=== PATIENT | male | born 1960 | race Two or more races ===

== ENCOUNTER 2022-10-08 20:33 | Inpatient (IN) | payer MEDICAID, OTHER ==
[~2022-10-08] VITALS: Ht 167.6 cm; Wt 52.6 kg
--- NOTE | 2022-10-08 20:53 | NUR ---
INFLUENZA SWAB AND COVID 19 SWAB COLLECTED AND SENT TO LAB.
[2022-10-08] MEDS ORDERED: ACETAMINOPHEN 650 MG/SUPP.RECT RC ONE ×3 (20:56→21:00)
[2022-10-08] MEDS ORDERED: KETOROLAC TROMETHAMINE INJ 30 MG/ML VIAL ONE ×2 (20:56→21:00)
[2022-10-08] MEDS ORDERED: KETOROLAC TROMETHAMINE INJ 30 MG/ML VIAL IV ONE (21:00)
--- NOTE | 2022-10-08 21:01 | NUR ---
ER SALESPERSON MEN'S FURNISHINGS AT BEDSIDE FOR BLOOD DRAW
--- NOTE | 2022-10-08 21:26 | NUR ---
BLOOD AND CULTURES COLLECTED
[2022-10-08 21:34] LABS: BASOPHILS % (AUTO) 0.3 % (0.0-2.0); EOSINOPHILS % (AUTO) 17.1 % (0.0-6.0); HEMATOCRIT 37 % (39-51); HEMOGLOBIN 11.8 g/dL (13.5-17.5); LYMPHOCYTES # (AUTO) 0.6 K/uL (0.8-4.8); LYMPHOCYTES % (AUTO) 5.5 % (20.0-44.0); MEAN CORPUSCULAR HGB CONC 32 g/dl (31.0-36.0); MEAN CORPUSCULAR VOLUME 88 fL (80-96); MONOCYTES # (AUTO) 1.3 K/uL (0.1-1.30); MONOCYTES % (AUTO) 11.6 % (2.0-12.0); NEUTROPHILS # (AUTO) 7.1 K/uL (1.8-8.9); NEUTROPHILS % (AUTO) 65.5 % (43.0-81.0); PLATELET COUNT (AUTO) 337 K/uL (150-450); RED BLOOD CELL COUNT(AUTO) 4.21 MIL/uL (4.5-6.0); WHITE BLOOD COUNT (AUTO) 10.8 K/uL (4.3-11.0)
[2022-10-08 22:08] LABS: ALANINE AMINOTRANSFERASE 27 U/L (12-78); ALBUMIN 2.6 g/dL (3.4-5.0); ALKALINE PHOSPHATASE 129 U/L (46-116); ASPARTATE AMINOTRANSFERASE 24 U/L (15-37); BILIRUBIN,TOTAL 0.4 mg/dL (0.2-1.0); CALCIUM, SERUM 8.7 mg/dL (8.5-10.1); CARBON DIOXIDE 31 mmol/L (21-32); CHLORIDE 104 mmol/L (98-107); GLUCOSE 112 mg/dL (74-106); POTASSIUM 4.6 mmol/L (3.5-5.1); SODIUM SERUM 141 mmol/L (136-145); TOTAL PROTEIN, SERUM 8.4 g/dL (6.4-8.2); UREA NITROGEN, BLOOD 27 mg/dL (7-18)
[2022-10-08] MEDS ORDERED: PIPERACILLIN /TAZOBACTAM 3.375 G in IV D5W 50 ML IV ONE (22:30)
[2022-10-08] MEDS ORDERED: IV NS 0.9% 1,000 ML BAG IV ONE ×2 (22:30→23:00)
[2022-10-08] MEDS ORDERED: PIPERACILLIN /TAZOBACTAM 3.375 G VIAL IV ONE (22:41)
--- NOTE | 2022-10-08 23:41 | NUR ---
REPORT GIVEN TO JEAN SORIANO
[2022-10-09] MEDS ORDERED: ONDANSETRON HCL/PF 4 MG/2 ML VIAL IVP PRN
[2022-10-09] MEDS ORDERED: HYDROCODONE/APAP 5/325MG TABLET GT PRN
[2022-10-09] MEDS ORDERED: MAGNESIUM HYDROXIDE 30 ML UDC PO PRN
[2022-10-09] MEDS ORDERED: ACETAMINOPHEN 650 MG/SUPP.RECT RC PRN
[2022-10-09] MEDS ORDERED: Z GUARD REMEDY 4 OZ OINT TP PRN
[2022-10-09] MEDS ORDERED: MORPHINE SULFATE INJ 4 MG/ML DISP.SYRIN IV PRN (00:30)
[2022-10-09] MEDS: IV NS 0.9% 1,000 ML IV PRN ×2 (00:39→13:40)
--- NOTE | 2022-10-09 00:40 | NUR ---
RN NOTE RECEIVED CRITICAL LAB FOR LACTIC ACID 2.3 MD MADE AWARE.
--- NOTE | 2022-10-09 00:40 | NUR ---
RN NOTE RECEIVED PT IN [facility] FROM ER VIA ACLS PROTOCOLS. PT WAS AWAKE, BUT NON VERBAL. PT BEING ADMITTED IN TELEMETRY WITH THE DX OF COVID-19 AND SECONDARY DX SEPSIS. PT IN TPC, TOLERATING WELL. NO S/SX OF ACUTE RESPI DISTRESS NOTED AT THIS TIME. TELE MONITOR READ ST WITH HR IN THE 100S. O2 SAT @ >95%. IV ACCESS IN RAC #18G NOTED. PT WITH GT, CLAMPED. SKIN IS INTACT. ALL SAFETY MEASURES IN PLACE: BED LOCKED IN LOW POSITION. BED ALARM ON. SR UP X 3. CALL LIGHT WITHIN REACH. WILL CONTINUE TPO MONITOR PT.
[2022-10-09] MEDS: ENOXAPARIN SODIUM 40 MG/0.4 ML DISP.SYRIN SQ SCH ×2 (00:55→21:21)
[2022-10-09] MEDS ORDERED: CEFEPIME 1 GM VIAL ONE (01:07)
[2022-10-09] MEDS: CEFEPIME 1 GM in IV D5W 50 ML IV SCH ×2 (01:14→04:25)
[2022-10-09 04:00] VITALS: BP 100/64
--- NOTE | 2022-10-09 05:21 | NUR ---
RN NOTE PT REMAINED STABLE T/O THE NIGHT. ST ON TELE MONITOR. ON BILATERAL SOFT WRIST RESTRAINTS DUE TO PULLING OF TPC AND IV LINE. DUE MEDS GIVEN. NEEDS ATTENDED TO. TURNED AND REPOSITIONED. WILL ENDORSE TO AM SHIFT NURSE FOR THOR.
[2022-10-09 06:59] LABS: BASOPHILS % (AUTO) 0.5 % (0.0-2.0); EOSINOPHILS % (AUTO) 11.7 % (0.0-6.0); HEMATOCRIT 35 % (39-51); LYMPHOCYTES # (AUTO) 0.6 K/uL (0.8-4.8); LYMPHOCYTES % (AUTO) 8.5 % (20.0-44.0); MEAN CORPUSCULAR HGB CONC 32 g/dl (31.0-36.0); MEAN CORPUSCULAR VOLUME 87 fL (80-96); NEUTROPHILS # (AUTO) 4.8 K/uL (1.8-8.9); NEUTROPHILS % (AUTO) 65.3 % (43.0-81.0); PLATELET COUNT (AUTO) 322 K/uL (150-450); RED BLOOD CELL COUNT(AUTO) 3.99 MIL/uL (4.5-6.0); WHITE BLOOD COUNT (AUTO) 7.4 K/uL (4.3-11.0)
[2022-10-09 07:08] LABS: CALCIUM, SERUM 8.2 mg/dL (8.5-10.1); CREATININE 0.8 mg/dL (0.6-1.3); PHOSPHORUS 4.2 mg/dL (2.5-4.9); POTASSIUM 4.1 mmol/L (3.5-5.1)
--- NOTE | 2022-10-09 07:30 | NUR ---
RN Receiving Report. Patient not able to express his concerns, not able to assess pts mental status. All safety precaution taken, call light and table within reach, bed at lowest position. Patient with no signs of distress or discomfort, discussed plan on care, pt not able to signal a yes or no answer. RT made aware of patients need and they will continue to provide Respiratory care. Will continue to provide care as needed and administered medications as prescribed.
[2022-10-09 08:00] VITALS: BP 113/90
[2022-10-09] MEDS ORDERED: METO25TA20 GT (08:05)
[2022-10-09] MEDS ORDERED: LACT-96 GT (08:05)
[2022-10-09] MEDS ORDERED: QUET25TA GT (08:05)
[2022-10-09] MEDS ORDERED: LOSA100T31 GT (08:05)
[2022-10-09] MEDS ORDERED: NUTR1PAC14 GT (08:05)
[2022-10-09] MEDS ORDERED: ACET-2605 GT (08:05)
[2022-10-09] MEDS ORDERED: MAGN400O6 GT (08:05)
[2022-10-09] MEDS ORDERED: OMEP20CA15 GT (08:05)
[2022-10-09] MEDS ORDERED: BISA10SU11 RC (08:05)
[2022-10-09] MEDS ORDERED: ACET-868 GT (08:05)
[2022-10-09] MEDS ORDERED: NA P133E RC (08:05)
[2022-10-09] MEDS ORDERED: DOCU-141 GT (08:05)
[2022-10-09] MEDS ORDERED: CHLO473M5 MM (08:05)
[2022-10-09] MEDS ORDERED: HYDR-4075 GT (08:05)
[2022-10-09] MEDS ORDERED: VALP250S4 GT (08:05)
[2022-10-09] MEDS ORDERED: IPRA4AER IH ×2 (08:05)
[2022-10-09] MEDS ORDERED: PANTOPRAZOLE 40 MG VIAL IV SCH (09:00)
[2022-10-09] MEDS: DEXAMETHASONE SOD PHOSPHATE 10 MG/ML VIAL IV SCH (11:31)
[2022-10-09 12:00] VITALS: BP 129/73
[2022-10-09] MEDS: CEFEPIME 2 GM in IV D5W 100 ML IV SCH ×2 (13:40→21:21)
[2022-10-09] MEDS ORDERED: hydrALAZINE HCL 10 MG TABLET GT PRN (15:30)
[2022-10-09] MEDS ORDERED: ACETAMINOPHEN 325 MG TABLET MC PRN ×2 (15:30)
[2022-10-09 16:00] VITALS: BP 120/86
[2022-10-09] MEDS: METOPROLOL TARTRATE 25 MG TABLET GT SCH (16:18)
[2022-10-09] MEDS: QUETIAPINE FUMARATE 25 MG TABLET GT SCH (16:18)
--- NOTE | 2022-10-09 18:38 | NUR ---
RN Closing Note Not able to assess pts mental status. Patient not able to express his concern, rounded every hour as needed.Patient not able to nod responses, turns to touch. No signs of IV infiltration, no respiratory distress, RT monitored and provided care as needed. Patient remained stable thorough shift. All medications administered as ordered. Care provided as needed and requested.
[2022-10-09 20:00] VITALS: BP 97/53
--- NOTE | 2022-10-09 20:00 | NUR ---
RN NOTE RECEIVED PT IN BED, OPEN EYES TO STIMULI, NONVERBAL. ON ON O2 TPC AT 4L. NO SIGNS OF DISTRESS OR DISCOMFORT NOTED. SR ON TELE MONITOR. GT INTACT AND PATENT. WILL CONTINUE TO MONITOR.
[2022-10-09] MEDS: VALPROIC ACID 250 MG/5 ML UDC GT SCH (21:22)
[2022-10-10] VITALS: BP 89/63
[2022-10-10 04:00] VITALS: BP 105/80
[2022-10-10] MEDS: CEFEPIME 2 GM in IV D5W 100 ML IV SCH ×3 (04:35→20:41)
[2022-10-10] MEDS: IV NS 0.9% 1,000 ML IV PRN ×2 (04:41→19:24)
--- NOTE | 2022-10-10 07:30 | NUR ---
RN OPENING NOTES RECEIVED REPORT FROM NIGHTSHIFT RN. PATIENT IN ON 4 LITERS VIA T-PIECE. NONVERBAL PATIENT. OPERATIONS DEVELOPER READING NORMAL SINUS RHYTHM. BILATERAL WRIST RESTRAINTS NOTED, DISTAL CIRCULATION IS WITHIN NORMAL LIMITS. GASTRIC TUBE CLAMPED, AWAITING ORDER FROM PHYSICIAN TO BEGIN TUBE FEEDING. IV ACCESS' ON RIGHT ANTECUBITAL AND RIGHT HAND, BOTH 20 GAUGE, AND BOTH FLUSHING EASILY WITHOUT RESISTANCE. SAFETY MEASURES IMPLEMENTED, WILL CONTINUE PLAN OF CARE AND ANTICIPATE NEEDS.
--- NOTE | 2022-10-10 07:41 | NUR ---
RN NOTE PT TOLERATES O2 AT 4L VIA TPIECE. NO SIGNS OF DISTRESS O2 SAT AT 98%. SR ON TELE MONITOR. REMAIN AFEBRILE. ENDORSED TO [facility] NURSE FOR THOR.
[2022-10-10 08:00] VITALS: BP 118/70
[2022-10-10 08:09] LABS: BASOPHILS % (AUTO) 0.2 % (0.0-2.0); HEMATOCRIT 37 % (39-51); HEMOGLOBIN 11.7 g/dL (13.5-17.5); LYMPHOCYTES # (AUTO) 1.3 K/uL (0.8-4.8); LYMPHOCYTES % (AUTO) 11.4 % (20.0-44.0); MEAN CORPUSCULAR HGB CONC 31 g/dl (31.0-36.0); MEAN CORPUSCULAR VOLUME 88 fL (80-96); MONOCYTES # (AUTO) 1.4 K/uL (0.1-1.30); NEUTROPHILS # (AUTO) 8.9 K/uL (1.8-8.9); NEUTROPHILS % (AUTO) 76.4 % (43.0-81.0); PLATELET COUNT (AUTO) 329 K/uL (150-450); RED BLOOD CELL COUNT(AUTO) 4.27 MIL/uL (4.5-6.0); WHITE BLOOD COUNT (AUTO) 11.6 K/uL (4.3-11.0)
[2022-10-10 08:16] LABS: CALCIUM, SERUM 8.4 mg/dL (8.5-10.1); CREATININE 0.8 mg/dL (0.6-1.3); MAGNESIUM 2.2 mg/dL (1.8-2.4); PHOSPHORUS 3.1 mg/dL (2.5-4.9); POTASSIUM 4.2 mmol/L (3.5-5.1)
[2022-10-10] MEDS ORDERED: OMEPRAZOLE 20 MG CAPSULE.DR GT SCH (09:00)
[2022-10-10] MEDS: VALPROIC ACID 250 MG/5 ML UDC GT SCH ×2 (09:24→20:41)
[2022-10-10] MEDS: METOPROLOL TARTRATE 25 MG TABLET GT SCH ×2 (09:27→16:35)
[2022-10-10] MEDS: LOSARTAN POTASSIUM 50 MG TABLET GT SCH (09:27)
[2022-10-10] MEDS: QUETIAPINE FUMARATE 25 MG TABLET GT SCH ×2 (09:27→16:34)
[2022-10-10] MEDS: DOCUSATE SODIUM 100 MG CAPSULE PO SCH (09:27)
[2022-10-10] MEDS: DEXAMETHASONE SOD PHOSPHATE 10 MG/ML VIAL IV SCH (09:27)
[2022-10-10] MEDS: PANTOPRAZOLE 40 MG/PACK PACK GT SCH (09:27)
[2022-10-10 12:00] VITALS: BP 94/73
[2022-10-10 16:00] VITALS: BP 97/74
--- NOTE | 2022-10-10 18:41 | NUR ---
RN CLOSING NOTES PATIENT ON 4 LITERS VIA T-PIECE. NONVERBAL PATIENT. SPINNING FRAME TENDER READING NORMAL SINUS RHYTHM. BILATERAL WRIST RESTRAINTS NOTED, DISTAL CIRCULATION IS WITHIN NORMAL LIMITS. GASTRIC TUBE CLAMPED, AWAITING ORDER FROM PHYSICIAN TO BEGIN TUBE FEEDING. IV ACCESS' ON RIGHT ANTECUBITAL AND RIGHT HAND, BOTH 20 GAUGE, AND BOTH FLUSHING EASILY WITHOUT RESISTANCE. SAFETY MEASURES IMPLEMENTED, WILL ENDORSE TO NIGHTSHIFT RN FOR CONTINUATION OF CARE.
--- NOTE | 2022-10-10 19:48 | NUR ---
FRONT DESK OPENING NOTES RECEIVED PATIENT AWAKE ON BED, ON 4 LITERS VIA T-PIECE. NONVERBAL PATIENT. NEEDLE PUNCH OPERATOR READING NORMAL SINUS RHYTHM. BILATERAL WRIST RESTRAINTS NOTED, DISTAL CIRCULATION IS WITHIN NORMAL LIMITS. NOTED WITH GASTRIC TUBE CLAMPED, WILL FOLLOW UP MD TO BEGIN FEEDING. IV ACCESS' ON RIGHT ANTECUBITAL AND RIGHT HAND, BOTH 20 GAUGE, AND BOTH FLUSHING EASILY WITHOUT RESISTANCE. SAFETY MEASURES IMPLEMENTED, BED ALARM ON, WILL CONTINUE TO MONITOR THROUGHOUT THE SHIFT.
[2022-10-10 20:00] VITALS: BP 118/75
[2022-10-10] MEDS: ENOXAPARIN SODIUM 40 MG/0.4 ML DISP.SYRIN SQ SCH (21:03)
--- NOTE | 2022-10-10 21:51 | NUR ---
RN NOTE LEATHER LEVELER MD MADE AWARE PT HAS A STANDING ORDER TO START GT FEEDING OF JEVITY 1.2 AT 25 ML/HR TO REACH GOAL OF 55 ML/HR X24 HRS. RESPONDED OKAY TO ORDER AT THIS TIME. AWAITING FEEDING TO BE VERIFIED BY PHARMACY.
[2022-10-10] MEDS ORDERED: JEVITY 1.2 CAL 1,000 ML BOTTLE GT PRN (22:00)
[2022-10-11] VITALS: BP 98/59
[2022-10-11 04:00] VITALS: BP 104/69
[2022-10-11] MEDS: CEFEPIME 2 GM in IV D5W 100 ML IV SCH ×3 (04:34→20:51)
--- NOTE | 2022-10-11 06:46 | NUR ---
HEAD OF GEOGRAPHY CLOSING NOTES PATIENT AWAKE ON BED, ON 4 LITERS VIA T-PIECE. NONVERBAL. ON LUMBER GRADER READING NORMAL SINUS RHYTHM W/ PVC'S AT 85 BPM. WITH BILATERAL WRIST RESTRAINTS, DISTAL CIRCULATION IS WITHIN NORMAL LIMITS. WITH GASTRIC TUBE IN PLACE RUNNING JEVITY 1.2 AT 55 ML/HR, IV ACCESS ON RIGHT ANTECUBITAL AND RIGHT HAND #20G RUNNING NS AT 75 ML/HR, ALL DUE MEDS GIVEN, KEPT DRY AND CLEAN AT ALL TIMES, SAFETY MEASURES IMPLEMENTED, BED ALARM ON, WILL ENDORSE TO AM SHIFT NURSE FOR CONTINUITY OF CARE.
[2022-10-11] MEDS ORDERED: JEVITY 1.2 CAL 1,000 ML BOTTLE GT PRN (07:04)
[2022-10-11 07:38] LABS: CALCIUM, SERUM 8.5 mg/dL (8.5-10.1); CREATININE 0.8 mg/dL (0.6-1.3); MAGNESIUM 2.3 mg/dL (1.8-2.4); POTASSIUM 4.3 mmol/L (3.5-5.1)
[2022-10-11 07:39] LABS: BASOPHILS % (AUTO) 0.1 % (0.0-2.0); HEMATOCRIT 42 % (39-51); HEMOGLOBIN 12.6 g/dL (13.5-17.5); LYMPHOCYTES # (AUTO) 1.7 K/uL (0.8-4.8); LYMPHOCYTES % (AUTO) 12.1 % (20.0-44.0); MEAN CORPUSCULAR HGB CONC 30 g/dl (31.0-36.0); MEAN CORPUSCULAR VOLUME 90 fL (80-96); MONOCYTES # (AUTO) 1.3 K/uL (0.1-1.30); MONOCYTES % (AUTO) 9.6 % (2.0-12.0); NEUTROPHILS # (AUTO) 10.7 K/uL (1.8-8.9); NEUTROPHILS % (AUTO) 78.2 % (43.0-81.0); PLATELET COUNT (AUTO) 342 K/uL (150-450); RED BLOOD CELL COUNT(AUTO) 4.62 MIL/uL (4.5-6.0); WHITE BLOOD COUNT (AUTO) 13.7 K/uL (4.3-11.0)
[2022-10-11 08:00] VITALS: BP 100/70
--- NOTE | 2022-10-11 08:00 | NUR ---
JUMP IRON MACHINE PRESSER OPENING NOTES RECEIVED PATIENT AWAKE ON BED, ON 4 LITERS VIA T-PIECE. NONVERBAL PATIENT. HOUSE MOVER READING NORMAL SINUS RHYTHM. BILATERAL WRIST RESTRAINTS NOTED, DISTAL CIRCULATION IS WITHIN NORMAL LIMITS. ON GT FEEDING, WITH JEVITY 1.2 @55ML/HR, TOLERATING WELL, NO RESIDUAL NOTED. IV ACCESS' ON RIGHT ANTECUBITAL AND RIGHT HAND, BOTH 20 GAUGE, AND BOTH FLUSHING EASILY WITHOUT RESISTANCE WITH NS RUNNING @75ML/HR. SAFETY MEASURES IMPLEMENTED, BED ALARM ON, CALL LIGHT WITHIN REACH. PLAN OF CARE CONTINUED.
[2022-10-11] MEDS: DOCUSATE SODIUM 100 MG CAPSULE PO SCH (09:06)
[2022-10-11] MEDS: METOPROLOL TARTRATE 25 MG TABLET GT SCH ×2 (09:06→16:59)
[2022-10-11] MEDS: DEXAMETHASONE SOD PHOSPHATE 10 MG/ML VIAL IV SCH (09:06)
[2022-10-11] MEDS: VALPROIC ACID 250 MG/5 ML UDC GT SCH ×2 (09:06→20:51)
[2022-10-11] MEDS: PANTOPRAZOLE 40 MG/PACK PACK GT SCH (09:06)
[2022-10-11] MEDS: QUETIAPINE FUMARATE 25 MG TABLET GT SCH ×2 (09:06→16:58)
[2022-10-11] MEDS: LOSARTAN POTASSIUM 50 MG TABLET GT SCH (09:06)
--- NOTE | 2022-10-11 10:49 | NUR ---
MORNING SHOW PRODUCER NOTES RECEIVED CALL FROM [facility] PHARMACIST, PATIENT POSITIVE OF MRSA OF THE NARES, NEW ORDER BACTROBAN OINTMENT BID X 7 DAYS.
[2022-10-11 12:00] VITALS: BP 113/81
[2022-10-11] MEDS: IV NS 0.9% 1,000 ML IV PRN (13:03)
[2022-10-11 16:00] VITALS: BP 108/84
[2022-10-11] MEDS: MUPIROCIN OINT 2% 22 GM TUBE NS SCH (16:59)
--- NOTE | 2022-10-11 18:10 | NUR ---
HOBBIES AND CRAFTS SALES REPRESENTATIVE CLOSING NOTES RECEIVED PATIENT AWAKE ON BED, ON 4 LITERS VIA T-PIECE. NONVERBAL PATIENT. FIRST SAMPLER READING NORMAL SINUS RHYTHM, BILATERAL WRIST RESTRAINTS NOTED, DISTAL CIRCULATION IS WITHIN NORMAL LIMITS. ON GT FEEDING, WITH JEVITY 1.2 @55ML/HR, TOLERATING WELL, NO RESIDUAL NOTED. IV ACCESS' ON RIGHT ANTECUBITAL AND RIGHT HAND, BOTH 20 GAUGE, AND BOTH FLUSHING EASILY WITHOUT RESISTANCE WITH NS RUNNING @75ML/HR. SAFETY MEASURES IMPLEMENTED, BED ALARM ON, CALL LIGHT WITHIN REACH. WILL ENDORSE TO SPA DIRECTOR/FINANCE NURSE FOR THOR.
--- NOTE | 2022-10-11 19:00 | NUR ---
RN NOTE PATIENT IN BED, AWAKE/ORIENTED TO NAME, FOLLOWS SIMPLE COMMANDS, IN NO ACUTE DISTRESS, SATURATION AT 100% ON 4L VIA TRACH TO TPIECE, SR ON THE MONITOR, HR IS 61. IV LINE AT RAC20G AND R HAND 20G PATENT AND FLUSHING WELL, NS INFUSING AT 75 ML/HR. GTUBE IN PLACE, POSITIVE PLACEMENT NOTED, NO RESIDUAL, RESUMED TUBE FEEDING OF JEVITY AT 55 ML/HR. B SOFT WRIST RESTRAINTS IN PLACE. SAFETY MEASURES IMPLEMENTED, HOB ELEVATED, BED IS LOCKED AND AT LOWEST POSITION, CALL LIGHT WITHIN REACH OF PATIENT. WILL CONT TO MONITOR AND REASSESS.
[2022-10-11 20:00] VITALS: BP 110/79
[2022-10-11] MEDS: ENOXAPARIN SODIUM 40 MG/0.4 ML DISP.SYRIN SQ SCH (20:52)
--- NOTE | 2022-10-11 21:10 | NUR ---
RN NOTE REPORT GIVEN TO JESSIE PENA FOR CONTINUATION OF CARE
--- NOTE | 2022-10-11 21:15 | NUR ---
DIAPER MACHINE TENDER NOTE RECEIVED TRANSFER OF CARE REPORT FROM JEAN MCGEE. PATIENT AWAKE IN BED, NON-VERBAL BUT ABLE TO FOLLOW SIMPLE COMMANDS. PATIENT ON 4 LPM OF O2 VIA T-PIECE. PATIENT ON EXTERNAL FLIGHT ATTENDANT/INFLIGHT SUPERVISOR READING SINUS RHYTHM, HR: 60. PATIENT ON GTF JEVITY 1.2 @ 55 ML/HR. IV ACCESS ON RIGHT HAND #20G INTACT AND INFUSING NS @ 75 ML/HR, IV ACCESS ON RAC #20G INTACT AND SALINE LOCKED. BILATERAL SOFT WRIST RESTRAINTS IN PLACE. SAFETY MEASURES IN PLACE: CALL LIGHT WITHIN REACH, SIDE RAILS UP X 3, HOB ELEVATED, BED LOCKED IN LOWEST POSITION, BED ALARM ON. WILL CONTINUE TO MONITOR PATIENT
[2022-10-12] VITALS: BP 108/73
[2022-10-12 04:00] VITALS: BP 107/79
[2022-10-12] MEDS: IV NS 0.9% 1,000 ML IV PRN (04:59)
[2022-10-12] MEDS: CEFEPIME 2 GM in IV D5W 100 ML IV SCH ×2 (04:59→12:22)
--- NOTE | 2022-10-12 06:23 | NUR ---
EMBEDDED FIRMWARE ENGINEER CLOSING NOTE PATIENT SLEEPING IN BED, NON-VERBAL BUT ABLE TO FOLLOW SIMPLE COMMANDS. PATIENT TITRATED DOWN BY RT TO 2 LPM OF O2 VIA T-PIECE, NO S/S OF DISTRESS OR SOB NOTED, BREATHING EVEN AND UNLABORED, SPO2: 98%. PATIENT ON EXTERNAL COAT JOINER READING SINUS LORNA, HR: 59; LOWEST HEART RATE ON MONITOR THIS SHIFT WAS 40 BPM. PATIENT ON GTF JEVITY 1.2 @ 55 ML/HR X 24 HOURS, TOLERATED WELL. IV ACCESS ON RIGHT HAND #20G INTACT AND INFUSING NS @ 75 ML/HR, IV ACCESS ON RAC #20G INTACT AND SALINE LOCKED. BILATERAL SOFT WRIST RESTRAINTS IN PLACE. NO SIGNIFICANT CHANGES THIS SHIFT, MEDICATIONS GIVEN ORDERED, PT NEEDS MET THROUGHOUT SHIFT, PATIENT TURNED Q2H. SAFETY MEASURES IN PLACE: CALL LIGHT WITHIN REACH, SIDE RAILS UP X 3, HOB ELEVATED, BED LOCKED IN LOWEST POSITION, BED ALARM ON. WILL ENDORSE TO DAYSHIFT RN FOR CONTINUITY OF CARE
[2022-10-12 07:02] LABS: BASOPHILS % (AUTO) 0.2 % (0.0-2.0); EOSINOPHILS % (AUTO) 0.1 % (0.0-6.0); HEMATOCRIT 38 % (39-51); HEMOGLOBIN 11.5 g/dL (13.5-17.5); MEAN CORPUSCULAR HGB CONC 31 g/dl (31.0-36.0); MEAN CORPUSCULAR VOLUME 90 fL (80-96); MONOCYTES # (AUTO) 0.9 K/uL (0.1-1.30); MONOCYTES % (AUTO) 9.6 % (2.0-12.0); NEUTROPHILS # (AUTO) 7.1 K/uL (1.8-8.9); NEUTROPHILS % (AUTO) 79.1 % (43.0-81.0); PLATELET COUNT (AUTO) 200 K/uL (150-450); RED BLOOD CELL COUNT(AUTO) 4.19 MIL/uL (4.5-6.0); WHITE BLOOD COUNT (AUTO) 8.9 K/uL (4.3-11.0)
[2022-10-12 07:29] LABS: CALCIUM, SERUM 8.5 mg/dL (8.5-10.1); CREATININE 0.7 mg/dL (0.6-1.3); MAGNESIUM 2.3 mg/dL (1.8-2.4); PHOSPHORUS 2.5 mg/dL (2.5-4.9); POTASSIUM 4.1 mmol/L (3.5-5.1)
[2022-10-12 08:00] VITALS: BP 110/83
[2022-10-12] MEDS: MUPIROCIN OINT 2% 22 GM TUBE NS SCH (10:52)
[2022-10-12] MEDS: LOSARTAN POTASSIUM 50 MG TABLET GT SCH (10:53)
[2022-10-12] MEDS: VALPROIC ACID 250 MG/5 ML UDC GT SCH (10:53)
[2022-10-12] MEDS: DEXAMETHASONE SOD PHOSPHATE 10 MG/ML VIAL IV SCH (10:54)
[2022-10-12] MEDS: PANTOPRAZOLE 40 MG/PACK PACK GT SCH (10:54)
[2022-10-12] MEDS: QUETIAPINE FUMARATE 25 MG TABLET GT SCH (10:54)
[2022-10-12] MEDS: METOPROLOL TARTRATE 25 MG TABLET GT SCH (10:54)
[2022-10-12] MEDS ORDERED: DOCUSATE SODIUM LIQ 100 MG/10 ML UDC PO SCH (11:00)
[2022-10-12 12:00] VITALS: BP 119/89
[2022-10-12] MEDS ORDERED: CEFE2FRO IV (14:36)
--- NOTE | 2022-10-12 15:30 | NUR ---
RN NOTE CALLED AND GAVE REPORT TO JEAN CASTRO AT [facility], ESTIMATED TIME OF SPECIMEN PROCESSOR VIA AMBULANCE IS 0.
--- NOTE | 2022-10-12 16:33 | NUR ---
RN NOTE PATIENT DISCHARGED VIA GURNEY WITH [facility] CREW. ALL VS TAKEN WNL. ID BAND AND TELE MONITOR REMOVED. CHARGE NURSE AWARE.
== END 2022-10-12 16:27 | DRG 137 ==
LOC: ER 20:35 → TELE1 23:23
PROVIDERS: ADMIT Nurse Practitioner Acute Care; ATTEND Nurse Practitioner Acute Care
DX: U07.1 COVID-19 (principal); J12.82 Pneumonia due to coronavirus disease 2019; G93.41 Metabolic encephalopathy; E44.0 Moderate protein-calorie malnutrition; E87.20 Acidosis, unspecified; R53.2 Functional quadriplegia; J96.10 Chronic respiratory failure, unspecified whether with hypoxia or hypercapnia; I69.398 Other sequelae of cerebral infarction; Z93.0 Tracheostomy status; K21.9 Gastro-esophageal reflux disease without esophagitis; Z93.1 Gastrostomy status; G40.909 Epilepsy, unspecified, not intractable, without status epilepticus; I10 Essential (primary) hypertension
CPT/HCPCS: 31720; 36415; 71045-TC; 80048-TC; 80053-TC; 82248-TC; 83605-TC; 83735-TC; 84100-TC; 85025-TC; 85378-TC; 85652-TC; 86140-TC; 87040-TC; 87081-TC; 94640-TC; 94762-TC; 94799-TC; A4349; A7526; C9113; C9803; G0378; J0692; J1100; J1650; J1885; J2543; J7030; J7060

== ENCOUNTER 2022-10-16 11:00 | Inpatient (IN) | payer MEDICAID ==
[~2022-10-16] VITALS: Ht 165.1 cm; Wt 42.6 kg
[~2022-10-16 11:00] MED LIST: ACET-2605 GT; ACET-868 GT; BISA10SU11 RC; CEFE2FRO IV; CHLO473M5 MM; DOCU-141 GT; HYDR-4075 GT; IPRA4AER IH; LACT-96 GT; LOSA100T31 GT; MAGN400O6 GT; METO25TA20 GT; NA P133E RC; NUTR1PAC14 GT; OMEP20CA15 GT; QUET25TA GT; VALP250S4 GT
--- NOTE | 2022-10-16 11:10 | NUR ---
[facility], PER REPORT ADMITTED W [facility] LAST 10/12, NOTED LOW O2 SAT THIS MORNING". PLACED IN BED, AWAKE- NOT RESPONDING TO VERBAL STIMULI BUT TO PAINFUL, UNLABORED BREATHING SATURATING AT 97% WITH 5LIT O2 VIA TRACH. TUBE, G-TUBE INSITU.
--- NOTE | 2022-10-16 11:30 | NUR ---
BLOOD DRAWN, SWAB FOR COVID19 AND RAPID INFLUENZA SENT TO LAB.
--- NOTE | 2022-10-16 11:41 | NUR ---
MOVE SHEET SUBMITTED.
[2022-10-16 11:42] LABS: BASOPHILS % (AUTO) 0.1 % (0.0-2.0); EOSINOPHILS % (AUTO) 7.4 % (0.0-6.0); HEMATOCRIT 37 % (39-51); HEMOGLOBIN 11.6 g/dL (13.5-17.5); LYMPHOCYTES # (AUTO) 0.7 K/uL (0.8-4.8); LYMPHOCYTES % (AUTO) 3.7 % (20.0-44.0); MEAN CORPUSCULAR HGB CONC 31 g/dl (31.0-36.0); MEAN CORPUSCULAR VOLUME 87 fL (80-96); MONOCYTES # (AUTO) 0.9 K/uL (0.1-1.30); MONOCYTES % (AUTO) 4.8 % (2.0-12.0); NEUTROPHILS # (AUTO) 16.1 K/uL (1.8-8.9); PLATELET COUNT (AUTO) 414 K/uL (150-450); RED BLOOD CELL COUNT(AUTO) 4.26 MIL/uL (4.5-6.0); WHITE BLOOD COUNT (AUTO) 19.2 K/uL (4.3-11.0)
[2022-10-16 11:51] LABS: CALCIUM, SERUM 8.2 mg/dL (8.5-10.1); CARBON DIOXIDE 31 mmol/L (21-32); CHLORIDE 107 mmol/L (98-107); CREATININE 0.8 mg/dL (0.6-1.3); GLUCOSE 193 mg/dL (74-106); SODIUM SERUM 144 mmol/L (136-145); UREA NITROGEN, BLOOD 23 mg/dL (7-18)
[2022-10-16] MEDS ORDERED: CEFTRIAXONE 1GM BAG (ER ONLY) 50 ML IV ONE (12:00)
[2022-10-16] MEDS ORDERED: AZITHROMYCIN 500 MG in IV D5W 250 ML IV ONE (12:00)
[2022-10-16] MEDS ORDERED: IV NS 0.9% 1,000 ML BAG IV ONE (12:00)
[2022-10-16 12:06] LABS: ALANINE AMINOTRANSFERASE 45 U/L (12-78); ALBUMIN 2.1 g/dL (3.4-5.0); ALKALINE PHOSPHATASE 94 U/L (46-116); ASPARTATE AMINOTRANSFERASE 21 U/L (15-37); BILIRUBIN,DIRECT 0.1 mg/dL (0.0-0.2); BILIRUBIN,TOTAL 0.3 mg/dL (0.2-1.0); TOTAL PROTEIN, SERUM 7.1 g/dL (6.4-8.2)
[2022-10-16] MEDS ORDERED: hydrALAZINE HCL 10 MG TABLET GT PRN (12:30)
[2022-10-16] MEDS ORDERED: MAGNESIUM HYDROXIDE 30 ML UDC GT PRN (12:30)
[2022-10-16] MEDS ORDERED: ALBUTEROL FS 2.5 MG/3 ML VIAL.NEB NEB PRN (12:30)
[2022-10-16] MEDS ORDERED: NA PHOS,M-B/NA PHOS,DI-BA 1 EA ENEMA RC PRN (12:30)
[2022-10-16] MEDS ORDERED: ACETAMINOPHEN ES 500 MG TABLET GT PRN (12:30)
[2022-10-16] MEDS ORDERED: ACETAMINOPHEN 325 MG TABLET PO PRN (12:30)
[2022-10-16] MEDS ORDERED: BISACODYL SUPP (10 MG) 10 MG/SUPP.RECT SUPP.RECT RC PRN (12:30)
[2022-10-16] MEDS ORDERED: IPRATROPIUM NEB FS 0.5 MG/2.5 ML AMPUL.NEB NEB PRN (12:30)
[2022-10-16] MEDS ORDERED: CEFEPIME 1 GM in IV D5W 50 ML IV SCH (13:00)
[2022-10-16] MEDS ORDERED: ENOXAPARIN SODIUM 40 MG/0.4 ML DISP.SYRIN SQ SCH (13:00)
[2022-10-16] MEDS ORDERED: CEFEPIME 2 GM in IV D5W 50 ML IV SCH (13:00)
[2022-10-16 13:17] LABS: ABG BASE EXCESS 0.8 mmol/L; ABG PCO2 49.1 mmHg (35.0-45.0); ABG PH 7.355 (7.350-7.450); ABG PO2 369.2 mmHg (75.0-100.0); COHb 0.2 % (0.5-1.5); MetHb 0.3 % (0.0-1.5); O2Hb 98.7 % (94.0-97.0); SITE, ABG Right Radial; VENT MODE, BG TBAR 5L 02 BLEED IN
--- NOTE | 2022-10-16 13:26 | NUR ---
REPORT GIVEN TO CRISTINO DUFF RN ROOM 119 FOR THOR
[2022-10-16] MEDS ORDERED: JEVITY 1.2 CAL 1,000 ML BOTTLE GT PRN (13:30)
[2022-10-16] MEDS ORDERED: VANCOMYCIN 1.25 GM in IV D5W 250 ML IV SCH (14:00)
--- NOTE | 2022-10-16 14:25 | NUR ---
TELE ADMISSION RN NOTES RECEIVED PATIENT FROM ED [facility], RECEIVED REPORT FROM BONITA RN, PATIENT ALERT BUT NON VERBAL, ON T PIECE NOTED INTACT, ON 4LPM 02 SATING AT 97%, NO SOB NOTED, AUDIBLE CRACKLES NOTED AND PINKISH SPUTUM. RIGHT AC PIV NOTED PATENT AND INTACT, FLUSHES WELL. NOTED RIGHT FEMORAL PICC LINE WITH 3 LUMEN NOTED INTACT. F/C NOTED PATENT AND INTACT, WITH CLEAR SELAM COLORED URINE. NOTED GT PATENT AND INTACT, FLUSHES WELL, ON JEVITY 1.2, NO RESIDUAL NOTED. ON TELE MONITORING WITH SR HR 75. VS T 98.1 RR 20 BP 98/70 01 Ar 97%. SAFETY MEASURES IN PLACED. CALL LIGHT WITHIN REACH. PLAN OF CARE CONTINUED.
[2022-10-16] MEDS: CEFEPIME 2 GM in IV D5W 100 ML IV SCH ×2 (15:28→20:46)
[2022-10-16] MEDS: IV NS 0.9% 1,000 ML IV PRN (15:29)
[2022-10-16] MEDS: ENOXAPARIN SODIUM 40 MG/0.4 ML DISP.SYRIN SQ SCH (15:54)
[2022-10-16 16:00] VITALS: BP 98/70
[2022-10-16] MEDS: METOPROLOL TARTRATE 25 MG TABLET GT SCH (16:53)
[2022-10-16] MEDS: QUETIAPINE FUMARATE 25 MG TABLET GT SCH (16:53)
[2022-10-16] MEDS: CHLORHEXIDINE GLUCONATE 15 ML UDC MM SCH (16:53)
[2022-10-16] MEDS: JEVITY 1.2 CAL 1,000 ML BOTTLE GT SCH (17:35)
--- NOTE | 2022-10-16 17:45 | NUR ---
CASE SEALER NOTES URINE COLLECTED, CALLED LABS TO PICK IT UP, PLAN OF CARE CONTINUE.
--- NOTE | 2022-10-16 19:30 | NUR ---
silvino rn opening received patient in bed, with eyes closed, easy to arouse. no s/s of apparent distress on4lpm of o2 via T-piece. not exhibiting pain via flacc. reading sr with 81 bpm on the tele monitor. G-tube running Jevity @70mls/hr. rt. ac #18g running ns @100mls/hr. Gregg cath draining yellow urine with sediments. Isolation for Covid in place. safety in place. will cont. with patient's plan of care. Addendum: 10/17/22 at 0140 by CRISTAL TERAN RN note entered by Cristal Teran RN.
[2022-10-16 19:53] LABS: BILIRUBIN,URINE NEGATIVE (NEGATIVE); COLOR,URINE YELLOW (YELLOW); LEUKOCYTE ESTERASE ,URINE NEGATIVE (NEGATIVE); NITRITE, URINE NEGATIVE (NEGATIVE); PROTEIN,URINE 2+ mg/dl (NEGATIVE); UGLUCOSE NEGATIVE (NEGATIVE); UROBILINOGEN,URINE 0.2 EU/dL (0.2)
[2022-10-16 20:00] VITALS: BP 87/57
[2022-10-16 20:08] LABS: BACTERIA,URINE Moderate /HPF (None Seen)
[2022-10-16 20:09] LABS: HYALINE CASTS, URINE Few /LPF (None Seen); SQUAMOUS EPITHELIAL CELL,UR Few /HPF (None Seen)
[2022-10-16 20:10] LABS: FINE GRANULAR CASTS,URINE Few /LPF (None Seen)
[2022-10-16] MEDS: VALPROIC ACID 250 MG/5 ML UDC GT SCH (20:46)
[2022-10-16] MEDS: Z GUARD REMEDY 4 OZ OINT TP SCH (20:47)
[2022-10-16 21:00] VITALS: BP 103/75
--- NOTE | 2022-10-16 21:01 | NUR ---
silvino merritt note- bp re-check 103/75 hr 93. will monitor. Addendum: 10/17/22 at 0140 by CRISTAL TERAN RN note entered by Cristal Teran RN.
[2022-10-17] VITALS: BP 110/72
--- NOTE | 2022-10-17 01:29 | NUR ---
noc rn note- probable omnicell discrepancy was logged into am shifts account the whole time JEAN Lucero. hence had to undo all medication administration on his account and had to schedule admin medication on my account. Made Charge Nurse, Varinder aware of the situation.
[2022-10-17] MEDS ORDERED: VANCOMYCIN 0.75 GM in IV D5W 250 ML IV SCH (02:00)
[2022-10-17 04:00] VITALS: BP 101/77
[2022-10-17] MEDS: CEFEPIME 2 GM in IV D5W 100 ML IV SCH ×3 (04:59→20:04)
[2022-10-17] MEDS: IV NS 0.9% 1,000 ML IV PRN (06:01)
[2022-10-17 06:35] LABS: BASOPHILS % (AUTO) 0.1 % (0.0-2.0); HEMATOCRIT 32 % (39-51); LYMPHOCYTES # (AUTO) 1.3 K/uL (0.8-4.8); LYMPHOCYTES % (AUTO) 9.2 % (20.0-44.0); MEAN CORPUSCULAR HGB CONC 31 g/dl (31.0-36.0); MEAN CORPUSCULAR VOLUME 87 fL (80-96); MONOCYTES # (AUTO) 0.9 K/uL (0.1-1.30); MONOCYTES % (AUTO) 6.7 % (2.0-12.0); NEUTROPHILS # (AUTO) 9.1 K/uL (1.8-8.9); PLATELET COUNT (AUTO) 391 K/uL (150-450); RED BLOOD CELL COUNT(AUTO) 3.69 MIL/uL (4.5-6.0)
[2022-10-17 07:08] LABS: CREATININE 0.5 mg/dL (0.6-1.3); PHOSPHORUS 1.9 mg/dL (2.5-4.9); POTASSIUM 3.6 mmol/L (3.5-5.1)
--- NOTE | 2022-10-17 07:09 | NUR ---
noc rn closing patient in bed with eyes closed, easy to arouse. no s/s of apparent distress on 4lpm of o2 via T-piece. Gregg draining well with output of 300. reading sr this am in the 80's. GT feeding resumed this am. all needs attended. all scheduled meds administered. endorsed to Grand and Mary Maribel RN for the continuity of patient care.
--- NOTE | 2022-10-17 07:19 | NUR ---
PATIENT IS RESTING COMFORTABLY, NO SIGNS OF IN DISTRESS.
[2022-10-17 08:00] VITALS: BP 111/61
[2022-10-17] MEDS: Z GUARD REMEDY 4 OZ OINT TP SCH ×2 (08:44→20:05)
[2022-10-17] MEDS: LOSARTAN POTASSIUM 50 MG TABLET GT SCH (09:00)
[2022-10-17] MEDS: METOPROLOL TARTRATE 25 MG TABLET GT SCH ×2 (09:00→16:42)
[2022-10-17] MEDS: VALPROIC ACID 250 MG/5 ML UDC GT SCH ×2 (09:05→20:04)
[2022-10-17] MEDS: QUETIAPINE FUMARATE 25 MG TABLET GT SCH ×2 (09:06→16:43)
[2022-10-17] MEDS: DOCUSATE SODIUM 100 MG CAPSULE PO SCH (09:06)
[2022-10-17] MEDS: PANTOPRAZOLE 40 MG/PACK PACK GT SCH (09:06)
[2022-10-17] MEDS: CHLORHEXIDINE GLUCONATE 15 ML UDC MM SCH ×2 (09:07→16:41)
[2022-10-17] MEDS ORDERED: NEUTRA PHOS 1 POWD.PACKET GT ONE (11:00)
[2022-10-17 12:00] VITALS: BP 109/83
[2022-10-17] MEDS: IPRATROPIUM NEB FS 0.5 MG/2.5 ML AMPUL.NEB NEB SCH ×4 (12:00→23:30)
[2022-10-17] MEDS: ACETYLCYSTEINE 10% SOLN 400 MG/4 ML VIAL NEB SCH ×3 (12:00→23:30)
--- NOTE | 2022-10-17 12:22 | NUR ---
AUTOMOTIVE SPECIALTY TECHNICIAN NOTES INFORMED DR. GUILLEN OF THE RIGHT FEMORAL CENTRAL LINE BLEEDING, WITH NEW ORDER TO D/C PICC LINE. NOTED AND CARRIED OUT.
[2022-10-17] MEDS: DEXAMETHASONE SOD PHOSPHATE 10 MG/ML VIAL IV SCH (12:46)
[2022-10-17] MEDS ORDERED: IV NS 0.9% 1,000 ML IV PRN (13:00)
[2022-10-17] MEDS: ALBUTEROL HALF STRENGTH 1.25 MG/3 ML VIAL.NEB NEB SCH ×4 (13:00→23:30)
--- NOTE | 2022-10-17 13:00 | NUR ---
SEAMER ELASTIC BAND NOTES NEW ORDER FROM DR. GUILLEN, CHANGED IV NS RATE TO 100ML/HR TO 50ML/HR, NOTED AND CARRIED OUT, PLAN OF CARE CONTINUE.
[2022-10-17] MEDS: VANCOMYCIN 0.75 GM in IV D5W 250 ML IV SCH (14:32)
[2022-10-17] MEDS: ENOXAPARIN SODIUM 40 MG/0.4 ML DISP.SYRIN SQ SCH (14:51)
[2022-10-17 16:00] VITALS: BP 158/73
--- NOTE | 2022-10-17 18:20 | NUR ---
I/O 1 BM, UO-850ML
--- NOTE | 2022-10-17 18:48 | NUR ---
PATIENT IS AWAKE AND VERY RESTLESS, VITAL SIGNS ARE STABLE, GT FEEDING IS TOLERATING WELL WITH NO RESIDUAL. RIGHT FEMORAL PICC LINE IS DISCONTIINUE. NS @50ML/HR RUNNING ON RIGHT AC PERIPHERAL. SOFT RESTRAINT IS IN PLACED.
--- NOTE | 2022-10-17 19:48 | NUR ---
TELE OPENING RN NOTES PATIENT IN BED AWAKE, PATIENT ALERT BUT NON VERBAL, ON T PIECE NOTED INTACT, ON 4LPM 02, TOLERATING WELL, NO SOB NOTED. RIGHT AC PIV NOTED INTACT, WITH NS RUNNING @50ML/HR. F/C NOTED PATENT AND INTACT, WITH CLEAR SELAM COLORED URINE. NOTED GT PATENT AND INTACT, FLUSHES WELL, ON JEVITY 1.2, NO RESIDUAL NOTED. ON TELE MONITORING WITH SR HR 69. BILATERAL WRIST RESTRAINT NOTED INTACT, SKIN CHECK. SAFETY MEASURES IN PLACED. CALL LIGHT WITHIN REACH. PLAN OF CARE CONTINUE.
[2022-10-17 20:00] VITALS: BP 110/69
--- NOTE | 2022-10-17 20:31 | NUR ---
RT NOTE TX NOT GIVEN DUE TO POSITIVE PCR RESULTS. NO SOB NOTED AT THIS TIME. RN AWARE.
--- NOTE | 2022-10-17 23:21 | NUR ---
TELE CLOSING RN NOTES PATIENT IN BED SLEEPING, RESPONSIVE WHEN AWAKEN. PATIENT ALERT BUT NON VERBAL, ON T PIECE NOTED INTACT, ON 4LPM 02, TOLERATING WELL, NO SOB NOTED. RIGHT AC PIV NOTED PATENT AND INTACT, FLUSHES WELL, WITH NS RUNNING @50ML/HR. F/C NOTED PATENT AND INTACT DRAINING WITH CLEAR SELAM COLORED URINE. NOTED GT PATENT AND INTACT, FLUSHES WELL, ON JEVITY 1.2 RUNNING AT 70ML/HR, NO RESIDUAL NOTED. ON TELE MONITORING WITH SR HR 68. BILATERAL WRIST RESTRAINT NOTED INTACT, SKIN CHECK. SAFETY MEASURES IN PLACED. CALL LIGHT WITHIN REACH. WILL ENDORSE TO NIGHT NURSE FOR THOR.
[2022-10-18] VITALS: BP 113/84
--- NOTE | 2022-10-18 00:10 | NUR ---
RN THOR NOTE PATIENT RECEIVED FROM CRISTINO DUFF RN, PATIENT OPENS EYES BUT NON VERBAL. HE HAS A TRACH CONNECTED TO A T PIECE ON 3 LPM, TOLERATING WELL, NO SOB NOTED. PATIENT'S TELE MONITOR READS SR 69 BPM AT THIS TIME. PATIENT NOTED TO HAVE BILATERAL SOFT WRIST RESTRAINTS, NO REDNESS, CIRCULATION PRESENT ON BOTH EXTREMITIES. RAC 18 G PATENT AND INTACT INFUSING NS AT 50 ML/HR. SAFETY MEASURES IN PLACE: BED LOCKED AND IN LOWEST POSITION, CALL LIGHT WITHIN REACH, SIDE RAILS UP. WILL MONITOR PATIENT CLOSELY.
[2022-10-18] MEDS: VANCOMYCIN 0.75 GM in IV D5W 250 ML IV SCH (02:03)
[2022-10-18] MEDS: ALBUTEROL HALF STRENGTH 1.25 MG/3 ML VIAL.NEB NEB SCH ×6 (03:30→22:42)
[2022-10-18] MEDS: IPRATROPIUM NEB FS 0.5 MG/2.5 ML AMPUL.NEB NEB SCH ×6 (03:30→22:42)
[2022-10-18 04:00] VITALS: BP 135/87
[2022-10-18] MEDS: CEFEPIME 2 GM in IV D5W 100 ML IV SCH ×3 (04:45→20:29)
[2022-10-18] MEDS: JEVITY 1.2 CAL 1,000 ML BOTTLE GT SCH (04:46)
--- NOTE | 2022-10-18 06:57 | NUR ---
RN CLOSING NOTE PATIENT OPENS EYES BUT NON VERBAL. HE HAS A TRACH CONNECTED TO A T PIECE ON 3 LPM, TOLERATING WELL, NO SOB NOTED. PATIENT'S TELE MONITOR READS SR 70 BPM AT THIS TIME. PATIENT NOTED TO HAVE BILATERAL SOFT WRIST RESTRAINTS, NO REDNESS, CIRCULATION PRESENT ON BOTH EXTREMITIES. RAC 18 G PATENT AND INTACT INFUSING NS AT 50 ML/HR. SAFETY MEASURES IN PLACE: BED LOCKED AND IN LOWEST POSITION, CALL LIGHT WITHIN REACH, SIDE RAILS UP. ALL NEEDS MET AND ATTENDED. ALL ORDERS CARRIED OUT. WILL ENDORSE TO DAY SHIFT NURSE FOR THOR.
[2022-10-18 06:59] LABS: BASOPHILS % (AUTO) 0.1 % (0.0-2.0); EOSINOPHILS % (AUTO) 3.2 % (0.0-6.0); HEMATOCRIT 31 % (39-51); LYMPHOCYTES # (AUTO) 1.3 K/uL (0.8-4.8); LYMPHOCYTES % (AUTO) 10.7 % (20.0-44.0); MEAN CORPUSCULAR HGB CONC 32 g/dl (31.0-36.0); MEAN CORPUSCULAR VOLUME 88 fL (80-96); MONOCYTES # (AUTO) 1.1 K/uL (0.1-1.30); MONOCYTES % (AUTO) 9.1 % (2.0-12.0); NEUTROPHILS # (AUTO) 9.4 K/uL (1.8-8.9); NEUTROPHILS % (AUTO) 76.9 % (43.0-81.0); PLATELET COUNT (AUTO) 408 K/uL (150-450); RED BLOOD CELL COUNT(AUTO) 3.55 MIL/uL (4.5-6.0); WHITE BLOOD COUNT (AUTO) 12.2 K/uL (4.3-11.0)
[2022-10-18 07:32] LABS: CREATININE 0.5 mg/dL (0.6-1.3); PHOSPHORUS 1.9 mg/dL (2.5-4.9); POTASSIUM 4.3 mmol/L (3.5-5.1)
[2022-10-18] MEDS: ACETYLCYSTEINE 10% SOLN 400 MG/4 ML VIAL NEB SCH ×3 (07:35→22:42)
[2022-10-18 08:00] VITALS: BP 145/92
[2022-10-18] MEDS: DEXAMETHASONE SOD PHOSPHATE 10 MG/ML VIAL IV SCH (08:00)
[2022-10-18] MEDS: QUETIAPINE FUMARATE 25 MG TABLET GT SCH ×2 (08:01→16:29)
[2022-10-18] MEDS: DOCUSATE SODIUM 100 MG CAPSULE PO SCH (08:01)
[2022-10-18] MEDS: LOSARTAN POTASSIUM 50 MG TABLET GT SCH (08:01)
[2022-10-18] MEDS: CHLORHEXIDINE GLUCONATE 15 ML UDC MM SCH ×2 (08:02→16:29)
[2022-10-18] MEDS: PANTOPRAZOLE 40 MG/PACK PACK GT SCH (08:02)
[2022-10-18] MEDS: METOPROLOL TARTRATE 25 MG TABLET GT SCH ×2 (08:02→16:30)
[2022-10-18] MEDS: VALPROIC ACID 250 MG/5 ML UDC GT SCH ×2 (08:02→20:27)
[2022-10-18] MEDS: Z GUARD REMEDY 4 OZ OINT TP SCH ×2 (08:27→21:13)
[2022-10-18] MEDS ORDERED: NEUTRA PHOS 1 POWD.PACKET GT ONE (11:00)
[2022-10-18 12:00] VITALS: BP 131/95
[2022-10-18] MEDS: VANCOMYCIN 1 GM in IV D5W 250 ML IV SCH (14:05)
[2022-10-18] MEDS: ENOXAPARIN SODIUM 40 MG/0.4 ML DISP.SYRIN SQ SCH (14:37)
[2022-10-18 16:00] VITALS: BP 112/82
--- NOTE | 2022-10-18 18:09 | NUR ---
CLOSING NOTE PATIENT IS RESTING COMFORTABLY IN BED, NONE VERBAL BUT AROUSABLE, SPO2-99% ON T-PIECE WITH 2L/MIN OF OXYGEN, VITAL SIGNS ARE STABLE, NO SIGNS OF IN DISTRESS, CLINE CATHETER IS PATENT. RESTRAINTS STILL IN PLACED. RIGHT AC IV LINE RUNNING WITH NS@ 50ML.HR, JEVITY 1.2 @70ML/20HR. CALL LIGHTS WITHIN REACHED,SIDE RAILS ARE UP.
--- NOTE | 2022-10-18 19:00 | NUR ---
RN NOTES: RECEIVED AWAKE ON BED, NON VERBAL, EYE OPENING AND LOOKING AT YOU WHEN YOU GREET HIM, ON BED REST, T-PIECE INTACT WITH O2 AT 3-4LMIN, SPO2-100%, NON LABORED BREATHING, NO SOB, HE HAS SOME SOUND WHEN HE BREATH IN AND OUT, TELE MONITOR SR-80'S, PRESENT BILATERAL SOFT RESTRAINTS, RENEW AT 1500, G-TUBE IN SITE WITH FEEDING OF JEVITY AT 70 ML/HR OFF AT 0300 AND ON 0700, IV CANNULA RAC G#18 WITH IVF ON NS AT 50 ML/HR ONGOING,ON CLOSE VISUAL CHECK, DROPLET AND CONTACT PRECAUTION OBSERVED, PCR(+).
[2022-10-18 20:00] VITALS: BP 111/85
--- NOTE | 2022-10-18 22:00 | NUR ---
RN NOTES: TURNING AND REPOSITIONING DONE, OFF LOADING OBSERVED, RT NOTIFIED HIS BREATHING IS NON LABORED BUT HE HAS THIS SOUND, SPO2-99% DE-87.
--- NOTE | 2022-10-18 23:21 | NUR ---
RT NOTE NO TX GIVEN D/T POSITIVE COVID TEST (PCR)
[2022-10-19] VITALS: BP 134/90
[2022-10-19] MEDS: VANCOMYCIN 1 GM in IV D5W 250 ML IV SCH ×2 (01:29→13:48)
[2022-10-19] MEDS: JEVITY 1.2 CAL 1,000 ML BOTTLE GT SCH (01:33)
--- NOTE | 2022-10-19 03:20 | NUR ---
RN NOTES: -CLEAN AND CHANGE, HAD LARGE BM, YELLOWISH IN COLOR, SOFT IN CONSISTENCY. -MORNING CARE RENDERED, BED BATH DONE FOLLOWED BY BODY ASSESSMENT. PICTURE TAKEN: 1)RASH ON THE BACK-FADING AWAY 2)SACRUM- BLANCHABLE REDNESS, NO SKIN OPENING NOTED, SKIN MAINTENANCE RENDERED. --TURNING AND REPOSITIONING DONE, OFF LOADING DONE ON BLE.
--- NOTE | 2022-10-19 03:23 | NUR ---
RN NOTES: -AT AROUND 0130 IV CANNULA OUT, LEAKING ON THE LEFT WRIST, NEW CANNULA INSERTED ON THE LAC G#22, 2 ATTEMPT DONE WITH GOOD BACK FLOW, COVERED WITH TRANSPARENT DRESSING, DUE IV MEDICATION GIVEN.
[2022-10-19] MEDS: ALBUTEROL HALF STRENGTH 1.25 MG/3 ML VIAL.NEB NEB SCH ×7 (03:30→22:38)
[2022-10-19] MEDS: IPRATROPIUM NEB FS 0.5 MG/2.5 ML AMPUL.NEB NEB SCH ×7 (03:30→22:37)
[2022-10-19 04:00] VITALS: BP 132/95
[2022-10-19] MEDS: CEFEPIME 2 GM in IV D5W 100 ML IV SCH ×3 (04:03→20:19)
--- NOTE | 2022-10-19 07:09 | NUR ---
RN NOTES: TURNING AND REPOSITIONING DONE, STILL WITH WHITISH/YELLOWISH SECRETION, SUCTIONING DONE, OFF LOADING OF BLE, SKIN TREATMENT RENDERED, TELE MONITOR SR-80'S, T-PIECE-AT 4L, SPO2-95%,PEG FEED-JEVITY 1.2 AT 70 ML/HR RESUME AT 0700, NEW IV SITE:LAC G#22 IVF ONGOING, OUTPUT 700, FOR CXR THIS MORNING, ENDORSED FOR CONTINUITY OF CARE.
[2022-10-19 07:21] LABS: CALCIUM, SERUM 8.7 mg/dL (8.5-10.1); CREATININE 0.5 mg/dL (0.6-1.3); PHOSPHORUS 1.9 mg/dL (2.5-4.9); POTASSIUM 3.6 mmol/L (3.5-5.1)
[2022-10-19] MEDS: ACETYLCYSTEINE 10% SOLN 400 MG/4 ML VIAL NEB SCH ×4 (07:35→22:37)
[2022-10-19 08:00] VITALS: BP 131/93
[2022-10-19 08:35] LABS: BASOPHILS % (AUTO) 0.2 % (0.0-2.0); EOSINOPHILS % (AUTO) 2.7 % (0.0-6.0); HEMATOCRIT 33 % (39-51); HEMOGLOBIN 10.3 g/dL (13.5-17.5); LYMPHOCYTES # (AUTO) 1.9 K/uL (0.8-4.8); LYMPHOCYTES % (AUTO) 14.7 % (20.0-44.0); MEAN CORPUSCULAR HGB CONC 31 g/dl (31.0-36.0); MEAN CORPUSCULAR VOLUME 87 fL (80-96); NEUTROPHILS # (AUTO) 9.7 K/uL (1.8-8.9); NEUTROPHILS % (AUTO) 74.4 % (43.0-81.0); PLATELET COUNT (AUTO) 497 K/uL (150-450)
[2022-10-19] MEDS: CHLORHEXIDINE GLUCONATE 15 ML UDC MM SCH ×2 (08:42→16:21)
[2022-10-19] MEDS: VALPROIC ACID 250 MG/5 ML UDC GT SCH ×2 (08:42→20:18)
[2022-10-19] MEDS: PANTOPRAZOLE 40 MG/PACK PACK GT SCH (08:42)
[2022-10-19] MEDS: LOSARTAN POTASSIUM 50 MG TABLET GT SCH (08:43)
[2022-10-19] MEDS: DOCUSATE SODIUM 100 MG CAPSULE PO SCH (08:43)
[2022-10-19] MEDS: QUETIAPINE FUMARATE 25 MG TABLET GT SCH ×2 (08:43→16:21)
[2022-10-19] MEDS: Z GUARD REMEDY 4 OZ OINT TP SCH ×2 (08:44→20:27)
[2022-10-19] MEDS: DEXAMETHASONE SOD PHOSPHATE 10 MG/ML VIAL IV SCH (08:44)
[2022-10-19] MEDS: METOPROLOL TARTRATE 25 MG TABLET GT SCH ×2 (08:44→16:21)
[2022-10-19] MEDS ORDERED: NEUTRA PHOS 1 POWD.PACKET GT ONE ×2 (10:00→11:30)
[2022-10-19 12:00] VITALS: BP 121/82
[2022-10-19] MEDS: ENOXAPARIN SODIUM 40 MG/0.4 ML DISP.SYRIN SQ SCH (15:59)
[2022-10-19 16:00] VITALS: BP 154/101
--- NOTE | 2022-10-19 19:00 | NUR ---
RN CLOSING NOTE PATIENT IS RESTING COMFORTABLY IN BED, NONE VERBAL BUT AROUSAL TO TOUCH AND VOICE, O2-98% ON T-PIECE WITH 2L/MIN OF OXYGEN, VITAL SIGNS ARE STABLE, NO SIGNS OF IN DISTRESS, CLINE CATHETER IS PATENT. RESTRAINTS STILL IN PLACED. RIGHT AC IV LINE RUNNING WITH NS@ 50ML.HR, JEVITY 1.2 @70ML/20HR. CALL LIGHTS WITHIN REACHED,SIDE RAILS ARE UP. ALL FALL AND SAFETY PRECAUTIONS IMPLEMENTED, INDORSED TO THE RECEIVING SPECIALIST NURSE FOR THOR..
--- NOTE | 2022-10-19 19:30 | NUR ---
LIMOUSINE DRIVER OPENING NOTES RECEIVED PATIENT AWAKE IN BED, NONE VERBAL BUT AROUSAL TO TOUCH AND VOICE, ON T-PIECE WITH 2L/MIN OF OXYGEN NO SIGNS OF RESPIRATORY DISTRESS NOTED, CLINE CATHETER IS PATENT. DRAINING YELLOW COLOR URINE BY GRAVITY.BOTH HAND RESTRAINTS STILL IN PLACE. SKIN CHECKS DONE. LAC G # 22 INTACT AND RUNNING WITH NS@ 50ML.HR, ON G TUBE FEEDING OF JEVITY 1.2 @70ML/20HR. GTUBE IN PLACE. NO RESIDUAL NOTED. ALL SAFETY MEASURES IN PLACE. CALL LIGHTS WITHIN REACHED,SIDE RAILS UP TIMES 2. FALL AND SAFETY PRECAUTIONS IN PLACE. HOB ELEVATED FOR ASPIRATION PRECAUTION. WILL CONTINUE TO MONITOR CLOSELY.
--- NOTE | 2022-10-19 19:35 | NUR ---
RT neb tx not given at this time due to pt being covid pos. rn aware. no sob, no resp distress.
--- NOTE | 2022-10-19 19:49 | NUR ---
RT pt received on 3L t-piece. trach, portex 7. copious secretions. no sob, no resp distress.
[2022-10-19 20:00] VITALS: BP 133/91
[2022-10-20] VITALS: BP 124/87
[2022-10-20] MEDS: JEVITY 1.2 CAL 1,000 ML BOTTLE GT SCH ×2 (00:17→16:26)
[2022-10-20] MEDS: VANCOMYCIN 1 GM in IV D5W 250 ML IV SCH (01:41)
[2022-10-20] MEDS: IPRATROPIUM NEB FS 0.5 MG/2.5 ML AMPUL.NEB NEB SCH ×6 (03:17→23:30)
[2022-10-20] MEDS: ALBUTEROL HALF STRENGTH 1.25 MG/3 ML VIAL.NEB NEB SCH ×6 (03:18→23:30)
[2022-10-20] MEDS: CEFEPIME 2 GM in IV D5W 100 ML IV SCH ×3 (04:30→22:26)
[2022-10-20 04:36] VITALS: BP 140/90
--- NOTE | 2022-10-20 06:27 | NUR ---
REFUELING RAMPMAN CLOSING NOTES PATIENT AWAKE IN BED, NONE VERBAL BUT AROUSAL TO TOUCH AND VOICE, ON T-PIECE WITH 2L/MIN OF OXYGEN NO SIGNS OF RESPIRATORY DISTRESS NOTED, CLINE CATHETER IS PATENT. DRAINING YELLOW COLOR URINE BY GRAVITY. URINE OUTPUT NOTED 800 ML.BOTH HAND RESTRAINTS STILL IN PLACE. SKIN CHECKS DONE FREQUENTLY. LAC G # 22 INTACT AND RUNNING WITH NS@ 10ML.HR, ON G TUBE FEEDING OF JEVITY 1.2 @70ML/20HR. GTUBE IN PLACE. NO RESIDUAL NOTED.AL DUE MEDS GIVEN ORDERED. ALL SAFETY MEASURES IN PLACE. CALL LIGHTS WITHIN REACHED,SIDE RAILS UP TIMES 2. FALL AND SAFETY PRECAUTIONS IN PLACE. HOB ELEVATED FOR ASPIRATION PRECAUTION. WILL ENDORSE FOR THOR.
[2022-10-20] MEDS: ACETYLCYSTEINE 10% SOLN 400 MG/4 ML VIAL NEB SCH ×3 (07:35→23:30)
[2022-10-20 07:38] LABS: CALCIUM, SERUM 8.5 mg/dL (8.5-10.1); CREATININE 0.5 mg/dL (0.6-1.3); PHOSPHORUS 2.9 mg/dL (2.5-4.9); POTASSIUM 3.9 mmol/L (3.5-5.1)
[2022-10-20 08:00] VITALS: BP 145/89
[2022-10-20] MEDS: VALPROIC ACID 250 MG/5 ML UDC GT SCH ×2 (08:42→22:27)
[2022-10-20] MEDS: CHLORHEXIDINE GLUCONATE 15 ML UDC MM SCH ×2 (08:42→17:28)
[2022-10-20] MEDS: QUETIAPINE FUMARATE 25 MG TABLET GT SCH ×2 (08:43→17:28)
[2022-10-20] MEDS: LOSARTAN POTASSIUM 50 MG TABLET GT SCH (08:43)
[2022-10-20] MEDS: METOPROLOL TARTRATE 25 MG TABLET GT SCH ×2 (08:43→17:00)
[2022-10-20] MEDS: PANTOPRAZOLE 40 MG/PACK PACK GT SCH (08:43)
[2022-10-20] MEDS: DEXAMETHASONE SOD PHOSPHATE 10 MG/ML VIAL IV SCH (08:44)
[2022-10-20] MEDS: Z GUARD REMEDY 4 OZ OINT TP SCH ×2 (08:44→22:27)
[2022-10-20] MEDS: DOCUSATE SODIUM 100 MG CAPSULE PO SCH (08:44)
[2022-10-20 12:00] VITALS: BP 115/83
[2022-10-20] MEDS: ENOXAPARIN SODIUM 40 MG/0.4 ML DISP.SYRIN SQ SCH (15:02)
[2022-10-20 16:00] VITALS: BP 103/70
--- NOTE | 2022-10-20 19:15 | NUR ---
RN OPENING NOTE RECEIVED PT RESTING COMFORTABLY IN BED, NON-VERBAL BUT AROUSAL TO TOUCH AND VOICE, O2-96% ON T-PIECE WITH 4L/MIN OF OXYGEN. NO SIGNS OF IN DISTRESS. CLINE CATHETER IS PATENT. RESTRAINTS STILL IN PLACE. RIGHT AC IV LINE RUNNING WITH TKO@ 10 ML.HR. JEVITY 1.2 @70ML/20HR. ALL FALL AND SAFETY PRECAUTIONS IN PLACE: CALL LIGHTS WITHIN REACH, SIDE RAILS UP X3. WILL CONTINUE TO MONITOR AND ASSIST.
--- NOTE | 2022-10-20 19:15 | NUR ---
RN OPENING NOTE RECEIVED PT RESTING COMFORTABLY IN BED, NON-VERBAL BUT AROUSAL TO TOUCH AND VOICE, O2-96% ON T-PIECE WITH 4L/MIN OF OXYGEN, NO SIGNS OF DISTRESS, CLINE CATHETER IS PATENT. RESTRAINTS STILL IN PLACED, CIRCULATION WNL. RIGHT AC IV LINE RUNNING WITH TKO@ 10 ML.HR, JEVITY 1.2 @70ML/20HR. SAFETY PRECAUTIONS IN PLACE: CALL LIGHTS WITHIN REACHED,SIDE RAILS ARE UP. WILL CONTINUE TO MONITOR AND ASSIST.
--- NOTE | 2022-10-20 19:30 | NUR ---
RN CLOSING NOTE PATIENT IS RESTING COMFORTABLY IN BED, NONE VERBAL BUT AROUSAL TO TOUCH AND VOICE, O2-96% ON T-PIECE WITH 4L/MIN OF OXYGEN, VITAL SIGNS ARE STABLE, NO SIGNS OF IN DISTRESS, CLINE CATHETER IS PATENT. RESTRAINTS STILL IN PLACED. RIGHT AC IV LINE RUNNING WITH TKO@ 10 ML.HR, JEVITY 1.2 @70ML/20HR. CALL LIGHTS WITHIN REACHED,SIDE RAILS ARE UP. ALL FALL AND SAFETY PRECAUTIONS IMPLEMENTED, INDORSED TO THE ACCOUNT SERVICE REPRESENTATIVE NURSE FOR THOR.
--- NOTE | 2022-10-20 19:36 | NUR ---
Pt not given neb Tx due to being COVID positive. RN notified. No SOB or resp distress. Suctioned PRN with moderate amount of secretions.
[2022-10-20 22:00] VITALS: BP 128/64
[2022-10-21] VITALS: BP 130/85
[2022-10-21] MEDS: IPRATROPIUM NEB FS 0.5 MG/2.5 ML AMPUL.NEB NEB SCH ×6 (03:30→23:30)
[2022-10-21] MEDS: ALBUTEROL HALF STRENGTH 1.25 MG/3 ML VIAL.NEB NEB SCH ×6 (03:30→23:30)
[2022-10-21 04:00] VITALS: BP 119/94
[2022-10-21] MEDS: CEFEPIME 2 GM in IV D5W 100 ML IV SCH ×3 (04:11→20:35)
--- NOTE | 2022-10-21 07:00 | NUR ---
SUPERVISOR ENGINE REPAIR CLOSING NOTE PT RESTING COMFORTABLY IN BED AT THIS TIME, NON-VERBAL BUT AROUSABLE TO TOUCH AND VOICE, STABLE ON O2-96% ON T-PIECE WITH 4L/MIN OF OXYGEN. NO SIGNS OF IN DISTRESS. CLINE CATHETER IS PATENT, WITH CLEAR YELLOW URINE 350 ML NOTED. RESTRAINTS STILL IN PLACE. WRISTS CHECKED AND CIRCULATION WNL. RIGHT AC IV LINE RUNNING WITH TKO@ 10 ML.HR. JEVITY 1.2 @70ML/20HR. STOPPED @ 0130 AND RESTARTED @ 0530 PER ORDERS. ALL CARE PROVIDED AND MEDICATIONS TOLERATED WELL. ALL FALL AND SAFETY PRECAUTIONS MAINTAINED: CALL LIGHTS WITHIN REACH, SIDE RAILS UP X3. WILL ENDORSE THOR TO DAY SHIFT NURSE.
[2022-10-21] MEDS: ACETYLCYSTEINE 10% SOLN 400 MG/4 ML VIAL NEB SCH ×3 (07:35→23:30)
[2022-10-21 08:00] VITALS: BP 111/72
--- NOTE | 2022-10-21 08:08 | NUR ---
RN OPENING NOTE RECEIVED PATIENT IN BED, NON-VERBAL. ABLE TO RESPONDS PHYSICAL STIMULI. RESPIRATORY EVEN AND UNLABORED ON OXYGEN AT 4Ls VIA T PIECE. IN NO ACUTE DISTRESS OBSERVED. SKIN IS WARM TO TOUCH, KEEP CLEAN/DRY. KEPT ELEVATED HOB FOR ASPIRATION PRECAUTION/ENSURE AIRWAY, AND LOWEST BED POSITIONED. BED ALARM IS ON AT ALL THE TIME FOR SAFETY. CALL LIGHT WITHIN REACH, WILL CONTINUE TO MONITOR
[2022-10-21] MEDS: CHLORHEXIDINE GLUCONATE 15 ML UDC MM SCH ×2 (09:15→16:22)
[2022-10-21] MEDS: DOCUSATE SODIUM 100 MG CAPSULE PO SCH (09:16)
[2022-10-21] MEDS: VALPROIC ACID 250 MG/5 ML UDC GT SCH ×2 (09:16→20:35)
[2022-10-21] MEDS: METOPROLOL TARTRATE 25 MG TABLET GT SCH ×2 (09:16→16:23)
[2022-10-21] MEDS: QUETIAPINE FUMARATE 25 MG TABLET GT SCH ×2 (09:16→16:22)
[2022-10-21] MEDS: PANTOPRAZOLE 40 MG/PACK PACK GT SCH (09:16)
[2022-10-21] MEDS: DEXAMETHASONE SOD PHOSPHATE 10 MG/ML VIAL IV SCH (09:16)
[2022-10-21] MEDS: LOSARTAN POTASSIUM 50 MG TABLET GT SCH (09:17)
[2022-10-21] MEDS: Z GUARD REMEDY 4 OZ OINT TP SCH ×2 (09:32→20:35)
[2022-10-21 12:00] VITALS: BP 121/85
[2022-10-21 13:44] LABS: CALCIUM, SERUM 8.3 mg/dL (8.5-10.1); CREATININE 0.7 mg/dL (0.6-1.3); POTASSIUM 4.2 mmol/L (3.5-5.1)
[2022-10-21] MEDS: JEVITY 1.2 CAL 1,000 ML BOTTLE GT SCH (15:52)
[2022-10-21] MEDS: ENOXAPARIN SODIUM 40 MG/0.4 ML DISP.SYRIN SQ SCH (15:52)
[2022-10-21 16:00] VITALS: BP 96/72
--- NOTE | 2022-10-21 16:31 | NUR ---
BP 96/72, HR 81, WILL HOLD METOPROLOL AT 1700.
--- NOTE | 2022-10-21 18:00 | NUR ---
RN CLOSING NOTE PATIENT RESTING IN BED. IN NO ACUTE DISTRESS OBSERVED. RESPIRATORY EVEN AND UNLABORED ON OXYGEN AT 4Ls VIA T-PIECE. PROVIDED ORAL CARE AND SUCTION. IN NO ACUTE DISTRESS OBSERVED. SKIN IS WARM TO TOUCH KEEP CLEAN/DRY. KEPT ELEVATED HOB FOR ENSURE AIRWAY/ASPIRATION PRECAUTION, AND LOWEST BED POSITION. BED ALARM IS ON AT ALL THE TIME FOR SAFETY. 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
--- NOTE | 2022-10-21 20:08 | NUR ---
MOLDER PIPE COVERING OPENING NOTE PATIENT IN BED WITH EYES CLOSED, PT OBTUNDED. PATIENT STABLE ON T-PIECE ON 4 LPM OF O2, NO S/S OF DISTRESS OR SOB NOTED, BREATHING EVEN AND UNLABORED. 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 IV ACCESS ON RIGHT FOREARM #20G INTACT AND SALINE LOCKED. PATIENT ON GTUBE WITH JEVITY @ 70 ML/HR, TO BE TURNED OFF AT 130 AM AND BACK ON AT 530 AM. CLINE CATHETER IN PLACE AND DRAINING URINE VIA GRAVITY. BILATERAL SOFT WRIST RESTRAINTS IN PLACE. SAFETY MEASURES IN PLACE: CALL LIGHT WITHIN REACH, SIDE RAILS UP X 3, BED LOCKED IN LOWEST POSITION, HOB ELEVATED, BED ALARM ON. WILL CONTINUE TO MONITOR PATIENT
[2022-10-21 20:55] VITALS: BP 112/79
[2022-10-22 00:47] VITALS: BP 118/80
[2022-10-22] MEDS: IPRATROPIUM NEB FS 0.5 MG/2.5 ML AMPUL.NEB NEB SCH ×6 (03:30→23:49)
[2022-10-22] MEDS: ALBUTEROL HALF STRENGTH 1.25 MG/3 ML VIAL.NEB NEB SCH ×6 (03:30→23:49)
[2022-10-22] MEDS: CEFEPIME 2 GM in IV D5W 100 ML IV SCH ×3 (04:37→21:25)
[2022-10-22 04:46] VITALS: BP 118/80
--- NOTE | 2022-10-22 06:49 | NUR ---
ADJUNCT INSTRUCTOR OF WOMEN'S STUDIES CLOSING NOTE PATIENT IN BED WITH EYES CLOSED, PT OBTUNDED. PATIENT STABLE ON T-PIECE ON 4 LPM OF O2, NO S/S OF DISTRESS OR SOB NOTED, BREATHING EVEN AND UNLABORED. PATIENT ON EXTERNAL OVERLAY PLASTICIAN READING SINUS RHYTHM WITH PVC'S AND ELEVATED P WAVE, HR: 80. IV ACCESS ON RIGHT FOREARM #20G INTACT AND SALINE LOCKED. PATIENT ON GTUBE WITH JEVITY @ 70 ML/HR, TURNED OFF AT 130 AM AND BACK ON AT [address] AM[address] CLINE CATHETER IN PLACE AND DRAINING URINE VIA GRAVITY, 850 ML OUTPUT. BILATERAL SOFT WRIST RESTRAINTS IN PLACE, RESTRAINTS ALSO RELEASED Q2H AND CIRCULATIONS ASSESSED. MEDICATIONS GIVEN ORDERED, PT NEEDS MET THROUGHOUT SHIFT, PATIENT TURNED AND REPOSITIONED Q2H. SAFETY MEASURES IN PLACE: CALL LIGHT WITHIN REACH, SIDE RAILS UP X 3, BED LOCKED IN LOWEST POSITION, HOB ELEVATED, BED ALARM ON. WILL ENDORSE TO DAYSHIFT RN FOR CONTINUITY OF CARE
--- NOTE | 2022-10-22 07:25 | NUR ---
TRAPEZE ARTIST OPENING NOTE RECEIVED PATIENT IN BED WITH EYES OPEN, OBTUNDED. PASTABLE ON 4 LPM OF O2 VIA T-PIECE+ WITH SPO2 OF 100%, NO S/S OF DISTRESS OR SOB NOTED, BREATHING EVEN AND UNLABORED. ON TELEMONITORING READING SINUS RHYTHM, HR: 70. IV ACCESS ON RIGHT FOREARM G#20 SALINE LOCKED, INTACT AND FLUSHING WELL. ON GTUBE WITH JEVITY 1.2 @ 70 ML/HR, NO RESIDUE NOTED. CLINE CATHETER IN PLACE AND DRAINING URINE VIA GRAVITY. BILATERAL SOFT WRIST RESTRAINTS IN PLACE. SAFETY MEASURES IN PLACE: CALL LIGHT AND TRAY TABLE WITHIN REACH, SIDE RAILS UP X 3, BED LOCKED IN LOWEST POSITION, HOB ELEVATED, BED ALARM ON. WILL CONTINUE TO MONITOR PATIENT
[2022-10-22 07:32] LABS: BASOPHILS % (AUTO) 0.4 % (0.0-2.0); EOSINOPHILS % (AUTO) 7.9 % (0.0-6.0); HEMATOCRIT 33 % (39-51); HEMOGLOBIN 10.6 g/dL (13.5-17.5); LYMPHOCYTES # (AUTO) 1.9 K/uL (0.8-4.8); LYMPHOCYTES % (AUTO) 15.7 % (20.0-44.0); MEAN CORPUSCULAR HGB CONC 32 g/dl (31.0-36.0); MEAN CORPUSCULAR VOLUME 86 fL (80-96); MONOCYTES % (AUTO) 8.5 % (2.0-12.0); NEUTROPHILS # (AUTO) 8.1 K/uL (1.8-8.9); NEUTROPHILS % (AUTO) 67.5 % (43.0-81.0); PLATELET COUNT (AUTO) 618 K/uL (150-450); RED BLOOD CELL COUNT(AUTO) 3.82 MIL/uL (4.5-6.0)
[2022-10-22] MEDS: ACETYLCYSTEINE 10% SOLN 400 MG/4 ML VIAL NEB SCH ×3 (07:35→23:49)
[2022-10-22 08:00] VITALS: BP 118/74
[2022-10-22] MEDS: VALPROIC ACID 250 MG/5 ML UDC GT SCH ×2 (09:27→21:25)
[2022-10-22] MEDS: CHLORHEXIDINE GLUCONATE 15 ML UDC MM SCH ×2 (09:27→16:12)
[2022-10-22] MEDS: DOCUSATE SODIUM 100 MG CAPSULE PO SCH (09:27)
[2022-10-22] MEDS: DEXAMETHASONE SOD PHOSPHATE 10 MG/ML VIAL IV SCH (09:28)
[2022-10-22] MEDS: QUETIAPINE FUMARATE 25 MG TABLET GT SCH ×2 (09:28→16:11)
[2022-10-22] MEDS: PANTOPRAZOLE 40 MG/PACK PACK GT SCH (09:28)
[2022-10-22] MEDS: LOSARTAN POTASSIUM 50 MG TABLET GT SCH (09:29)
[2022-10-22] MEDS: METOPROLOL TARTRATE 25 MG TABLET GT SCH ×2 (09:36→16:12)
[2022-10-22] MEDS: Z GUARD REMEDY 4 OZ OINT TP SCH ×2 (10:38→21:26)
[2022-10-22] MEDS: JEVITY 1.2 CAL 1,000 ML BOTTLE GT SCH (10:44)
[2022-10-22 12:00] VITALS: BP 124/71
--- NOTE | 2022-10-22 14:00 | NUR ---
RN NOTES - PER DIANDRA JOHNSON MD, NO NEED TO BE ON COVID ISOLATION.
[2022-10-22] MEDS: ENOXAPARIN SODIUM 40 MG/0.4 ML DISP.SYRIN SQ SCH (15:15)
[2022-10-22 16:00] VITALS: BP 106/62
--- NOTE | 2022-10-22 19:25 | NUR ---
MANAGER GROUP HOME CLOSING NOTE PATIENT IN BED WITH EYES OPEN, OBTUNDED. STABLE ON 4 LPM OF O2 VIA T-PIECE+ WITH SPO2 OF 100%, NO S/S OF DISTRESS OR SOB NOTED, BREATHING EVEN AND UNLABORED. TELEMONITORING SHOWING SINUS LORNA WITH BBB AT 58 BPM. IV ACCESS ON RIGHT FOREARM G#20 SALINE LOCKED, INTACT AND FLUSHING WELL. ON GTUBE WITH JEVITY 1.2 @ 70 ML/HR, NO RESIDUE NOTED. CLINE CATHETER IN PLACE AND DRAINING URINE VIA GRAVITY. BILATERAL SOFT WRIST RESTRAINTS IN PLACE, CHECKED EVERY 2 HOURS. ALL DUE MEDS GIVEN, ALL NEEDS MET. SAFETY MEASURES IN PLACE: CALL LIGHT AND TRAY TABLE WITHIN REACH, SIDE RAILS UP X 3, BED LOCKED IN LOWEST POSITION, HOB ELEVATED, BED ALARM ON. ENDORSED TO LINING MAKER NURSE.
[2022-10-22 20:00] VITALS: BP 86/61
[2022-10-23] VITALS: BP 115/82
[2022-10-23] MEDS: ALBUTEROL HALF STRENGTH 1.25 MG/3 ML VIAL.NEB NEB SCH ×5 (03:39→20:17)
[2022-10-23] MEDS: IPRATROPIUM NEB FS 0.5 MG/2.5 ML AMPUL.NEB NEB SCH ×5 (03:39→20:17)
[2022-10-23 04:00] VITALS: BP 120/87
[2022-10-23] MEDS: CEFEPIME 2 GM in IV D5W 100 ML IV SCH ×3 (05:28→20:33)
--- NOTE | 2022-10-23 07:30 | NUR ---
CLOTH TESTER OPENING NOTE RECEIVED PT AWAKE AND RESTING IN BED. PT IS NON-VERBAL. PT IS ON T-PIECE TRACH, PORTEX 7 AT 3L, TOLERATING WELL. NO SOB NOTED. NOT IN ANY SIGN OF RESPIRATORY DISTRESS. PT ON CARDIAC TELE MONITOR WITH CURRENT READING SINUS RHYTHM, HR 75. NO SIGNS OF CARDIAC DISTRESS NOTED AT THIS TIME. GTUBE IN PLACE WITH JEVITY FEEDING RUNNING AT 70ML/HR. KEPT HOB ELEVATED AT ALL TIMES. CLINE CATH IN PLACE AND DRAINING WELL. IV ACCESS ON RFA G#20 INTACT AND PATENT. SAFETY MEASURES IN PLACE: BED IN LOWEST AND LOCKED POSITION, SIDE RAILS UPX3, AND CALL LIGHT WITHIN REACH. WILL CONTINUE TO MONITOR PT.
[2022-10-23] MEDS: ACETYLCYSTEINE 10% SOLN 400 MG/4 ML VIAL NEB SCH ×2 (07:54→16:03)
[2022-10-23 08:00] VITALS: BP 118/75
[2022-10-23] MEDS: VALPROIC ACID 250 MG/5 ML UDC GT SCH ×2 (09:43→20:33)
[2022-10-23] MEDS: CHLORHEXIDINE GLUCONATE 15 ML UDC MM SCH ×2 (09:43→16:36)
[2022-10-23] MEDS: QUETIAPINE FUMARATE 25 MG TABLET GT SCH ×2 (09:43→16:36)
[2022-10-23] MEDS: PANTOPRAZOLE 40 MG/PACK PACK GT SCH (09:43)
[2022-10-23] MEDS: DEXAMETHASONE SOD PHOSPHATE 10 MG/ML VIAL IV SCH (09:44)
[2022-10-23] MEDS: METOPROLOL TARTRATE 25 MG TABLET GT SCH ×2 (09:45→16:36)
[2022-10-23] MEDS: LOSARTAN POTASSIUM 50 MG TABLET GT SCH (09:46)
[2022-10-23] MEDS: Z GUARD REMEDY 4 OZ OINT TP SCH ×2 (09:46→20:48)
[2022-10-23] MEDS: DOCUSATE SODIUM LIQ 100 MG/10 ML UDC GT SCH (10:12)
[2022-10-23 12:00] VITALS: BP 113/60
--- NOTE | 2022-10-23 14:09 | NUR ---
RN NOTE PT NOTED WITH CONGESTION. ASSESSED PT AND NOTED INCREASE IN CONGESTION DUE TO GTUBE FEEDING. SUCTIONED PT NEEDED AND HOB WAS ELEVATED AT ALL TIMES. DECREASED FEEDING TO 30ML/HR AND REASSESSED AND INCREASED THE RATE TOLERATED EVERY HOUR. WAS ABLE TO INCREASE THE FEEDING TO 55ML/HR. PT WAS ABLE TO TOLERATE IT WELL WITHOUT INCREASE IN CONGESTION. CALLED DR. READ AND MADE HIM AWARE OF PT'S CONDITION WITH ORDERS TO CHANGE THE RATE FEEDING AT 55ML/HR FOR 24HRS. ORDERS CARRIED OUT.
[2022-10-23] MEDS: ENOXAPARIN SODIUM 40 MG/0.4 ML DISP.SYRIN SQ SCH (14:10)
[2022-10-23] MEDS: JEVITY 1.2 CAL 1,000 ML BOTTLE GT SCH (14:25)
[2022-10-23 16:00] VITALS: BP 105/72
--- NOTE | 2022-10-23 18:47 | NUR ---
SENIOR QUALITY ANALYST CLOSING NOTE PT AWAKE AND RESTING IN BED. PT IS NON-VERBAL. PT IS ON T-PIECE TRACH, PORTEX 7 AT 3L, TOLERATING WELL. NO SOB NOTED. NOT IN ANY SIGN OF RESPIRATORY DISTRESS. PT ON CARDIAC TELE MONITOR WITH CURRENT READING SINUS RHYTHM, HR 90. NO SIGNS OF CARDIAC DISTRESS NOTED AT THIS TIME. GTUBE IN PLACE WITH JEVITY FEEDING RUNNING AT 55ML/HR. KEPT HOB ELEVATED AT ALL TIMES. CLINE CATH IN PLACE AND DRAINING WELL. IV ACCESS ON RFA G#20 INTACT AND PATENT. ALL NEEDS ATTENDED. KEPT CLEAN AND COMFORTABLE AT ALL TIMES. TURNED AND REPOSITIONED PT Q2HRS AND NEEDED. SAFETY MEASURES IN PLACE: BED IN LOWEST AND LOCKED POSITION, SIDE RAILS UPX3, AND CALL LIGHT WITHIN REACH. WILL ENDORSE TO MANAGEMENT INTERNSHIP NURSE FOR THOR.
--- NOTE | 2022-10-23 19:47 | NUR ---
RN OPENING NOTES; RECEIVED PT IN BED IN BED WITH EYES CLOSED,BUT EASY TO AROUSED,ON TRACH C/A PORTEX #7 MARTY WELL NO SIGN SOB/DISTRESS NOTED,SATTING 97.6%.NO SIGN OF PAIN/DISCOMFORT AT THIS TIME,SAFETY MEASURE IN PLACE,CALL LIGHT WITHIN REACH.WILL CONTINUE TO MONITOR.
[2022-10-23 22:00] VITALS: BP 107/82
[2022-10-24] VITALS: BP 102/80
[2022-10-24] MEDS: IPRATROPIUM NEB FS 0.5 MG/2.5 ML AMPUL.NEB NEB SCH ×6 (00:11→20:13)
[2022-10-24] MEDS: ALBUTEROL HALF STRENGTH 1.25 MG/3 ML VIAL.NEB NEB SCH ×6 (00:11→20:13)
[2022-10-24] MEDS: ACETYLCYSTEINE 10% SOLN 400 MG/4 ML VIAL NEB SCH ×3 (00:11→16:02)
[2022-10-24] MEDS: CEFEPIME 2 GM in IV D5W 100 ML IV SCH ×3 (05:02→20:39)
--- NOTE | 2022-10-24 05:26 | NUR ---
RN CLOSING NOTES; PATIENT IN BED WITH EYES CLOSED,BUT EASY TO AROUSED,ON TRACH C/A PORTEX #7 MARTY WELL NO SIGN SOB/DISTRESS NOTED,SATTING 98%.NO SIGN OF PAIN/DISCOMFORT DURING SHIFT,DUE MEDS GIVEN ORDER,ALL NEEDS ATTENDED,ON GTUBE FEEDING JEVITY 1.2 @ 55ML/HR MARTY WELL,FC INTACT DRAINING SELAM URINE OUTPUT 600ML,NO ODOR,NO RESIDUAL NOTED,HOB ELEVATED AT ALL TIMES,SAFETY MEASURE IN PLACE,CALL LIGHT WITHIN REACH.WILL ENDORSED TO NEXT SHIFT.
[2022-10-24 06:20] VITALS: BP 134/83
[2022-10-24 07:14] LABS: BASOPHILS # (AUTO) 0.1 K/uL (0.0-0.2); BASOPHILS % (AUTO) 0.6 % (0.0-2.0); EOSINOPHILS % (AUTO) 8.8 % (0.0-6.0); HEMATOCRIT 36 % (39-51); HEMOGLOBIN 11.4 g/dL (13.5-17.5); LYMPHOCYTES # (AUTO) 2.4 K/uL (0.8-4.8); LYMPHOCYTES % (AUTO) 19.1 % (20.0-44.0); MEAN CORPUSCULAR HGB CONC 31 g/dl (31.0-36.0); MEAN CORPUSCULAR VOLUME 87 fL (80-96); MONOCYTES # (AUTO) 0.8 K/uL (0.1-1.30); MONOCYTES % (AUTO) 6.6 % (2.0-12.0); NEUTROPHILS # (AUTO) 8.3 K/uL (1.8-8.9); NEUTROPHILS % (AUTO) 64.9 % (43.0-81.0); PLATELET COUNT (AUTO) 646 K/uL (150-450); RED BLOOD CELL COUNT(AUTO) 4.15 MIL/uL (4.5-6.0); WHITE BLOOD COUNT (AUTO) 12.8 K/uL (4.3-11.0)
[2022-10-24 07:46] LABS: CALCIUM, SERUM 9.4 mg/dL (8.5-10.1); CREATININE 0.7 mg/dL (0.6-1.3); MAGNESIUM 2.2 mg/dL (1.8-2.4); POTASSIUM 3.9 mmol/L (3.5-5.1)
--- NOTE | 2022-10-24 07:50 | NUR ---
RN CLOSING NOTES; PATIENT IN BED WITH EYES CLOSED,BUT EASY TO AROUSED,ON TRACH C/A PORTEX #7 TOLERATING WELL NO SIGN SOB/DISTRESS NOTED,SATTING 99%.NO SIGN OF PAIN/DISCOMFORT AT THIS TIME. ON GTUBE FEEDING JEVITY 1.2 @ 55ML/HR TOLERATING WELL,FC INTACT DRAINING WELL. HOB ELEVATED AT ALL TIMES,SAFETY MEASURE IN PLACE,CALL LIGHT WITHIN REACH. WILL CONTINUE TO MONITOR. Addendum: 10/24/22 at 1027 by MEME MONGE RN RN OPENING NOTES
[2022-10-24 08:00] VITALS: BP 121/83
[2022-10-24] MEDS: Z GUARD REMEDY 4 OZ OINT TP SCH ×2 (09:00→20:39)
[2022-10-24] MEDS: QUETIAPINE FUMARATE 25 MG TABLET GT SCH ×2 (09:06→16:18)
[2022-10-24] MEDS: DOCUSATE SODIUM LIQ 100 MG/10 ML UDC GT SCH (09:06)
[2022-10-24] MEDS: PANTOPRAZOLE 40 MG/PACK PACK GT SCH (09:06)
[2022-10-24] MEDS: CHLORHEXIDINE GLUCONATE 15 ML UDC MM SCH ×2 (09:06→16:18)
[2022-10-24] MEDS: VALPROIC ACID 250 MG/5 ML UDC GT SCH ×2 (09:06→20:38)
[2022-10-24] MEDS: METOPROLOL TARTRATE 25 MG TABLET GT SCH ×2 (09:07→16:43)
[2022-10-24] MEDS: DEXAMETHASONE SOD PHOSPHATE 10 MG/ML VIAL IV SCH (09:08)
[2022-10-24] MEDS: LOSARTAN POTASSIUM 50 MG TABLET GT SCH (09:11)
[2022-10-24 12:00] VITALS: BP 109/79
[2022-10-24] MEDS: ENOXAPARIN SODIUM 40 MG/0.4 ML DISP.SYRIN SQ SCH (14:06)
[2022-10-24] MEDS: JEVITY 1.2 CAL 1,000 ML BOTTLE GT SCH (15:05)
[2022-10-24 16:00] VITALS: BP 100/73
[2022-10-24 17:15] LABS: LYMPHOCYTES % (MANUAL) 22 % (16-48); NEUTROPHILS % (MANUAL) 65 (42-76)
[2022-10-24 17:16] LABS: EOSINOPHILS % (MANUAL) 7 % (0-4); MONOCYTES % (MANUAL) 6 % (0-11.0)
--- NOTE | 2022-10-24 18:16 | NUR ---
RN CLOSING NOTES; PATIENT IN BED WITH EYES CLOSED,BUT EASY TO AROUSED,ON TRACH C/A PORTEX #7 TOLERATING WELL NO SIGN SOB/DISTRESS NOTED,SATTING 98% ON 3LPM WITH NO SIGN OF PAIN/DISCOMFORT DURING SHIFT,DUE MEDS GIVEN ORDER,ALL NEEDS ATTENDED,ON GTUBE FEEDING JEVITY 1.2 @ 55ML/HR TOLERATING WELL WELL,FC INTACT DRAINING SELAM URINE OUTPUT OF 1000ML. NO ODOR,NO RESIDUAL NOTED,HOB ELEVATED AT ALL TIMES,SAFETY MEASURE IN PLACE,CALL LIGHT WITHIN REACH.WILL ENDORSED TO NEXT SHIFT.
--- NOTE | 2022-10-24 19:20 | NUR ---
DICTATING MACHINE TRANSCRIBER OPENING NOTE PT IS AWAKE IN BED. HE IS NON-VERBAL WITH EYES WIDE OPENED. PATIENT HAS A TRACH STOMA WITH PORTEX 7.0. PT IS ON T-PIECE TRACH, HE IS ON 5 LPM OXYGEN, O2 SAT IS AT 96% TOLERATING WELL. PATIENT SOUNDS CONGESTED, SUCTION THE PATIENT VIA THE TRACH NEEDED. PT IS ON CARDIAC TELE MONITOR WITH CURRENT READING SINUS RHYTHM, HR AROUND 60S. NO S/S OF DISTRESS OR SOB. G TUBE IN PLACE WITH JEVITY1.2 RUNNING AT 55ML/HR. PLACEMENT OF THE G-TUBE IS CHECKED. ZERO RESIDUAL. KEPT HOB ELEVATED ABOVE 45 DEGREE DURING FEEDING. CLINE CATH IN PLACE AND DRAINING WELL. IV ACCESS ON R FA, #20 G, SL. INTACT AND PATENT. SAFETY MEASURES IN PLACE: BED IN LOWEST AND LOCKED POSITION, SIDE RAILS UPX3, AND CALL LIGHT WITHIN REACH. WILL CONTINUE MONITORING THE PATIENT AND PROVIDE THE CARE PATIENT NEEDS.
[2022-10-24 20:00] VITALS: BP 90/63
[2022-10-25] VITALS (7 sets, daily range): BP systolic 85–135; BP diastolic 52–79
[2022-10-25] MEDS: ALBUTEROL HALF STRENGTH 1.25 MG/3 ML VIAL.NEB NEB SCH ×7 (00:04→23:27)
[2022-10-25] MEDS: ACETYLCYSTEINE 10% SOLN 400 MG/4 ML VIAL NEB SCH ×4 (00:04→23:27)
[2022-10-25] MEDS: IPRATROPIUM NEB FS 0.5 MG/2.5 ML AMPUL.NEB NEB SCH ×7 (00:05→23:27)
[2022-10-25] MEDS: CEFEPIME 2 GM in IV D5W 100 ML IV SCH (04:09)
--- NOTE | 2022-10-25 07:49 | NUR ---
NIBBLER OPERATOR CLOSING NOTE PT IS AWAKE IN BED. HE IS NON-VERBAL WITH EYES WIDE OPENED. PATIENT HAS A TRACH STOMA WITH PORTEX 7.0. PT IS ON T-PIECE TRACH, HE IS ON 5 LPM OXYGEN, O2 SAT IS AT 96% TOLERATING WELL. PT IS ON CARDIAC TELE MONITOR WITH CURRENT READING SINUS RHYTHM, HR AROUND 60S. NO S/S OF DISTRESS OR SOB. G TUBE IS PATENT AND INTACT. CLINE CATH IN PLACE AND DRAINING WELL. IV ACCESS ON R FA, #20 G, SL. INTACT AND PATENT. SAFETY MEASURES IN PLACE: BED IN LOWEST AND LOCKED POSITION, SIDE RAILS UPX3, AND CALL LIGHT WITHIN REACH. WILL ENDORSE NEXT SHIFT NURSE FOR CONTINUING PATIENT CARE.
[2022-10-25 08:04] LABS: LYMPHOCYTES # (AUTO) 1.6 K/uL (0.8-4.8); MEAN CORPUSCULAR HGB CONC 32 g/dl (31.0-36.0)
[2022-10-25 08:57] LABS: CALCIUM, SERUM 9.6 mg/dL (8.5-10.1); CREATININE 0.7 mg/dL (0.6-1.3); POTASSIUM 4.6 mmol/L (3.5-5.1)
[2022-10-25] MEDS: DOCUSATE SODIUM LIQ 100 MG/10 ML UDC GT SCH (09:20)
[2022-10-25] MEDS: CHLORHEXIDINE GLUCONATE 15 ML UDC MM SCH ×2 (09:20→18:17)
[2022-10-25] MEDS: VALPROIC ACID 250 MG/5 ML UDC GT SCH ×2 (09:20→21:01)
[2022-10-25] MEDS: PANTOPRAZOLE 40 MG/PACK PACK GT SCH (09:20)
[2022-10-25] MEDS: QUETIAPINE FUMARATE 25 MG TABLET GT SCH ×2 (09:20→17:00)
[2022-10-25] MEDS: LOSARTAN POTASSIUM 50 MG TABLET GT SCH (09:22)
[2022-10-25] MEDS: METOPROLOL TARTRATE 25 MG TABLET GT SCH ×2 (09:23→17:00)
[2022-10-25 11:55] LABS: BASOPHILS % (AUTO) 0.7 % (0.0-2.0); EOSINOPHILS % (AUTO) 6.1 % (0.0-6.0); HEMATOCRIT 36 % (39-51); HEMOGLOBIN 11.4 g/dL (13.5-17.5); LYMPHOCYTES % (AUTO) 9.9 % (20.0-44.0); MEAN CORPUSCULAR VOLUME 86 fL (80-96); MONOCYTES % (AUTO) 6.2 % (2.0-12.0); NEUTROPHILS # (AUTO) 12.7 K/uL (1.8-8.9); NEUTROPHILS % (AUTO) 77.1 % (43.0-81.0); PLATELET COUNT (AUTO) 626 K/uL (150-450); RED BLOOD CELL COUNT(AUTO) 4.19 MIL/uL (4.5-6.0); WHITE BLOOD COUNT (AUTO) 16.5 K/uL (4.3-11.0)
[2022-10-25 11:56] LABS: BASOPHILS # (AUTO) 0.1 K/uL (0.0-0.2)
[2022-10-25] MEDS: ENOXAPARIN SODIUM 40 MG/0.4 ML DISP.SYRIN SQ SCH (18:02)
[2022-10-25] MEDS: Z GUARD REMEDY 4 OZ OINT TP SCH ×2 (18:18→21:01)
[2022-10-26] VITALS: BP 97/70
[2022-10-26] MEDS: ALBUTEROL HALF STRENGTH 1.25 MG/3 ML VIAL.NEB NEB SCH ×6 (03:54→23:36)
[2022-10-26] MEDS: IPRATROPIUM NEB FS 0.5 MG/2.5 ML AMPUL.NEB NEB SCH ×6 (03:54→23:36)
[2022-10-26 04:00] VITALS: BP 109/61
--- NOTE | 2022-10-26 04:21 | NUR ---
CLOSING NOTES: EYES are open nnverbal aspiration precaution d/t gt feeding ongoing thru the night for 8 hrs held @3am until 7am (4 hours) as per the MD's order rate 70 ml hr per MD'S orders. checked for residual less than 10 ml. flushed with water as ordered. meds given through the peg Freq suctioning done sats 94% continious pulse on
[2022-10-26] MEDS: ACETYLCYSTEINE 10% SOLN 400 MG/4 ML VIAL NEB SCH ×3 (07:21→23:36)
[2022-10-26 07:55] LABS: BASOPHILS # (AUTO) 0.1 K/uL (0.0-0.2); BASOPHILS % (AUTO) 0.5 % (0.0-2.0); EOSINOPHILS % (AUTO) 14.2 % (0.0-6.0); HEMATOCRIT 35 % (39-51); HEMOGLOBIN 11.3 g/dL (13.5-17.5); LYMPHOCYTES # (AUTO) 2.3 K/uL (0.8-4.8); LYMPHOCYTES % (AUTO) 16.8 % (20.0-44.0); MEAN CORPUSCULAR HGB CONC 32 g/dl (31.0-36.0); MEAN CORPUSCULAR VOLUME 87 fL (80-96); MONOCYTES # (AUTO) 0.8 K/uL (0.1-1.30); MONOCYTES % (AUTO) 5.9 % (2.0-12.0); NEUTROPHILS # (AUTO) 8.6 K/uL (1.8-8.9); NEUTROPHILS % (AUTO) 62.6 % (43.0-81.0); PLATELET COUNT (AUTO) 598 K/uL (150-450); RED BLOOD CELL COUNT(AUTO) 4.06 MIL/uL (4.5-6.0); WHITE BLOOD COUNT (AUTO) 13.7 K/uL (4.3-11.0)
[2022-10-26 08:00] VITALS: BP 105/67
[2022-10-26 08:31] LABS: CALCIUM, SERUM 9.3 mg/dL (8.5-10.1); CREATININE 0.6 mg/dL (0.6-1.3); POTASSIUM 4.3 mmol/L (3.5-5.1)
[2022-10-26] MEDS: METOPROLOL TARTRATE 25 MG TABLET GT SCH ×2 (09:16→16:41)
[2022-10-26] MEDS: QUETIAPINE FUMARATE 25 MG TABLET GT SCH ×2 (09:16→16:41)
[2022-10-26] MEDS: DOCUSATE SODIUM LIQ 100 MG/10 ML UDC GT SCH (09:17)
[2022-10-26] MEDS: CHLORHEXIDINE GLUCONATE 15 ML UDC MM SCH ×2 (09:17→16:41)
[2022-10-26] MEDS: VALPROIC ACID 250 MG/5 ML UDC GT SCH ×2 (09:17→21:21)
[2022-10-26] MEDS: LOSARTAN POTASSIUM 50 MG TABLET GT SCH (09:17)
[2022-10-26] MEDS: PANTOPRAZOLE 40 MG/PACK PACK GT SCH (09:18)
[2022-10-26] MEDS: Z GUARD REMEDY 4 OZ OINT TP SCH ×2 (09:19→21:22)
[2022-10-26 12:00] VITALS: BP 110/68
[2022-10-26 16:00] VITALS: BP 109/65
[2022-10-26] MEDS: ENOXAPARIN SODIUM 40 MG/0.4 ML DISP.SYRIN SQ SCH (16:01)
--- NOTE | 2022-10-26 20:21 | NUR ---
OXYGEN THERAPY TEACHER OPENING NOTE PATIENT IN BED WATCHING TV, PT NON-VERBAL. PT ON T PIECE WITH 5 LPM OF O2, NO S/S OF DISTRESS OR SOB NOTED, BREATHING EVEN AND UNLABORED. PATIENT ON EXTERNAL ASSISTED LIVING EXECUTIVE DIRECTOR READING SINUS RHYTHM WITH ELEVATED T WAVE, HR: 67. IV ACCESS ON RFA #20G INTACT AND SALINE LOCKED. PATIENT ON GTF JEVITY 1.2 @ 70 ML/HR X 20H, TO BE TURNED OFF AT MIDNIGHT AND BACK ON AT [address] AM[address] CLINE CATHETER IN PLACE AND DRAINING URINE BY GRAVITY. SAFETY MEASURES IN PLACE: SIDE RAILS UP X 3, BED LOCKED IN LOWEST POSITION, HOB ELEVATED, BED ALARM ON. WILL CONTINUE TO MONITOR PATIENT
[2022-10-26 20:27] VITALS: BP 100/71
[2022-10-27] VITALS: BP 92/76
[2022-10-27] MEDS: ALBUTEROL HALF STRENGTH 1.25 MG/3 ML VIAL.NEB NEB SCH ×6 (03:57→22:54)
[2022-10-27] MEDS: IPRATROPIUM NEB FS 0.5 MG/2.5 ML AMPUL.NEB NEB SCH ×6 (03:57→22:54)
[2022-10-27 04:00] VITALS: BP 124/85
--- NOTE | 2022-10-27 05:36 | NUR ---
Pt recvd on 28% cool aerosol via t-bar with portex 7 cuffed (deflated). trach is patent and secured. moderate to large frothy secretions, suction done PRN. Neb tx given and allan well. Routine herron change done. Spare trach and ambu bag at bedside.
--- NOTE | 2022-10-27 07:30 | NUR ---
TRANSFER CAR OPERATOR DRIER OPENING NOTE PATIENT IN BED,NON-VERBAL AND OPENS EYES. PT ON T PIECE WITH 5 LPM OF O2, NO S/S OF DISTRESS OR SOB NOTED AT THIS TIME, BREATHING EVEN AND UNLABORED. PATIENT ON EXTERNAL COUPLING MACHINE OPERATOR READING SINUS RHYTHM W HR:88. IV ACCESS ON RFA #20G INTACT AND SALINE LOCKED. PATIENT ON GTF JEVITY 1.2 @ 70 ML/HR X 20H,. NO RESIDUAL VOLUME NOTED. PT ON SOFT BILATERAL WRISTS. NO SKIN OR CIRCULATION ISSUES NOTED AT THIS TIME. CLINE CATHETER IN PLACE AND DRAINING URINE BY GRAVITY.ALL SAFETY MEASURES IN PLACE: SIDE RAILS UP X 2 BED LOCKED IN LOWEST POSITION, HOB ELEVATED, BED ALARM ON.
[2022-10-27] MEDS: ACETYLCYSTEINE 10% SOLN 400 MG/4 ML VIAL NEB SCH ×3 (07:41→23:09)
--- NOTE | 2022-10-27 07:54 | NUR ---
TOMBSTONE ERECTOR NOTE PATIENT SLEEPING IN BED, PT NON-VERBAL. PT ON T PIECE WITH 5 LPM OF O2, NO S/S OF DISTRESS OR SOB NOTED, BREATHING EVEN AND UNLABORED. PATIENT ON EXTERNAL ACCOUNTANT CLERK READING SINUS RHYTHM WITH ELEVATED T WAVE, HR: 72. IV ACCESS ON RFA #20G INTACT AND SALINE LOCKED. PATIENT ON GTF JEVITY 1.2 @ 70 ML/HR X 20H, TURNED OFF AT MIDNIGHT AND BACK ON AT [address] CATHETER IN PLACE AND DRAINING URINE BY GRAVITY, OUTPUT 350 ML. MEDICATIONS GIVEN ORDERED, PT NEEDS MET THROUGHOUT SHIFT, PATIENT TURNED AND REPOSITIONED Q2H. SAFETY MEASURES IN PLACE: SIDE RAILS UP X 3, BED LOCKED IN LOWEST POSITION, HOB ELEVATED, BED ALARM ON. ENDORSED TO DAYSHIFT RN FOR CONTINUITY OF CARE
[2022-10-27 08:00] VITALS: BP 130/75
[2022-10-27] MEDS: DOCUSATE SODIUM LIQ 100 MG/10 ML UDC GT SCH (08:39)
[2022-10-27] MEDS: QUETIAPINE FUMARATE 25 MG TABLET GT SCH ×2 (08:39→16:24)
[2022-10-27] MEDS: VALPROIC ACID 250 MG/5 ML UDC GT SCH ×2 (08:39→20:33)
[2022-10-27] MEDS: CHLORHEXIDINE GLUCONATE 15 ML UDC MM SCH ×2 (08:39→16:24)
[2022-10-27] MEDS: PANTOPRAZOLE 40 MG/PACK PACK GT SCH (08:39)
[2022-10-27 09:03] LABS: BASOPHILS # (AUTO) 0.1 K/uL (0.0-0.2); BASOPHILS % (AUTO) 0.4 % (0.0-2.0); EOSINOPHILS % (AUTO) 16.7 % (0.0-6.0); HEMATOCRIT 36 % (39-51); HEMOGLOBIN 11.2 g/dL (13.5-17.5); LYMPHOCYTES # (AUTO) 2.1 K/uL (0.8-4.8); LYMPHOCYTES % (AUTO) 13.3 % (20.0-44.0); MEAN CORPUSCULAR HGB CONC 31 g/dl (31.0-36.0); MEAN CORPUSCULAR VOLUME 88 fL (80-96); MONOCYTES # (AUTO) 0.9 K/uL (0.1-1.30); MONOCYTES % (AUTO) 5.5 % (2.0-12.0); NEUTROPHILS # (AUTO) 10.1 K/uL (1.8-8.9); NEUTROPHILS % (AUTO) 64.1 % (43.0-81.0); PLATELET COUNT (AUTO) 516 K/uL (150-450); RED BLOOD CELL COUNT(AUTO) 4.07 MIL/uL (4.5-6.0); WHITE BLOOD COUNT (AUTO) 15.8 K/uL (4.3-11.0)
[2022-10-27 09:22] LABS: CALCIUM, SERUM 9.3 mg/dL (8.5-10.1); CREATININE 0.7 mg/dL (0.6-1.3); POTASSIUM 4.3 mmol/L (3.5-5.1)
[2022-10-27] MEDS: METOPROLOL TARTRATE 25 MG TABLET GT SCH ×2 (09:46→16:42)
[2022-10-27] MEDS: LOSARTAN POTASSIUM 50 MG TABLET GT SCH (09:46)
[2022-10-27] MEDS: Z GUARD REMEDY 4 OZ OINT TP SCH ×2 (10:02→20:33)
[2022-10-27 12:00] VITALS: BP 95/66
[2022-10-27] MEDS: JEVITY 1.2 CAL 1,000 ML BOTTLE GT SCH (12:46)
[2022-10-27] MEDS: ENOXAPARIN SODIUM 40 MG/0.4 ML DISP.SYRIN SQ SCH (15:29)
[2022-10-27 16:00] VITALS: BP 96/65
--- NOTE | 2022-10-27 19:18 | NUR ---
rn closing note pt in bed. nonverbal and opens eyes. pt on tpiece with ordered settings tolerating well, and o2 aat 100%. no signs of pain or discomfort at this time. pt on external ekg monitor reading 76. pt has gtube, intact, patent and flushes well, and no residual volume noted. pt on soft bilateral wrists. no skin or ciruclation issues noted at this time. terrell cath in place. yellow color draining to gravity. all safety measures in place. call light within [facility]. bed locked and in lowest position. head of bed elevated at all times. side rails up x2. endorsed to table games shift manager rn for contuity of care
--- NOTE | 2022-10-27 19:47 | NUR ---
RN OPENING NOTES RECEIVED PT IN BED, ASLEEP, AWAKENS TO VERBAL STIMULI. NONVERBAL BUT OPENS EYES TO VERBAL AND TACTILE STIMULI. ON T-PIECE 5LPM AND TOLERATING WELL. NO SOB NOTED. NO S/SX OF RESPIRATORY DISTRESS NOTED. TELE MONITOR DETECTS SR WITH RATE OF 76. IV ACCESS IN RFA #20G. IV IS INTACT, PATENT, AND FLUSHING WELL. SAFETY PRECAUTIONS IN PLACE: BED IN LOWEST, LOCKED POSITION, SIDERAILS UP x2, AND BRAKES ON. TABLE AND CALL LIGHT WITHIN REACH. ALL NEEDS MET AT THIS TIME.
[2022-10-27 20:00] VITALS: BP 106/72
[2022-10-28] VITALS: BP 96/66
[2022-10-28] MEDS: ALBUTEROL HALF STRENGTH 1.25 MG/3 ML VIAL.NEB NEB SCH ×6 (03:26→22:51)
[2022-10-28] MEDS: IPRATROPIUM NEB FS 0.5 MG/2.5 ML AMPUL.NEB NEB SCH ×6 (03:26→22:51)
[2022-10-28 04:00] VITALS: BP 98/58
--- NOTE | 2022-10-28 06:48 | NUR ---
RN CLOSING NOTES PT IN BED, AWAKE, WIGGLING IN BED. NONVERBAL BUT OPENS EYES TO VERBAL AND TACTILE STIMULI. ON T-PIECE 5LPM AND TOLERATING WELL. NO SOB NOTED. NO S/SX OF RESPIRATORY DISTRESS NOTED. TELE MONITOR DETECTS SR WITH RATE OF 96. IV ACCESS IN RFA #20G. IV IS INTACT, PATENT, AND FLUSHING WELL. ALL ORDERS CARRIED OUT. ALL NEEDS MET. PT KEPT CLEAN AND DRY. SAFETY PRECAUTIONS IN PLACE: BED IN LOWEST, LOCKED POSITION, SIDERAILS UP x2, AND BRAKES ON. TABLE AND CALL LIGHT WITHIN REACH. WILL ENDORSE TO ONCOMING SHIFT FOR THOR.
--- NOTE | 2022-10-28 07:15 | NUR ---
RN note Received patient in bed. Spontaneous eye opening, not in respiratory distress. Spo2 100% with 6L oxygen via tracheostomy (T-piece),RR 20/min. Telemetry showed SRHR 96/min. Circulation is good with restraints use. Call douglass is placed within reach. Bed is locked and placed in the lowest position. All safety measures have been implemented. Will continue monitoring and care.
[2022-10-28 08:00] VITALS: BP 113/79
[2022-10-28] MEDS: ACETYLCYSTEINE 10% SOLN 400 MG/4 ML VIAL NEB SCH ×3 (08:14→22:51)
[2022-10-28] MEDS: PANTOPRAZOLE 40 MG/PACK PACK GT SCH (08:40)
[2022-10-28] MEDS: VALPROIC ACID 250 MG/5 ML UDC GT SCH ×2 (08:40→22:18)
[2022-10-28] MEDS: CHLORHEXIDINE GLUCONATE 15 ML UDC MM SCH ×2 (08:40→16:28)
[2022-10-28] MEDS: DOCUSATE SODIUM LIQ 100 MG/10 ML UDC GT SCH (08:40)
[2022-10-28] MEDS: METOPROLOL TARTRATE 25 MG TABLET GT SCH ×2 (08:41→16:27)
[2022-10-28] MEDS: QUETIAPINE FUMARATE 25 MG TABLET GT SCH ×2 (08:41→16:27)
[2022-10-28] MEDS: LOSARTAN POTASSIUM 50 MG TABLET GT SCH (08:42)
[2022-10-28] MEDS: Z GUARD REMEDY 4 OZ OINT TP SCH ×2 (08:42→22:19)
--- NOTE | 2022-10-28 10:00 | NUR ---
RN note- Suction done. Moderate amount of whitish sputum suctioned from tracheostomy. Decreased oxygen to 5L, now at FiO2 28%.
[2022-10-28 10:53] LABS: BASOPHILS # (AUTO) 0.1 K/uL (0.0-0.2); BASOPHILS % (AUTO) 0.8 % (0.0-2.0); EOSINOPHILS % (AUTO) 16.1 % (0.0-6.0); HEMATOCRIT 35 % (39-51); HEMOGLOBIN 10.9 g/dL (13.5-17.5); LYMPHOCYTES # (AUTO) 1.4 K/uL (0.8-4.8); LYMPHOCYTES % (AUTO) 9.3 % (20.0-44.0); MEAN CORPUSCULAR HGB CONC 31 g/dl (31.0-36.0); MEAN CORPUSCULAR VOLUME 87 fL (80-96); MONOCYTES # (AUTO) 0.7 K/uL (0.1-1.30); MONOCYTES % (AUTO) 4.8 % (2.0-12.0); NEUTROPHILS # (AUTO) 10.2 K/uL (1.8-8.9); PLATELET COUNT (AUTO) 504 K/uL (150-450); RED BLOOD CELL COUNT(AUTO) 3.96 MIL/uL (4.5-6.0); WHITE BLOOD COUNT (AUTO) 14.8 K/uL (4.3-11.0)
[2022-10-28 11:11] LABS: CALCIUM, SERUM 8.9 mg/dL (8.5-10.1); CREATININE 0.7 mg/dL (0.6-1.3); POTASSIUM 4.2 mmol/L (3.5-5.1)
[2022-10-28 12:00] VITALS: BP 114/64
--- NOTE | 2022-10-28 13:00 | NUR ---
RN note Suction and tracheotomy care is done.
[2022-10-28] MEDS: ENOXAPARIN SODIUM 40 MG/0.4 ML DISP.SYRIN SQ SCH (15:56)
[2022-10-28 16:00] VITALS: BP 121/70
[2022-10-28] MEDS: JEVITY 1.2 CAL 1,000 ML BOTTLE GT SCH (16:11)
--- NOTE | 2022-10-28 18:49 | NUR ---
RN note Patient is resting in bed without respiratory distress. Spo2 100% with FiO2 28%,RR 18/min via t-piece. lunchroom monitor showed SR HR 90/min. Tolerated G-tube feeding well. Cirulation with restraints use is good. Bed is locked and placed in the lowest position.All safety measures have been implemented. WIll endorse PM nurse to continue monitoring and care
--- NOTE | 2022-10-28 19:00 | NUR ---
GEAR CODING MACHINE OPERATOR OPENING NOTES PT is IN BED, SLEEPING. EASILY BEING AROUSED. PATIENT IS NON-VERBAL, UNABLE TO ACCESS HIS STATE OF MIND. HE LOOKS VERY CONFUSED. PATIENT IS ON SOFT WRIST RESTRAINS AND WITH MITTENS BILATERAL. PATIENT IS ON T-PIECE WITH 5LPM OXYGEN RUNNING AND TOLERATING WELL. NO S/S OF SOB OR DISTRESS. IV ACCESS IS AT HIS R FA, #20G, SL. FLUSHED WITH 10 CC NS, PATENT AND INTACT. PATIENT IS ON EXTERNAL FACTORY HELPER, ON THE MONITOR, IT SHOWS HIS HEART RHYTHM IS SR WITH ELEVATED T WAVE AND THE HR IS AT 80S. PATIENT HAS G-TUBE, PLACEMENT IS CHECKED INTACT. 10 ML OF RESIDUAL. PATIENT IS RUNNING JEVITY 1.2 AT 70 ML/HR FOR 20 HOURS PER MD SUGGESTION. SAFETY PRECAUTIONS IN PLACE: BED IN LOWEST AND LOCKED POSITION, SIDE RAILS UP x3. TABLE AND CALL LIGHT WITHIN REACH. WILL CONTINUE MONITOR THE PATIENT AND PROVIDE THE CARE PATIENT NEEDS.
[2022-10-28 20:00] VITALS: BP 101/74
[2022-10-29] VITALS (7 sets, daily range): BP systolic 90–159; BP diastolic 49–75
[2022-10-29] MEDS: ALBUTEROL HALF STRENGTH 1.25 MG/3 ML VIAL.NEB NEB SCH ×5 (03:39→19:30)
[2022-10-29] MEDS: IPRATROPIUM NEB FS 0.5 MG/2.5 ML AMPUL.NEB NEB SCH ×5 (03:39→19:30)
[2022-10-29] MEDS: JEVITY 1.2 CAL 1,000 ML BOTTLE GT SCH (03:56)
[2022-10-29] MEDS: HYDROCODONE/APAP 5/325MG TABLET GT PRN ×2 (04:27→17:47)
--- NOTE | 2022-10-29 04:27 | NUR ---
DOCTOR OF NURSE ANESTHESIA NOTE PATIENT IS RESTLESS AND HIS FACIAL GRIMACING SHOWING HE IS IN PAIN. PRN MEDICATION, NORCO, WAS GIVEN PER MD ORDER.
[2022-10-29 06:16] LABS: BASOPHILS % (AUTO) 0.2 % (0.0-2.0); HEMATOCRIT 39 % (39-51); HEMOGLOBIN 12.1 g/dL (13.5-17.5); LYMPHOCYTES # (AUTO) 1.5 K/uL (0.8-4.8); LYMPHOCYTES % (AUTO) 9.1 % (20.0-44.0); MEAN CORPUSCULAR HGB CONC 32 g/dl (31.0-36.0); MEAN CORPUSCULAR VOLUME 89 fL (80-96); MONOCYTES # (AUTO) 0.8 K/uL (0.1-1.30); MONOCYTES % (AUTO) 4.6 % (2.0-12.0); NEUTROPHILS # (AUTO) 11.2 K/uL (1.8-8.9); NEUTROPHILS % (AUTO) 67.1 % (43.0-81.0); PLATELET COUNT (AUTO) 428 K/uL (150-450); RED BLOOD CELL COUNT(AUTO) 4.32 MIL/uL (4.5-6.0); WHITE BLOOD COUNT (AUTO) 16.7 K/uL (4.3-11.0)
--- NOTE | 2022-10-29 06:52 | NUR ---
ADULT BASIC EDUCATION TEACHER CLOSING NOTES PT IS IN BED, SLEEPING. EASILY BEING AROUSED. PATIENT IS ON T-PIECE WITH 5LPM OXYGEN RUNNING AND TOLERATING WELL. NO S/S OF SOB OR DISTRESS. IV ACCESS IS AT HIS R FA, #20G, SL. FLUSHED WITH 10 CC NS, PATENT AND INTACT. PATIENT IS ON EXTERNAL STATE HISTORICAL SOCIETY DIRECTOR, ON THE MONITOR, IT SHOWS HIS HEART RHYTHM IS SR WITH ELEVATED T WAVE AND THE HR IS AT 80S. PATIENT'S G-TUBE IS PATENT AND INTACT, RUNNING JEVITY 1.2 AT 70 ML/HR FOR 20 HOURS PER MD SUGGESTION. SAFETY PRECAUTIONS IN PLACE: BED IN LOWEST AND LOCKED POSITION, SIDE RAILS UP x3. TABLE AND CALL LIGHT WITHIN REACH. WILL ENDORSE THE NEXT SHIFT NURSE FOR CONTINUE PATIENT CARE..
--- NOTE | 2022-10-29 07:30 | NUR ---
RN Opening Note Not able to assess patients mental status, pt connected to T-pice. Patient continues to kick and move feet outside of the bed, educated patient in [place] [employer] but does not comprehend. No signs of distress or discomfort, IV with no signs of infiltration. All safety precautions taken, call light and table within reach, bed at lowest position. Will continue to monitor throughout shift.
[2022-10-29] MEDS: ACETYLCYSTEINE 10% SOLN 400 MG/4 ML VIAL NEB SCH ×2 (07:36→15:25)
[2022-10-29 07:45] LABS: CALCIUM, SERUM 9.3 mg/dL (8.5-10.1); CREATININE 0.7 mg/dL (0.6-1.3); POTASSIUM 4.1 mmol/L (3.5-5.1)
[2022-10-29] MEDS: VALPROIC ACID 250 MG/5 ML UDC GT SCH (08:40)
[2022-10-29] MEDS: DOCUSATE SODIUM LIQ 100 MG/10 ML UDC GT SCH (08:40)
[2022-10-29] MEDS: PANTOPRAZOLE 40 MG/PACK PACK GT SCH (08:40)
[2022-10-29] MEDS: CHLORHEXIDINE GLUCONATE 15 ML UDC MM SCH ×2 (08:40→17:41)
[2022-10-29] MEDS: LOSARTAN POTASSIUM 50 MG TABLET GT SCH (08:41)
[2022-10-29] MEDS: QUETIAPINE FUMARATE 25 MG TABLET GT SCH ×2 (08:41→17:41)
[2022-10-29] MEDS: METOPROLOL TARTRATE 25 MG TABLET GT SCH ×2 (08:42→17:41)
[2022-10-29] MEDS: Z GUARD REMEDY 4 OZ OINT TP SCH (08:43)
[2022-10-29] MEDS: ENOXAPARIN SODIUM 40 MG/0.4 ML DISP.SYRIN SQ SCH (14:55)
--- NOTE | 2022-10-29 19:16 | NUR ---
RN Closing Note Not able to assess patients mental status. Patients transportation pending arrival. Called [facility] and provided report to [facility]. All safety precautions taken, call light and table within reach. NO signs of distress or discomfort. Will endorse to night nurse for continuity of care.
--- NOTE | 2022-10-29 20:10 | NUR ---
2009 Body picked up by [facility], report given to EMT. Patient awake and in stable condition. Vital signs taken and recorded. No belongings noted.
== END 2022-10-29 21:00 | DRG 720 ==
LOC: ER 11:02 → TELE1 13:08
PROVIDERS: ADMIT Nurse Practitioner Acute Care; ATTEND Internal Medicine
PROC: 06HY33Z Insertion of Infusion Device into Lower Vein, Percutaneous Approach (ICD-10-PCS; principal; 2022-10-16)
DX: A41.89 Other specified sepsis (principal); J96.21 Acute and chronic respiratory failure with hypoxia; R65.21 Severe sepsis with septic shock; J12.82 Pneumonia due to coronavirus disease 2019; E43 Unspecified severe protein-calorie malnutrition; U07.1 COVID-19; G93.41 Metabolic encephalopathy; R64 Cachexia; J15.6 Pneumonia due to other Gram-negative bacteria; T17.990A Other foreign object in respiratory tract, part unspecified in causing asphyxiation, initial encounter; D68.59 Other primary thrombophilia; R53.2 Functional quadriplegia; Z20.822 Contact with and (suspected) exposure to COVID-19; I10 Essential (primary) hypertension; Z86.73 Personal history of transient ischemic attack (TIA), and cerebral infarction without residual deficits; Z74.01 Bed confinement status; Z78.9 Other specified health status; Y95 Nosocomial condition; R13.10 Dysphagia, unspecified; Z93.1 Gastrostomy status; K21.9 Gastro-esophageal reflux disease without esophagitis; Z93.0 Tracheostomy status; Z79.51 Long term (current) use of inhaled steroids; Z79.899 Other long term (current) drug therapy; E86.0 Dehydration; E83.39 Other disorders of phosphorus metabolism; Z68.1 Body mass index [BMI] 19.9 or less, adult; J15.9 Unspecified bacterial pneumonia; Z74.09 Other reduced mobility; G40.909 Epilepsy, unspecified, not intractable, without status epilepticus; E88.09 Other disorders of plasma-protein metabolism, not elsewhere classified; J90 Pleural effusion, not elsewhere classified; I31.39 Other pericardial effusion (noninflammatory); J98.11 Atelectasis; U09.9 Post COVID-19 condition, unspecified; X58.XXXA Exposure to other specified factors, initial encounter; Y92.129 Unspecified place in nursing home as the place of occurrence of the external cause; R79.89 Other specified abnormal findings of blood chemistry
CPT/HCPCS: 31720; 36415; 36600; 71045-TC; 71250-TC; 80048-TC; 80076-TC; 80202-TC; 81001; 82803-TC; 83605-TC; 83735-TC; 83880; 84100-TC; 84484-TC; 85025-TC; 86140-TC; 86803; 87040-TC; 87086-TC; 87806; 94640-TC; 94760-TC; 94762-TC; 94799-TC; A7526; C9803; G0378; J0456; J0692; J0696; J1100; J1650; J3370; J7030; J7060; U0003

== ENCOUNTER 2022-11-07 16:02 | Inpatient (IN) | payer MEDICAID ==
[~2022-11-07] VITALS: Ht 165.1 cm; Wt 50.8 kg
[~2022-11-07 16:02] MED LIST changes: -CEFE2FRO IV
[2022-11-07] MEDS ORDERED: IV NS 0.9% 1,000 ML IV ONE ×2 (16:30→17:00)
[2022-11-07] MEDS ORDERED: ACETAMINOPHEN ES 500 MG TABLET GT ONE (16:30)
[2022-11-07] MEDS ORDERED: VANCOMYCIN 1 GM in IV D5W 250 ML IV ONE (16:30)
[2022-11-07] MEDS ORDERED: CEFEPIME 1 GM in IV D5W 50 ML IV ONE (16:30)
[2022-11-07 16:35] LABS: BASOPHILS % (AUTO) 0.3 % (0.0-2.0); EOSINOPHILS % (AUTO) 1.6 % (0.0-6.0); HEMATOCRIT 35 % (39-51); HEMOGLOBIN 10.9 g/dL (13.5-17.5); LYMPHOCYTES # (AUTO) 0.9 K/uL (0.8-4.8); LYMPHOCYTES % (AUTO) 6.5 % (20.0-44.0); MEAN CORPUSCULAR HGB CONC 31 g/dl (31.0-36.0); MEAN CORPUSCULAR VOLUME 88 fL (80-96); MONOCYTES # (AUTO) 0.9 K/uL (0.1-1.30); MONOCYTES % (AUTO) 6.3 % (2.0-12.0); NEUTROPHILS # (AUTO) 11.9 K/uL (1.8-8.9); NEUTROPHILS % (AUTO) 85.3 % (43.0-81.0); PLATELET COUNT (AUTO) 385 K/uL (150-450)
[2022-11-07] MEDS ORDERED: ACETAMINOPHEN ES 500 MG TABLET ONE (16:48)
[2022-11-07] MEDS ORDERED: CEFEPIME 1 GM VIAL ONE ×2 (16:48→19:46)
[2022-11-07] MEDS ORDERED: VANCOMYCIN 1 GM VIAL ONE (16:48)
[2022-11-07 16:54] LABS: ABG BASE EXCESS 6.7 mmol/L; ABG OXYGEN SATURATION 86.4 % (92.0-98.5); ABG PCO2 42.9 mmHg (35.0-45.0); ABG PH 7.476 (7.350-7.450); ABG PO2 50.2 mmHg (75.0-100.0); AaDO2 185.7 mmHg; COHb 0.2 % (0.5-1.5); MetHb 0.2 % (0.0-1.5); O2Hb 86.1 % (94.0-97.0); PEEP,BG 5 cm H2O; SITE, ABG Right Radial; VT, ABG 450 mL
[2022-11-07] MEDS ORDERED: LORA-259 GT (16:55)
[2022-11-07] MEDS ORDERED: ACET650S26 GT (16:55)
[2022-11-07 17:07] LABS: ALANINE AMINOTRANSFERASE 34 U/L (12-78); ALBUMIN 2.7 g/dL (3.4-5.0); ALKALINE PHOSPHATASE 117 U/L (46-116); ASPARTATE AMINOTRANSFERASE 22 U/L (15-37); BILIRUBIN,DIRECT 0.1 mg/dL (0.0-0.2); BILIRUBIN,TOTAL 0.3 mg/dL (0.2-1.0); CALCIUM, SERUM 9.5 mg/dL (8.5-10.1); CARBON DIOXIDE 32 mmol/L (21-32); CHLORIDE 101 mmol/L (98-107); GLUCOSE 166 mg/dL (74-106); POTASSIUM 4.6 mmol/L (3.5-5.1); SODIUM SERUM 139 mmol/L (136-145); TOTAL PROTEIN, SERUM 8.4 g/dL (6.4-8.2); UREA NITROGEN, BLOOD 23 mg/dL (7-18)
[2022-11-07] MEDS ORDERED: Z GUARD REMEDY 4 OZ OINT TP PRN (18:00)
[2022-11-07] MEDS ORDERED: CEFEPIME 1 GM in IV D5W 50 ML IV SCH (18:00)
[2022-11-07] MEDS ORDERED: MAGNESIUM HYDROXIDE 30 ML UDC PO PRN (18:00)
[2022-11-07] MEDS ORDERED: hydrALAZINE HCL 10 MG TABLET GT PRN (18:00)
[2022-11-07] MEDS ORDERED: ZOLPIDEM TARTRATE 5 MG TABLET PO PRN (18:00)
[2022-11-07] MEDS ORDERED: ONDANSETRON HCL/PF 4 MG/2 ML VIAL IVP PRN (18:00)
[2022-11-07] MEDS ORDERED: MAG HYDROX/AL HYDROX/SIMETH 30 ML UDC PO PRN (18:00)
[2022-11-07] MEDS ORDERED: BISACODYL SUPP (10 MG) 10 MG/SUPP.RECT SUPP.RECT RC PRN (18:00)
[2022-11-07] MEDS ORDERED: ACETAMINOPHEN 650 MG/20.3 ML UDC GT PRN (18:00)
[2022-11-07] MEDS ORDERED: MAGNESIUM HYDROXIDE 30 ML UDC GT PRN (18:00)
[2022-11-07] MEDS ORDERED: NA PHOS,M-B/NA PHOS,DI-BA 1 EA ENEMA RC PRN (18:00)
[2022-11-07] MEDS ORDERED: ACETAMINOPHEN ES 500 MG TABLET GT PRN (18:00)
[2022-11-07] MEDS ORDERED: ACETAMINOPHEN 325 MG TABLET MC PRN (18:00)
--- NOTE | 2022-11-07 18:45 | NUR ---
Pt to ER for hypoxis, decrease O2 Sat per SNF history of chronic respiratory failure with trach dependency [facility] have low oxygen saturation in the 80s. The patient does not use a ventilator at baseline. pt placed on vent upon arrival. Patient reportedly had copious secretions after suctioning via trach. The patient remains nonverbal at baseline and cannot provide any additional history. Elevated fever upon arrival 102.2 HR 130's and FiO2 increase to 60 to treat hypoxia Tylenol given, and IV abx started. ER Phy diagnosed pt with Fever, Severe sepsis, Tachycardia, Left lower lobe pneumonia
--- NOTE | 2022-11-07 19:34 | NUR ---
covid swab collected and sent to lab.
--- NOTE | 2022-11-07 20:15 | NUR ---
VENT SETTINGS: A/C VC : FiO2 50%, RR16 VT450 PEEP 5
[2022-11-07] MEDS ORDERED: PERMETHRIN 5% CRM 60 GM TUBE TP ONE (20:30)
--- NOTE | 2022-11-07 20:33 | NUR ---
URINE SAMPLE COLLECTED
[2022-11-07 21:11] LABS: BILIRUBIN,URINE NEGATIVE (NEGATIVE); COLOR,URINE YELLOW (YELLOW); LEUKOCYTE ESTERASE ,URINE NEGATIVE (NEGATIVE); NITRITE, URINE NEGATIVE (NEGATIVE); PROTEIN,URINE 1+ mg/dl (NEGATIVE); UGLUCOSE NEGATIVE (NEGATIVE)
[2022-11-07 21:19] LABS: WBC,URINE 0-2 /HPF (0-3)
[2022-11-07 21:20] LABS: BACTERIA,URINE 1+ /HPF (None Seen); COARSE GRANULAR CASTS,URINE Few /LPF (None Seen); HYALINE CASTS, URINE Few /LPF (None Seen); SQUAMOUS EPITHELIAL CELL,UR Few /HPF (None Seen); URINE AMORPHOUS PHOSPHATES Few /HPF (None Seen)
[2022-11-07] MEDS ORDERED: LORATADINE 10 MG TABLET ONE (23:58)
[2022-11-07] MEDS ORDERED: METOPROLOL TARTRATE 50 MG TABLET ONE (23:58)
[2022-11-07] MEDS ORDERED: VALPROIC ACID 250 MG/5 ML UDC ONE (23:58)
[2022-11-08] MEDS ORDERED: ENOXAPARIN SODIUM 40 MG/0.4 ML DISP.SYRIN SQ ONE (00:22)
[2022-11-08] MEDS: ENOXAPARIN SODIUM 40 MG/0.4 ML DISP.SYRIN SQ SCH ×2 (00:25→21:48)
[2022-11-08] MEDS: ALBUTEROL FS 2.5 MG/3 ML VIAL.NEB NEB SCH ×4 (01:44→20:18)
[2022-11-08] MEDS: IPRATROPIUM NEB FS 0.5 MG/2.5 ML AMPUL.NEB NEB SCH ×4 (01:44→20:18)
[2022-11-08] MEDS ORDERED: ALBUTEROL FS 2.5 MG/3 ML VIAL.NEB ONE ×2 (01:55→08:47)
[2022-11-08] MEDS ORDERED: IPRATROPIUM NEB FS 0.5 MG/2.5 ML AMPUL.NEB ONE ×2 (01:55→08:46)
[2022-11-08] MEDS: VANCOMYCIN HCL 0.75 GM in IV D5W 250 ML IV SCH ×2 (03:48→15:00)
[2022-11-08] MEDS: HYDROCORTISONE 1% CREAM 30 GM TUBE TP SCH ×4 (03:50→21:50)
[2022-11-08 05:39] LABS: BASOPHILS % (AUTO) 0.2 % (0.0-2.0); EOSINOPHILS % (AUTO) 8.6 % (0.0-6.0); HEMATOCRIT 32 % (39-51); HEMOGLOBIN 9.9 g/dL (13.5-17.5); LYMPHOCYTES % (AUTO) 14.9 % (20.0-44.0); MEAN CORPUSCULAR HGB CONC 31 g/dl (31.0-36.0); MEAN CORPUSCULAR VOLUME 88 fL (80-96); MONOCYTES % (AUTO) 7.7 % (2.0-12.0); NEUTROPHILS # (AUTO) 9.2 K/uL (1.8-8.9); NEUTROPHILS % (AUTO) 68.6 % (43.0-81.0); PLATELET COUNT (AUTO) 319 K/uL (150-450); RED BLOOD CELL COUNT(AUTO) 3.63 MIL/uL (4.5-6.0); WHITE BLOOD COUNT (AUTO) 13.5 K/uL (4.3-11.0)
[2022-11-08 05:53] LABS: CALCIUM, SERUM 8.9 mg/dL (8.5-10.1); CREATININE 0.6 mg/dL (0.6-1.3); MAGNESIUM 2.1 mg/dL (1.8-2.4); PHOSPHORUS 2.8 mg/dL (2.5-4.9)
[2022-11-08 06:15] LABS: ABG OXYGEN SATURATION 96.5 % (92.0-98.5); ABG PCO2 48.3 mmHg (35.0-45.0); ABG PH 7.391 (7.350-7.450); ABG PO2 90.3 mmHg (75.0-100.0); AaDO2 211.9 mmHg; COHb 0.5 % (0.5-1.5); MetHb 0.3 % (0.0-1.5); O2Hb 95.7 % (94.0-97.0); SITE, ABG Right Radial; VENT MODE, BG AC 16 450 50% +5
--- NOTE | 2022-11-08 07:42 | NUR ---
ROOM ASSIGNED 114.1 ADMITTING AWARE
[2022-11-08] MEDS ORDERED: ACETAMINOPHEN 650 MG/20.3 ML UDC GT PRN (08:04)
--- NOTE | 2022-11-08 08:17 | NUR ---
JEAN WHITE FOR REPORT, WILL CALL BACK
--- NOTE | 2022-11-08 08:20 | NUR ---
pATIENT WAS TRANSFERRED FO TH ER, WITH PRIMARY DIAGNOSIS OF RESPIRATORY FAILURE .PATIENT IS ON MECHANICAL VENTILATION TRACH 7 , VT 450 , FIO2 50 , PEEP 5 . O2 AT 100 % . PATIENT IS ALERT , NON VERBAL , CONFUSED .PATIENT HAS BILATERAL HANDS SOFT RESTRAINE DUE TO TRYING TO PULL OUT THE IV LINES , PATIENT HAS HX OF CVA , QUADRIPLEGIC, PATIENT HAS G TUBE ON JEVETY 45 ML /HR . HAS IV ACSESS ON LFA 18 G NS RAINING AT 120 ML/HR .WILL CONTINUE TO MONITOR.
--- NOTE | 2022-11-08 08:24 | NUR ---
PT REPORT GIVEN TO JEAN WHITE
--- NOTE | 2022-11-08 08:30 | NUR ---
GENERAL OFFICE CLERK NOTE PATIENT WAS ADMITTED FROM ER WITH PRIMARY DIAGNOSIS OF RESPIRATORY FAILURE , PATIENT IS ON MECHANICAL VENT SET : VT 450 , FIO2 50 % PEEP 5 , NO S/S OF DISDTRESS , O2 SAT 100 % , PATIENT IS NON VERBAL , CONFUSED , WAS TRYING TO PULL OUT THE IV AND THE BG TUBE , ORDER RECEIVED TO PUT PATIENT ON BILATERAL HANDS SOFT RESTRAIN .ORDER PLACED FOR JEVETY 45 ML /HR VIA G TUBE PATIENT HAS IV ACSESS ON LFA 18 G WITH NS RUNNING AT 120 ML/HR , WILL CONTINUE TO MONITOR
[2022-11-08] MEDS: CHLORHEXIDINE GLUCONATE 15 ML UDC MM SCH ×2 (08:43→16:42)
[2022-11-08] MEDS ORDERED: ALBUTEROL FS 2.5 MG/0.5 ML VIAL.NEB ONE (08:46)
[2022-11-08] MEDS ORDERED: PANTOPRAZOLE 40 MG VIAL IV SCH (09:00)
--- NOTE | 2022-11-08 09:31 | NUR ---
PT TRANSFERRED TO 114 [facility] ACLS PROTOCOL, RT AT BEDSIDE. WARM HANDOFF GIVEN TO JEAN WHITE.
[2022-11-08] MEDS: LORATADINE 10 MG TABLET PO SCH ×2 (10:37)
[2022-11-08] MEDS: METOPROLOL TARTRATE 25 MG TABLET GT SCH ×3 (10:38→21:47)
[2022-11-08] MEDS: LOSARTAN POTASSIUM 50 MG TABLET GT SCH (10:39)
[2022-11-08] MEDS: PANTOPRAZOLE 40 MG/PACK PACK NG SCH (10:40)
[2022-11-08] MEDS: DOCUSATE SODIUM LIQ 100 MG/10 ML UDC GT SCH (10:45)
[2022-11-08] MEDS: IV NS 0.9% 1,000 ML IV PRN ×2 (10:46→18:22)
[2022-11-08] MEDS: VALPROIC ACID 250 MG/5 ML UDC GT SCH ×3 (10:46→21:47)
[2022-11-08] MEDS: CEFEPIME 2 GM in IV D5W 100 ML IV SCH ×2 (11:23→21:45)
[2022-11-08 12:00] VITALS: BP 129/68
[2022-11-08] MEDS: methylPREDNISolone SOD SUCC 40 MG/ML VIAL IV SCH ×2 (13:12→21:48)
[2022-11-08] MEDS ORDERED: JEVITY 1.2 CAL 1,000 ML BOTTLE GT PRN (14:00)
[2022-11-08 16:13] VITALS: BP 154/100
--- NOTE | 2022-11-08 18:37 | NUR ---
RN CLOSING NOTE PATIENT IS ALERT , NON VERBAL , CONFUSED ON MECHANICAL VENT SET : VT 450 , FIO2 50 % PEEP 5 , NO S/S OF DISTRESS , O2 SAT 100 % ON BILATERAL HANDS SOFT RESTRAIN .ORDER PLACED FOR JEVITY 45 ML /HR VIA G TUBE PATIENT HAS IV ACCESS ON LFA 18 G WITH NS RUNNING AT 120 ML/HR ,ALL MEDS WAS ADMINISTERED , ALL NEEDS WERE MET WILL ENDORSE LINE OUT WORKER NURSE TO FALOW POC
[2022-11-08 20:00] VITALS: BP 133/91
--- NOTE | 2022-11-08 21:53 | NUR ---
NATASHA RN OPENING NOTE PT RECEIVED IN BED, A&O, NON-VERBAL, OPENS EYES, RESTLESS. PT ON TRACH PORTEX #7, AC 16, TV 450, FIO2 50%, PEEP 5 WITH CURRENT O2SAT OF 100%; NO S/S OF RESP DISTRESS, NO SOB OR COUGH, NON-LABORED AND EQUAL BREATHING. PT ATTACHED TO BEDSIDE MONITOR ST WITH HR OF 107. GT CLAMPED, NO FEEDING RUNNING. IV ACCESS ON LFA 18G INTACT AND PATENT, FLUSHES EASILY WITH NO RESISTANCE, NS INFUSING AT 120 ML/HR. PT NOTED TO HAVE BILATERAL SOFT WRIST RESTRAINTS; NO SIGNS OF IMPAIRED SKIN OR CIRCULATION; WILL PROVIDE PT WITH RELEASE OF RESTRAINTS AND HYGIENE. BED IN LOWEST POSITION, CALL LIGHT WITHIN REACH, SIDE RAILS UP X3. WILL CONTINUE TO MONITOR THROUGHOUT THE NIGHT.
--- NOTE | 2022-11-08 22:13 | NUR ---
RN NOTE JEVITY GTF NOTED TO BE DISCONTINUED. [facility] CALLED AND SAYS THAT IT'S BEEN D/C'D SINCE IT'S ONLY A 1 BOTTLE ORDER.
[2022-11-09] VITALS: BP 111/67
[2022-11-09] MEDS: IPRATROPIUM NEB FS 0.5 MG/2.5 ML AMPUL.NEB NEB SCH ×4 (01:20→20:21)
[2022-11-09] MEDS: ALBUTEROL FS 2.5 MG/3 ML VIAL.NEB NEB SCH ×4 (01:20→20:21)
[2022-11-09 04:00] VITALS: BP 107/52
[2022-11-09] MEDS: VANCOMYCIN HCL 0.75 GM in IV D5W 250 ML IV SCH ×2 (05:10→15:10)
[2022-11-09] MEDS: HYDROCORTISONE 1% CREAM 30 GM TUBE TP SCH ×3 (05:10→21:12)
[2022-11-09] MEDS: methylPREDNISolone SOD SUCC 40 MG/ML VIAL IV SCH ×3 (05:10→13:30)
--- NOTE | 2022-11-09 07:05 | NUR ---
NATASHA RN OPEN NOTE PT REMAINS IN BED, A&O X0, NON-VERBAL, OPENS EYES, NO CHANGES TO NEURO STATUS. PT REMAINS ON SAME VENT SETTINGS; TOLERATED VENT SETTINGS WELL WITH O2SAT IN THE HIGH 90S TO 100%; NO S/S OF RESP DISTRESS, NO SOB OR COUGH, NON-LABORED AND EQUAL BREATHING. GT CLAMPED WITH NO FEEDING RUNNING THROUGH. BED IN LOWEST POSITION, CALL LIGHT WITHIN REACH, SIDE RAILS UP X3. WILL CONTINUE TO MONITOR
[2022-11-09 07:12] LABS: BASOPHILS % (AUTO) 0.1 % (0.0-2.0); EOSINOPHILS % (AUTO) 0.2 % (0.0-6.0); HEMATOCRIT 30 % (39-51); HEMOGLOBIN 9.4 g/dL (13.5-17.5); LYMPHOCYTES # (AUTO) 0.9 K/uL (0.8-4.8); LYMPHOCYTES % (AUTO) 9.1 % (20.0-44.0); MEAN CORPUSCULAR HGB CONC 32 g/dl (31.0-36.0); MEAN CORPUSCULAR VOLUME 88 fL (80-96); MONOCYTES # (AUTO) 0.2 K/uL (0.1-1.30); MONOCYTES % (AUTO) 2.3 % (2.0-12.0); NEUTROPHILS # (AUTO) 9.2 K/uL (1.8-8.9); NEUTROPHILS % (AUTO) 88.3 % (43.0-81.0); PLATELET COUNT (AUTO) 350 K/uL (150-450); RED BLOOD CELL COUNT(AUTO) 3.38 MIL/uL (4.5-6.0); WHITE BLOOD COUNT (AUTO) 10.4 K/uL (4.3-11.0)
--- NOTE | 2022-11-09 07:14 | NUR ---
NATASHA RN CLOSING NOTE PT REMAINS IN BED, A&O X0, NON-VERBAL, OPENS EYES, NO CHANGES TO NEURO STATUS. PT REMAINS ON SAME VENT SETTINGS; TOLERATED VENT SETTINGS WELL WITH O2SAT IN THE HIGH 90S TO 100%; NO S/S OF RESP DISTRESS, NO SOB OR COUGH, NON-LABORED AND EQUAL BREATHING. GT CLAMPED WITH NO FEEDING RUNNING THROUGH. ALL DUE MEDS ADMINISTERED DURING THE NIGHT. BED IN LOWEST POSITION, CALL LIGHT WITHIN REACH, SIDE RAILS UP X3. WILL ENDORSE TO DAYSHIFT NURSE TO CONTINUE CARE.
[2022-11-09 07:30] LABS: CALCIUM, SERUM 8.6 mg/dL (8.5-10.1); CREATININE 0.7 mg/dL (0.6-1.3); POTASSIUM 4.4 mmol/L (3.5-5.1)
[2022-11-09 08:00] VITALS: BP 104/70
[2022-11-09] MEDS: PANTOPRAZOLE 40 MG/PACK PACK NG SCH (08:21)
[2022-11-09] MEDS: VALPROIC ACID 250 MG/5 ML UDC GT SCH ×2 (08:21→22:26)
[2022-11-09] MEDS: CHLORHEXIDINE GLUCONATE 15 ML UDC MM SCH ×2 (08:21→16:21)
[2022-11-09] MEDS: DOCUSATE SODIUM LIQ 100 MG/10 ML UDC GT SCH (08:21)
[2022-11-09] MEDS: LORATADINE 10 MG TABLET PO SCH (08:22)
[2022-11-09] MEDS: LOSARTAN POTASSIUM 50 MG TABLET GT SCH (08:22)
[2022-11-09] MEDS: METOPROLOL TARTRATE 25 MG TABLET GT SCH ×2 (08:22→22:27)
[2022-11-09] MEDS: CEFEPIME 2 GM in IV D5W 100 ML IV SCH ×2 (08:22→21:38)
[2022-11-09] MEDS: IV NS 0.9% 1,000 ML IV PRN ×2 (08:26→18:06)
--- NOTE | 2022-11-09 10:59 | NUR ---
RN NOTE ORDER RECEIVED FROM THE DR LEE TO D/C AMIODARONE Addendum: 11/09/22 at 1103 by CINDY HINOJOSA RN DISREGARD THAT NOTE APPLIES TO ANOTHER PATIENT EBTERED BY MISTAKE
[2022-11-09] MEDS: JEVITY 1.2 CAL 1,000 ML BOTTLE GT PRN (12:11)
[2022-11-09 12:33] VITALS: BP 112/84
--- NOTE | 2022-11-09 13:44 | NUR ---
solumedrol was administered at 1313
[2022-11-09] MEDS: diphenhydrAMINE HCL 25 MG CAPSULE PO PRN ×2 (13:50→23:30)
[2022-11-09 16:12] VITALS: BP 102/74
--- NOTE | 2022-11-09 18:30 | NUR ---
NATASHA RN CLOSING NOTE PT REMAINS IN BED, A&O X0, NON-VERBAL, OPENS EYES, NO CHANGES TO NEURO STATUS. PT REMAINS ON SAME VENT SETTINGS JUST FIO2 CHANGED TO 40 % TOLERATED VENT SETTINGS WELL WITH O2SAT 96 TO 100%; NO S/S OF RESP DISTRESS, NO SOB OR COUGH, NON-LABORED AND EQUAL BREATHING. GT RUNNING WITH JEVITY 75 ML/HR, IV ACCESS ON RIGHT WRIST 20 G .ALL MEDS WERE ADMINISTERED , ALL NEEDS WERE MET BED IN LOWEST POSITION, CALL LIGHT WITHIN REACH, SIDE RAILS UP X3. WILL ENDORSE INSTALL AND REPAIR TECHNICIAN NURSE TO FALLOW POC
[2022-11-09 20:00] VITALS: BP 102/74
--- NOTE | 2022-11-09 22:27 | NUR ---
NATASHA RN OPENING NOTE PT RECEIVED IN BED, A&O X0, NON-VERBAL, OPENS EYES. PT ON PORTEX #7, AC 16, TV 450, FIO2 40%, PEEP 5 WITH CURRENT O2SAT OF 98%; NO S/S OF RESP DISTRESS, NO SOB OR COUGH, NON-LABORED AND EQUAL BREATHING. PT ATTACHED TO EXTERNAL MONITOR, SR WITH HR OF 84. PT NOTED TO HAVE BILATERAL SOFT WRIST RESTRAINTS, NO SIGNS OF IMPAIRED SKIN OR CIRCULATION; WILL PROVIDE PT WITH RELEASE OF RESTRAINTS AND HYGIENE. GTF JEVITY RUNNING AT 75 ML/HR; NO RESIDUAL NOTED. IV ACCESS ON RIGHT WRIST 20G INTACT AND PATENT, FLUSHES EASILY WITH NO RESISTANCE; NS INFUSING AT 120 ML/HR. BED IN LOWEST POSITION, CALL LIGHT WITHIN REACH, SIDE RAILS UP X3 .WILL CONTINUE TO MONITOR THROUGHOUT THE NIGHT.
[2022-11-09] MEDS: ENOXAPARIN SODIUM 40 MG/0.4 ML DISP.SYRIN SQ SCH (22:32)
--- NOTE | 2022-11-09 23:30 | NUR ---
RN NOTE PT NOTED TO BE SCRATCHING SEVERELY. PT ADMINISTERED BENADRYL 50 MG. WILL MONITOR FOR EFFECTIVENESS.
[2022-11-10] VITALS: BP 129/83
[2022-11-10] MEDS: IPRATROPIUM NEB FS 0.5 MG/2.5 ML AMPUL.NEB NEB SCH ×4 (01:59→19:31)
[2022-11-10] MEDS: ALBUTEROL FS 2.5 MG/3 ML VIAL.NEB NEB SCH ×4 (01:59→19:31)
[2022-11-10] MEDS: JEVITY 1.2 CAL 1,000 ML BOTTLE GT PRN ×2 (02:59→18:08)
[2022-11-10] MEDS: VANCOMYCIN HCL 0.75 GM in IV D5W 250 ML IV SCH ×2 (03:49→15:35)
[2022-11-10] MEDS: HYDROCORTISONE 1% CREAM 30 GM TUBE TP SCH ×3 (03:49→21:08)
[2022-11-10 04:00] VITALS: BP 119/80
[2022-11-10] MEDS: IV NS 0.9% 1,000 ML IV PRN ×3 (04:01→21:51)
--- NOTE | 2022-11-10 06:25 | NUR ---
NATASHA RN CLOSING NOTE PT REMAINS IN BED, A&O X0, NON-VERBAL, OPENS EYES, RESTLESS, KICKING. CONTINUES TO BE ON SAME VENT SETTINGS; TOLERATED VENT SETTINGS WELL WITH O2SAT RANGING FROM 98%-100%; NO S/S OF RESP DISTRESS, NO SOB OR COUGH, NON-LABORED AND EQUAL BREATHING. ATTACHED TO EXTERNAL MONITOR, SR WITH PACS, HR RANGING FROM 70-84 THROUGHOUT THE NIGHT. BILATERAL SOFT WRIST RESTRAINTS REMAIN IN PLACE; PT PROVIDED WITH RELEASE OF RESTRAINTS AND HYGIENE. GTD C/D/I WITH JEVITY RUNNING AT 75 ML/HR; TOLERATING GTF WELL WITH NO RESIDUALS. RIGHT WRIST 20G INTACT AND PATENT, FLUSHES EASILY WITH NO RESISTANCE; NS AT 120 ML/HR. PT CONTINUES TO SCRATCH DESPITE BENADRYL AND HYDROCORTISONE HAVE BEEN GIVEN. ALL DUE MEDS ADMINISTERED DURING THE NIGHT. BED IN LOWEST POSITION, CALL LIGHT WITHIN REACH, SIDE RAILS UP X3. WILL ENDORSE TO DAYSHIFT NURSE TO CONTINUE CARE.
--- NOTE | 2022-11-10 07:20 | NUR ---
RN NOTE RECEIVED PATIENT IN BED RESTLESS,NON VERBAL KICKING,OPEN EYES,ON MECHANICAL VENT,SETTING PRESCRIBED,IV SITE IS ON RIGHT WRIST INTACT PATENT ON NS HYDRATION,120CC/HR,INCONTINENT BOWEL/BLADDER,SOFT BILATERAL WRIST RESTRAIN IN PLACE ,WILL CHECK EVERY 15 MINS FOR SKIN BREAKDOWN AND CIRCULATION,SAFETY MEASURE IMPLEMENT BED IN LOW POSITION AND LOCKED,HEAD OF THE BED ELEVATED CONTINUE TO MONITOR.
--- NOTE | 2022-11-10 07:21 | NUR ---
RN NOTE PATIENT IS ON G-TUBE FEEDING JEVITY 1.2 75CC/HR CHECKED THE PLACEMENT IN PLACE,NO RESIDUAL NOTED CONTINUE TO MONITOR.
[2022-11-10 08:00] VITALS: BP 142/99
[2022-11-10] MEDS: VALPROIC ACID 250 MG/5 ML UDC GT SCH ×2 (08:49→21:31)
[2022-11-10] MEDS: PANTOPRAZOLE 40 MG/PACK PACK NG SCH (08:49)
[2022-11-10] MEDS: CHLORHEXIDINE GLUCONATE 15 ML UDC MM SCH ×2 (08:49→17:09)
[2022-11-10] MEDS: DOCUSATE SODIUM LIQ 100 MG/10 ML UDC GT SCH (08:49)
[2022-11-10] MEDS: LOSARTAN POTASSIUM 50 MG TABLET GT SCH (08:50)
[2022-11-10] MEDS: methylPREDNISolone SOD SUCC 40 MG/ML VIAL IV SCH (08:51)
[2022-11-10] MEDS: METOPROLOL TARTRATE 25 MG TABLET GT SCH ×2 (08:51→21:32)
[2022-11-10] MEDS: LORATADINE 10 MG TABLET PO SCH (08:51)
[2022-11-10] MEDS: CEFEPIME 2 GM in IV D5W 100 ML IV SCH ×2 (08:53→21:31)
[2022-11-10 10:06] LABS: BASOPHILS # (AUTO) 0.1 K/uL (0.0-0.2); BASOPHILS % (AUTO) 0.6 % (0.0-2.0); EOSINOPHILS % (AUTO) 0.1 % (0.0-6.0); HEMATOCRIT 29 % (39-51); LYMPHOCYTES # (AUTO) 1.8 K/uL (0.8-4.8); LYMPHOCYTES % (AUTO) 14.1 % (20.0-44.0); MEAN CORPUSCULAR HGB CONC 31 g/dl (31.0-36.0); MEAN CORPUSCULAR VOLUME 89 fL (80-96); MONOCYTES % (AUTO) 7.5 % (2.0-12.0); NEUTROPHILS # (AUTO) 10.2 K/uL (1.8-8.9); NEUTROPHILS % (AUTO) 77.7 % (43.0-81.0); PLATELET COUNT (AUTO) 352 K/uL (150-450); RED BLOOD CELL COUNT(AUTO) 3.28 MIL/uL (4.5-6.0); WHITE BLOOD COUNT (AUTO) 13.1 K/uL (4.3-11.0)
[2022-11-10 10:16] LABS: CALCIUM, SERUM 8.7 mg/dL (8.5-10.1); CREATININE 0.7 mg/dL (0.6-1.3); POTASSIUM 4.1 mmol/L (3.5-5.1)
[2022-11-10] MEDS: LORAZEPAM 1 MG TABLET GT PRN ×2 (10:34→21:32)
[2022-11-10 12:00] VITALS: BP 142/84
[2022-11-10 16:00] VITALS: BP 131/86
--- NOTE | 2022-11-10 18:35 | NUR ---
RN NOTE PATIENT REMAINS ON NON VERBAL ON MECHANICAL VENT SETTING PRESCRIBED,ON G-TUBE FEEDING JEVITY 1.2 65CC/HR IV SITE IS ON RIGHT UPPER ARM MIDLINE AND RIGHT WRIST INTACT PATENT ON IV HYDRATION NS 120CC/HR ALL DUE MEDS GIVEN MD ORDERED KEPT CLEAN AND DRY ALL THE TIME,TURNED AND REPOSITIONED,SOFT BILATERAL WRIST RESTRAIN IN PLACE CHECKED EVERY 15MINS FOR SKIN BREAKDOWN AND CIRCULATION,KEPT HEAD OF THE BED ELEVATED ALL THE TIME,ENDORSE NEXT COMING SHIFT FOR CONTINUATION OF CARE.
[2022-11-10 20:00] VITALS: BP 165/99
--- NOTE | 2022-11-10 21:12 | NUR ---
AUTO AIR CONDITIONING MECHANIC OPENING NOTE PT RECEIVED IN BED, NON-VERBAL, OPENS EYES, A&O X0, RESTLESS. PT ON PORTEX #7, AC 16, TV 450, FIO2 40%, PEEP 5 WITH CURRENT O2SAT OF 97%; NO S/S OF RESP DISTRESS, NO SOB OR COUGH, NON-LABORED AND EQUAL BREATHING. PT ATTACHED TO EXTERNAL MONITOR, SR WITH HR OF 75. BILATERAL SOFT WRIST RESTRAINTS IN PLACE; NO SIGNS OF IMPAIRED SKIN OR CIRCULATION. GTD C/D/I WITH JEVITY INFUSING AT 65 ML/HR; NO RESIDUALS NOTED. BEATRIZ MIDLINE AND RIGHT WRIST 20G INTACT AND PATENT, NS INFUSING AT 120 ML/HR. BED IN LOWEST POSITION, CALL LIGHT WITHIN REACH, SIDE RAILS UP X3. WILL CONTINUE TO MONITOR THROUGHOUT THE NIGHT.
[2022-11-10] MEDS: ENOXAPARIN SODIUM 40 MG/0.4 ML DISP.SYRIN SQ SCH (21:33)
--- NOTE | 2022-11-10 21:33 | NUR ---
RN NOTE PT NOTED TO BE RESTLESS, PLACING LEGS OVER RAILING. PT ADMINISTERED ATIVAN 0.5 MG. WILL MONITOR FOR EFFECTIVENESS.
[2022-11-11] VITALS: BP 149/73
[2022-11-11] MEDS: IPRATROPIUM NEB FS 0.5 MG/2.5 ML AMPUL.NEB NEB SCH ×4 (01:49→20:17)
[2022-11-11] MEDS: ALBUTEROL FS 2.5 MG/3 ML VIAL.NEB NEB SCH ×4 (01:49→20:17)
[2022-11-11] MEDS: VANCOMYCIN HCL 0.75 GM in IV D5W 250 ML IV SCH ×2 (03:00→16:06)
[2022-11-11 04:00] VITALS: BP 139/71
[2022-11-11] MEDS: HYDROCORTISONE 1% CREAM 30 GM TUBE TP SCH ×3 (04:36→20:38)
--- NOTE | 2022-11-11 06:39 | NUR ---
SUPERVISOR PACKING CLOSING NOTE PT REMAINS IN BED, WAS CALM AND ASLEEP AFTER ATIVAN WAS ADMINISTERED. AFTER WAKING UP, PT RESUMES TO BE RESTLESS; A&O X0, NON-VERBAL, OPENS EYES; NO CHANGES TO NEURO STATUS. CONTINUES ON SAME VENT SETTINGS, TOLERATING WELL WITH O2SAT RANGING FROM 97%-99% THROUGHOUT THE NIGHT; NO S/S OF RESP DISTRESS, NO SOB OR COUGH, NON-LABORED AND EQUAL BREATHING. ATTACHED TO EXTERNAL MONITOR, SB-SR WITH HR NOTED TO BE LOW 48. BILATERAL SOFT WRIST RESTRAINTS REMAIN IN PLACE; PROVIDED PT WITH RELEASE OF RESTRAINTS AND HYGIENE; NO SIGNS OF IMPAIRED SKIN OR CIRCULATION. GTD CHANGED AND IS C/D/I WITH JEVITY AT 65 ML/HR; TOLERATING GTF WELL WITH NO RESIDUALS. BEATRIZ MIDLINE INTACT AND PATENT, FLUSHES EASILY WITH NO RESISTANCE; NS INFUSING AT 120 ML/HR. ALL DUE MEDS ADMINISTERED. BED IN LOWEST POSITION, CALL LIGHT WITHIN REACH, SIDE RAILS UP X3. WILL ENDORSE TO DAYSHIFT NURSE TO CONTINUE CARE.
--- NOTE | 2022-11-11 07:31 | NUR ---
WALL ATTENDANT OPENING NOTE PT REMAINS IN BED, A&O X0, NON-VERBAL, OPENS EYES; NO CHANGES TO NEURO STATUS. CONTINUES ON SAME VENT SETTINGS, TOLERATING WELL WITH O2SAT RANGING FROM 97%-99% THROUGHOUT THE NIGHT; NO S/S OF RESP DISTRESS, NO SOB OR COUGH, NON-LABORED AND EQUAL BREATHING. ATTACHED TO EXTERNAL MONITOR, SB-SR WITH HR NOTED TO BE LOW 48. BILATERAL SOFT WRIST RESTRAINTS REMAIN IN PLACE; NO SIGNS OF IMPAIRED SKIN OR CIRCULATION. GTD CHANGED AND IS C/D/I WITH JEVITY AT 65 ML/HR; TOLERATING GTF WELL WITH NO RESIDUALS. BEATRIZ MIDLINE INTACT AND PATENT, FLUSHES EASILY WITH NO RESISTANCE; NS INFUSING AT 120 ML/HR. BED IN LOWEST POSITION, CALL LIGHT WITHIN REACH, SIDE RAILS UP X3. WILL CONTINUE PLAN OF CARE AND ANTICIPATE NEEDS.
[2022-11-11 07:51] LABS: BASOPHILS % (AUTO) 0.2 % (0.0-2.0); EOSINOPHILS % (AUTO) 3.6 % (0.0-6.0); HEMATOCRIT 30 % (39-51); HEMOGLOBIN 9.5 g/dL (13.5-17.5); LYMPHOCYTES # (AUTO) 1.6 K/uL (0.8-4.8); LYMPHOCYTES % (AUTO) 18.8 % (20.0-44.0); MEAN CORPUSCULAR HGB CONC 32 g/dl (31.0-36.0); MEAN CORPUSCULAR VOLUME 89 fL (80-96); MONOCYTES # (AUTO) 0.6 K/uL (0.1-1.30); MONOCYTES % (AUTO) 7.6 % (2.0-12.0); NEUTROPHILS # (AUTO) 5.8 K/uL (1.8-8.9); NEUTROPHILS % (AUTO) 69.8 % (43.0-81.0); PLATELET COUNT (AUTO) 369 K/uL (150-450); RED BLOOD CELL COUNT(AUTO) 3.35 MIL/uL (4.5-6.0); WHITE BLOOD COUNT (AUTO) 8.3 K/uL (4.3-11.0)
[2022-11-11 08:00] VITALS: BP 133/95
[2022-11-11 08:03] LABS: CALCIUM, SERUM 8.3 mg/dL (8.5-10.1); CREATININE 0.6 mg/dL (0.6-1.3); POTASSIUM 4.2 mmol/L (3.5-5.1)
[2022-11-11] MEDS: LOSARTAN POTASSIUM 50 MG TABLET GT SCH (09:19)
[2022-11-11] MEDS: LORATADINE 10 MG TABLET PO SCH (09:20)
[2022-11-11] MEDS: PANTOPRAZOLE 40 MG/PACK PACK NG SCH (09:20)
[2022-11-11] MEDS: CHLORHEXIDINE GLUCONATE 15 ML UDC MM SCH ×2 (09:20→16:06)
[2022-11-11] MEDS: VALPROIC ACID 250 MG/5 ML UDC GT SCH ×2 (09:20→20:41)
[2022-11-11] MEDS: methylPREDNISolone SOD SUCC 40 MG/ML VIAL IV SCH (09:20)
[2022-11-11] MEDS: DOCUSATE SODIUM LIQ 100 MG/10 ML UDC GT SCH (09:20)
[2022-11-11] MEDS: METOPROLOL TARTRATE 25 MG TABLET GT SCH ×2 (09:20→20:43)
[2022-11-11] MEDS: CEFEPIME 2 GM in IV D5W 100 ML IV SCH ×2 (09:26→20:44)
[2022-11-11] MEDS: IV NS 0.9% 1,000 ML IV PRN (09:43)
[2022-11-11 12:00] VITALS: BP 144/88
[2022-11-11] MEDS: JEVITY 1.2 CAL 1,000 ML BOTTLE GT PRN (14:16)
[2022-11-11 16:00] VITALS: BP 134/99
[2022-11-11] MEDS: LORAZEPAM 1 MG TABLET GT PRN (16:41)
--- NOTE | 2022-11-11 16:42 | NUR ---
PATIENT ATTEMPTING TO STRUGGLE OUT OF RESTRAINTS. ATTEMPTED PULLING ON GASTRIC TUBE. PRN ATIVAN GIVEN.
--- NOTE | 2022-11-11 19:30 | NUR ---
noc rn note received patient in bed with eyes closed, easy to arouse. in bilateral soft wrist restraints. no s/s of apparent distress-- vent dependent. reading sr at this time on the tele monitor. not exhibiting pain via flacc. G-tube Jevity running @65mls/hr at this time. NS running @120mls/hr. safety in place. needs attended fro now. will continue with patient's plan of care.
[2022-11-11 20:00] VITALS: BP 156/103
[2022-11-11] MEDS: ENOXAPARIN SODIUM 40 MG/0.4 ML DISP.SYRIN SQ SCH (20:44)
[2022-11-12] VITALS: BP 149/97
[2022-11-12] MEDS: LORAZEPAM 1 MG TABLET GT PRN (01:25)
--- NOTE | 2022-11-12 01:25 | NUR ---
noc rn note patient restless at this time, trying to get out of bed even with restraints and vent. Given 0.5 ativan as ordered PRN. Wasted with another RNLia and half of the pill discarded on the right bin.
[2022-11-12] MEDS: ALBUTEROL FS 2.5 MG/3 ML VIAL.NEB NEB SCH ×3 (01:52→13:17)
[2022-11-12] MEDS: IPRATROPIUM NEB FS 0.5 MG/2.5 ML AMPUL.NEB NEB SCH ×3 (01:52→13:17)
[2022-11-12 04:00] VITALS: BP 122/74
[2022-11-12] MEDS: VANCOMYCIN HCL 0.75 GM in IV D5W 250 ML IV SCH ×2 (04:00→15:58)
[2022-11-12] MEDS: HYDROCORTISONE 1% CREAM 30 GM TUBE TP SCH ×2 (05:28→12:48)
[2022-11-12 06:16] LABS: BASOPHILS # (AUTO) 0.1 K/uL (0.0-0.2); BASOPHILS % (AUTO) 0.6 % (0.0-2.0); EOSINOPHILS % (AUTO) 6.9 % (0.0-6.0); HEMATOCRIT 30 % (39-51); HEMOGLOBIN 9.5 g/dL (13.5-17.5); LYMPHOCYTES % (AUTO) 21.7 % (20.0-44.0); MEAN CORPUSCULAR HGB CONC 31 g/dl (31.0-36.0); MEAN CORPUSCULAR VOLUME 88 fL (80-96); MONOCYTES # (AUTO) 0.7 K/uL (0.1-1.30); MONOCYTES % (AUTO) 7.6 % (2.0-12.0); NEUTROPHILS # (AUTO) 5.8 K/uL (1.8-8.9); NEUTROPHILS % (AUTO) 63.2 % (43.0-81.0); PLATELET COUNT (AUTO) 376 K/uL (150-450); RED BLOOD CELL COUNT(AUTO) 3.46 MIL/uL (4.5-6.0); WHITE BLOOD COUNT (AUTO) 9.1 K/uL (4.3-11.0)
[2022-11-12 06:58] LABS: CALCIUM, SERUM 8.4 mg/dL (8.5-10.1); CREATININE 0.5 mg/dL (0.6-1.3); POTASSIUM 4.1 mmol/L (3.5-5.1)
--- NOTE | 2022-11-12 07:10 | NUR ---
ANGLE BENDER OPENING NOTE PATIENT IS IN BED, NON-VERBAL, OPENS EYES, DISORIENTED, DISRUPTIVE TO MEDICAL CARE, BILATERAL SOFT WRIST RESTRAINTS REMAIN IN PLACE, BUT PT STILL ABLE TO TAKE TUBES OUT. TRACH COLLAR IN PLACE, PT IS ON VENT, TOLERATING WELL NO S/S OF RESP DISTRESS. ON EXTERNAL MULTI SPINDLE OPERATOR SB-SR. G TUBE IN PLACE, JEVITY RUNS AT 65 ML/HR, NO RESIDUALS. BEATRIZ MIDLINE INTACT AND PATENT, FLUSHES WELL. BED IN LOWEST POSITION, CALL LIGHT WITHIN REACH, SIDE RAILS UP X3. WILL CONTINUE PLAN OF CARE AND ANTICIPATE NEEDS.
--- NOTE | 2022-11-12 07:29 | NUR ---
noc rn closing note needs attended. report given to am rn for continuity of patient care.
[2022-11-12 08:00] VITALS: BP 118/79
[2022-11-12] MEDS: CHLORHEXIDINE GLUCONATE 15 ML UDC MM SCH ×2 (09:22→16:00)
[2022-11-12] MEDS: DOCUSATE SODIUM LIQ 100 MG/10 ML UDC GT SCH (09:22)
[2022-11-12] MEDS: VALPROIC ACID 250 MG/5 ML UDC GT SCH (09:22)
[2022-11-12] MEDS: PANTOPRAZOLE 40 MG/PACK PACK NG SCH (09:22)
[2022-11-12] MEDS: METOPROLOL TARTRATE 25 MG TABLET GT SCH (09:23)
[2022-11-12] MEDS: methylPREDNISolone SOD SUCC 40 MG/ML VIAL IV SCH (09:24)
[2022-11-12] MEDS: LOSARTAN POTASSIUM 50 MG TABLET GT SCH (09:24)
[2022-11-12] MEDS: CEFEPIME 2 GM in IV D5W 100 ML IV SCH (09:29)
[2022-11-12] MEDS: LORATADINE 10 MG TABLET PO SCH (09:29)
[2022-11-12 12:00] VITALS: BP 118/78
[2022-11-12] MEDS ORDERED: LACT-209 GT (13:27)
[2022-11-12] MEDS ORDERED: IPRA0.2S9 NEB (13:27)
[2022-11-12] MEDS ORDERED: CEFE2FRO IV (13:27)
[2022-11-12] MEDS ORDERED: ACET650S26 GT (13:27)
[2022-11-12] MEDS ORDERED: VANC750F IV (13:27)
[2022-11-12] MEDS ORDERED: ALBUT2 NEB (13:27)
[2022-11-12] MEDS ORDERED: HYDR30CR10 TP (13:27)
[2022-11-12] MEDS ORDERED: LORA10TA7 PO (13:27)
[2022-11-12 16:00] VITALS: BP 123/73
--- NOTE | 2022-11-12 18:38 | NUR ---
PATIENT DISCHARGED TO THE [facility], TAKEN BY [facility], ACCOMPANIED BY RESPIRATORY THERAPIST. PT IS IN STABLE CONDITION, VITALS:BP 123/73, HR 81.
== END 2022-11-12 18:20 | DRG 720 ==
LOC: ER 16:05 → TRANSITION 23:26 → TELE-TD 11-08 09:02 → TELE1 11-10 15:52
PROVIDERS: ADMIT Nurse Practitioner Acute Care; ATTEND Nurse Practitioner Acute Care
PROC: 5A1955Z Respiratory Ventilation, Greater than 96 Consecutive Hours (ICD-10-PCS; principal; 2022-11-07)
PROC: 05H933Z Insertion of Infusion Device into Right Brachial Vein, Percutaneous Approach (ICD-10-PCS; 2022-11-10)
DX: A41.9 Sepsis, unspecified organism (principal); J96.21 Acute and chronic respiratory failure with hypoxia; J15.9 Unspecified bacterial pneumonia; G82.50 Quadriplegia, unspecified; E87.20 Acidosis, unspecified; E44.0 Moderate protein-calorie malnutrition; D68.59 Other primary thrombophilia; G93.41 Metabolic encephalopathy; Z93.0 Tracheostomy status; Z20.822 Contact with and (suspected) exposure to COVID-19; Z93.1 Gastrostomy status; R13.10 Dysphagia, unspecified; Z87.01 Personal history of pneumonia (recurrent); K21.9 Gastro-esophageal reflux disease without esophagitis; I69.398 Other sequelae of cerebral infarction; Z79.51 Long term (current) use of inhaled steroids; Z79.899 Other long term (current) drug therapy; G40.909 Epilepsy, unspecified, not intractable, without status epilepticus; Z86.16 Personal history of COVID-19; Z74.09 Other reduced mobility; I10 Essential (primary) hypertension; R79.89 Other specified abnormal findings of blood chemistry; J90 Pleural effusion, not elsewhere classified; E88.09 Other disorders of plasma-protein metabolism, not elsewhere classified; Y95 Nosocomial condition; L30.9 Dermatitis, unspecified
CPT/HCPCS: 31720; 36410; 36415; 36600; 71045-TC; 80048-TC; 80076-TC; 80202-TC; 81001; 82803-TC; 82962-TC; 83605-TC; 83735-TC; 83880; 84100-TC; 84484-TC; 85025-TC; 85730-TC; 87040-TC; 87081-TC; 87086-TC; 94002-TC; 94003-TC; 94760-TC; 94762-TC; 94799-TC; 99082-TC; A4349; C9113; C9803; G0378; J0692; J1650; J2405; J2920; J3370; J3490; J7030; J7040; J7050; J7060; Q0163

== ENCOUNTER 2022-12-18 02:23 | Inpatient (IN) | payer MEDICAID ==
[~2022-12-18] VITALS: Ht 175.3 cm; Wt 46.3 kg
[~2022-12-18 02:23] MED LIST changes: +ACET650S26 GT; +ALBUT2 NEB; +CEFE2FRO IV; +HYDR30CR10 TP; +IPRA0.2S9 NEB; +LACT-209 GT; +LORA-259 GT; +LORA10TA7 PO; +VANC750F IV
--- NOTE | 2022-12-18 02:27 | NUR ---
BIBRA 80 FROM SNF FOR FEVER, TACHYCARDIA AND MORE ALTERED THAN NORMAL. PT AWAKE & RESPONSIBE; NONVERBAL. TRACH PORETX 7; CONNECTED TO MECH VENT FIO2 40% AND TOLERATING AT 94%. GTUBE PEG INTACT. CONNECTED PT TO POX AND MONITOR. SAFETY MEASURES IN PLACE.
[2022-12-18] MEDS ORDERED: VANCOMYCIN 1 GM in IV D5W 250 ML IV ONE (02:30)
[2022-12-18] MEDS ORDERED: IV NS 0.9% 1,000 ML BAG IV ONE (02:30)
[2022-12-18] MEDS ORDERED: PIPERACILLIN /TAZOBACTAM 3.375 G in IV D5W 50 ML IV ONE (02:30)
--- NOTE | 2022-12-18 02:30 | NUR ---
MECH VENT SETTINGS: FIO2 40 VT 450 RR 12 I:E 1:3.5 PEEP 5 PT TOLERATING WELL AT 100%
[2022-12-18] MEDS ORDERED: ACETAMINOPHEN 650 MG/20.3 ML UDC ONE (02:34)
[2022-12-18] MEDS ORDERED: PIPERACILLIN /TAZOBACTAM 3.375 G VIAL IV ONE (02:38)
[2022-12-18] MEDS ORDERED: VANCOMYCIN 1 GM VIAL ONE (02:38)
--- NOTE | 2022-12-18 02:40 | NUR ---
LAC #20G S/L BLOOD COLLECTED AND SENT TO LAB
--- NOTE | 2022-12-18 02:40 | NUR ---
F/C 16FR INSERTED URINE COLLECTED AND SENT TO LAB
--- NOTE | 2022-12-18 02:45 | NUR ---
COVID ANTIGEN SWAB COLLECTED AND SENT TO LAB
--- NOTE | 2022-12-18 02:47 | NUR ---
VULCANIZED FIBER UNIT OPERATOR AT PT'S BEDSIDE
[2022-12-18] MEDS ORDERED: ACETAMINOPHEN 650 MG/20.3 ML UDC PO ONE (03:00)
[2022-12-18 03:53] LABS: BASOPHILS % (AUTO) 0.3 % (0.0-2.0); EOSINOPHILS % (AUTO) 1.1 % (0.0-6.0); HEMATOCRIT 35 % (39-51); HEMOGLOBIN 10.9 g/dL (13.5-17.5); LYMPHOCYTES # (AUTO) 0.7 K/uL (0.8-4.8); LYMPHOCYTES % (AUTO) 4.3 % (20.0-44.0); MEAN CORPUSCULAR HGB CONC 31 g/dl (31.0-36.0); MEAN CORPUSCULAR VOLUME 89 fL (80-96); MONOCYTES # (AUTO) 0.7 K/uL (0.1-1.30); MONOCYTES % (AUTO) 4.2 % (2.0-12.0); NEUTROPHILS # (AUTO) 14.3 K/uL (1.8-8.9); NEUTROPHILS % (AUTO) 90.1 % (43.0-81.0); PLATELET COUNT (AUTO) 387 K/uL (150-450); RED BLOOD CELL COUNT(AUTO) 3.92 MIL/uL (4.5-6.0); WHITE BLOOD COUNT (AUTO) 15.9 K/uL (4.3-11.0)
[2022-12-18 03:54] LABS: BILIRUBIN,URINE NEGATIVE (NEGATIVE); COLOR,URINE YELLOW (YELLOW); LEUKOCYTE ESTERASE ,URINE NEGATIVE (NEGATIVE); NITRITE, URINE NEGATIVE (NEGATIVE); PROTEIN,URINE 1+ mg/dl (NEGATIVE); UGLUCOSE NEGATIVE (NEGATIVE)
[2022-12-18 03:57] LABS: ALANINE AMINOTRANSFERASE 20 U/L (12-78); ALBUMIN 2.4 g/dL (3.4-5.0); ALKALINE PHOSPHATASE 124 U/L (46-116); ASPARTATE AMINOTRANSFERASE 18 U/L (15-37); BILIRUBIN,DIRECT 0.2 mg/dL (0.0-0.2); BILIRUBIN,TOTAL 0.3 mg/dL (0.2-1.0); CALCIUM, SERUM 8.9 mg/dL (8.5-10.1); CARBON DIOXIDE 34 mmol/L (21-32); CHLORIDE 103 mmol/L (98-107); CREATININE 0.8 mg/dL (0.6-1.3); GLUCOSE 172 mg/dL (74-106); POTASSIUM 3.7 mmol/L (3.5-5.1); SODIUM SERUM 140 mmol/L (136-145); TOTAL PROTEIN, SERUM 8.1 g/dL (6.4-8.2); UREA NITROGEN, BLOOD 31 mg/dL (7-18)
--- NOTE | 2022-12-18 04:00 | NUR ---
HOG FEEDER AT PT'S BEDSIDE
--- NOTE | 2022-12-18 04:15 | NUR ---
LACTIC ACID 2.0; DR BYRON HEWITT AWARE
[2022-12-18 04:34] LABS: BACTERIA,URINE Few /HPF (None Seen); SQUAMOUS EPITHELIAL CELL,UR Moderate /HPF (None Seen)
[2022-12-18] MEDS ORDERED: ONDANSETRON HCL/PF 4 MG/2 ML VIAL IVP PRN (05:00)
[2022-12-18] MEDS ORDERED: ACETAMINOPHEN 650 MG/20.3 ML UDC NG PRN (05:00)
[2022-12-18 06:13] LABS: BASOPHILS % (AUTO) 0.2 % (0.0-2.0); EOSINOPHILS % (AUTO) 1.2 % (0.0-6.0); HEMATOCRIT 28 % (39-51); HEMOGLOBIN 8.6 g/dL (13.5-17.5); LYMPHOCYTES # (AUTO) 1.3 K/uL (0.8-4.8); LYMPHOCYTES % (AUTO) 6.8 % (20.0-44.0); MEAN CORPUSCULAR HGB CONC 31 g/dl (31.0-36.0); MEAN CORPUSCULAR VOLUME 91 fL (80-96); MONOCYTES # (AUTO) 1.1 K/uL (0.1-1.30); NEUTROPHILS # (AUTO) 16.2 K/uL (1.8-8.9); NEUTROPHILS % (AUTO) 85.8 % (43.0-81.0); PLATELET COUNT (AUTO) 328 K/uL (150-450); WHITE BLOOD COUNT (AUTO) 18.9 K/uL (4.3-11.0)
[2022-12-18 06:29] LABS: BILIRUBIN,TOTAL 0.3 mg/dL (0.2-1.0); CREATININE 0.7 mg/dL (0.6-1.3); PHOSPHORUS 2.4 mg/dL (2.5-4.9); POTASSIUM 3.6 mmol/L (3.5-5.1); TOTAL PROTEIN, SERUM 6.8 g/dL (6.4-8.2)
[2022-12-18 06:58] LABS: THYROID STIMULATING HORMONE 1.559 uIU/mL (0.358-3.74)
[2022-12-18] MEDS ORDERED: MULT-447 GT (07:47)
[2022-12-18] MEDS ORDERED: LORA10TA7 GT (07:47)
[2022-12-18] MEDS ORDERED: CLON0.5T4 GT (07:47)
[2022-12-18] MEDS ORDERED: AMIN30LI2 GT (07:47)
[2022-12-18] MEDS ORDERED: CRAN3875 GT (07:47)
[2022-12-18] MEDS ORDERED: ALLA266C2 TP (07:47)
[2022-12-18] MEDS ORDERED: PANT40SU2 GT (07:47)
--- NOTE | 2022-12-18 07:47 | NUR ---
REPORT GIVEN TO LOCO PENA FOR THOR.
--- NOTE | 2022-12-18 08:05 | NUR ---
PT TRANSPORTED WITH ACLS PROTOCOLS IN PLACE ACCOMPANIED BY RT.
--- NOTE | 2022-12-18 08:10 | NUR ---
RESPIRATORY THERAPIST ASSISTANT NOTE ADMIT 62 YEAR OLD MALE NON VERBAL,ON MECHANICAL VENT SETTING PRESCRIBED,OBTUNDED EYES OPENED,ADMITTING DIAGNOSIS IS SEPSIS, LOWER AND UPPER EXTREMITIES CONTACTED,ON G-TUBE,NOW CLAMPED,NPO EXCEPT MEDICATIONS.CLINE CATH IN PLACE,URINE DRAINING YELLOW CLEAR BY GRAVITY,SAFETY MEASURE IMPLEMENT,BED IN LOW POSITION,AND LOCKED,HEAD OF THE BED ELEVATED CONTINUE TO MONITOR.
[2022-12-18] MEDS: PANTOPRAZOLE 40 MG VIAL IV SCH (09:09)
[2022-12-18 09:47] VITALS: BP 99/41
[2022-12-18] MEDS: MEROPENEM 1 G in IV NS 0.9% 100 ML IV SCH ×3 (10:00→20:31)
[2022-12-18] MEDS: ENOXAPARIN SODIUM 40 MG/0.4 ML DISP.SYRIN SQ SCH (10:52)
[2022-12-18] MEDS: IV NS 0.9% 1,000 ML IV PRN (11:56)
[2022-12-18 12:00] VITALS: BP 94/69
[2022-12-18] MEDS: VANCOMYCIN 0.75 GM in IV D5W 250 ML IV SCH (14:09)
[2022-12-18 16:00] VITALS: BP 106/75
[2022-12-18] MEDS ORDERED: Sodium Phosphate 15 MMOL in IV NS 0.9% 245 ML IV SCH (16:00)
--- NOTE | 2022-12-18 18:52 | NUR ---
RN CLOSING NOTES AWAKE, NONVERBAL, CONFUSED, ON VENT, SUCTION SECRETIONS PRN. KEPT CLEAN AND DRY AT ALL TIMES. WITH LAC, INTACT AND PATENT, WITH SOFT RESTRAINTS SECONDARY TO PULLING OUT INVASIVE TUBES AND CHECKED Q 2 HOURS FOR SKIN CHECK AND CIRCULATION, WITH GT BUT NO FEEDING. FC DRAINING TO CLEAR YELLOW URINE, NO SEDIMENTS OR CLOUDINESS, NOTED, TURNED AND REPOSITIONED FREQUENTLY TOLERATED, AFEBRILE, NEEDS ATTENDED.
--- NOTE | 2022-12-18 19:30 | NUR ---
RN OPENING NOTE RECEIVED PT IN BED, ON MECHANICAL VENT SETTINGS PRESCRIBED, TOLERATING WELL, SATING @ 100%. PT IS NON VERBAL BUT AWAKE. NO S/SX OF ACUTE RESPI DISTRESS NOTED AT THIS TIME. INTEGRATION CONSULTANT READS ST, HR IN 100s. IV ACCESS IN RAC #20G, RUNNING SODIUM PHOSPATE @ 63.33 ML/HR, LAC #20g RUNNING NS @ 75 CC/HR. BILATERAL SOFT WRIST RESTRAINTS IN PLACE. NO CIRCULATION ISSUES NOTED. G-TUBE PRESENT, BUT IS CLAMPED. PT IS NPO STATUS. CLINE CATH IN PLACE, DRAINING YELLOW URINE BY GRAVITY. ALL SAFETY MEASURES IN PLACW: BED IN LOW POSITION, LOCKED, HEAD OF THE BED ELEVATED. SR UP X 3, CALL LIGHT WITHIN REACH. WILL CONTINUE TO MONITOR.
[2022-12-18 20:00] VITALS: BP 130/75
[2022-12-18 20:46] VITALS: BP 130/75
[2022-12-19] VITALS: BP 127/90
[2022-12-19] MEDS: VANCOMYCIN 0.75 GM in IV D5W 250 ML IV SCH ×2 (02:10→15:24)
[2022-12-19 04:00] VITALS: BP 121/92
[2022-12-19] MEDS: MEROPENEM 1 G in IV NS 0.9% 100 ML IV SCH ×3 (05:42→20:20)
--- NOTE | 2022-12-19 06:36 | NUR ---
RN NOTE NO SIGNIFICANT CHANGE T/O THE NIGHT. PT IS SR ON RIDE ATTENDANT, NO S/SX OF ACUTE RESPI DISTRESS NOTED. PT MOVES A LOT ON BED, PULLS HIS ARMS CONSTANTLY. SOFT WRIST RESTRAINTS WITH MITTENS ON BILATERAL HANDS MAINTAINED. ALL DUE MEDS GIVEN. PM CARE DONE. TURNED AND REPOSITIONED. WILL ENDORSE TO AM SHIFT NURSE FOR THOR.
--- NOTE | 2022-12-19 07:00 | NUR ---
RN NOTE RECEIVED PATIENT IN BED RESTING,RESTLESS,CONFUSES,NONVERBAL,ON MECHANICAL VENT SETTING PRESCRIBED,O2:98%,G-TUBE IN PLACED CLAMPED,IV SITE IS ON RIGHT AC INTACT ON NS 75CC/HR RUNNING,CLINE CATH IN PLACE URINE DRAINING YELLOW/CLEAR BY GRAVITY,SOFT BILATERAL WRIST RESTRAIN IN PLACE WILL CHECK EVERY 15 MINS FOR CIRCULATION AND SKIN BREAKDOWN,SAFETY MEASURE IMPLEMENT BED IN LOW POSITION AND LOCKED,HEAD OF THE BED ELEVATED CONTINUE TO MONITOR.
[2022-12-19 07:52] LABS: BASOPHILS # (AUTO) 0.1 K/uL (0.0-0.2); BASOPHILS % (AUTO) 0.5 % (0.0-2.0); EOSINOPHILS % (AUTO) 14.9 % (0.0-6.0); HEMATOCRIT 28 % (39-51); HEMOGLOBIN 8.8 g/dL (13.5-17.5); LYMPHOCYTES # (AUTO) 1.2 K/uL (0.8-4.8); LYMPHOCYTES % (AUTO) 10.4 % (20.0-44.0); MEAN CORPUSCULAR HGB CONC 32 g/dl (31.0-36.0); MEAN CORPUSCULAR VOLUME 90 fL (80-96); MONOCYTES # (AUTO) 0.5 K/uL (0.1-1.30); MONOCYTES % (AUTO) 4.6 % (2.0-12.0); NEUTROPHILS # (AUTO) 7.9 K/uL (1.8-8.9); NEUTROPHILS % (AUTO) 69.6 % (43.0-81.0); PLATELET COUNT (AUTO) 360 K/uL (150-450); WHITE BLOOD COUNT (AUTO) 11.4 K/uL (4.3-11.0)
[2022-12-19 08:00] VITALS: BP 134/94
[2022-12-19] MEDS: PANTOPRAZOLE 40 MG VIAL IV SCH (08:04)
[2022-12-19] MEDS: ENOXAPARIN SODIUM 40 MG/0.4 ML DISP.SYRIN SQ SCH (08:06)
[2022-12-19 08:09] LABS: CALCIUM, SERUM 8.7 mg/dL (8.5-10.1); CREATININE 0.7 mg/dL (0.6-1.3); PHOSPHORUS 2.6 mg/dL (2.5-4.9); POTASSIUM 3.7 mmol/L (3.5-5.1)
[2022-12-19] MEDS: IV NS 0.9% 1,000 ML IV PRN (11:47)
[2022-12-19 12:00] VITALS: BP 158/79
[2022-12-19] MEDS: LORAZEPAM INJ 2 MG/ML VIAL IV PRN ×2 (14:57→22:12)
[2022-12-19 16:00] VITALS: BP 147/79
--- NOTE | 2022-12-19 18:40 | NUR ---
RN NOTE PATIENT REMAINS CONFUSED ON VENT SETTING PRESCRIBED,NO SOB NOT ACUTE DISTRESS NOTED ALL DUE MEDS GIVEN,SOFT BILATERAL WRIST RESTRAIN IN PLACE CHECKED EVERY 15MINS FOR SKIN BREAKDOWN AND CIRCULATION,KEPT CLEAN AND DRY ALL THE TIME,KEPT HEAD OF THE BED ELEVATED WILL ENDORSE NEXT COMING SHIFT FOR CONTINUATION OF CARE.
--- NOTE | 2022-12-19 19:30 | NUR ---
DRY HOUSE TENDER OPENING NOTE RECEIVED PATIENT IN BED RESTING WITH CLOSED EYES. RESPONSIVE TO TACTILE STIMULI. NONVERBAL,ON MECHANICAL VENT SETTING PRESCRIBED . NO RESPIRATORY DISTRESS NOTED. NO SOB NOTED. G-TUBE IN PLACE. INTACT AND PATENT.IV SITE IS ON RIGHT AC INTACT AND RUNNING NS AT 75CC/HR .CLINE CATH IN PLACE URINE DRAINING BY GRAVITY.SOFT BILATERAL WRIST RESTRAIN IN PLACE WILL CHECK FOR CIRCULATION AND SKIN BREAKDOWN. ALL SAFETY MEASURE IN PLACE. BED IN LOW POSITION AND LOCKED,HEAD OF THE BED ELEVATED . SIDE RAILS UP TIMES 2. WILL CONTINUE TO MONITOR CLOSELY.
[2022-12-19 20:00] VITALS: BP 122/77
--- NOTE | 2022-12-19 22:30 | NUR ---
RN NOTES PRN ATIVAN 0.5 ML GIVEN IV AT 2212 FOR BEING RESTLESS AND SLIDING DOWN THE BED.
[2022-12-20 00:39] VITALS: BP 125/88
[2022-12-20] MEDS: IV NS 0.9% 1,000 ML IV PRN (01:01)
[2022-12-20] MEDS: VANCOMYCIN 0.75 GM in IV D5W 250 ML IV SCH (03:08)
[2022-12-20 04:00] VITALS: BP 117/78
[2022-12-20] MEDS: MEROPENEM 1 G in IV NS 0.9% 100 ML IV SCH ×2 (04:31→12:50)
--- NOTE | 2022-12-20 06:36 | NUR ---
DIE STORAGE WORKER CLOSING NOTE PATIENT IN BED RESTING WITH CLOSED EYES. RESPONSIVE TO TACTILE STIMULI. NONVERBAL,ON MECHANICAL VENT SETTING PRESCRIBED . NO RESPIRATORY DISTRESS NOTED. NO SOB NOTED. G-TUBE IN PLACE. NO FEEDING YET. WILL ENDORSE MORNING SHIFT TO FOLLOW UP.IV SITE IS ON SENDY MIDLINE INTACT AND RUNNING NS AT 75CC/HR .CLINE CATH IN PLACE URINE DRAINING BY GRAVITY. ALL DUE MEDS GIVEN ORDERED.SOFT BILATERAL WRIST RESTRAIN IN PLACE ,CHECKED FOR CIRCULATION AND SKIN BREAKDOWN. ALL SAFETY MEASURE IN PLACE. BED IN LOW POSITION AND LOCKED,HEAD OF THE BED ELEVATED . SIDE RAILS UP TIMES 2. WILL ENDORSE FOR THOR.
--- NOTE | 2022-12-20 07:30 | NUR ---
SURFACE SUPPLY BREATHING APPARATUS AM NOTES PT IN BED, ASLEEP, ROUSES TO NAME AND TOUCH, PT WITH PORTEX 7 TRACH TO MECHANICAL VENT, SETTING - AC 12, TV 450, FIO2 40%, PEEP 5, O2 SAT 100%; BREATHING EVEN AND UNLABORED. NO SOB, NO DISTRESS, SB WITH HR OF 58 ON MONITOR. NO SIGNS OF PAIN/GRIMACINGS. SENDY PICC INTACT AND PATENT, WITH NS AT 75 ML/HR INFUSING WELL. CDI DRESSING. RAC G 20 IV ACCESS, FLUSHES WELL. BOTH SITES CLEAR. GT CLAMPED, CHECKED FOR PLACEMENT. 0 RESIDUAL. SEE NURSING FLOWSHEET FOR SKIN ISSUES. BED IN LOWEST POSITION, CALL LIGHT WITHIN REACH, SIDE RAILS UP X3. WILL TURN AND REPOSITION Q 2 HOURS. WILL CONTINUE TO MONITOR.
[2022-12-20 07:32] LABS: BASOPHILS % (AUTO) 0.6 % (0.0-2.0); HEMATOCRIT 26 % (39-51); HEMOGLOBIN 8.3 g/dL (13.5-17.5); LYMPHOCYTES # (AUTO) 1.2 K/uL (0.8-4.8); LYMPHOCYTES % (AUTO) 17.8 % (20.0-44.0); MEAN CORPUSCULAR HGB CONC 32 g/dl (31.0-36.0); MEAN CORPUSCULAR VOLUME 90 fL (80-96); MONOCYTES # (AUTO) 0.4 K/uL (0.1-1.30); MONOCYTES % (AUTO) 5.4 % (2.0-12.0); NEUTROPHILS # (AUTO) 3.2 K/uL (1.8-8.9); NEUTROPHILS % (AUTO) 46.6 % (43.0-81.0); PLATELET COUNT (AUTO) 357 K/uL (150-450); RED BLOOD CELL COUNT(AUTO) 2.89 MIL/uL (4.5-6.0); WHITE BLOOD COUNT (AUTO) 6.8 K/uL (4.3-11.0)
[2022-12-20 07:35] LABS: EOSINOPHILS % (AUTO) 29.6 % (0.0-6.0)
[2022-12-20 07:42] LABS: CALCIUM, SERUM 8.4 mg/dL (8.5-10.1); CREATININE 0.7 mg/dL (0.6-1.3); POTASSIUM 3.6 mmol/L (3.5-5.1)
[2022-12-20 08:00] VITALS: BP 127/78
[2022-12-20] MEDS: PANTOPRAZOLE 40 MG VIAL IV SCH (08:31)
[2022-12-20] MEDS: ENOXAPARIN SODIUM 40 MG/0.4 ML DISP.SYRIN SQ SCH (08:32)
[2022-12-20] MEDS ORDERED: MERO1VIA23 IV (09:07)
--- NOTE | 2022-12-20 09:30 | NUR ---
RN NOTES DUE MEDS GIVEN
[2022-12-20 12:00] VITALS: BP 123/70
[2022-12-20] MEDS ORDERED: JEVITY 1.2 CAL 1,000 ML BOTTLE GT PRN (13:00)
[2022-12-20 13:37] LABS: BASOPHILS % (MANUAL) 0 % (0.0-2.0); EOSINOPHILS % (MANUAL) 20 % (0-4); LYMPHOCYTES % (MANUAL) 15 % (16-48); MONOCYTES % (MANUAL) 8 % (0-11.0); NEUTROPHILS % (MANUAL) 57 (42-76)
--- NOTE | 2022-12-20 16:22 | NUR ---
RN NOTES PATIENT DISCHARGED TO [facility] TODAY PER MD IN STABLE CONDITION. PROVIDED DC INSTRUCTIONS, HEALTH TEACHING AND MEDICATION LIST. TO FOLLOW UP WITH PCP PER FACILITY PROTOCOL. RIGHT AC IV ACCESS REMOVED. PRESSURES AND DRESSING APPLIED.NO BLEEDING. LEFT UPPER ARM PICC LINE IN PLACE, CDI DRESSING, INTACT ANDPATENT TO CONTINUE WITH IV ATB AT THE FACILITY. GT CLAMPED, FLUSHED, PATENT INTACT. PERFORMED PRESCRIBED WOUND TREATMENT EARLIER. PHOTOS OF SKIN ISSUES TAKEN AND PLACED IN CHART. CLINE CATH IN PLACE, PATENT INTACT. 100 ML OUTPUT. NO BELONGINGS. ALL PAPER WORKS SIGNED. REPORT GIVEN TO AVINASH NURSING CANNING MACHINE OPERATOR AT FACILITY EARLIER. PATIENT BEING PICKED UP BY 3 AMBULANCE CREW. WILL BE TRANSPORTED TO FACILITY VIA AMBULANCE.
[2022-12-21] MEDS ORDERED: PANTOPRAZOLE 40 MG/PACK PACK NG SCH (09:00)
== END 2022-12-20 16:24 | DRG 720 ==
LOC: ER 02:24 → TELE1 06:04 → TELE-TD 07:23 → TELE1 12-19 09:28
PROVIDERS: ADMIT Internal Medicine; ATTEND Internal Medicine
PROC: 5A1945Z Respiratory Ventilation, 24-96 Consecutive Hours (ICD-10-PCS; principal; 2022-12-18)
PROC: 05HA33Z Insertion of Infusion Device into Left Brachial Vein, Percutaneous Approach (ICD-10-PCS; 2022-12-19)
DX: A41.9 Sepsis, unspecified organism (principal); J96.21 Acute and chronic respiratory failure with hypoxia; N17.0 Acute kidney failure with tubular necrosis; J95.851 Ventilator associated pneumonia; E43 Unspecified severe protein-calorie malnutrition; G93.41 Metabolic encephalopathy; G82.50 Quadriplegia, unspecified; D68.59 Other primary thrombophilia; E87.20 Acidosis, unspecified; J15.9 Unspecified bacterial pneumonia; Z93.0 Tracheostomy status; Z86.73 Personal history of transient ischemic attack (TIA), and cerebral infarction without residual deficits; I10 Essential (primary) hypertension; Z20.822 Contact with and (suspected) exposure to COVID-19; Z93.1 Gastrostomy status; K21.9 Gastro-esophageal reflux disease without esophagitis; R13.10 Dysphagia, unspecified; Z79.51 Long term (current) use of inhaled steroids; Z79.899 Other long term (current) drug therapy; Z86.14 Personal history of Methicillin resistant Staphylococcus aureus infection; Z86.16 Personal history of COVID-19; G40.909 Epilepsy, unspecified, not intractable, without status epilepticus; E88.09 Other disorders of plasma-protein metabolism, not elsewhere classified; Z74.09 Other reduced mobility; F41.9 Anxiety disorder, unspecified; F29 Unspecified psychosis not due to a substance or known physiological condition; D64.9 Anemia, unspecified; Z99.11 Dependence on respirator [ventilator] status; Y95 Nosocomial condition; Y84.8 Other medical procedures as the cause of abnormal reaction of the patient, or of later complication, without mention of misadventure at the time of the procedure; Y92.129 Unspecified place in nursing home as the place of occurrence of the external cause
CPT/HCPCS: 31720; 36410; 36415; 71045-TC; 80048-TC; 80053-TC; 80076-TC; 80202-TC; 81001; 83605-TC; 83735-TC; 84100-TC; 84443-TC; 84484-TC; 85025-TC; 85730-TC; 87040-TC; 87081-TC; 87086-TC; 94003-TC; 94760-TC; 94799-TC; A4223; A9563; C9113; C9803; G0378; J1650; J2060; J2185; J2543; J3370; J7030; J7050; J7060

== ENCOUNTER 2023-01-10 20:07 | Inpatient (IN) | payer MEDICAID ==
[~2023-01-10] VITALS: Ht 170.2 cm; Wt 47.2 kg
[~2023-01-10 20:07] MED LIST changes: -ALBUT2 NEB; +ALLA266C2 TP; +AMIN30LI2 GT; -CEFE2FRO IV; +CLON0.5T4 GT; +CRAN3875 GT; -HYDR30CR10 TP; -IPRA0.2S9 NEB; -LACT-209 GT; -LORA-259 GT; +LORA10TA7 GT; -LORA10TA7 PO; +MERO1VIA23 IV; +MULT-447 GT; -OMEP20CA15 GT; +PANT40SU2 GT; -VANC750F IV
--- NOTE | 2023-01-10 20:15 | NUR ---
MANOJ Guan FROM [facility] CC OF RESP ARREST. + TRACHE ON RA AT FACILITY. RA 76% BAGGED AT 15LPM SAT 85-90%. PLACED ON BED, NOT RESPONDING TO VERBAL-PAINFUL STIMULI, SATURATING AT 84 RESP. TECH AT BEDSIDE.
--- NOTE | 2023-01-10 20:20 | NUR ---
BLOOD DRAWN AND SENT TO LAB
--- NOTE | 2023-01-10 20:25 | NUR ---
PATIENT ATTACHED TO VENTILATOR WITH SETTING AC/VC FIO2-100, TV- 550, RATE- 20, PEEP-5 SATURATING AT 94%.
--- NOTE | 2023-01-10 20:28 | NUR ---
RT NOTE Late Entry Pt rec'd trached via portex 7 via bag mask ventilation by FD. Pt placed on mech vent on noted settings per md orders. pt showed increased WOB and low spo2. Pt sx'd for small amount of thick yellow secretions. alarms are set and audible ambu bag and emergency spare trach at bedside. Abg to be taken. Addendum: 01/10/23 at 2134 by ALL GOMEZ RT Amended: Links added.
[2023-01-10] MEDS ORDERED: IV LR 1000 ML 1,000 ML BAG IV ONE (20:30)
[2023-01-10 20:55] LABS: BASOPHILS % (AUTO) 0.1 % (0.0-2.0); EOSINOPHILS % (AUTO) 15.5 % (0.0-6.0); HEMATOCRIT 31 % (39-51); HEMOGLOBIN 9.5 g/dL (13.5-17.5); LYMPHOCYTES # (AUTO) 3.6 K/uL (0.8-4.8); LYMPHOCYTES % (AUTO) 18.1 % (20.0-44.0); MEAN CORPUSCULAR HGB CONC 31 g/dl (31.0-36.0); MEAN CORPUSCULAR VOLUME 90 fL (80-96); MONOCYTES # (AUTO) 0.9 K/uL (0.1-1.30); MONOCYTES % (AUTO) 4.6 % (2.0-12.0); NEUTROPHILS # (AUTO) 12.1 K/uL (1.8-8.9); NEUTROPHILS % (AUTO) 61.7 % (43.0-81.0); PLATELET COUNT (AUTO) 618 K/uL (150-450); RED BLOOD CELL COUNT(AUTO) 3.44 MIL/uL (4.5-6.0); WHITE BLOOD COUNT (AUTO) 19.6 K/uL (4.3-11.0)
[2023-01-10 20:57] LABS: BILIRUBIN,URINE NEGATIVE (NEGATIVE); COLOR,URINE YELLOW (YELLOW); LEUKOCYTE ESTERASE ,URINE 1+ (NEGATIVE); NITRITE, URINE NEGATIVE (NEGATIVE); PROTEIN,URINE NEGATIVE (NEGATIVE); UGLUCOSE NEGATIVE (NEGATIVE); UROBILINOGEN,URINE 0.2 EU/dL (0.2)
[2023-01-10 21:10] LABS: BACTERIA,URINE 2+ /HPF (None Seen); RBC,URINE 0-2 /HPF (0-2)
[2023-01-10 21:17] LABS: ALANINE AMINOTRANSFERASE 89 U/L (12-78); ALBUMIN 2.2 g/dL (3.4-5.0); ALKALINE PHOSPHATASE 185 U/L (46-116); ASPARTATE AMINOTRANSFERASE 97 U/L (15-37); BILIRUBIN,DIRECT 0.1 mg/dL (0.0-0.2); BILIRUBIN,TOTAL 0.1 mg/dL (0.2-1.0); CALCIUM, SERUM 9.2 mg/dL (8.5-10.1); CARBON DIOXIDE 29 mmol/L (21-32); CHLORIDE 103 mmol/L (98-107); CREATININE 0.7 mg/dL (0.6-1.3); GLUCOSE 177 mg/dL (74-106); POTASSIUM 4.2 mmol/L (3.5-5.1); SODIUM SERUM 140 mmol/L (136-145); TOTAL PROTEIN, SERUM 7.8 g/dL (6.4-8.2); UREA NITROGEN, BLOOD 22 mg/dL (7-18)
--- NOTE | 2023-01-10 21:25 | NUR ---
RECEIVED A CRITICAL LAB REPORT FROM [facility]. PT LACTIC ACID 5.1. JEAN BRASWELL AND DR RUCKER MADE AWARE
--- NOTE | 2023-01-10 21:25 | NUR ---
CHEST TUBE AT L SIDE DONE BY DR RUCKER WITH ANESTHESIA, WHIZZING SOUND NOTED AND DRAINING TO A PINK-COLOR DRAIN OUTPUT.
--- NOTE | 2023-01-10 21:28 | NUR ---
RT NOTE ABG TAKEN AND RESULTS REPORTED TO MD. VENT CHANGES MADE PER MD ORDERS Addendum: 01/10/23 at 2134 by ALL GOMEZ RT Amended: Links added.
--- NOTE | 2023-01-10 21:57 | NUR ---
BED 258
--- NOTE | 2023-01-10 22:06 | NUR ---
CALLED [facility] PAGED DAQUAN FOR ADMISSION
[2023-01-10] MEDS ORDERED: CEFEPIME 1 GM VIAL ONE (22:41)
[2023-01-10] MEDS ORDERED: ONDANSETRON HCL/PF 4 MG/2 ML VIAL IVP PRN (23:00)
[2023-01-10] MEDS ORDERED: ALBUTEROL FS 2.5 MG/0.5 ML VIAL.NEB NEB PRN ×2 (23:00→23:45)
[2023-01-10] MEDS ORDERED: clonazePAM 0.5 MG TABLET GT PRN (23:00)
[2023-01-10] MEDS ORDERED: MORPHINE SULFATE INJ 2 MG/ML DISP.SYRIN IV PRN (23:00)
[2023-01-10] MEDS ORDERED: CEFEPIME 1 GM in IV D5W 50 ML IV ONE (23:00)
[2023-01-10] MEDS ORDERED: NA PHOS,M-B/NA PHOS,DI-BA 1 EA ENEMA RC PRN (23:00)
[2023-01-10] MEDS ORDERED: BISACODYL SUPP (10 MG) 10 MG/SUPP.RECT SUPP.RECT RC PRN (23:00)
[2023-01-10] MEDS ORDERED: Medication Not On Formulary EA (Ipratropium/Albuterol Sulfate (Combivent Respimat 20-100 IH PRN (23:00)
[2023-01-10] MEDS ORDERED: Z GUARD REMEDY 4 OZ OINT TP PRN (23:00)
[2023-01-10] MEDS ORDERED: VANCOMYCIN 1 GM in IV D5W 250 ML IV ONE (23:00)
[2023-01-10] MEDS ORDERED: MAGNESIUM HYDROXIDE 30 ML UDC GT PRN (23:00)
[2023-01-10] MEDS ORDERED: hydrALAZINE HCL IV 20 MG VIAL IV PRN (23:00)
[2023-01-10] MEDS ORDERED: IV NS 0.9% 1,000 ML BAG IV ONE (23:00)
--- NOTE | 2023-01-10 23:02 | NUR ---
Bennie banda in [facility] - 01/10/23 at 2307 by GIL TRANSFERRED TO ROOM VIA ACLS PROTOCOL
[2023-01-10] MEDS ORDERED: VANCOMYCIN 1 GM VIAL ONE (23:11)
--- NOTE | 2023-01-10 23:15 | NUR ---
RT NOTE VT changed to 450 per md orders Addendum: 01/10/23 at 2316 by ALL GOMEZ RT Amended: Links added.
--- NOTE | 2023-01-10 23:22 | NUR ---
DR. RUCKER ON THE PHONE WITH DR. MARTINEZ (THORACIC) FOR CONSULT.
--- NOTE | 2023-01-10 23:26 | NUR ---
REPORT GIVEN TO LESTER RN ROOM 258 FOR THOR
[2023-01-10] MEDS ORDERED: IPRATROPIUM NEB FS 0.5 MG/2.5 ML AMPUL.NEB IH PRN (23:45)
--- NOTE | 2023-01-10 23:58 | NUR ---
TRANSFERRED TO ICU VIA ACLS TRANSPORT
[2023-01-11] VITALS (66 sets, daily range): BP systolic 80–147; BP diastolic 41–99
[2023-01-11] MEDS ORDERED: Medication Not On Formulary EA (Ipratropium/Albuterol Sulfate (Combivent Respimat 20-100 IH SCH
--- NOTE | 2023-01-11 01:10 | NUR ---
GAS ENGINE OPERATOR. F/C 16F INSERTED WITH OUT DIFFICULT.
--- NOTE | 2023-01-11 01:11 | NUR ---
FISH FARMER. RECEIVED THE PT FROM ER VIA GURNEY. PT IS AWAKE, NONVERBAL. TRACH TO VENT CONNECTED. TRACH PORTEX #7, AC 20, TV 450,FIO2 100%,PEEP 5. SAT 98%. NO ACUTE DISTRESS NOTED. ADULT EDUCATION PROFESSIONAL SHOWING S TACH. HOB ELEVATED. IV RT AND LT HAND 20G. IVF NS STARTED FROM ER. LT SIDE CHEST TUBE INTACT. LT SIDE SUBCUTANEOUS EMPHYSEMA. SACRAL WOUND NOTED. PICTURE TAKEN. WOUND CONSULT ORDERED. LOWER EXTREMITY CONTRACTED. GT INTACT. WILL CONTINUE TO MONITOR.
[2023-01-11] MEDS: IPRATROPIUM NEB FS 0.5 MG/2.5 ML AMPUL.NEB IH SCH ×4 (01:49→19:36)
[2023-01-11] MEDS: ALBUTEROL FS 2.5 MG/0.5 ML VIAL.NEB NEB SCH ×4 (01:49→19:36)
--- NOTE | 2023-01-11 04:45 | NUR ---
PRESS OPERATOR PRINTING. AM CARE GIVEN. REMAINING SAME VENT SETTINGS TOLERATED WELL. SAT 99%. NO ACUTE DISTRESS NOTED. REEL CUTTER SHOWING NSR. IV RT AND LT HAND 20G. SALINE LOCK. HOB ELEVATED. GT CLAMPED. TUR AND REPOSITION Q2H, WILL CONTINUE TO MONITOR VITALS,
[2023-01-11 05:27] LABS: BASOPHILS # (AUTO) 0.1 K/uL (0.0-0.2); BASOPHILS % (AUTO) 0.3 % (0.0-2.0); EOSINOPHILS % (AUTO) 0.2 % (0.0-6.0); HEMATOCRIT 27 % (39-51); HEMOGLOBIN 8.2 g/dL (13.5-17.5); LYMPHOCYTES # (AUTO) 1.3 K/uL (0.8-4.8); LYMPHOCYTES % (AUTO) 4.4 % (20.0-44.0); MEAN CORPUSCULAR HGB CONC 31 g/dl (31.0-36.0); MEAN CORPUSCULAR VOLUME 89 fL (80-96); MONOCYTES # (AUTO) 1.1 K/uL (0.1-1.30); MONOCYTES % (AUTO) 3.6 % (2.0-12.0); NEUTROPHILS # (AUTO) 27.2 K/uL (1.8-8.9); NEUTROPHILS % (AUTO) 91.5 % (43.0-81.0); PLATELET COUNT (AUTO) 492 K/uL (150-450); WHITE BLOOD COUNT (AUTO) 29.7 K/uL (4.3-11.0)
[2023-01-11 05:42] LABS: BILIRUBIN,TOTAL 0.2 mg/dL (0.2-1.0); CALCIUM, SERUM 8.4 mg/dL (8.5-10.1); CREATININE 0.7 mg/dL (0.6-1.3); MAGNESIUM 1.9 mg/dL (1.8-2.4); PHOSPHORUS 3.5 mg/dL (2.5-4.9); TOTAL PROTEIN, SERUM 6.7 g/dL (6.4-8.2)
--- NOTE | 2023-01-11 07:20 | NUR ---
TRANSFER STATION OPERATOR NOTES: RECEIVED THE PT REST IN BED. TRACH TO VENT CONNECTED. TRACH PORTEX#, AC 20, TV 450,FIO2 60%,PEEP 5. SAT 100%. NO ACUTE DISTRESS NOTED. SAP BUSINESS ANALYST SHOWING S TACHY HR 104. HOB ELEVATED. GT CLAMPED AT THIS TIME.WITH PIG TAIL CONNECTED TO INTERMITTENT SUCTION, DRAINED 30 ML PREVIOUS SHIFT,.BED IN LOW AND LOCKED POSITION, WILL CONTINUE TO MONITOR
--- NOTE | 2023-01-11 07:38 | NUR ---
RN NOTES: FIO2 LOWERED TO 45% BY RT TOLERATED WELL O2 SAT 100% WILL CONTINUE TO MONITOR
[2023-01-11] MEDS ORDERED: ARGININE/GLUTAMINE/CALCIUM BMB 1 EACH POWD.PACK GT SCH (09:00)
[2023-01-11] MEDS ORDERED: Medication Not On Formulary EA (Cran/Vitc/Mannose/Inulin/Brom (Uti-Stat Liquid) 3,875 MG GT SCH (09:00)
[2023-01-11] MEDS ORDERED: PROSOURCE / PROSTAT (PYXIS) 30 ML UDC GT SCH (09:00)
[2023-01-11] MEDS: CHLORHEXIDINE GLUCONATE 15 ML UDC MM SCH ×2 (09:08→16:25)
[2023-01-11] MEDS: DOCUSATE SODIUM 100 MG CAPSULE PO SCH ×2 (09:08→16:25)
[2023-01-11] MEDS: PANTOPRAZOLE 40 MG/PACK PACK GT SCH (09:08)
[2023-01-11] MEDS: CEFEPIME 2 GM in IV D5W 100 ML IV SCH ×2 (09:08→20:54)
[2023-01-11] MEDS: VALPROIC ACID 250 MG/5 ML UDC GT SCH ×2 (09:08→21:37)
[2023-01-11] MEDS: MULTIVIT W/MINERALS 1 TAB TABLET GT SCH (09:08)
[2023-01-11] MEDS: QUETIAPINE FUMARATE 25 MG TABLET GT SCH ×2 (09:09→21:37)
[2023-01-11] MEDS: LOSARTAN POTASSIUM 50 MG TABLET GT SCH (09:09)
[2023-01-11] MEDS: METOPROLOL TARTRATE 50 MG TABLET GT SCH ×2 (09:09→21:38)
[2023-01-11] MEDS: LORATADINE 10 MG TABLET GT SCH (09:10)
--- NOTE | 2023-01-11 10:14 | NUR ---
WOUND CARE CONSULT: PT PRESENTS WITH CHEST TUBE AND MULTIPLE PRESSURE ULCERS, PRESENT ON ADMISSION. DR CASTILLO AND DR YARBROUGH CALLED FOR SURGICAL AND DPM CONSULTS. DISCUSSED SKIN PROTECTION WITH NURSING STAFF. [facility]. IN AGREEMENT WITH PLAN OF CARE. Addendum: 01/11/23 at 1028 by ELISE MARTINEZ WNDNU PT WAS NOT TURNED FOR SKIN ASSESSMENT DUE TO PT UNSTABLE. REVIEWED ADMISSION PHOTOS.
[2023-01-11] MEDS ORDERED: ONDA4TAB5 GT (10:23)
[2023-01-11] MEDS ORDERED: TRAZ-182 GT (10:23)
--- NOTE | 2023-01-11 10:27 | NUR ---
RN NOTES: SPOKE TO WILMER TO FRONT WORKER BP WAS 129/99 METOPROLOL AND LOSARTAN GIVEN ORDERED BUT BP NOW 71/46 WITH ORDER TO GIVE NS BOLUS 250 ML X 1, ORDER NOTED AND CARRIED OUT
[2023-01-11] MEDS ORDERED: IV NS 0.9% 250 ML IV ONE (10:30)
--- NOTE | 2023-01-11 11:30 | NUR ---
RN NOTES: BOX PACKER CAME TO DO ECHO SHE COULDN'T SHE WILL COME LATER AND SHE SAID SHE WILL LET DR CONTRERAS KNOW
--- NOTE | 2023-01-11 11:45 | NUR ---
RN notes: notified DR Morillo of troponin 101, also made aware of bp went down now is 90/60 after the bolus he said ok
[2023-01-11] MEDS ORDERED: JEVITY 1.2 CAL 1,000 ML BOTTLE GT PRN (15:30)
--- NOTE | 2023-01-11 15:52 | NUR ---
RN NOTES: STARTED GTF OF JEVITY 1.2 AT 30 ML/HR WILL CHECK IF PT TOLERATING IT AND INCREASE GRADUALLY TO REACH THE GOAL 70 ML/HR
[2023-01-11] MEDS: THERAHONEY GEL 1.5 OZ TUBE TP SCH (16:25)
[2023-01-11] MEDS: PROSOURCE / PROSTAT (PYXIS) 30 ML UDC GT SCH (16:28)
[2023-01-11] MEDS: ARGININE/GLUTAMINE/CALCIUM BMB 1 EACH POWD.PACK GT SCH (16:38)
--- NOTE | 2023-01-11 19:01 | NUR ---
PARKING METER INSTALLER NOTES: PT , CLINE CATHETER DRAINING YELLOW CLEAR URINE, CHEST TUBE NO DRAINAGE NO BUBBLES CONNECTED TO INTERMITTENT SUCTION.IN BED AWAKE, CONNECTED TO VENT SETTING ORDERED, NO SOB NOTED.O2 SAT 100%, GTF WELL TOLERATED AT 30 ML/HR, 0 RESIDUAL,ON TKO RUNNING ON LEFT AC, LEFT UPPER ARM MIDLINE AND RIGHT AC SALINE LOCK PATENT AND FLUSHING WELL,BED IN LOW AND LOCKED POSITION, ENDORSED TO PATIENT NAVIGATOR NURSE FOR THOR
[2023-01-12] VITALS (68 sets, daily range): BP systolic 78–138; BP diastolic 47–101
[2023-01-12] MEDS: IPRATROPIUM NEB FS 0.5 MG/2.5 ML AMPUL.NEB IH SCH ×4 (01:27→20:00)
[2023-01-12] MEDS: ALBUTEROL FS 2.5 MG/0.5 ML VIAL.NEB NEB SCH ×4 (01:27→20:00)
--- NOTE | 2023-01-12 07:46 | NUR ---
RN OPENING NOTE RECEIVED THE PATIENT SLEEPING IN BED. TRACH TO VENT CONNECTED. TRACH PORTEX#, AC 20, TV 450,FIO2 60%,PEEP 5. SAT 100%. NO ACUTE DISTRESS NOTED. HEAD OF THE BED ELEVATED. BED IN LOW AND LOCKED POSITION, WILL CONTINUE THE PATIENT THROUGHOUT THE SHIFT.
[2023-01-12] MEDS: CEFEPIME 2 GM in IV D5W 100 ML IV SCH ×2 (08:26→21:42)
[2023-01-12] MEDS: PANTOPRAZOLE 40 MG/PACK PACK GT SCH (08:27)
[2023-01-12] MEDS: CHLORHEXIDINE GLUCONATE 15 ML UDC MM SCH ×2 (08:27→16:09)
[2023-01-12] MEDS: VALPROIC ACID 250 MG/5 ML UDC GT SCH ×2 (08:27→21:35)
[2023-01-12] MEDS: MULTIVIT W/MINERALS 1 TAB TABLET GT SCH (08:27)
[2023-01-12] MEDS: LORATADINE 10 MG TABLET GT SCH (08:27)
[2023-01-12] MEDS: DOCUSATE SODIUM 100 MG CAPSULE PO SCH ×2 (08:27→16:09)
[2023-01-12] MEDS: QUETIAPINE FUMARATE 25 MG TABLET GT SCH ×2 (08:28→21:35)
[2023-01-12] MEDS: NEOMY SULF/BACITRAC ZN/POLY 15 GM TUBE TP SCH (08:29)
[2023-01-12] MEDS: METOPROLOL TARTRATE 50 MG TABLET GT SCH ×2 (08:30→21:35)
[2023-01-12] MEDS: LOSARTAN POTASSIUM 50 MG TABLET GT SCH (08:30)
[2023-01-12] MEDS: THERAHONEY GEL 1.5 OZ TUBE TP SCH (08:31)
[2023-01-12] MEDS: PROSOURCE / PROSTAT (PYXIS) 30 ML UDC GT SCH ×2 (08:33→16:10)
[2023-01-12] MEDS: ARGININE/GLUTAMINE/CALCIUM BMB 1 EACH POWD.PACK GT SCH ×2 (08:33→16:10)
[2023-01-12] MEDS: HEPARIN SODIUM, PORCINE 5000 UNITS/1 ML VIAL SQ SCH ×2 (08:36→21:40)
[2023-01-12] MEDS: VANCOMYCIN 0.75 GM in IV D5W 250 ML IV SCH (16:08)
--- NOTE | 2023-01-12 19:10 | NUR ---
RN NOTE RECEIVED PT IN BED, EYES OPEN, NONVERBAL. PT TRACH IN PLACED, CURRENT VENT SETTINGS WELL TOLERATED. NO ACUTE RESP DISTRESS NOTED. LEFT CHEST TUBE IN PLACED, NO DRAINAGE NOTED AT THIS TIME. PT NOTED WITH GENERALIZED BODY TWITCHING. ATTACHED TO BEDSIDE HUMAN GEOGRAPHY INSTRUCTOR ST AT THIS TIME. GTF IN PLACED, RUNNING JEVITY 1.2 AT 30ML/HR, WELL MARTY. 0 RESIDUAL NOTED. HOB ELEVATED. FC IN PLACED, PATENT, DRAINING TEA COLORED URINE. SAFETY AND ASPIRATION PRECAUTION IMPLEMENTED. WILL CONT POC.
--- NOTE | 2023-01-12 19:10 | NUR ---
RN CLOSING NOTE PATIENT SLEEPING IN BED. TRACH TO VENT CONNECTED. TRACH PORTEX#, AC 20, TV 400,FIO2 40%,PEEP 5. SAT 99%. NO ACUTE DISTRESS NOTED. HEAD OF THE BED ELEVATED. BED IN LOW AND LOCKED POSITION, ALL DUE MEDS ADMINISTERED, PATIENT KEPT CLEAN AND DRY. CHEST TUBE ON LEFT BACK SIDE WITH ZERO DRAINAGE. RIGHT UPPER ARM ML TKO INTACT AND PATENT.
[2023-01-13] VITALS (41 sets, daily range): BP systolic 88–125; BP diastolic 49–83
[2023-01-13] MEDS: VANCOMYCIN 0.75 GM in IV D5W 250 ML IV SCH ×3 (01:06→16:00)
[2023-01-13] MEDS: IPRATROPIUM NEB FS 0.5 MG/2.5 ML AMPUL.NEB IH SCH ×4 (01:54→20:00)
[2023-01-13] MEDS: ALBUTEROL FS 2.5 MG/0.5 ML VIAL.NEB NEB SCH ×4 (01:54→20:00)
[2023-01-13 05:32] LABS: BASOPHILS % (AUTO) 0.3 % (0.0-2.0); EOSINOPHILS % (AUTO) 16.8 % (0.0-6.0); HEMATOCRIT 26 % (39-51); HEMOGLOBIN 7.5 g/dL (13.5-17.5); LYMPHOCYTES % (AUTO) 6.8 % (20.0-44.0); MEAN CORPUSCULAR HGB CONC 29 g/dl (31.0-36.0); MEAN CORPUSCULAR VOLUME 96 fL (80-96); MONOCYTES % (AUTO) 5.9 % (2.0-12.0); NEUTROPHILS % (AUTO) 70.2 % (43.0-81.0); PLATELET COUNT (AUTO) 501 K/uL (150-450); RED BLOOD CELL COUNT(AUTO) 2.67 MIL/uL (4.5-6.0); WHITE BLOOD COUNT (AUTO) 17.8 K/uL (4.3-11.0)
[2023-01-13 05:33] LABS: LYMPHOCYTES # (AUTO) 1.2 K/uL (0.8-4.8); NEUTROPHILS # (AUTO) 12.5 K/uL (1.8-8.9)
[2023-01-13] MEDS: JEVITY 1.2 CAL 1,000 ML BOTTLE GT PRN (05:37)
[2023-01-13 05:48] LABS: ALBUMIN 1.6 g/dL (3.4-5.0); BILIRUBIN,TOTAL 0.2 mg/dL (0.2-1.0); CALCIUM, SERUM 8.3 mg/dL (8.5-10.1); CREATININE 0.8 mg/dL (0.6-1.3); POTASSIUM 4.1 mmol/L (3.5-5.1)
--- NOTE | 2023-01-13 07:05 | NUR ---
RN NOTES RECEIVED PATIENT ON BED, TRACH /VENT DEPENDENT , DOES NOT FOLLOW COMMAND, TOLERATING VENT SETTING WELL, O2 SAT WNL, LEFT CHEST WALL TUBE INTACT, NO DRAINAGE NOTED, CLINE DRAINING TO GRAVITY, TF AT 50 CC/HR RUNNING , HEAD OF THE BED ELEVATED. IV SITE CDI, BED IN LOW AND LOCKED POSITION, WILL CONTINUE TO MONITOR .
--- NOTE | 2023-01-13 07:10 | NUR ---
RN NOTE PT REMAINS IN STABLE CONDITION, NO SIGNIFICANT CHANGES NOTED DURING THE SHIFT ALL NEEDS ANTICIPATED. VENT SETTINGS ORDERED, WELL MARTY. GTF RUNNING AT 50ML/HR AT THIS TIME. HOB ELEVATED. REPORT GIVEN TO AM SHIFT NURSE FOR THOR.
[2023-01-13] MEDS: DOCUSATE SODIUM 100 MG CAPSULE PO SCH ×2 (08:13→16:20)
[2023-01-13] MEDS: VALPROIC ACID 250 MG/5 ML UDC GT SCH ×2 (08:13→21:20)
[2023-01-13] MEDS: QUETIAPINE FUMARATE 25 MG TABLET GT SCH ×2 (08:13→21:20)
[2023-01-13] MEDS: METOPROLOL TARTRATE 50 MG TABLET GT SCH ×2 (08:14→21:00)
[2023-01-13] MEDS: HEPARIN SODIUM, PORCINE 5000 UNITS/1 ML VIAL SQ SCH ×2 (08:15→21:30)
[2023-01-13] MEDS: CHLORHEXIDINE GLUCONATE 15 ML UDC MM SCH ×2 (08:16→16:22)
[2023-01-13] MEDS: THERAHONEY GEL 1.5 OZ TUBE TP SCH (08:16)
[2023-01-13] MEDS: NEOMY SULF/BACITRAC ZN/POLY 15 GM TUBE TP SCH (08:16)
[2023-01-13] MEDS: MULTIVIT W/MINERALS 1 TAB TABLET GT SCH (08:18)
[2023-01-13] MEDS: PROSOURCE / PROSTAT (PYXIS) 30 ML UDC GT SCH ×2 (08:19→16:22)
[2023-01-13] MEDS: LORATADINE 10 MG TABLET GT SCH (08:21)
[2023-01-13] MEDS: PANTOPRAZOLE 40 MG/PACK PACK GT SCH (08:21)
[2023-01-13] MEDS: LOSARTAN POTASSIUM 50 MG TABLET GT SCH (08:22)
[2023-01-13] MEDS: ARGININE/GLUTAMINE/CALCIUM BMB 1 EACH POWD.PACK GT SCH ×2 (08:24→16:22)
[2023-01-13] MEDS: CEFEPIME 2 GM in IV D5W 100 ML IV SCH ×2 (09:31→21:20)
--- NOTE | 2023-01-13 10:30 | NUR ---
RN NOTES DR. HERNÁNDEZ NOTIFIED REGARDING CHEST X-RAY RESULTS , NEW CHEST X- RAY ORDERED .
--- NOTE | 2023-01-13 18:08 | NUR ---
RN NOTES NO SIGNFICANT CHANGES NOTED ON THIS SHIFT, TRACH CARE DONE PRN, O2 SAT WNL, NO DRAINAGE NOTED FROM CHEST TUBE, WILL ENDORSE TO INDUSTRIAL ENGINEERING TECHNOLOGIST NURSE FOR CONTINUITY OF CARE .
--- NOTE | 2023-01-13 19:18 | NUR ---
RN NOTES PT TRANSFER TO ROOM 104 NATASHA STATUS VIA ACLS, REPORT GIVEN TO OLU PENA FOR CONTINUITY OF CARE , NO BELONGINGS NOTED
[2023-01-13] MEDS: VANCOMYCIN HCL 0.75 GM in IV D5W 250 ML IV SCH (20:27)
--- NOTE | 2023-01-13 20:40 | NUR ---
SUPERVISOR PRINTING SHOP OPENING NOTES RECEIVED PATIENT IN BED, ON MODERATE HIGH BACK REST POSITION WITH TRACHE CONNECTED TO MECHANICAL VENTILATOR SATURATING AT 100%. WITH IV ACCESS AT RAC #20G SL AND LEFT MIDLINE @20G SL. PATENT AND INTACT AT THIS TIME. NOTED LEFT CHEST TUBE CONNECTED TO CONTINUOUS SUCTION FUNCTIONING WELL.WITH G-TUBE JEVITY 1.2 AT 70ML/HR INFUSING WELL. NO RESIDUAL NOTED AND NO EPISODES OF ASPIRATION NOTED AT THIS TIME. WITH CLINE CATHETER CONNECTED TO URINE BAG WITH URINE OUTPUT NOTED AT THIS TIME. PATIENT IS INCONTINENT USES DIAPER. NOTED BEDSORE AT SACRAL AREA AND LEFT HIP. BREATHING TREATMENT GIVEN C/O RESPIRATORY THERAPIST. SUCTION SECRETIONS NEEDED, KEPT BED ON HIGH BACK REST POSITION. ATTACHED TO TELE MONITORING DEVICE WITH EPISODES OF TACHYCARDIA. KEPT BED ON LOWER LOCKED POSITION, KEPT SIDE RAILS UP X3 ALL THE TIME. KEPT CALL LIGHT WITHIN AT REACH. TURN PATIENT EVERY 2 HOURS. WILL CONTINUE TO MONITOR FOR THOR.
--- NOTE | 2023-01-13 21:00 | NUR ---
CAR DELIVERER NOTES PATIENT WITH DUE HEPARIN [address] TAVAREZ REGARDING HEMOGLOBIN OF 7.5. AND ORDERED OKAY TO GIVE DOSE OF HEPARIN. WILL CONTINUE TO MONITOR.
[2023-01-13] MEDS: MUPIROCIN OINT 2% 22 GM TUBE NS SCH (21:35)
[2023-01-14] VITALS (11 sets, daily range): BP systolic 90–105; BP diastolic 50–71
[2023-01-14] MEDS: VANCOMYCIN 0.75 GM in IV D5W 250 ML IV SCH ×2
--- NOTE | 2023-01-14 00:17 | NUR ---
FIRER WATERTENDER NOTES VANCOMYCIN DUE AT 12AM NOT GIVEN BECAUSE WHICH IT TO EVERY 12 HOURS. 2 DOSES GIVEN. LAST DOSE GIVEN AT 01/13 AT 9PM
[2023-01-14] MEDS: ALBUTEROL FS 2.5 MG/0.5 ML VIAL.NEB NEB SCH ×4 (01:15→20:17)
[2023-01-14] MEDS: IPRATROPIUM NEB FS 0.5 MG/2.5 ML AMPUL.NEB IH SCH ×4 (01:16→20:17)
--- NOTE | 2023-01-14 06:35 | NUR ---
PRESS ASSISTANT AND FEEDER CLOSING NOTES PATIENT IS IN BED, ON MODERATE HIGH BACK REST POSITION WITH TRACHE CONNECTED TO MECHANICAL VENTILATOR SATURATING AT 100%. WITH IV ACCESS AT RAC #20G SL AND LEFT MIDLINE @20G SL. PATENT AND INTACT AT THIS TIME. NOTED LEFT CHEST TUBE CONNECTED TO CONTINUOUS SUCTION FUNCTIONING WELL.WITH G-TUBE JEVITY 1.2 AT 70ML/HR INFUSING WELL. NO RESIDUAL NOTED AND NO EPISODES OF ASPIRATION NOTED AT THIS TIME. WITH CLINE CATHETER CONNECTED TO URINE BAG WITH URINE OUTPUT NOTED AT THIS TIME. PATIENT IS INCONTINENT USES DIAPER. NOTED BEDSORE AT SACRAL AREA AND LEFT HIP WOUND CARE DONE. BREATHING TREATMENT GIVEN ORDERED C/O RESPIRATORY THERAPIST. SUCTION SECRETIONS NEEDED,ALL DUE MEDICATIONS GIVEN, ALL NEEDS ATTENDED. PM CARE RENDERED. TURNED PATIENT EVERY 2 HOURS. KEPT BED ON HIGH BACK REST POSITION. ATTACHED TO TELE MONITORING DEVICE WITH EPISODES OF TACHYCARDIA. KEPT BED ON LOWER LOCKED POSITION, KEPT SIDE RAILS UP X3 ALL THE TIME. KEPT CALL LIGHT WITHIN AT REACH. TURN PATIENT EVERY 2 HOURS. WILL ENDORSED TO AM SHIFT FOR THOR.
[2023-01-14 07:12] LABS: CALCIUM, SERUM 8.2 mg/dL (8.5-10.1); CREATININE 0.7 mg/dL (0.6-1.3)
--- NOTE | 2023-01-14 07:22 | NUR ---
RUBBER COMPOUNDER SUPERVISOR OPEN NOTES PATIENT IS IN BED, CONNECTED TO MECHANICAL VENTILATOR SATURATING AT 100%. WITH IV ACCESS AT RAC #20G SL AND LEFT MIDLINE @20G SL. PATENT AND INTACT AT THIS TIME. NOTED LEFT CHEST TUBE CONNECTED TO CONTINUOUS SUCTION FUNCTIONING WELL.WITH G-TUBE JEVITY 1.2 AT 70ML/HR INFUSING WELL. NO RESIDUAL NOTED AND NO EPISODES OF ASPIRATION NOTED AT THIS TIME.WIOLL KEEP H3AD ELEVEATED TO 40 DEGREE WITH CLINE CATHETER CONNECTED TO URINE BAG , DRANING URINE BY GRAVITY. HAS BEDSORE AT SACRAL AREA AND LEFT HIP WOUND . SUCTION SECRETIONS NEEDED,WILL TURNED PATIENT EVERY 2 HOURS. KEPT BED ON HIGH BACK REST POSITION. ATTACHED TO TELE MONITORING DEVICE . KEPT BED ON LOWER LOCKED POSITION, KEPT SIDE RAILS UP X3 ALL THE TIME. KEPT CALL LIGHT WITHIN AT REACH. WILL CONTINUE TO MONITOR
[2023-01-14] MEDS: NEOMY SULF/BACITRAC ZN/POLY 15 GM TUBE TP SCH (08:22)
[2023-01-14] MEDS: VALPROIC ACID 250 MG/5 ML UDC GT SCH ×2 (08:23→20:20)
[2023-01-14] MEDS: CHLORHEXIDINE GLUCONATE 15 ML UDC MM SCH ×2 (08:23→17:04)
[2023-01-14] MEDS: PANTOPRAZOLE 40 MG/PACK PACK GT SCH (08:23)
[2023-01-14] MEDS: QUETIAPINE FUMARATE 25 MG TABLET GT SCH ×2 (08:23→20:24)
[2023-01-14] MEDS: MULTIVIT W/MINERALS 1 TAB TABLET GT SCH (08:23)
[2023-01-14] MEDS: DOCUSATE SODIUM 100 MG CAPSULE PO SCH (08:23)
[2023-01-14] MEDS: LORATADINE 10 MG TABLET GT SCH (08:23)
[2023-01-14] MEDS: MUPIROCIN OINT 2% 22 GM TUBE NS SCH ×2 (08:23→20:20)
[2023-01-14] MEDS: VANCOMYCIN HCL 0.75 GM in IV D5W 250 ML IV SCH ×2 (08:33→20:20)
[2023-01-14] MEDS: DOCUSATE SODIUM LIQ 100 MG/10 ML UDC GT SCH ×2 (08:42→17:04)
[2023-01-14] MEDS: LOSARTAN POTASSIUM 50 MG TABLET GT SCH (08:43)
[2023-01-14] MEDS: METOPROLOL TARTRATE 50 MG TABLET GT SCH ×2 (08:43→20:24)
[2023-01-14] MEDS: HEPARIN SODIUM, PORCINE 5000 UNITS/1 ML VIAL SQ SCH ×2 (09:00→20:23)
[2023-01-14] MEDS: THERAHONEY GEL 1.5 OZ TUBE TP SCH (09:07)
--- NOTE | 2023-01-14 09:08 | NUR ---
rn note metoprolol and Lopressor was hold due to BP was 90/61 , hr 88
[2023-01-14] MEDS: ARGININE/GLUTAMINE/CALCIUM BMB 1 EACH POWD.PACK GT SCH ×2 (09:50→17:04)
[2023-01-14] MEDS: PROSOURCE / PROSTAT (PYXIS) 30 ML UDC GT SCH ×2 (09:50→17:04)
[2023-01-14] MEDS: CEFEPIME 2 GM in IV D5W 100 ML IV SCH ×2 (09:51→20:20)
--- NOTE | 2023-01-14 19:17 | NUR ---
GUEST HISTORY CLERK CLOSING NOTES PATIENT IS IN BED, ON MODERATE HIGH BACK REST POSITION WITH TRACHE CONNECTED TO MECHANICAL VENTILATOR SATURATING AT 100%. WITH IV ACCESS AT RAC #20G SL AND LEFT MIDLINE @20G SL. PATENT AND INTACT AT THIS TIME. WITH G-TUBE JEVITY 1.2 AT 70ML/HR INFUSING WELL. NO RESIDUAL NOTED AND NO EPISODES OF ASPIRATION NOTED AT THIS TIME. WITH CLINE CATHETER CONNECTED TO URINE BAG WITH URINE PATIENT IS INCONTINENT USES DIAPER. NOTED BEDSORE AT SACRAL AREA AND LEFT HIP WOUND CARE DONE. TURNED PATIENT EVERY 2 HOURS. KEPT BED ON HIGH BACK REST POSITION. ATTACHED TO TELE MONITORING DEVICE WITH EPISODES OF TACHYCARDIA. KEPT BED ON LOWER LOCKED POSITION, KEPT SIDE RAILS UP X3 ALL THE TIME. KEPT CALL LIGHT WITHIN AT REACH. WILL ENDORSED TO AM SHIFT FOR THOR.
--- NOTE | 2023-01-14 19:30 | NUR ---
PATIENT IS IN BED, AWAKE. ATTACHED TO TELE MONITORING DEVICE WITH EPISODES OF TACHYCARDIA. ON MODERATE HIGH BACK REST POSITION WITH TRACHE CONNECTED TO MECHANICAL VENTILATOR WITH SETTINGS PRESCRIBED. SATURATING AT 100%. WITH IV ACCESS ON SENDY ML #20G AND ON RAC #20G ON SL. WITH G-TUBE IN PLACE.JEVITY 1.2 INFUSING AT 70ML/HR. WITH CLINE CATHETER CONNECTED. SAFETY MEASURES IN PLACE. HOB ELEVATED. KEPT BED ON LOWER LOCKED POSITION, KEPT SIDE RAILS UP X3. CALL LIGHT WITHIN REACH. WILL CONTINUE PLAN OF CARE.
[2023-01-14] MEDS: JEVITY 1.2 CAL 1,000 ML BOTTLE GT PRN (22:05)
[2023-01-15] VITALS: BP 94/56
[2023-01-15] MEDS: IPRATROPIUM NEB FS 0.5 MG/2.5 ML AMPUL.NEB IH SCH ×5 (01:30→20:11)
[2023-01-15] MEDS: ALBUTEROL FS 2.5 MG/0.5 ML VIAL.NEB NEB SCH ×5 (01:30→20:11)
[2023-01-15 04:00] VITALS: BP 107/58
--- NOTE | 2023-01-15 07:15 | NUR ---
PHYSICIAN SUPPORT COORDINATOR OPEN NOTES PATIENT ON BED, AWAKE , CONNECTED TO MECHANICAL VENTILATOR SATURATING AT 100%. WITH IV ACCESS AT RAC #20G SL AND LEFT MIDLINE @20G SL. PATENT AND INTACT AT THIS TIME. NOTED LEFT CHEST SITE WITH DRY AND INTACT DRESSING. .WITH G-TUBE JEVITY 1.2 AT 70ML/HR INFUSING WELL. NO RESIDUAL NOTED AND NO EPISODES OF ASPIRATION NOTED AT THIS TIME. WILL KEEP HEAD ELEVATED AT LEAST TO 40 DEGREE. FC CONNECTED TO URINE BAG , DRANING URINE BY GRAVITY. HAS BEDSORE AT SACRAL AREA AND LEFT HIP WOUND . SUCTION SECRETIONS NEEDED,WILL TURNED PATIENT EVERY 2 HOURS. KEPT BED ON HIGH BACK REST POSITION. ATTACHED TO TELE MONITORING DEVICE WITH SR OF 71, KEPT BED ON LOWER LOCKED POSITION, KEPT SIDE RAILS UP X3 ALL THE TIME. KEPT CALL LIGHT WITHIN AT REACH. WILL CONTINUE TO MONITOR
--- NOTE | 2023-01-15 07:55 | NUR ---
PT IS IN BED, AWAKE. ATTACHED TO TELE MONITORING DEVICE ON SR. ON MODERATE HIGH BACK REST POSITION WITH TRACH CONNECTED TO MECHANICAL VENTILATOR WITH SETTINGS PRESCRIBED. SATURATING AT 98%. WITH IV ACCESS ON SENDY ML #18G AND ON LAC #20G ON SL. WITH G-TUBE IN PLACE. JEVITY 1.2 INFUSING AT 70ML/HR. WITH CLINE CATHETER CONNECTED. SAFETY MEASURES MAINTAINED. HOB ELEVATED. KEPT BED ON LOWER LOCKED POSITION, KEPT SIDE RAILS UP X3. CALL LIGHT WITHIN REACH. WILL ENDORSE TO NEXT NURSE ON DUTY FOR CONTINUITY OF CARE.
[2023-01-15 08:00] VITALS: BP 134/78
[2023-01-15 08:05] LABS: CALCIUM, SERUM 8.3 mg/dL (8.5-10.1); CREATININE 0.6 mg/dL (0.6-1.3); POTASSIUM 4.2 mmol/L (3.5-5.1)
--- NOTE | 2023-01-15 08:11 | NUR ---
SPOKE WITH LERNER AT THE PHARMACY AND INFORMED OF TROUGH OF 16 ON 01/15/23 AND WAS INFORMED TO GIVE MED ORDERED.
[2023-01-15] MEDS: DOCUSATE SODIUM LIQ 100 MG/10 ML UDC GT SCH ×2 (08:22→16:23)
[2023-01-15] MEDS: ARGININE/GLUTAMINE/CALCIUM BMB 1 EACH POWD.PACK GT SCH ×2 (08:22→16:23)
[2023-01-15] MEDS: MULTIVIT W/MINERALS 1 TAB TABLET GT SCH (08:22)
[2023-01-15] MEDS: VALPROIC ACID 250 MG/5 ML UDC GT SCH ×2 (08:23→22:05)
[2023-01-15] MEDS: CHLORHEXIDINE GLUCONATE 15 ML UDC MM SCH ×2 (08:23→16:23)
[2023-01-15] MEDS: QUETIAPINE FUMARATE 25 MG TABLET GT SCH ×2 (08:23→22:06)
[2023-01-15] MEDS: LOSARTAN POTASSIUM 50 MG TABLET GT SCH (08:24)
[2023-01-15] MEDS: VANCOMYCIN HCL 0.75 GM in IV D5W 250 ML IV SCH ×2 (08:24→20:16)
[2023-01-15] MEDS: LORATADINE 10 MG TABLET GT SCH (08:24)
[2023-01-15 08:25] LABS: BASOPHILS % (AUTO) 0.2 % (0.0-2.0); HEMATOCRIT 25 % (39-51); HEMOGLOBIN 7.6 g/dL (13.5-17.5); LYMPHOCYTES # (AUTO) 1.3 K/uL (0.8-4.8); LYMPHOCYTES % (AUTO) 10.6 % (20.0-44.0); MEAN CORPUSCULAR HGB CONC 31 g/dl (31.0-36.0); MEAN CORPUSCULAR VOLUME 90 fL (80-96); MONOCYTES # (AUTO) 0.6 K/uL (0.1-1.30); MONOCYTES % (AUTO) 5.3 % (2.0-12.0); NEUTROPHILS # (AUTO) 6.1 K/uL (1.8-8.9); NEUTROPHILS % (AUTO) 51.5 % (43.0-81.0); PLATELET COUNT (AUTO) 551 K/uL (150-450); RED BLOOD CELL COUNT(AUTO) 2.73 MIL/uL (4.5-6.0); WHITE BLOOD COUNT (AUTO) 11.8 K/uL (4.3-11.0)
[2023-01-15] MEDS: PROSOURCE / PROSTAT (PYXIS) 30 ML UDC GT SCH ×2 (08:25→16:23)
[2023-01-15 08:29] LABS: EOSINOPHILS % (AUTO) 32.4 % (0.0-6.0)
[2023-01-15] MEDS: NEOMY SULF/BACITRAC ZN/POLY 15 GM TUBE TP SCH (08:29)
[2023-01-15] MEDS: MUPIROCIN OINT 2% 22 GM TUBE NS SCH ×2 (08:30→22:07)
[2023-01-15] MEDS: PANTOPRAZOLE 40 MG/PACK PACK GT SCH (09:26)
[2023-01-15] MEDS: METOPROLOL TARTRATE 50 MG TABLET GT SCH ×2 (09:29→22:06)
[2023-01-15] MEDS: CEFEPIME 2 GM in IV D5W 100 ML IV SCH ×2 (09:30→22:07)
[2023-01-15] MEDS: THERAHONEY GEL 1.5 OZ TUBE TP SCH (09:32)
--- NOTE | 2023-01-15 09:55 | NUR ---
Dr. Moore notified about the H & H today of 7.6 and 25 and platelet of 551 if ok to give heparin, per its ok mto give, noted
[2023-01-15] MEDS: HEPARIN SODIUM, PORCINE 5000 UNITS/1 ML VIAL SQ SCH ×2 (10:31→21:00)
[2023-01-15 12:35] LABS: BAND % (MANUAL) 2 % (0.0-5.0); NEUTROPHILS % (MANUAL) 54 (42-76)
[2023-01-15 12:36] LABS: EOSINOPHILS % (MANUAL) 31 % (0-4); LYMPHOCYTES % (MANUAL) 8 % (16-48); MONOCYTES % (MANUAL) 5 % (0-11.0)
[2023-01-15 13:00] VITALS: BP 130/86
[2023-01-15 16:00] VITALS: BP 114/76
[2023-01-15] MEDS: JEVITY 1.2 CAL 1,000 ML BOTTLE GT PRN (16:47)
[2023-01-15] MEDS: ACETYLCYSTEINE 10% SOLN 400 MG/4 ML VIAL NEB SCH (17:28)
--- NOTE | 2023-01-15 18:39 | NUR ---
N TELE CLOSING NOTES PATIENT IS ON BED, AWAKE, ON MODERATE HIGH BACK REST POSITION WITH TRACHE CONNECTED TO MECHANICAL VENTILATOR SATURATING AT 100%. WITH IV ACCESS AT RAC #20G SL AND LEFT MIDLINE @20G SL. PATENT AND INTACT, WITH G-TUBE JEVITY 1.2 AT 70ML/HR INFUSING WELL. NO RESIDUAL NOTED, TOLERATING WELL. HOB ELEVATED DURING FEEDING. WITH CLINE CATHETER CONNECTED TO URINE BAG, ABLE TO DRAIN 550 CC OF YELLOW COLORED URINE. . NOTED BEDSORE AT SACRAL AREA AND LEFT HIP AND WOUND CARE DONE. TURNED PATIENT FREQUENTLY TOLERATED FOR COMFORT AND CIRCULATION. ATTACHED TO TELE MONITORING DEVICE SR AT 82. KEPT BED ON LOWER LOCKED POSITION, KEPT SIDE RAILS UP X3 ALL THE TIME. KEPT CALL LIGHT WITHIN AT REACH. WILL ENDORSED TO INCOMING SHIFT FOR CONTINUITY OF CARE.
[2023-01-15 20:00] VITALS: BP 115/68
--- NOTE | 2023-01-15 20:00 | NUR ---
RECORD PRODUCER OPENING NOTES: RECEIVED PATIENT AWAKE IN BED, BED IN LOW POSITION CALL LIGHTS WITHIN REACH, NO COMPLAIN OF PAIN AND DISCOMFORT AT THIS TIME, ON MECHANICAL VENT SATURATING WELL, PATIENT IS A/O X1 NONE VERBAL ON TELE MONITOR- SR-88, ON G TUBE FEEDING OF JEVITY 1.2@70ML/HR INFUSING WELL, PATIENT HOB TO REMAIN UPRIGHT, IV LINE AT LAC#20SL, AND LUAML#18 SL, ON CLINE CATHETER- WITH 50CC URINE OUTPUT, PATIENT KEPT CLEAN AND DRY ALL NEEDS MET WILL CONTINUE TO MONITOR.
--- NOTE | 2023-01-15 21:30 | NUR ---
RN NOTES: HEPARIN NOT GIVEN PATIENT HAS A SCHEDULE BILATERAL HIP AND BUTTOCKS DEBRIDEMENT.
[2023-01-16] VITALS: BP 130/82
[2023-01-16] MEDS: ACETYLCYSTEINE 10% SOLN 400 MG/4 ML VIAL NEB SCH ×4 (00:07→23:23)
[2023-01-16] MEDS: ALBUTEROL FS 2.5 MG/0.5 ML VIAL.NEB NEB SCH ×4 (01:54→20:31)
[2023-01-16] MEDS: IPRATROPIUM NEB FS 0.5 MG/2.5 ML AMPUL.NEB IH SCH ×4 (01:54→20:31)
[2023-01-16 04:00] VITALS: BP 100/71
--- NOTE | 2023-01-16 06:34 | NUR ---
DOMESTIC CLEANER CLOSING NOTES: PATIENT SLEEP IN BED COMFORTABLY, AROUSABLE TO VERBAL STIMULI, BED IN LOW POSITION, CALL LIGHTS WITHIN REACH, NO COMPLAIN OF PAIN AND DISCOMFORT AT THIS TIME, ON TELE MONITOR SR-68, PATIENT ON MECHANICAL VENT SATURATING WELL, ON G TUBE FEEDING OF JEVITY 1.2@70 ML/HR INFUSING WELL, ON CLINE CATHETER-400CC URINE OUTPUT, HOB TO REMAIN AT 45 DEGREE, PATIENT KEPT CLEAN AND DRY ALL NEEDS MET ENDORSE TO INCOMING SHIFT.
[2023-01-16 06:46] LABS: BASOPHILS % (AUTO) 0.1 % (0.0-2.0); EOSINOPHILS % (AUTO) 23.4 % (0.0-6.0); HEMATOCRIT 24 % (39-51); HEMOGLOBIN 7.6 g/dL (13.5-17.5); LYMPHOCYTES # (AUTO) 1.4 K/uL (0.8-4.8); LYMPHOCYTES % (AUTO) 7.5 % (20.0-44.0); MEAN CORPUSCULAR HGB CONC 31 g/dl (31.0-36.0); MEAN CORPUSCULAR VOLUME 90 fL (80-96); MONOCYTES % (AUTO) 5.1 % (2.0-12.0); NEUTROPHILS # (AUTO) 11.9 K/uL (1.8-8.9); NEUTROPHILS % (AUTO) 63.9 % (43.0-81.0); PLATELET COUNT (AUTO) 528 K/uL (150-450); RED BLOOD CELL COUNT(AUTO) 2.69 MIL/uL (4.5-6.0); WHITE BLOOD COUNT (AUTO) 18.6 K/uL (4.3-11.0)
[2023-01-16 07:09] LABS: CALCIUM, SERUM 8.2 mg/dL (8.5-10.1); CREATININE 0.5 mg/dL (0.6-1.3); PHOSPHORUS 2.9 mg/dL (2.5-4.9)
[2023-01-16] MEDS ORDERED: LIDOCAINE 1%-EPI 1:200,000 SDV 10 ML VIAL IJ ONE (07:30)
[2023-01-16] MEDS ORDERED: SILVER NITRATE APPLICATOR 1 EA BOX TP SCH (07:30)
[2023-01-16 08:00] VITALS: BP 103/61
[2023-01-16] MEDS: PROSOURCE / PROSTAT (PYXIS) 30 ML UDC GT SCH ×2 (08:22→17:21)
[2023-01-16] MEDS: DOCUSATE SODIUM LIQ 100 MG/10 ML UDC GT SCH ×2 (08:23→17:21)
[2023-01-16] MEDS: CHLORHEXIDINE GLUCONATE 15 ML UDC MM SCH ×2 (08:23→17:21)
[2023-01-16] MEDS: VALPROIC ACID 250 MG/5 ML UDC GT SCH ×2 (08:23→21:41)
[2023-01-16] MEDS: LOSARTAN POTASSIUM 50 MG TABLET GT SCH ×2 (08:26→09:00)
[2023-01-16] MEDS: METOPROLOL TARTRATE 50 MG TABLET GT SCH ×3 (08:28→21:00)
[2023-01-16] MEDS: MULTIVIT W/MINERALS 1 TAB TABLET GT SCH (08:28)
[2023-01-16] MEDS: QUETIAPINE FUMARATE 25 MG TABLET GT SCH ×2 (08:29→21:41)
[2023-01-16] MEDS: PANTOPRAZOLE 40 MG/PACK PACK GT SCH (08:29)
[2023-01-16] MEDS: LORATADINE 10 MG TABLET GT SCH (08:29)
[2023-01-16] MEDS: VANCOMYCIN HCL 0.75 GM in IV D5W 250 ML IV SCH ×2 (08:31→20:22)
[2023-01-16] MEDS: HEPARIN SODIUM, PORCINE 5000 UNITS/1 ML VIAL SQ SCH ×2 (08:33→21:42)
[2023-01-16] MEDS: THERAHONEY GEL 1.5 OZ TUBE TP SCH (09:08)
[2023-01-16] MEDS: NEOMY SULF/BACITRAC ZN/POLY 15 GM TUBE TP SCH (09:08)
[2023-01-16] MEDS: MUPIROCIN OINT 2% 22 GM TUBE NS SCH ×2 (09:09→21:44)
[2023-01-16] MEDS: ARGININE/GLUTAMINE/CALCIUM BMB 1 EACH POWD.PACK GT SCH ×2 (09:10→17:21)
[2023-01-16] MEDS: CEFEPIME 2 GM in IV D5W 100 ML IV SCH ×2 (09:10→21:41)
--- NOTE | 2023-01-16 09:16 | NUR ---
STATE TROOPER OPENING NOTES: RECEIVED PATIENT AWAKE IN BED, BED IN LOW POSITION CALL LIGHTS WITHIN REACH, NO COMPLAIN OF PAIN AND DISCOMFORT AT THIS TIME, ON MECHANICAL VENT SATURATING WELL, PATIENT IS A/O X1 NONE VERBAL ON TELE MONITOR- SR-68, ON G TUBE FEEDING OF JEVITY 1.2@70ML/HR INFUSING WELL, PATIENT HOB TO REMAIN UPRIGHT, IV LINE AT LAC#20SL, AND LUAML#18 SL, PATENT AND FLUSHED WELL, ON CLINE CATHETER- WITH 250CC URINE OUTPUT, PATIENT KEPT CLEAN AND DRY ALL NEEDS MET WILL CONTINUE TO MONITOR.
--- NOTE | 2023-01-16 09:18 | NUR ---
CHRISTIAN SCIENCE READER NOTE DR SIGALA NOTIFIED ABOUT HOLDING METROPOLOL 50MG AND LOSARTAN 100MG DUE TO LOW BLOOD PRESSURE 103/61 HR 77. HEPARIN ALSO TO BE HOLD PATIENT WILL HAVE WOUND DEBRIDEMENT. DOCTOR WAS OK TO HOLD MEDICATIONS.
[2023-01-16] MEDS: JEVITY 1.2 CAL 1,000 ML BOTTLE GT PRN (11:34)
[2023-01-16 12:00] VITALS: BP 106/76
[2023-01-16 15:19] LABS: EOSINOPHILS % (MANUAL) 13 % (0-4); LYMPHOCYTES % (MANUAL) 8 % (16-48); MONOCYTES % (MANUAL) 9 % (0-11.0); NEUTROPHILS % (MANUAL) 70 (42-76)
[2023-01-16 16:00] VITALS: BP 116/71
--- NOTE | 2023-01-16 18:50 | NUR ---
RN CLOSING NOTES: PATIENT SLEEP IN BED COMFORTABLY, ABUSABLE TO VERBAL STIMULI, BED IN LOW POSITION, CALL LIGHT WITHIN REACH, NO COMPLAIN OF PAIN AND DISCOMFORT AT THIS TIME, ON TELE MONITOR ST 101, PATIENT ON MECHANICAL VENT SATURATING WELL, ON G TUBE FEEDING OF JEVITY 1.2@70 ML/HR INFUSING WELL, ON CLINE CATHETER URINE OUTPUT, HOB TO REMAIN AT 45 DEGREE, WOUND DEBRIDEMENT DONE BY DR. PATINO PATIENT TOLERATED WITHOUT BLEEDING OR ANY COMPLICATIONS. PATIENT KEPT CLEAN AND DRY ALL NEEDS MET ENDORSE TO PM SHIFT.
[2023-01-16 20:00] VITALS: BP 111/78
[2023-01-17] VITALS: BP 97/59
[2023-01-17] MEDS: IPRATROPIUM NEB FS 0.5 MG/2.5 ML AMPUL.NEB IH SCH ×4 (01:42→20:14)
[2023-01-17] MEDS: ALBUTEROL FS 2.5 MG/0.5 ML VIAL.NEB NEB SCH ×4 (01:42→20:14)
[2023-01-17 04:00] VITALS: BP 99/62
--- NOTE | 2023-01-17 06:36 | NUR ---
RN CLOSING NOTE A/OX1. ON MECHANICAL VENT, NO CHANGES IN SETTINGS. SINUS RHTYHM/ SINUS TACHYCARDIA HR UP TO 118. CLINE CATHETER MAINTAINED. BM X2. WOUND CARE DONE ORDERED, TURNED Q2HR. GT FEEDING RUNNING, NO RESIDUAL. ABX GIVEN ORDERED. PLAN TO F/U BLOOD CX.
[2023-01-17 06:53] LABS: EOSINOPHILS % (AUTO) 12.1 % (0.0-6.0); HEMATOCRIT 25 % (39-51); HEMOGLOBIN 7.8 g/dL (13.5-17.5); LYMPHOCYTES # (AUTO) 1.4 K/uL (0.8-4.8); LYMPHOCYTES % (AUTO) 4.5 % (20.0-44.0); MEAN CORPUSCULAR HGB CONC 32 g/dl (31.0-36.0); MEAN CORPUSCULAR VOLUME 90 fL (80-96); MONOCYTES # (AUTO) 1.4 K/uL (0.1-1.30); MONOCYTES % (AUTO) 4.3 % (2.0-12.0); NEUTROPHILS # (AUTO) 25.1 K/uL (1.8-8.9); NEUTROPHILS % (AUTO) 79.1 % (43.0-81.0); PLATELET COUNT (AUTO) 547 K/uL (150-450); RED BLOOD CELL COUNT(AUTO) 2.74 MIL/uL (4.5-6.0)
[2023-01-17 07:00] LABS: WHITE BLOOD COUNT (AUTO) 31.7 K/uL (4.3-11.0)
[2023-01-17 07:27] LABS: CALCIUM, SERUM 8.1 mg/dL (8.5-10.1); CREATININE 0.6 mg/dL (0.6-1.3); MAGNESIUM 1.7 mg/dL (1.8-2.4); PHOSPHORUS 2.6 mg/dL (2.5-4.9); POTASSIUM 3.9 mmol/L (3.5-5.1)
[2023-01-17] MEDS: ACETYLCYSTEINE 10% SOLN 400 MG/4 ML VIAL NEB SCH ×3 (07:40→23:30)
[2023-01-17 08:00] VITALS: BP 98/61
[2023-01-17 08:26] LABS: ALBUMIN 1.7 g/dL (3.4-5.0); BILIRUBIN,DIRECT 0.1 mg/dL (0.0-0.2); BILIRUBIN,TOTAL 0.2 mg/dL (0.2-1.0); TOTAL PROTEIN, SERUM 6.2 g/dL (6.4-8.2)
[2023-01-17] MEDS: VANCOMYCIN HCL 0.75 GM in IV D5W 250 ML IV SCH ×2 (08:28→20:04)
[2023-01-17] MEDS: DOCUSATE SODIUM LIQ 100 MG/10 ML UDC GT SCH ×2 (08:50→16:32)
[2023-01-17] MEDS: LORATADINE 10 MG TABLET GT SCH (08:50)
[2023-01-17] MEDS: MULTIVIT W/MINERALS 1 TAB TABLET GT SCH (08:50)
[2023-01-17] MEDS: CHLORHEXIDINE GLUCONATE 15 ML UDC MM SCH ×2 (08:50→16:32)
[2023-01-17] MEDS: PANTOPRAZOLE 40 MG/PACK PACK GT SCH (08:50)
[2023-01-17] MEDS: VALPROIC ACID 250 MG/5 ML UDC GT SCH ×2 (08:50→20:09)
[2023-01-17] MEDS: QUETIAPINE FUMARATE 25 MG TABLET GT SCH ×2 (08:51→20:10)
[2023-01-17] MEDS: HEPARIN SODIUM, PORCINE 5000 UNITS/1 ML VIAL SQ SCH ×2 (08:51→20:12)
[2023-01-17] MEDS: METOPROLOL TARTRATE 50 MG TABLET GT SCH ×2 (08:52→20:10)
[2023-01-17] MEDS: LOSARTAN POTASSIUM 50 MG TABLET GT SCH (08:52)
[2023-01-17] MEDS: THERAHONEY GEL 1.5 OZ TUBE TP SCH (08:53)
[2023-01-17] MEDS: MUPIROCIN OINT 2% 22 GM TUBE NS SCH ×2 (08:53→20:58)
[2023-01-17] MEDS: NEOMY SULF/BACITRAC ZN/POLY 15 GM TUBE TP SCH (08:53)
[2023-01-17] MEDS: CEFEPIME 2 GM in IV D5W 100 ML IV SCH ×2 (08:54→21:15)
[2023-01-17] MEDS: ARGININE/GLUTAMINE/CALCIUM BMB 1 EACH POWD.PACK GT SCH ×2 (09:02→16:32)
[2023-01-17] MEDS: PROSOURCE / PROSTAT (PYXIS) 30 ML UDC GT SCH ×2 (09:02→16:32)
[2023-01-17] MEDS: JEVITY 1.2 CAL 1,000 ML BOTTLE GT PRN (09:52)
[2023-01-17 12:00] VITALS: BP 102/66
[2023-01-17] MEDS: Magnesium 1GM/D5W 100ML PREMIX 100 ML IV SCH ×2 (12:03→13:01)
[2023-01-17 16:00] VITALS: BP 91/59
[2023-01-17 16:30] LABS: BASOPHILS % (MANUAL) 1 % (0.0-2.0); EOSINOPHILS % (MANUAL) 17 % (0-4); LYMPHOCYTES % (MANUAL) 3 % (16-48); MONOCYTES % (MANUAL) 1 % (0-11.0); NEUTROPHILS % (MANUAL) 78 (42-76)
--- NOTE | 2023-01-17 19:03 | NUR ---
RN CLOSING NOTES: PATIENT SLEEP IN BED COMFORTABLY, ABUSABLE TO VERBAL STIMULI, BED IN LOW POSITION, CALL LIGHT WITHIN REACH, NO COMPLAIN OF PAIN AND DISCOMFORT AT THIS TIME, ON TELE MONITOR ST 104, PATIENT ON MECHANICAL VENT SATURATING WELL, ON G TUBE FEEDING OF JEVITY 1.2@70 ML/HR INFUSING WELL, ON CLINE CATHETER URINE OUTPUT, HOB TO REMAIN AT 45 DEGREE, ALL SAFETY PRECAUTIONS IMPLEMENTED WILL INDORSE THE PATIENT TO THE PM SHIFT
--- NOTE | 2023-01-17 19:30 | NUR ---
RN opening notes Pt is resting in bed comfortably. Pt is alert and orientedX1. On mec. vent with O2 sat is 100%. No SOB. No S/S of distress noted. SENDY midlines is clean, intact and patent. IV site at LAC# 20 is clean, intact and flushes well. Gtube is intact, patent and running jevity @ 70 ml/hr with 0 residual. Tele monitor showed SR/S.tachy. Safety precautions is maintained. Bed at low position, brakes locked locked, side rails upX3, hob elevated, bed alarm is on and call light is within reach. Will continue monitor.
[2023-01-17 20:00] VITALS: BP 124/85
[2023-01-18] VITALS: BP 112/47
[2023-01-18] MEDS: ALBUTEROL FS 2.5 MG/0.5 ML VIAL.NEB NEB SCH ×4 (01:50→19:36)
[2023-01-18] MEDS: IPRATROPIUM NEB FS 0.5 MG/2.5 ML AMPUL.NEB IH SCH ×4 (01:51→19:36)
[2023-01-18] MEDS: JEVITY 1.2 CAL 1,000 ML BOTTLE GT PRN (03:52)
[2023-01-18 05:00] VITALS: BP 125/70
--- NOTE | 2023-01-18 06:35 | NUR ---
RN closing notes Pt is resting in bed comfortably. Pt is alert and orientedX1. On mec. vent with O2 sat is 99%. No SOB. No S/S of distress noted. SENDY midlines is clean, intact and patent. IV site at LAC# 20 is clean, intact and SL. Gtube is intact, patent and running jevity @ 70 ml/hr with 0 residual. terrell cath is inplaced and draining yellow urine. Wound care provided as ordered. VS is stable. Routine meds were given as ordered. Tele monitor showed SR HR at 89. Kept Pt clean, dry and comfortable. Safety precautions is maintained. Bed at low position, brakes locked locked, side rails upX3, hob elevated, bed alarm is on and call light is within reach. Will endorse to am nurse for THOR.
[2023-01-18 07:01] LABS: BASOPHILS % (AUTO) 0.1 % (0.0-2.0); EOSINOPHILS % (AUTO) 16.6 % (0.0-6.0); HEMATOCRIT 22 % (39-51); HEMOGLOBIN 7.1 g/dL (13.5-17.5); LYMPHOCYTES # (AUTO) 1.5 K/uL (0.8-4.8); LYMPHOCYTES % (AUTO) 4.7 % (20.0-44.0); MEAN CORPUSCULAR HGB CONC 32 g/dl (31.0-36.0); MEAN CORPUSCULAR VOLUME 90 fL (80-96); MONOCYTES # (AUTO) 1.2 K/uL (0.1-1.30); NEUTROPHILS # (AUTO) 23.2 K/uL (1.8-8.9); NEUTROPHILS % (AUTO) 74.6 % (43.0-81.0); PLATELET COUNT (AUTO) 466 K/uL (150-450); RED BLOOD CELL COUNT(AUTO) 2.46 MIL/uL (4.5-6.0)
[2023-01-18 07:16] LABS: WHITE BLOOD COUNT (AUTO) 31.1 K/uL (4.3-11.0)
[2023-01-18 07:19] LABS: CREATININE 0.6 mg/dL (0.6-1.3); MAGNESIUM 2.1 mg/dL (1.8-2.4); PHOSPHORUS 2.8 mg/dL (2.5-4.9); POTASSIUM 3.1 mmol/L (3.5-5.1)
--- NOTE | 2023-01-18 07:45 | NUR ---
RN Opening notes Pt is resting in bed comfortably. Pt is alert and orientedX1. On mec. vent with O2 sat is 99%. No SOB. No S/S of distress noted. SENDY midlines is clean, intact and patent. IV site at LAC# 20 is clean, intact and SL. Gtube is intact, patent and running jevity @ 70 ml/hr with 0 residual. terrell cath is inplaced and draining yellow urine. VS is stable. Tele monitor showed SR HR at 88. Kept Pt clean, dry and comfortable. Safety precautions in placed. Bed at low locked position, side rails upX3, hob elevated, bed alarm is on and call light is within reach. Will continue to monitor the patient.
[2023-01-18 08:00] VITALS: BP 118/60
[2023-01-18] MEDS: VANCOMYCIN HCL 0.75 GM in IV D5W 250 ML IV SCH ×2 (08:20→21:56)
[2023-01-18] MEDS: ACETYLCYSTEINE 10% SOLN 400 MG/4 ML VIAL NEB SCH ×3 (08:26→22:39)
[2023-01-18] MEDS: PANTOPRAZOLE 40 MG/PACK PACK GT SCH (08:30)
[2023-01-18] MEDS: MULTIVIT W/MINERALS 1 TAB TABLET GT SCH (08:30)
[2023-01-18] MEDS: DOCUSATE SODIUM LIQ 100 MG/10 ML UDC GT SCH ×2 (08:30→16:25)
[2023-01-18] MEDS: CHLORHEXIDINE GLUCONATE 15 ML UDC MM SCH ×2 (08:30→16:26)
[2023-01-18] MEDS: QUETIAPINE FUMARATE 25 MG TABLET GT SCH ×2 (08:30→21:56)
[2023-01-18] MEDS: VALPROIC ACID 250 MG/5 ML UDC GT SCH ×2 (08:30→21:56)
[2023-01-18] MEDS: LORATADINE 10 MG TABLET GT SCH (08:31)
[2023-01-18] MEDS: METOPROLOL TARTRATE 50 MG TABLET GT SCH ×2 (08:31→21:56)
[2023-01-18] MEDS: LOSARTAN POTASSIUM 50 MG TABLET GT SCH (08:31)
[2023-01-18] MEDS: HEPARIN SODIUM, PORCINE 5000 UNITS/1 ML VIAL SQ SCH ×2 (08:34→21:57)
[2023-01-18] MEDS: NEOMY SULF/BACITRAC ZN/POLY 15 GM TUBE TP SCH (08:44)
[2023-01-18] MEDS: MUPIROCIN OINT 2% 22 GM TUBE NS SCH ×2 (08:44→22:13)
[2023-01-18] MEDS: THERAHONEY GEL 1.5 OZ TUBE TP SCH (08:44)
[2023-01-18] MEDS: PROSOURCE / PROSTAT (PYXIS) 30 ML UDC GT SCH ×2 (09:37→16:25)
[2023-01-18] MEDS: ARGININE/GLUTAMINE/CALCIUM BMB 1 EACH POWD.PACK GT SCH ×2 (10:26→16:25)
[2023-01-18] MEDS ORDERED: POTASSIUM CHLORIDE 20 MEQ POWDER PACKET NG SCH (10:30)
[2023-01-18 12:00] VITALS: BP 95/54
[2023-01-18] MEDS: ACETAMINOPHEN 325 MG TABLET PO PRN (15:43)
[2023-01-18 16:00] VITALS: BP 92/44
[2023-01-18] MEDS: LORAZEPAM INJ 2 MG/ML VIAL IV PRN (17:08)
--- NOTE | 2023-01-18 18:57 | NUR ---
RN closing notes Pt awake, A/OX1. On mec. vent with O2 sat is 100%. No SOB. No S/S of distress noted. BEATRIZ IV line #20 SL, C/D/I. Gtube is intact, patent and running jevity @ 70 ml/hr with 0 residual. Pt on terrell cath draining yellow urine. Wound care provided as ordered. VS is stable. Routine meds were given as ordered. Tele monitor showed SR HR at 88. Kept Pt clean, dry and comfortable. Safety precautions is maintained. Bed at low position, brakes locked locked, side rails upX3, hob elevated, bed alarm is on and call light is within reach. Will endorse to pm nurse for THOR.
--- NOTE | 2023-01-18 19:15 | NUR ---
RT NOTE PT RCVD TRACHED PORTEX 7 ON VENT SETTINGS OF AC 14,VT 400,FIO2 40%. BREATHING TX GIVEN , NO ADVERSE REACTION NOTED. SUCTIONED SMALL AMOUNT OF YELLOW THICK SECRETIONS . VENT PLUGGED INTO RED OUTLET, VENT ALARMS ON AND AUDIBLE. AMBU BAG AT BEDSIDE. NO RESPIRATORY DISTRESS NOTED AT THIS TIME. WILL CONTINUE TO MONITOR T/O SHIFT.
--- NOTE | 2023-01-18 19:16 | NUR ---
RN NOTE RECEIVED PT FOR CONTINUITY OF CARE. PATIENT A/OX0 IN NO S/SX OF ACUTE DISTRESS AT THIS TIME; CURRENTLY ON MECHANICAL VENT; SETTING PRESCRIBED, WITH 02 SAT >95% AT THIS TIME. WITH IV ACCESS PATENT, INTACT AND FLUSHING WELL. GTUBE FEEDING RUNNING PRESCRIBED. WILL ENSURE SAFETY MEASURES WITHIN THE SHIFT. PATIENT BED ALARM IS ON. HEAD OF BED ELEVATED. BED IS LOCKED, IN LOWEST POSITION AND SIDE RAILS UP. CALL LIGHT WITHIN REACH OF THE PATIENT. WILL CONTINUE TO MONITOR AND REASSESS FOR ANY CHANGES AND WILL CARRY OUT ANY ONGOING AND ACTIVE MD ORDER.
[2023-01-18 20:00] VITALS: BP 95/64
--- NOTE | 2023-01-18 20:40 | NUR ---
RT NOTE CHANGED OUT PT TRACH PRN D/T LOW VOLUMES AND TRACH CUFF WONT HOLD ANY AIR. MINIMAL BLEEDING NOTED, NO DISTRESS NOTED. TUBE CUTTER PREFORMED. JEAN PATTERSON NOTIFIED.
[2023-01-18 23:25] LABS: BAND % (MANUAL) 6 % (0.0-5.0); BASOPHILS % (MANUAL) 0 % (0.0-2.0); EOSINOPHILS % (MANUAL) 13 % (0-4); LYMPHOCYTES % (MANUAL) 6 % (16-48); MONOCYTES % (MANUAL) 4 % (0-11.0); NEUTROPHILS % (MANUAL) 71 (42-76)
[2023-01-19] VITALS: BP 90/51
[2023-01-19] MEDS: ALBUTEROL FS 2.5 MG/0.5 ML VIAL.NEB NEB SCH ×4 (01:06→20:11)
[2023-01-19] MEDS: IPRATROPIUM NEB FS 0.5 MG/2.5 ML AMPUL.NEB IH SCH ×4 (01:06→20:11)
[2023-01-19 04:00] VITALS: BP 96/60
[2023-01-19] MEDS: LORAZEPAM INJ 2 MG/ML VIAL IV PRN ×2 (05:41→22:23)
[2023-01-19 05:54] LABS: BASOPHILS # (AUTO) 0.1 K/uL (0.0-0.2); BASOPHILS % (AUTO) 0.2 % (0.0-2.0); EOSINOPHILS % (AUTO) 22.6 % (0.0-6.0); HEMATOCRIT 27 % (39-51); HEMOGLOBIN 8.4 g/dL (13.5-17.5); LYMPHOCYTES # (AUTO) 2.2 K/uL (0.8-4.8); LYMPHOCYTES % (AUTO) 7.8 % (20.0-44.0); MEAN CORPUSCULAR HGB CONC 31 g/dl (31.0-36.0); MEAN CORPUSCULAR VOLUME 91 fL (80-96); MONOCYTES # (AUTO) 1.1 K/uL (0.1-1.30); MONOCYTES % (AUTO) 3.9 % (2.0-12.0); NEUTROPHILS % (AUTO) 65.5 % (43.0-81.0); PLATELET COUNT (AUTO) 518 K/uL (150-450); RED BLOOD CELL COUNT(AUTO) 2.93 MIL/uL (4.5-6.0)
[2023-01-19] MEDS: JEVITY 1.2 CAL 1,000 ML BOTTLE GT PRN (05:57)
[2023-01-19 06:14] LABS: CALCIUM, SERUM 8.6 mg/dL (8.5-10.1); CREATININE 0.6 mg/dL (0.6-1.3); MAGNESIUM 2.1 mg/dL (1.8-2.4); PHOSPHORUS 3.3 mg/dL (2.5-4.9); POTASSIUM 4.2 mmol/L (3.5-5.1)
--- NOTE | 2023-01-19 06:29 | NUR ---
RN CLOSING NOTE PATIENT REMAINS IN ROOM IN NO SIGNS OF RESPIRATORY DISTRESS, PATIENT STILL ON MECH VENT SETTINGS; TOLERATING WELL SATURATING @ >95% SP02. SAFETY MEASURES IMPLEMENTED, BED IN LOWEST POSITION, LOCKED, SIDE RAILS UP, CALL LIGHT WITHIN REACH. ALL NEEDS AND ORDERS ADDRESSED DURING THE SHIFT. IV ACCESS MAINTAINED INTACT, SECURED AND FLUSHING WELL. ALL DUE MEDS GIVEN ORDERED & SCHEDULED ; PATIENT TOLERATED WELL. TUBE FEEDING RUNNING PER ORDER. PATIENT KEPT CLEAN AND COMFORTABLE WITHIN THE SHIFT. PATIENT ENDORSED TO INCOMING SHIFT RN WITH STABLE VITAL SIGN AND FOR CONTINUITY OF CARE.
--- NOTE | 2023-01-19 07:48 | NUR ---
ACCOUNTING ADMINISTRATIVE ASSISTANT OPENING NOTE RECEIVED PT ASLEEP IN BED. COMFORTABLY. PT ON MECHANICAL VENTILATOR TOLERATING SETTINGS WELL. PT IS ALERT AND ORIENTED 1.PT ON TELE MONITOR SINUS RHYTM/SINUS TACHYCARDIA. PT HAS GTUBE. GTUBE PATENT, INTACT. NO RESIDUAL VOLUME NOTED AT THIS TIME. PT HAS RIGHT UPPER ARM 20 GUAGE IV. IV PATENT, INTACT AND FLUSHING WELL. ALL SAFETY MEASURES IMPLEMENTED, BED IN LOWEST POSITION, LOCKED, SIDE RAILS UP X2, CALL LIGHT WITHIN REACH.BED ALARM ON
[2023-01-19 08:00] VITALS: BP 104/72
[2023-01-19] MEDS: ACETYLCYSTEINE 10% SOLN 400 MG/4 ML VIAL NEB SCH ×3 (08:02→23:15)
[2023-01-19] MEDS: VANCOMYCIN HCL 0.75 GM in IV D5W 250 ML IV SCH ×2 (08:10→20:21)
[2023-01-19] MEDS: LORATADINE 10 MG TABLET GT SCH (08:11)
[2023-01-19] MEDS: PANTOPRAZOLE 40 MG/PACK PACK GT SCH (08:11)
[2023-01-19] MEDS: VALPROIC ACID 250 MG/5 ML UDC GT SCH ×2 (08:11→21:05)
[2023-01-19] MEDS: PROSOURCE / PROSTAT (PYXIS) 30 ML UDC GT SCH ×2 (08:11→16:13)
[2023-01-19] MEDS: DOCUSATE SODIUM LIQ 100 MG/10 ML UDC GT SCH ×2 (08:11→16:02)
[2023-01-19] MEDS: MULTIVIT W/MINERALS 1 TAB TABLET GT SCH (08:11)
[2023-01-19] MEDS: CHLORHEXIDINE GLUCONATE 15 ML UDC MM SCH ×2 (08:11→16:13)
[2023-01-19] MEDS: HEPARIN SODIUM, PORCINE 5000 UNITS/1 ML VIAL SQ SCH (08:13)
[2023-01-19] MEDS: LOSARTAN POTASSIUM 50 MG TABLET GT SCH (08:16)
[2023-01-19] MEDS: METOPROLOL TARTRATE 50 MG TABLET GT SCH ×2 (09:00→21:00)
[2023-01-19] MEDS: QUETIAPINE FUMARATE 25 MG TABLET GT SCH ×3 (09:00→21:06)
[2023-01-19] MEDS: NEOMY SULF/BACITRAC ZN/POLY 15 GM TUBE TP SCH (09:43)
[2023-01-19] MEDS: THERAHONEY GEL 1.5 OZ TUBE TP SCH (09:43)
[2023-01-19] MEDS: ARGININE/GLUTAMINE/CALCIUM BMB 1 EACH POWD.PACK GT SCH ×2 (09:53→16:13)
[2023-01-19 12:00] VITALS: BP 93/66
[2023-01-19 16:00] VITALS: BP 98/60
--- NOTE | 2023-01-19 19:27 | NUR ---
CITY COLLECTOR CLOSING NOTE PT ALERT AND ORIENTED X1. PT IN BED COMFORTABLY. PT ON MECHANICAL VENTILATOR TOLERATING SETTINGS WELL.PT ON TELE MONITOR CURRENTLY READING SINUS TACHYCARDIA. PT HAS GTUBE. GTUBE PATENT, INTACT. NO RESIDUAL VOLUME NOTED AT THIS TIME. PT HAS RIGHT UPPER ARM 20 GUAGE IV. IV PATENT, INTACT AND FLUSHING WELL. PT HAS CLINE CATHETHER YELLOW COLOR DRAINING TO GRAVITY. WOUND CARE DONE. TURNED AND REPOSITIONED. KEPT CLEAN AND DRY. ALL SAFETY MEASURES IMPLEMENTED, BED IN LOWEST POSITION, LOCKED, SIDE RAILS UP X2, CALL LIGHT WITHIN REACH.BED ALARM ON.ENDORSED TO CARTON INSPECTOR RN FOR CONTUITY OF CARE.
--- NOTE | 2023-01-19 19:41 | NUR ---
noc rn opening note received patient with eyes closed, easy to arouse. no s/s of apparent distress-- vent dependent. not exhibiting pain via flacc. no fluids running at this time. Reading ST 125 bpm. G-tube running Jevity @70mls/hr. terrell draining via gravity clear, yellow urine. safety in place-- bed in lowest, locked position. side rails up X4, bed alarm in place. will continue to monitor patient and cont. with plan of care.
[2023-01-19 20:00] VITALS: BP 109/57
[2023-01-19 20:10] LABS: BAND % (MANUAL) 5 % (0.0-5.0); EOSINOPHILS % (MANUAL) 15 % (0-4); LYMPHOCYTES % (MANUAL) 10 % (16-48); MONOCYTES % (MANUAL) 7 % (0-11.0); NEUTROPHILS % (MANUAL) 63 (42-76)
--- NOTE | 2023-01-19 22:26 | NUR ---
noc rn note Patient becoming restless. Heart rate in the 130's. trying to touch trach site. given Ativan 1mg as ordered PRN for anxiety and insomnia. will monitor. 1mg wasted with JEAN Kaur, in the proper waste bin.
[2023-01-19] MEDS: ACETAMINOPHEN 325 MG TABLET PO PRN (23:59)
--- NOTE | 2023-01-19 23:59 | NUR ---
noc rn note te,p of 101.4. given tylenol 650 mg as ordered PRN. will start on cooling measures. will monitor.
[2023-01-20] VITALS: BP 94/59
--- NOTE | 2023-01-20 01:00 | NUR ---
TEMP 97.8.
[2023-01-20] MEDS: IPRATROPIUM NEB FS 0.5 MG/2.5 ML AMPUL.NEB IH SCH ×5 (02:10→20:30)
[2023-01-20] MEDS: ALBUTEROL FS 2.5 MG/0.5 ML VIAL.NEB NEB SCH ×5 (02:10→20:30)
[2023-01-20 04:00] VITALS: BP 90/59
[2023-01-20] MEDS: JEVITY 1.2 CAL 1,000 ML BOTTLE GT PRN (05:36)
[2023-01-20] MEDS: LORAZEPAM INJ 2 MG/ML VIAL IV PRN (05:40)
--- NOTE | 2023-01-20 05:45 | NUR ---
noc rn note patient starting to get restless again. grinding his teeth, stomping legs around and putting his hands near his trach. Given ativan 1mg as ordered for anxiety. RN Vincent wasted 1mg with me in proper waste bin.
--- NOTE | 2023-01-20 07:00 | NUR ---
noc rn closing note patient comfortably sleeping. no s/s of apparent distress mech vent dependent. not exhibiting pain via flacc. reading st throughout shift. terrell cath draining via gravity with 500ml of output. GTube Jevity running @70mls/hr. no fluids running at this time. all needs attended. all scheduled medications administered. safety kept in place the whole shift. will endorse to morning shift rn for continuity of care.
[2023-01-20 07:08] LABS: BASOPHILS # (AUTO) 0.1 K/uL (0.0-0.2); BASOPHILS % (AUTO) 0.5 % (0.0-2.0); EOSINOPHILS % (AUTO) 16.7 % (0.0-6.0); HEMATOCRIT 27 % (39-51); HEMOGLOBIN 8.4 g/dL (13.5-17.5); LYMPHOCYTES # (AUTO) 2.1 K/uL (0.8-4.8); LYMPHOCYTES % (AUTO) 10.5 % (20.0-44.0); MEAN CORPUSCULAR HGB CONC 31 g/dl (31.0-36.0); MEAN CORPUSCULAR VOLUME 92 fL (80-96); MONOCYTES # (AUTO) 1.5 K/uL (0.1-1.30); MONOCYTES % (AUTO) 7.6 % (2.0-12.0); NEUTROPHILS % (AUTO) 64.7 % (43.0-81.0); PLATELET COUNT (AUTO) 471 K/uL (150-450); RED BLOOD CELL COUNT(AUTO) 2.97 MIL/uL (4.5-6.0); WHITE BLOOD COUNT (AUTO) 20.1 K/uL (4.3-11.0)
[2023-01-20 07:16] LABS: CALCIUM, SERUM 8.3 mg/dL (8.5-10.1); CREATININE 0.6 mg/dL (0.6-1.3); PHOSPHORUS 3.1 mg/dL (2.5-4.9); POTASSIUM 3.4 mmol/L (3.5-5.1)
--- NOTE | 2023-01-20 07:26 | NUR ---
COLLEGE HIRE OPENING NOTE RECEIVED PT ALERT AND ORIENTED X1. PT IN BED COMFORTABLY. PT ON MECHANICAL VENTILATOR TOLERATING SETTINGS WELL.PT ON TELE MONITOR CURRENTLY READING SINUS TACHYCARDIA. PT HAS GTUBE. GTUBE PATENT, INTACT. NO RESIDUAL VOLUME NOTED AT THIS TIME. PT HAS RIGHT UPPER ARM 20 GAUGE IV. IV PATENT, INTACT AND FLUSHING WELL. PT HAS CLINE CATHETER YELLOW COLOR DRAINING TO GRAVITY. ALL SAFETY MEASURES IMPLEMENTED, BED IN LOWEST POSITION, LOCKED, SIDE RAILS UP X2, CALL LIGHT WITHIN REACH.BED ALARM ON.ENDORSED TO AUTOMOTIVE SPECIALTY TECHNICIAN RN FOR CONTUITY OF CARE.
--- NOTE | 2023-01-20 07:41 | NUR ---
RN NOTE RECEVIED CALL FROM [facility] THAT PT IS POSTIVE FOR CDIFF
[2023-01-20] MEDS: ACETYLCYSTEINE 10% SOLN 400 MG/4 ML VIAL NEB SCH ×3 (07:52→23:30)
[2023-01-20 08:00] VITALS: BP 96/71
[2023-01-20] MEDS: LOSARTAN POTASSIUM 50 MG TABLET GT SCH (08:32)
[2023-01-20] MEDS: DOCUSATE SODIUM LIQ 100 MG/10 ML UDC GT SCH ×2 (08:32→16:29)
[2023-01-20] MEDS: METOPROLOL TARTRATE 50 MG TABLET GT SCH ×2 (08:33→20:15)
[2023-01-20] MEDS: VANCOMYCIN HCL 0.75 GM in IV D5W 250 ML IV SCH ×2 (08:34→19:56)
[2023-01-20] MEDS: CHLORHEXIDINE GLUCONATE 15 ML UDC MM SCH ×2 (08:54→17:11)
[2023-01-20] MEDS: PANTOPRAZOLE 40 MG/PACK PACK GT SCH (08:54)
[2023-01-20] MEDS: MULTIVIT W/MINERALS 1 TAB TABLET GT SCH (08:54)
[2023-01-20] MEDS: PROSOURCE / PROSTAT (PYXIS) 30 ML UDC GT SCH ×2 (08:54→17:11)
[2023-01-20] MEDS: ARGININE/GLUTAMINE/CALCIUM BMB 1 EACH POWD.PACK GT SCH ×2 (08:54→17:11)
[2023-01-20] MEDS: VALPROIC ACID 250 MG/5 ML UDC GT SCH ×2 (08:55→20:16)
[2023-01-20] MEDS: THERAHONEY GEL 1.5 OZ TUBE TP SCH (08:55)
[2023-01-20] MEDS: LORATADINE 10 MG TABLET GT SCH (08:55)
[2023-01-20] MEDS: NEOMY SULF/BACITRAC ZN/POLY 15 GM TUBE TP SCH (08:55)
--- NOTE | 2023-01-20 09:14 | NUR ---
television news anchor note per dr alvarez id doctor ok to start vanco 125 mg q6 hour via g tube, order carried out
[2023-01-20] MEDS ORDERED: POTASSIUM CHLORIDE 20 MEQ POWDER PACKET NG SCH (09:30)
[2023-01-20] MEDS: QUETIAPINE FUMARATE 25 MG TABLET GT SCH ×2 (10:17→20:16)
--- NOTE | 2023-01-20 10:49 | NUR ---
rn note endorsed to Jose Guadalupe BROWN for contuity of care
[2023-01-20] MEDS: VANCOMYCIN HCL 125 MG/2.5 ML ORAL.SUSP GT SCH ×2 (11:25→17:11)
[2023-01-20 12:00] VITALS: BP 121/64
[2023-01-20 16:00] VITALS: BP 153/72
--- NOTE | 2023-01-20 18:27 | NUR ---
POPCORN CANDY MAKER CLOSING NOTES All due meds and tx given as ordered. Pt tolerated everything well. All needs attended to. Pt is on a ventilator on prescribed settings tolerating it well. IV access on BEATRIZ 20G patent and intact. GT patent and intact running prescribed GTF. Call light within reach. Will endorse to oncoming nurse.
--- NOTE | 2023-01-20 19:35 | NUR ---
COMMISSION AGENT LIVESTOCK OPENING NOTE RECEIVED PATIENT IN BED; AWAKE, ALERT AND ORIENTED X 1. ON MECHANICAL VENTILATOR WITH SETTINGS ORDERED. NO S/S OF ACUTE DISTRESS. NO S/S OF PAIN OR DISCOMFORT NOTED AT THIS TIME. ON TELE MONITORING WITH READING OF ST HR-[address]; PATENT AND INTACT RUNNING WITH JEVITY 1.2 REGULATED @ 70 ML/HR. WITH IV ACCESS ON RIGHT UPPER ARM 20g; PATENT, INTACT AND SALINE LOCKED. WITH CLINE CATHETER IN PLACE DRAINING VIA GRAVITY TO CLEAR YELLOW URINE OUTPUT. ASPIRATION, ISOLATION AND SAFETY PRECAUTIONS IMPLEMENTED. HEAD OF BED ELEVATED MORE THAN 45%, CALL LIGHT WITHIN REACH, SIDE RAILS UP X 3, BED IN LOWEST LOCKED POSITION. WILL CONTINUE TO MONITOR THROUGHOUT SHIFT.
[2023-01-20 20:00] VITALS: BP 126/70
[2023-01-21] VITALS: BP 111/59
[2023-01-21] MEDS: ACETYLCYSTEINE 10% SOLN 400 MG/4 ML VIAL NEB SCH ×4 (00:30→23:15)
[2023-01-21] MEDS: VANCOMYCIN HCL 125 MG/2.5 ML ORAL.SUSP GT SCH ×5 (00:50→23:56)
[2023-01-21] MEDS: ALBUTEROL FS 2.5 MG/0.5 ML VIAL.NEB NEB SCH ×4 (01:14→19:56)
[2023-01-21] MEDS: IPRATROPIUM NEB FS 0.5 MG/2.5 ML AMPUL.NEB IH SCH ×4 (01:14→19:56)
[2023-01-21] MEDS: JEVITY 1.2 CAL 1,000 ML BOTTLE GT PRN ×2 (01:54→17:41)
[2023-01-21 04:00] VITALS: BP 112/48
[2023-01-21 05:56] LABS: BASOPHILS # (AUTO) 0.1 K/uL (0.0-0.2); BASOPHILS % (AUTO) 0.5 % (0.0-2.0); EOSINOPHILS % (AUTO) 18.4 % (0.0-6.0); HEMATOCRIT 27 % (39-51); HEMOGLOBIN 8.4 g/dL (13.5-17.5); LYMPHOCYTES # (AUTO) 2.9 K/uL (0.8-4.8); LYMPHOCYTES % (AUTO) 12.6 % (20.0-44.0); MEAN CORPUSCULAR HGB CONC 31 g/dl (31.0-36.0); MEAN CORPUSCULAR VOLUME 90 fL (80-96); MONOCYTES # (AUTO) 1.3 K/uL (0.1-1.30); MONOCYTES % (AUTO) 5.7 % (2.0-12.0); NEUTROPHILS # (AUTO) 14.4 K/uL (1.8-8.9); NEUTROPHILS % (AUTO) 62.8 % (43.0-81.0); PLATELET COUNT (AUTO) 487 K/uL (150-450); RED BLOOD CELL COUNT(AUTO) 2.98 MIL/uL (4.5-6.0); WHITE BLOOD COUNT (AUTO) 22.9 K/uL (4.3-11.0)
[2023-01-21 06:09] LABS: CALCIUM, SERUM 8.4 mg/dL (8.5-10.1); CREATININE 0.6 mg/dL (0.6-1.3); MAGNESIUM 1.9 mg/dL (1.8-2.4); PHOSPHORUS 3.2 mg/dL (2.5-4.9); POTASSIUM 3.8 mmol/L (3.5-5.1)
--- NOTE | 2023-01-21 06:45 | NUR ---
DRIVER TRAINER CLOSING NOTE PATIENT IN BED; AWAKE, A/O X 1. ON [facility] VENTILATOR WITH SETTINGS ORDERED. IN NO ACUTE DISTRESS. NO S/S OF PAIN OR DISCOMFORT NOTED AT THIS TIME. ON TELE MONITORING WITH READING OF ST HR-[address]; PATENT RUNNING WITH JEVITY 1.2 REGULATED @ 70 ML/HR. WITH IV ACCESS ON RIGHT UPPER ARM 20g; PATENT, INTACT AND SALINE LOCKED. WITH BILATERAL SOFT WRIST RESTRAINTS IN PLACE. SKIN AND CIRCULATION CHECKED: WNL. WITH CLINE CATH IN PLACE DRAINING VIA GRAVITY TO CLEAR YELLOW URINE OUTPUT. ASPIRATION, ISOLATION AND SAFETY PRECAUTIONS IN PLACE: HEAD OF BED ELEVATED MORE THAN 45%, CALL LIGHT WITHIN REACH, SIDE RAILS UP X 3, BED IN LOWEST LOCKED POSITION. ENDORSED TO MORNING SHIFT FOR THOR.
--- NOTE | 2023-01-21 07:37 | NUR ---
SPRAY GUN REPAIRER HELPER OPENING NOTE RECEIVED PATIENT ON BED; AWAKE, ALERT AND ORIENTED X 1. ON MECHANICAL VENTILATOR WITH SETTINGS ORDERED. NO S/S OF ACUTE DISTRESS. NO S/S OF PAIN OR DISCOMFORT NOTED AT THIS TIME. ON TELE MONITORING WITH READING OF ST HR- [address]; PATENT AND INTACT RUNNING WITH JEVITY 1.2 REGULATED @ 70 ML/HR. TOLERATED WELL. WITH IV ACCESS ON RIGHT UPPER ARM 20g; PATENT, INTACT AND SALINE LOCKED. WITH CLINE CATHETER IN PLACE DRAINING VIA GRAVITY TO CLEAR YELLOW URINE OUTPUT. ASPIRATION, ISOLATION AND SAFETY PRECAUTIONS IMPLEMENTED. HEAD OF BED ELEVATED MORE THAN 45%, CALL LIGHT WITHIN REACH, SIDE RAILS UP X 3, BED IN LOWEST LOCKED POSITION. WILL CONTINUE TO MONITOR THROUGHOUT SHIFT.
[2023-01-21 08:00] VITALS: BP 112/48
[2023-01-21] MEDS: VANCOMYCIN HCL 0.75 GM in IV D5W 250 ML IV SCH ×2 (08:44→20:41)
[2023-01-21] MEDS: DOCUSATE SODIUM LIQ 100 MG/10 ML UDC GT SCH ×2 (08:51→17:00)
[2023-01-21] MEDS: CHLORHEXIDINE GLUCONATE 15 ML UDC MM SCH ×2 (08:51→16:21)
[2023-01-21] MEDS: MULTIVIT W/MINERALS 1 TAB TABLET GT SCH (08:51)
[2023-01-21] MEDS: VALPROIC ACID 250 MG/5 ML UDC GT SCH ×2 (08:52→20:40)
[2023-01-21] MEDS: QUETIAPINE FUMARATE 25 MG TABLET GT SCH ×2 (08:52→20:40)
[2023-01-21] MEDS: METOPROLOL TARTRATE 50 MG TABLET GT SCH ×2 (08:52→20:42)
[2023-01-21] MEDS: LORATADINE 10 MG TABLET GT SCH (08:52)
[2023-01-21] MEDS: LOSARTAN POTASSIUM 50 MG TABLET GT SCH (08:53)
[2023-01-21] MEDS: ARGININE/GLUTAMINE/CALCIUM BMB 1 EACH POWD.PACK GT SCH ×2 (08:55→16:14)
[2023-01-21] MEDS: PROSOURCE / PROSTAT (PYXIS) 30 ML UDC GT SCH ×2 (08:55→16:14)
[2023-01-21] MEDS: PANTOPRAZOLE 40 MG/PACK PACK GT SCH (09:01)
[2023-01-21] MEDS: NEOMY SULF/BACITRAC ZN/POLY 15 GM TUBE TP SCH (09:20)
[2023-01-21 12:00] VITALS: BP 142/61
[2023-01-21] MEDS: THERAHONEY GEL 1.5 OZ TUBE TP SCH (12:36)
[2023-01-21 16:00] VITALS: BP 124/67
--- NOTE | 2023-01-21 17:53 | NUR ---
RECEIVED PATIENT ON MD ORDERED VENT SETTINGS. HAS A TRACH PORTEX 7 CUFFED. AIRWAY PATENT AND SECURE. INLINE HHN TXS MARTY WELL WITH NO ADVERSE REACTION NOTED. Q2 VENT CHECK, SUCTION PRN. AMBU BAG AND EMERGENCY TRACH AT THE BEDSIDE. VENT PLUGGED INTO RED OUTLET. ALARMS SET AND AUDIBLE. MODERATE YELLOW SECRETIONS NOTED.
--- NOTE | 2023-01-21 18:43 | NUR ---
EMERGENCY DEPARTMENT CLINICIAN CLOSING NOTE PATIENT IN BED; AWAKE, A/O X 1. ON [facility] VENTILATOR WITH SETTINGS ORDERED. IN NO ACUTE DISTRESS. NO S/S OF PAIN OR DISCOMFORT NOTED AT THIS TIME. ON TELE MONITORING WITH READING OF ST HR-[address]; PATENT RUNNING WITH JEVITY 1.2 REGULATED @ 70 ML/HR. WITH IV ACCESS ON RIGHT UPPER ARM 20g; PATENT, INTACT AND SALINE LOCKED. WITH BILATERAL SOFT WRIST RESTRAINTS IN PLACE. SKIN AND CIRCULATION CHECKED: WNL. WITH CLINE CATH IN PLACE DRAINING VIA GRAVITY TO CLEAR YELLOW URINE OUTPUT. ASPIRATION, ISOLATION AND SAFETY PRECAUTIONS IN PLACE: HEAD OF BED ELEVATED MORE THAN 45%, CALL LIGHT WITHIN REACH, SIDE RAILS UP X 3, BED IN LOWEST LOCKED POSITION. ENDORSED TO INCOMING SHIFT FOR THOR.
--- NOTE | 2023-01-21 19:45 | NUR ---
RN Opening Notes Received pt in bed, awake. On mechanical vent and tolerating well. No SOB noted. No s/sx of respiratory distress noted. Tele monitor detects ST with rate of 112. IV access in BEATRIZ #20G. IV is intact, patent, and flushing well. Safety precautions in place: bed in lowest, locked position, siderails upX2, and brakes on. Table and call light within reach. All needs met at this time.
[2023-01-21 20:00] VITALS: BP 87/57
[2023-01-21] MEDS ORDERED: IV NS 0.9% 500 ML IV ONE (23:00)
[2023-01-22] VITALS: BP 91/53
[2023-01-22] MEDS: IPRATROPIUM NEB FS 0.5 MG/2.5 ML AMPUL.NEB IH SCH ×4 (01:15→20:54)
[2023-01-22] MEDS: ALBUTEROL FS 2.5 MG/0.5 ML VIAL.NEB NEB SCH ×4 (01:15→20:54)
[2023-01-22 04:00] VITALS: BP 94/45
[2023-01-22] MEDS: VANCOMYCIN HCL 125 MG/2.5 ML ORAL.SUSP GT SCH ×3 (05:27→17:19)
[2023-01-22 06:39] LABS: BASOPHILS # (AUTO) 0.1 K/uL (0.0-0.2); BASOPHILS % (AUTO) 0.6 % (0.0-2.0); EOSINOPHILS % (AUTO) 17.4 % (0.0-6.0); HEMATOCRIT 26 % (39-51); LYMPHOCYTES # (AUTO) 1.7 K/uL (0.8-4.8); LYMPHOCYTES % (AUTO) 9.6 % (20.0-44.0); MEAN CORPUSCULAR HGB CONC 31 g/dl (31.0-36.0); MEAN CORPUSCULAR VOLUME 91 fL (80-96); MONOCYTES # (AUTO) 1.1 K/uL (0.1-1.30); MONOCYTES % (AUTO) 6.3 % (2.0-12.0); NEUTROPHILS # (AUTO) 11.3 K/uL (1.8-8.9); NEUTROPHILS % (AUTO) 66.1 % (43.0-81.0); PLATELET COUNT (AUTO) 407 K/uL (150-450); RED BLOOD CELL COUNT(AUTO) 2.86 MIL/uL (4.5-6.0); WHITE BLOOD COUNT (AUTO) 17.1 K/uL (4.3-11.0)
--- NOTE | 2023-01-22 06:43 | NUR ---
RN Closing Notes Pt in bed, awake. On mechanical vent and tolerating well. No SOB noted. No s/sx of respiratory distress noted. Tele monitor detects ST with rate of 100-120. IV access in SENDY #20G. IV is intact, patent, and flushing well. All orders carried out. All needs met. Pt kept clean and dry. Safety precautions in place: bed in lowest, locked position, siderails upX2, and brakes on. Table and call light within reach. Will endorse to oncoming shift for THOR.
[2023-01-22 06:55] LABS: CALCIUM, SERUM 8.4 mg/dL (8.5-10.1); CREATININE 0.6 mg/dL (0.6-1.3); PHOSPHORUS 3.1 mg/dL (2.5-4.9); POTASSIUM 4.1 mmol/L (3.5-5.1)
--- NOTE | 2023-01-22 07:05 | NUR ---
RN OPENING NOTE PATIENT IN BED AWAKE WITH OPEN EYES, ON MECHANICAL VENT MARTY WELL. NO S/S OF SOB NOTED, TELE MONITOR DETECTS 109. PER FREEZER TUNNEL OPERATOR REPORT PATIENT NEEDS ANOTHER MIDLINE, THE OLD ONE IS NOT FUNCTIONING ANYMORE. PATIENT WILL KEEP CLEAN, DRY AND REPOSITION EVERY 2 HRS. ALL SAFETY PRECAUTIONS IN PLACE, WILL CONTINUE THE CARE THROUGHOUT THE SHIFT.
[2023-01-22 08:00] VITALS: BP 98/65
[2023-01-22] MEDS: ACETYLCYSTEINE 10% SOLN 400 MG/4 ML VIAL NEB SCH ×3 (08:50→23:20)
[2023-01-22] MEDS: METOPROLOL TARTRATE 50 MG TABLET GT SCH ×2 (09:00→21:17)
[2023-01-22] MEDS: LOSARTAN POTASSIUM 50 MG TABLET GT SCH (09:00)
[2023-01-22] MEDS: VANCOMYCIN HCL 0.75 GM in IV D5W 250 ML IV SCH ×2 (09:01→20:12)
[2023-01-22] MEDS: LORATADINE 10 MG TABLET GT SCH (09:02)
[2023-01-22] MEDS: PANTOPRAZOLE 40 MG/PACK PACK GT SCH (09:02)
[2023-01-22] MEDS: QUETIAPINE FUMARATE 25 MG TABLET GT SCH ×2 (09:02→21:16)
[2023-01-22] MEDS: VALPROIC ACID 250 MG/5 ML UDC GT SCH ×2 (09:04→21:16)
[2023-01-22] MEDS: DOCUSATE SODIUM LIQ 100 MG/10 ML UDC GT SCH ×2 (09:04→16:17)
[2023-01-22] MEDS: MULTIVIT W/MINERALS 1 TAB TABLET GT SCH (09:04)
[2023-01-22] MEDS: CHLORHEXIDINE GLUCONATE 15 ML UDC MM SCH ×2 (09:04→16:17)
[2023-01-22] MEDS: NEOMY SULF/BACITRAC ZN/POLY 15 GM TUBE TP SCH (09:06)
[2023-01-22] MEDS: THERAHONEY GEL 1.5 OZ TUBE TP SCH (09:06)
[2023-01-22] MEDS: PROSOURCE / PROSTAT (PYXIS) 30 ML UDC GT SCH ×2 (09:10→16:18)
[2023-01-22] MEDS: ARGININE/GLUTAMINE/CALCIUM BMB 1 EACH POWD.PACK GT SCH ×2 (09:10→16:18)
[2023-01-22] MEDS: JEVITY 1.2 CAL 1,000 ML BOTTLE GT PRN (09:50)
[2023-01-22 12:00] VITALS: BP 119/70
[2023-01-22 16:05] VITALS: BP 119/70
--- NOTE | 2023-01-22 19:03 | NUR ---
RN CLOSING NOTES PATIENT IN BED AWAKE WITH OPEN EYES, ON MECHANICAL VENT MARTY WELL. NO S/S OF SOB NOTED, TELE MONITOR DETECTS 104 ST. PATIENT KEPT CLEAN, DRY AND REPOSITIONED EVERY 2 HRS. ALL SAFETY PRECAUTIONS IMPLEMENTED, AKLL DUE MEDS GIVEN, PATIENT HAS LFA #20 INTACT AND FLUSHING, WILL INDORSE THE PATIENT TO THE PM NURSE TO [facility].
--- NOTE | 2023-01-22 19:20 | NUR ---
RN OPENING NOTES PATIENT RECEIVED IN BED, A/0 X 1. PT WITH TRACH SIZE PORTEX #7 WITH VENT SETTING RATE -14, TIDAL VOLUME- 400, FIO2- 40%, PEEP-0. NO SOB NOTED, NO S/S DISTRESS, AFEBRILE, NO S/S OF DISTRESS NOTED. NOTED WITH LEFT FOREARM # 20 PERIPHERAL LINE, FLUSHED WITH NS, NO S/S OF INFILTRATION NOTED. NOTED WITH GTUBE, VERIFIED PLACEMENT BY AUSCULTATION, NO RESIDUAL NOTED UPON ASPIRATION RUNNING WITH JEVITY 1.2 AT 70 ML/HR, HEAD OF BED KEPT ELEVATED. CLINE CATHETER PATENT INTACT DRAINING WITH YELLOWISH URINE OUTPUT VIA GRAVITY. ALL SAFETY PRECAUTION PROVIDED. BED IN LOWEST POSITION, LOCKED. CALL LIGHT WITHIN REACH, SIDE RAILS UP X3. WILL CONTINUE TO MONITOR.
[2023-01-22 20:00] VITALS: BP 110/76
[2023-01-23] VITALS: BP 92/64
[2023-01-23] MEDS: VANCOMYCIN HCL 125 MG/2.5 ML ORAL.SUSP GT SCH ×4 (00:37→17:09)
[2023-01-23] MEDS: JEVITY 1.2 CAL 1,000 ML BOTTLE GT PRN ×2 (01:46→18:56)
[2023-01-23] MEDS: IPRATROPIUM NEB FS 0.5 MG/2.5 ML AMPUL.NEB IH SCH ×4 (02:46→20:03)
[2023-01-23] MEDS: ALBUTEROL FS 2.5 MG/0.5 ML VIAL.NEB NEB SCH ×4 (02:46→20:03)
[2023-01-23 04:00] VITALS: BP 98/72
[2023-01-23 07:17] LABS: CALCIUM, SERUM 8.7 mg/dL (8.5-10.1); CREATININE 0.5 mg/dL (0.6-1.3); POTASSIUM 4.1 mmol/L (3.5-5.1)
--- NOTE | 2023-01-23 07:18 | NUR ---
RN Opening Notes Received pt in bed, awake. On mechanical vent and tolerating well. No SOB noted. No s/sx of respiratory distress noted. Tele monitor detects ST with rate of 105. IV access in BEATRIZ #20G. IV is intact, patent, and flushing well. Patient is on G tube feeding Jevity 70 ml/hr , tolerating well , no residual,has two open wounds on sacral area and on the L hip dressing intact , will change by doctor order Safety precautions in place: bed in lowest, locked position, siderails upX2, and brakes on. Table and call light within reach. will continue to monitor
--- NOTE | 2023-01-23 07:39 | NUR ---
RN NOTE VANCO THOUGH LEVEL WAS DONE ON 01/20 , CALLED PHARMACY , SPOKE WITH CHOLO ASKING IF I CAN INFUSE THE VANCOMYCIN THIS MORNING , CONFIRMED THAT I SHOULD INFUSE THE MORNING DOSE , NEXT VANCO THROUGH LEVEL WILL BE DONE YAKOV
[2023-01-23] MEDS: VANCOMYCIN HCL 0.75 GM in IV D5W 250 ML IV SCH ×2 (07:47→20:36)
[2023-01-23 08:00] VITALS: BP 115/73
[2023-01-23] MEDS: ACETYLCYSTEINE 10% SOLN 400 MG/4 ML VIAL NEB SCH ×3 (08:07→23:39)
[2023-01-23] MEDS: QUETIAPINE FUMARATE 25 MG TABLET GT SCH ×2 (08:15→20:37)
[2023-01-23] MEDS: PANTOPRAZOLE 40 MG/PACK PACK GT SCH (08:15)
[2023-01-23] MEDS: VALPROIC ACID 250 MG/5 ML UDC GT SCH ×2 (08:15→20:36)
[2023-01-23] MEDS: LORATADINE 10 MG TABLET GT SCH (08:15)
[2023-01-23] MEDS: MULTIVIT W/MINERALS 1 TAB TABLET GT SCH (08:15)
[2023-01-23] MEDS: DOCUSATE SODIUM LIQ 100 MG/10 ML UDC GT SCH ×2 (08:15→16:24)
[2023-01-23] MEDS: PROSOURCE / PROSTAT (PYXIS) 30 ML UDC GT SCH ×2 (08:15→16:24)
[2023-01-23] MEDS: CHLORHEXIDINE GLUCONATE 15 ML UDC MM SCH ×2 (08:15→16:24)
[2023-01-23] MEDS: NEOMY SULF/BACITRAC ZN/POLY 15 GM TUBE TP SCH (08:17)
[2023-01-23] MEDS: LOSARTAN POTASSIUM 50 MG TABLET GT SCH (08:18)
[2023-01-23] MEDS: METOPROLOL TARTRATE 50 MG TABLET GT SCH ×2 (08:18→20:37)
[2023-01-23] MEDS: THERAHONEY GEL 1.5 OZ TUBE TP SCH (08:20)
[2023-01-23] MEDS: ARGININE/GLUTAMINE/CALCIUM BMB 1 EACH POWD.PACK GT SCH ×2 (09:00→16:24)
--- NOTE | 2023-01-23 09:24 | NUR ---
RN NOTE LIBAN PACKET NOT ADMINISTERED C[facility] TO NOT AVAILABLE , CALLED DIETARY , RESPONDED THAT THEY ARE OUT OF IT AT THIS TIME
[2023-01-23 12:00] VITALS: BP 129/79
[2023-01-23 16:19] VITALS: BP 103/78
--- NOTE | 2023-01-23 18:37 | NUR ---
RN CLOSING NOTES PATIENT IN BED AWAKE WITH OPEN EYES, ON MECHANICAL VENT MARTY WELL. NO S/S OF SOB NOTED, TELE MONITOR DETECTS 98 ST. PATIENT KEPT CLEAN, DRY AND REPOSITIONED EVERY 2 HRS. ALL SAFETY PRECAUTIONS IMPLEMENTED, ALL DUE MEDS GIVEN, PATIENT HAS LFA #20 INTACT AND FLUSHING, WILL INDORSE THE [employer] CONSERVATION LABORER NURSE TO THOR.
--- NOTE | 2023-01-23 19:20 | NUR ---
RN OPENING NOTES RECEIVED PATIENT IN BED, AWAKE, AAO X1, HAS TRACH SHILEY #7 ON MV WITH PRESCRIBED SETTINGS: AC 14, TV 400, FIO2 40, PEEP OFF. TOLERATING WELL, NO SOB/DISTRESS NOTED. ON TELE MONITOR SHOWING SR WITH HR OF 84. IV ACCESS ON LFA #20G TKO RUNNING. GTF RUNNING JEVITY AT 70 ML/HR, NO RESIDUAL NOTED. CLINE CATHETER IN PLACE DRAINING CLEAR YELLOW URINE. SAFETY MEASURES IN PLACE: BED LOCKED AND IN LOWEST POSITION, CALL LIGHT WITHIN REACH, SIDE RAILS PADDED AND UP X3.
[2023-01-23 20:00] VITALS: BP 115/83
[2023-01-24] VITALS (7 sets, daily range): BP systolic 90–130; BP diastolic 38–84
[2023-01-24] MEDS: VANCOMYCIN HCL 125 MG/2.5 ML ORAL.SUSP GT SCH ×2 (00:13→05:27)
[2023-01-24] MEDS: IPRATROPIUM NEB FS 0.5 MG/2.5 ML AMPUL.NEB IH SCH ×3 (01:30→14:32)
[2023-01-24] MEDS: ALBUTEROL FS 2.5 MG/0.5 ML VIAL.NEB NEB SCH ×3 (01:30→14:32)
--- NOTE | 2023-01-24 06:17 | NUR ---
RN CLOSING NOTES PATIENT IN BED, AWAKE, AAO X1, HAS TRACH SHILEY #7 ON MV WITH PRESCRIBED SETTINGS: AC 14, TV 400, FIO2 40, PEEP OFF. TOLERATING WELL, NO SOB/DISTRESS NOTED. O2 SAT 100%. ON TELE MONITOR SHOWING SR WITH HR OF 87. IV ACCESS ON LFA #20G S/L, INTACT AND FLUSHES WELL. GTF RUNNING JEVITY AT 70 ML/HR, NO RESIDUAL NOTED. CLINE CATHETER IN PLACE DRAINING CLEAR YELLOW URINE WITH 450 ML UO. ALL DUE MEDS WERE GIVEN AND NEEDS ATTENDED. VSS. SAFETY MEASURES MAINTAINED: BED LOCKED AND IN LOWEST POSITION, CALL LIGHT WITHIN REACH, SIDE RAILS PADDED AND UP X3, HOB ELEVATED. WILL ENDORSE TO ONCOMING NURSE FOR THOR.
[2023-01-24 07:13] LABS: BASOPHILS # (AUTO) 0.1 K/uL (0.0-0.2); BASOPHILS % (AUTO) 0.5 % (0.0-2.0); HEMATOCRIT 25 % (39-51); LYMPHOCYTES # (AUTO) 2.1 K/uL (0.8-4.8); LYMPHOCYTES % (AUTO) 14.5 % (20.0-44.0); MEAN CORPUSCULAR HGB CONC 32 g/dl (31.0-36.0); MEAN CORPUSCULAR VOLUME 91 fL (80-96); MONOCYTES # (AUTO) 0.9 K/uL (0.1-1.30); MONOCYTES % (AUTO) 6.4 % (2.0-12.0); NEUTROPHILS # (AUTO) 6.8 K/uL (1.8-8.9); NEUTROPHILS % (AUTO) 47.4 % (43.0-81.0); PLATELET COUNT (AUTO) 456 K/uL (150-450); RED BLOOD CELL COUNT(AUTO) 2.79 MIL/uL (4.5-6.0); WHITE BLOOD COUNT (AUTO) 14.3 K/uL (4.3-11.0)
[2023-01-24 07:17] LABS: EOSINOPHILS % (AUTO) 31.2 % (0.0-6.0)
--- NOTE | 2023-01-24 07:30 | NUR ---
RN NOTE RECEIVED PATENT IN BED RESTING,ALERT/ORIENTED X1,ON MECHANICAL VENT SETTING PRESCRIBED,IV ON LEFT FOREARM,ON G-TUBE FEEDING JEVITY 1.2 AT 70CC/HR,CHECKED PLACEMENT IN PLACE NO RESIDUAL NOTED,CLINE CATH IN PLACE URINE DRAINING YELLOW BY GRAVITY,SAFETY MEASURE IMPLEMENT BE DIN LOW POSTILION AND LOCKED,HEAD OF THE BED ELEVATED CONTINUE TO MONITOR.
[2023-01-24 07:39] LABS: CALCIUM, SERUM 8.5 mg/dL (8.5-10.1); CREATININE 0.5 mg/dL (0.6-1.3); POTASSIUM 4.3 mmol/L (3.5-5.1)
[2023-01-24] MEDS: ACETYLCYSTEINE 10% SOLN 400 MG/4 ML VIAL NEB SCH ×2 (07:58→14:32)
[2023-01-24] MEDS: VANCOMYCIN HCL 0.75 GM in IV D5W 250 ML IV SCH (08:00)
[2023-01-24] MEDS: QUETIAPINE FUMARATE 25 MG TABLET GT SCH (08:53)
[2023-01-24] MEDS: LOSARTAN POTASSIUM 50 MG TABLET GT SCH (08:53)
[2023-01-24] MEDS: MULTIVIT W/MINERALS 1 TAB TABLET GT SCH (08:53)
[2023-01-24] MEDS: CHLORHEXIDINE GLUCONATE 15 ML UDC MM SCH (08:54)
[2023-01-24] MEDS: PANTOPRAZOLE 40 MG/PACK PACK GT SCH (08:54)
[2023-01-24] MEDS: VALPROIC ACID 250 MG/5 ML UDC GT SCH (08:54)
[2023-01-24] MEDS: LORATADINE 10 MG TABLET GT SCH (08:54)
[2023-01-24] MEDS: METOPROLOL TARTRATE 50 MG TABLET GT SCH (08:54)
[2023-01-24] MEDS: PROSOURCE / PROSTAT (PYXIS) 30 ML UDC GT SCH (08:58)
[2023-01-24] MEDS: NEOMY SULF/BACITRAC ZN/POLY 15 GM TUBE TP SCH (08:58)
[2023-01-24] MEDS: DOCUSATE SODIUM LIQ 100 MG/10 ML UDC GT SCH (09:00)
[2023-01-24] MEDS: THERAHONEY GEL 1.5 OZ TUBE TP SCH (09:14)
[2023-01-24] MEDS: ARGININE/GLUTAMINE/CALCIUM BMB 1 EACH POWD.PACK GT SCH (09:39)
[2023-01-24] MEDS ORDERED: VANCOMYCIN HCL 125 MG/2.5 ML ORAL.SUSP GT SCH (12:00)
[2023-01-24] MEDS ORDERED: IV NS 0.9% 250 ML IV ONE ×2 (12:30→16:00)
[2023-01-24] MEDS ORDERED: VANC125C11 GT (12:59)
[2023-01-24] MEDS ORDERED: COLL30OI TP (12:59)
[2023-01-24] MEDS ORDERED: VANC750F2 IV (12:59)
[2023-01-24] MEDS ORDERED: ACET1OOV6 NEB (12:59)
--- NOTE | 2023-01-24 15:09 | NUR ---
RN NOTE REPORT GIVEN TO ELOINA PENA AT [facility].
[2023-01-24] MEDS ORDERED: MIDODRINE HCL (5MG) 5 MG TABLET PO ONE ×2 (16:00→17:00)
--- NOTE | 2023-01-24 16:18 | NUR ---
TORCH BRAZER NOTE PATIENT DISCHARGE TO [facility],ON MECHANICAL VENT SETTING PRESCRIBED,ON G-TUBE NO SOB NOT ACUTE DISTRESS NOTED,CLINE CATH IN PLACE,IV SITE IS ON LEFT FOREARM INTACT PATENT VITAL SIGN ARE SBP 115/71 HR 76 RR:18 TEMP 98.5 ALL DUE MEDS GIVEN MD ORDERED WOUND TREATMENT DONE,PATIENT LEFT HOSPITAL ACCOMPANIED BY 3 ELECTRONICS ENGINEERING MANAGER FROM [facility] WITH ACLS PROTOCOL.
== END 2023-01-24 16:20 | DRG 710 ==
LOC: ER 20:12 → ICU 22:10 → TELE-TD 01-13 18:02 → TELE1 01-15 12:21
PROVIDERS: ADMIT Internal Medicine; ATTEND Nurse Practitioner Acute Care
PROC: 5A1955Z Respiratory Ventilation, Greater than 96 Consecutive Hours (ICD-10-PCS; principal; 2023-01-10)
PROC: 05HC33Z Insertion of Infusion Device into Left Basilic Vein, Percutaneous Approach (ICD-10-PCS; 2023-01-11)
PROC: 0JB70ZZ Excision of Back Subcutaneous Tissue and Fascia, Open Approach (ICD-10-PCS; 2023-01-16)
PROC: 0KBP0ZZ Excision of Left Hip Muscle, Open Approach (ICD-10-PCS; 2023-01-16)
DX: A41.01 Sepsis due to Methicillin susceptible Staphylococcus aureus (principal); J96.21 Acute and chronic respiratory failure with hypoxia; I76 Septic arterial embolism; G93.41 Metabolic encephalopathy; J15.6 Pneumonia due to other Gram-negative bacteria; E43 Unspecified severe protein-calorie malnutrition; R64 Cachexia; A04.72 Enterocolitis due to Clostridium difficile, not specified as recurrent; L89.153 Pressure ulcer of sacral region, stage 3; L89.224 Pressure ulcer of left hip, stage 4; L89.323 Pressure ulcer of left buttock, stage 3; J44.0 Chronic obstructive pulmonary disease with (acute) lower respiratory infection; E87.20 Acidosis, unspecified; J90 Pleural effusion, not elsewhere classified; D63.8 Anemia in other chronic diseases classified elsewhere; D68.59 Other primary thrombophilia; L89.313 Pressure ulcer of right buttock, stage 3; J93.9 Pneumothorax, unspecified; N39.0 Urinary tract infection, site not specified; R65.20 Severe sepsis without septic shock; Z20.822 Contact with and (suspected) exposure to COVID-19; Z93.0 Tracheostomy status; Z93.1 Gastrostomy status; Z99.11 Dependence on respirator [ventilator] status; Z79.51 Long term (current) use of inhaled steroids; Z86.74 Personal history of sudden cardiac arrest; T79.7XXA Traumatic subcutaneous emphysema, initial encounter; X58.XXXA Exposure to other specified factors, initial encounter; Y92.9 Unspecified place or not applicable; D50.9 Iron deficiency anemia, unspecified; D72.10 Eosinophilia, unspecified; D75.839 Thrombocytosis, unspecified; E83.42 Hypomagnesemia; E87.0 Hyperosmolality and hypernatremia; E87.6 Hypokalemia; E88.09 Other disorders of plasma-protein metabolism, not elsewhere classified; Z74.09 Other reduced mobility; R74.01 Elevation of levels of liver transaminase levels; Z68.1 Body mass index [BMI] 19.9 or less, adult; T17.990A Other foreign object in respiratory tract, part unspecified in causing asphyxiation, initial encounter; Y92.129 Unspecified place in nursing home as the place of occurrence of the external cause; I69.398 Other sequelae of cerebral infarction; I10 Essential (primary) hypertension; J98.11 Atelectasis; R13.10 Dysphagia, unspecified; R53.2 Functional quadriplegia; M24.562 Contracture, left knee; B95.7 Other staphylococcus as the cause of diseases classified elsewhere; Y95 Nosocomial condition; L89.619 Pressure ulcer of right heel, unspecified stage; I38 Endocarditis, valve unspecified
CPT/HCPCS: 31720; 32551; 36410; 36415; 36600; 71045-TC; 71250-TC; 80048-TC; 80053-TC; 80076-TC; 80164-TC; 80202-TC; 81001; 82803-TC; 82962-TC; 83605-TC; 83735-TC; 84100-TC; 84484-TC; 85025-TC; 85730-TC; 87040-TC; 87081-TC; 87086-TC; 93307-TC; 94002-TC; 94003-TC; 94760-TC; 94762-TC; 94799-TC; 99082-TC; A4223; A4623; A6253; A6403; A7526; C9803; G0378; J0692; J1644; J2060; J3370; J3475; J3490; J7040; J7050; J7060; J7120

== ENCOUNTER 2023-02-02 01:18 | Inpatient (IN) | payer MEDICAID ==
[~2023-02-02] VITALS: Ht 167.6 cm; Wt 46.3 kg
[~2023-02-02 01:18] MED LIST changes: +ACET1OOV6 NEB; -ACET650S26 GT; +COLL30OI TP; -MERO1VIA23 IV; +ONDA4TAB5 GT; +TRAZ-182 GT; +VANC125C11 GT; +VANC750F2 IV
--- NOTE | 2023-02-02 01:37 | NUR ---
PT [id number] FROM [facility] C/O SOB, FEVER 101. PLACED COMFORTABLY IN BED, VITALS CHECKED. PT NONVERBAL, CONNECTED TO VENT BY RT.
--- NOTE | 2023-02-02 01:39 | NUR ---
COVID SWAB DONE AND SENT TO LAB
[2023-02-02] MEDS ORDERED: ACETAMINOPHEN 650 MG/SUPP.RECT RC ONE ×2 (01:41→02:00)
--- NOTE | 2023-02-02 01:46 | NUR ---
COMPUTING TUTOR AT PT'S BEDSIDE
--- NOTE | 2023-02-02 01:55 | NUR ---
18GA TO RAC ESTABLISHED
--- NOTE | 2023-02-02 01:57 | NUR ---
IV RAY G18 INSERTED ON RIGHT AC. BLOOD DRAWN AND SENT TO LAB
--- NOTE | 2023-02-02 02:02 | NUR ---
RT NOTE Pt rec'd trached on [facility] vent on AC mode settings as charted. trach is patent and secured. pt sx'd for thick mod amt of pale yellow secretions. Alarms are set and audible. Ambu bag and emergency spare trach at bedside. Addendum: 02/02/23 at 0205 by ALL GOMEZ RT Amended: Links added.
[2023-02-02 02:05] LABS: BASOPHILS % (AUTO) 0.1 % (0.0-2.0); EOSINOPHILS % (AUTO) 4.9 % (0.0-6.0); HEMATOCRIT 27 % (39-51); HEMOGLOBIN 8.3 g/dL (13.5-17.5); LYMPHOCYTES # (AUTO) 0.6 K/uL (0.8-4.8); LYMPHOCYTES % (AUTO) 2.4 % (20.0-44.0); MEAN CORPUSCULAR HGB CONC 31 g/dl (31.0-36.0); MEAN CORPUSCULAR VOLUME 90 fL (80-96); MONOCYTES # (AUTO) 0.9 K/uL (0.1-1.30); MONOCYTES % (AUTO) 3.3 % (2.0-12.0); NEUTROPHILS % (AUTO) 89.3 % (43.0-81.0); PLATELET COUNT (AUTO) 489 K/uL (150-450); RED BLOOD CELL COUNT(AUTO) 2.97 MIL/uL (4.5-6.0); WHITE BLOOD COUNT (AUTO) 25.8 K/uL (4.3-11.0)
[2023-02-02 02:15] LABS: CALCIUM, SERUM 8.5 mg/dL (8.5-10.1); CARBON DIOXIDE 31 mmol/L (21-32); CHLORIDE 101 mmol/L (98-107); CREATININE 0.7 mg/dL (0.6-1.3); GLUCOSE 142 mg/dL (74-106); POTASSIUM 4.2 mmol/L (3.5-5.1); SODIUM SERUM 137 mmol/L (136-145); UREA NITROGEN, BLOOD 20 mg/dL (7-18)
[2023-02-02 02:19] LABS: ALANINE AMINOTRANSFERASE 23 U/L (12-78); ALBUMIN 1.8 g/dL (3.4-5.0); ALKALINE PHOSPHATASE 112 U/L (46-116); ASPARTATE AMINOTRANSFERASE 20 U/L (15-37); BILIRUBIN,DIRECT 0.1 mg/dL (0.0-0.2); BILIRUBIN,TOTAL 0.2 mg/dL (0.2-1.0); TOTAL PROTEIN, SERUM 7.3 g/dL (6.4-8.2)
--- NOTE | 2023-02-02 02:35 | NUR ---
URINE COLLECTED AND SENT TO LAB
--- NOTE | 2023-02-02 02:52 | NUR ---
SCOUT LEASER AT PT'S BEDSIDE
[2023-02-02 03:16] LABS: BILIRUBIN,URINE NEGATIVE (NEGATIVE); COLOR,URINE DARK YELLOW (YELLOW); LEUKOCYTE ESTERASE ,URINE NEGATIVE (NEGATIVE); NITRITE, URINE NEGATIVE (NEGATIVE); PROTEIN,URINE 1+ mg/dl (NEGATIVE); UGLUCOSE NEGATIVE (NEGATIVE); UROBILINOGEN,URINE 0.2 EU/dL (0.2)
[2023-02-02 03:21] LABS: BACTERIA,URINE Rare /HPF (None Seen); SQUAMOUS EPITHELIAL CELL,UR Few /HPF (None Seen); WBC,URINE 0-2 /HPF (0-3)
--- NOTE | 2023-02-02 03:41 | NUR ---
TEMP 98.8F RECTAL
[2023-02-02] MEDS ORDERED: CEFEPIME 1 GM in IV D5W 50 ML IV ONE (04:00)
[2023-02-02] MEDS ORDERED: MORPHINE SULFATE INJ 2 MG/ML DISP.SYRIN IV PRN (04:00)
[2023-02-02] MEDS ORDERED: LORAZEPAM INJ 2 MG/ML VIAL IV PRN (04:00)
[2023-02-02] MEDS ORDERED: IPRATROPIUM NEB FS 0.5 MG/2.5 ML AMPUL.NEB NEB PRN (04:00)
[2023-02-02] MEDS ORDERED: ALBUTEROL FS 2.5 MG/0.5 ML VIAL.NEB NEB PRN (04:00)
[2023-02-02] MEDS ORDERED: HYDROCODONE/APAP 5/325MG TABLET GT PRN (04:00)
[2023-02-02] MEDS ORDERED: Z GUARD REMEDY 4 OZ OINT TP PRN (04:00)
[2023-02-02] MEDS ORDERED: ONDANSETRON HCL/PF 4 MG/2 ML VIAL IVP PRN (04:00)
[2023-02-02] MEDS ORDERED: CEFEPIME 1 GM VIAL ONE (04:25)
--- NOTE | 2023-02-02 04:42 | NUR ---
REPORT GIVEN TO JEAN MCGEE
--- NOTE | 2023-02-02 05:00 | NUR ---
RN ADMITTING NOTE RECEIVED PATIENT FROM ER VIA GURNEY ACCOMPANIED BY 2 ER STAFF, TRANSFERRED TO BED 115-1 VIA 2 PERSON ASSIST, PATIENT AO X 0, IN NO ACUTE DISTRESS, BREATHING UNLABORED, SATURATION AT 97 ON TRACH TO MECHANICAL VENT WITH PRESCRIBED SETTINGS:AC MODE AT RATE OF 14, FIO2 40%, TV 450, PEEP 0, ST ON THE MONITOR, HR IS 102. IV LINE AT RAC 18G PATENT AND FLUSHING WELL, SALINE LOCKED. GTUBE IN PLACE, POSITIVE PLACEMENT NOTED. CLINE CATHETER DRAINING TO A CLEAR, YELLOW OUTPUT. SAFETY MEASURES IN PLACE, BED IS LOCKED AND AT LOWEST POSITION, HOB ELEVATED. WILL CONT TO MONITOR AND CARRY OUT MD ORDERS.
[2023-02-02 05:20] VITALS: BP 95/67
--- NOTE | 2023-02-02 07:30 | NUR ---
RN OPENING NOTE PT RECEIVED IN BED ON MECHANICAL VENT WITH ALL PRESCRIBED SETTINGS TOLERATING WELL O2 SAT 100%. PT IS A/OX1 AND NON VERBAL. FC IS IN PLACE DRAINING URINE TO GRAVITY. PEG IS IN PLACE AND CLAMPED AT THIS TIME. IV ACCESS R AC 18G INFUSING WITH NS @75ML/HR. BED IS LOCKED IN LOWEST POSITION X2 BED RAILS UP ALL HOSPITAL SAFETY MEASURES ARE IN PLACE. WILL CONTINUE TO MONITOR THIS SHIFT.
[2023-02-02 08:00] VITALS: BP 100/52
[2023-02-02] MEDS: PANTOPRAZOLE 40 MG VIAL IV SCH (08:07)
[2023-02-02] MEDS: ENOXAPARIN SODIUM 40 MG/0.4 ML DISP.SYRIN SQ SCH (08:08)
[2023-02-02] MEDS: IV NS 0.9% 1,000 ML IV PRN ×2 (08:13→21:59)
[2023-02-02] MEDS ORDERED: LACT100027 GT (10:55)
[2023-02-02] MEDS ORDERED: COLL30OI TP (10:56)
[2023-02-02] MEDS ORDERED: ASCO-340 GT (10:56)
[2023-02-02] MEDS ORDERED: ACET100V5 NEB (10:56)
[2023-02-02] MEDS ORDERED: VANC25SO GT (10:56)
[2023-02-02 12:00] VITALS: BP 100/61
[2023-02-02] MEDS: CEFEPIME 1 GM in IV D5W 50 ML IV SCH ×2 (12:25→21:07)
[2023-02-02 16:00] VITALS: BP 103/67
--- NOTE | 2023-02-02 18:51 | NUR ---
RN CLOSING NOTE PT IN BED ON MECHANICAL VENT WITH ALL PRESCRIBED SETTINGS TOLERATING WELL O2 SAT 100%. PT IS A/OX1 AND NON VERBAL. FC IS IN PLACE DRAINING URINE TO GRAVITY -350ML. PEG IS IN PLACE AND CLAMPED AT THIS TIME. IV ACCESS R AC 18G INFUSING WITH NS @75ML/HR. BED IS LOCKED IN LOWEST POSITION X2 BED RAILS UP ALL HOSPITAL SAFETY MEASURES ARE IN PLACE. WILL ENDORSE TO CUT OUT AND MARKING MACHINE OPERATOR FOR THOR.
--- NOTE | 2023-02-02 19:10 | NUR ---
RN NOTE RECEIVED PT FOR CONTINUITY OF CARE. PATIENT A/OX0 IN NO S/SX OF ACUTE DISTRESS AT THIS TIME; CURRENTLY ON MECHANICAL VENT; SETTING PRESCRIBED, WITH 02 SAT >95% AT THIS TIME. WITH IV ACCESS ON L FA#20 PATENT, INTACT AND FLUSHING WELL. WITH RUNNING FLUIDS PRESCRIBED. WILL VERIFY AND TO START TUBE FEEDING FROM ANN HEWITT. WITH BILATERAL SOFT RESTRAINTS (MITTENS) IN PLACED, MONITORED AND ASSESSED PER PROTOCOL. CLINE CATH IN PLACE, MODERATE URINE OUTPUT NOTED. WITH WILL ENSURE SAFETY MEASURES WITHIN THE SHIFT. PATIENT BED ALARM IS ON. HEAD OF BED ELEVATED. BED IS LOCKED, IN LOWEST POSITION AND SIDE RAILS UP. CALL LIGHT WITHIN REACH OF THE PATIENT. WILL CONTINUE TO MONITOR AND REASSESS FOR ANY CHANGES AND WILL CARRY OUT ANY ONGOING AND ACTIVE MD ORDER.
[2023-02-02 20:00] VITALS: BP 99/74
[2023-02-02] MEDS ORDERED: PERMETHRIN 5% CRM 60 GM TUBE TP ONE ×2 (21:00→21:59)
[2023-02-02] MEDS ORDERED: VANCOMYCIN HCL 0.75 GM in IV D5W 250 ML IV ONE (21:30)
[2023-02-02] MEDS ORDERED: VANCOMYCIN 1 GM VIAL ONE (21:54)
[2023-02-02] MEDS ORDERED: JEVITY 1.2 CAL 1,000 ML BOTTLE GT PRN (22:00)
[2023-02-03] VITALS: BP 118/95
--- NOTE | 2023-02-03 01:00 | NUR ---
RN NOTE PICC LINE NURSE (LIZ TAN) FACILITATED INSERTION OF MIDLINE @ R UA G#18, SECURED , INTACT AND FLUSHING WELL. CORPORATE STATISTICAL FINANCIAL ANALYST WELL AWARE.
[2023-02-03 04:00] VITALS: BP 122/77
--- NOTE | 2023-02-03 04:00 | NUR ---
RN NOTE PATIENT REMAINED TO BE IN NO SIGNS OF ACUTE RESPIRATORY DISTRESS , VITAL SIGNS STABLE AT THIS TIME. REGULAR TURNING AND REPOSITIONING DONE, SUCTIONING DONE, WOUND CARE AND AM PATIENT CARE RENDERED WILL CONTINUE TO MONITOR AND REASSESS FOR ANY CHANGES THROUGHOUT THE SHIFT.
[2023-02-03] MEDS: CEFEPIME 1 GM in IV D5W 50 ML IV SCH ×3 (05:07→21:23)
[2023-02-03 05:50] LABS: BASOPHILS % (AUTO) 0.1 % (0.0-2.0); EOSINOPHILS % (AUTO) 23.2 % (0.0-6.0); HEMATOCRIT 26 % (39-51); HEMOGLOBIN 7.9 g/dL (13.5-17.5); LYMPHOCYTES # (AUTO) 0.8 K/uL (0.8-4.8); LYMPHOCYTES % (AUTO) 5.1 % (20.0-44.0); MEAN CORPUSCULAR HGB CONC 31 g/dl (31.0-36.0); MEAN CORPUSCULAR VOLUME 92 fL (80-96); MONOCYTES # (AUTO) 0.6 K/uL (0.1-1.30); MONOCYTES % (AUTO) 4.1 % (2.0-12.0); NEUTROPHILS # (AUTO) 10.4 K/uL (1.8-8.9); NEUTROPHILS % (AUTO) 67.5 % (43.0-81.0); PLATELET COUNT (AUTO) 470 K/uL (150-450); RED BLOOD CELL COUNT(AUTO) 2.79 MIL/uL (4.5-6.0); WHITE BLOOD COUNT (AUTO) 15.4 K/uL (4.3-11.0)
[2023-02-03 06:08] LABS: CALCIUM, SERUM 8.5 mg/dL (8.5-10.1); CREATININE 0.6 mg/dL (0.6-1.3); MAGNESIUM 1.9 mg/dL (1.8-2.4); PHOSPHORUS 3.4 mg/dL (2.5-4.9); POTASSIUM 3.9 mmol/L (3.5-5.1)
--- NOTE | 2023-02-03 06:32 | NUR ---
RN NOTE PATIENT REMAINS IN ROOM IN NO SIGNS OF RESPIRATORY DISTRESS, PATIENT STILL ON MECH VENT WITH SETTINGS PRESCRIBED;TOLERATING WELL SATURATING @ >95% SP02. SAFETY MEASURES IMPLEMENTED, BED IN LOWEST POSITION, LOCKED, SIDE RAILS UP, CALL LIGHT WITHIN REACH. ALL NEEDS AND ORDERS ADDRESSED DURING THE SHIFT. IV ACCESS MAINTAINED INTACT, SECURED AND FLUSHING WELL. IV FLUID AND TUBE FEEDING RUNNING ORDERED. ALL DUE MEDS GIVEN ORDERED & SCHEDULED ; PATIENT TOLERATED WELL. PATIENT KEPT CLEAN AND COMFORTABLE WITHIN THE SHIFT. PATIENT ENDORSED TO INCOMING SHIFT RN WITH STABLE VITAL SIGN AND FOR CONTINUITY OF CARE.
--- NOTE | 2023-02-03 07:25 | NUR ---
HOOK TENDER OPENING NOTES Received pt awake in bed. Non verbal and unable to follow command. No signs of pain or discomfort at this time. Trach is patent, intact, and in midline position running on prescribed ventilator settings and tolerating it well. GT is patent and intact running Jevity @ 40cc/hr. HOB elevated to 30-45 degrees. Siderails up at all times x4. Call light within reach. Will continue to monitor.
[2023-02-03 08:00] VITALS: BP 141/87
[2023-02-03] MEDS: PROSOURCE / PROSTAT (PYXIS) 30 ML UDC GT SCH ×2 (08:26→16:20)
[2023-02-03] MEDS: PANTOPRAZOLE 40 MG VIAL IV SCH (08:29)
[2023-02-03] MEDS: VANCOMYCIN 1 GM in IV D5W 250 ML IV SCH ×2 (09:07→21:50)
[2023-02-03] MEDS: ENOXAPARIN SODIUM 40 MG/0.4 ML DISP.SYRIN SQ SCH (09:11)
[2023-02-03 12:00] VITALS: BP 128/75
[2023-02-03 16:00] VITALS: BP 127/73
--- NOTE | 2023-02-03 18:36 | NUR ---
LOAN INTERVIEWER CLOSING NOTES All due meds and tx given as ordered. Pt tolerated everything well. All needs attended to. Pt is still on ventilator on prescribed settings and tolerating it well. IV access on BEATRIZ midline patent and intact. Call light within reach. Will endorse to oncoming nurse.
--- NOTE | 2023-02-03 19:15 | NUR ---
RN OPENING NOTES RECEIVED PATIENT IN BED, AWAKE, A/O X 0, NON VERBAL. ON TRACH, WITH VENT SETTING AC- 14, FIO2-40%, TIDAL VOLUME- 450, PEEP- OFF, NO SOB, RESPIRATORY EVEN AND UNLABORED. AFEBRILE. NO S/S OF DISTRESS NOTED. NOTED WITH IV ACCESS ON BEATRIZ MID LINE INTACT AND PATENT, FLUSHED WITH NS, NO S/S OF INFILTRATION NOTED, RUNNING WITH NS 1L @ 75 ML/HR. ON TUBE FEEDING PATENT, INTACT VERIFIED PLACEMENT BY AUSCULTATION, NO RESIDUAL NOTED UPON ASPIRATION, RUNNING JEVITY 1.2 AT 70 ML/HR, TOLERATING WELL, HEAD OF BED KEPT ELEVATED. CLINE CATHETER IN PLACE DRAINING WITH SELAM YELLOW URINE VIA GRAVITY. BILATERAL SOFT WRIST RESTRAINT, ASSESSED AND RELEASED Q2HRS FOR CIRCULATION. SAFETY MEASURES PROVIDED. BED IN LOWEST POSITION,LOCKED. BED ALARM ARMED. SIDE RAILS UP X3.CALL LIGHT WITHIN REACH.
[2023-02-03 20:00] VITALS: BP 133/81
[2023-02-04] VITALS: BP 94/69
[2023-02-04] MEDS: IV NS 0.9% 1,000 ML IV PRN (00:43)
[2023-02-04] MEDS: JEVITY 1.2 CAL 1,000 ML BOTTLE GT PRN ×2 (00:49→17:41)
[2023-02-04 04:00] VITALS: BP 133/87
[2023-02-04] MEDS: CEFEPIME 1 GM in IV D5W 50 ML IV SCH ×3 (05:26→21:24)
--- NOTE | 2023-02-04 07:05 | NUR ---
LEAN PROCESS DEPLOYMENT CONSULTANT OPENING NOTES Received pt awake in bed. Non verbal and unable to follow command. No signs of pain or discomfort at this time. Trach is patent, intact, and in midline position running on prescribed ventilator settings and tolerating it well. IV access on BEATRIZ midline patent and intact. GT is patent and intact running Jevity @ 70cc/hr. HOB elevated to 30-45 degrees. Siderails up at all times x4. Call light within reach. Will continue to monitor.
[2023-02-04 07:48] LABS: CALCIUM, SERUM 8.4 mg/dL (8.5-10.1); CREATININE 0.6 mg/dL (0.6-1.3); PHOSPHORUS 2.6 mg/dL (2.5-4.9); POTASSIUM 4.5 mmol/L (3.5-5.1)
[2023-02-04 08:00] VITALS: BP 124/75
[2023-02-04 08:05] LABS: BASOPHILS % (AUTO) 0.2 % (0.0-2.0); EOSINOPHILS % (AUTO) 22.1 % (0.0-6.0); HEMATOCRIT 25 % (39-51); HEMOGLOBIN 7.8 g/dL (13.5-17.5); LYMPHOCYTES % (AUTO) 6.9 % (20.0-44.0); MEAN CORPUSCULAR HGB CONC 32 g/dl (31.0-36.0); MEAN CORPUSCULAR VOLUME 89 fL (80-96); MONOCYTES # (AUTO) 0.9 K/uL (0.1-1.30); MONOCYTES % (AUTO) 5.9 % (2.0-12.0); NEUTROPHILS # (AUTO) 9.4 K/uL (1.8-8.9); NEUTROPHILS % (AUTO) 64.9 % (43.0-81.0); PLATELET COUNT (AUTO) 440 K/uL (150-450); RED BLOOD CELL COUNT(AUTO) 2.74 MIL/uL (4.5-6.0); WHITE BLOOD COUNT (AUTO) 14.6 K/uL (4.3-11.0)
--- NOTE | 2023-02-04 08:42 | NUR ---
STEPHANIE NOTES Informed Dr. Moore that pt HGB is at 7.8 and he has routine Lovenox. She said to hold this mornings dose.
[2023-02-04] MEDS: ENOXAPARIN SODIUM 40 MG/0.4 ML DISP.SYRIN SQ SCH (08:46)
[2023-02-04] MEDS: VANCOMYCIN 1 GM in IV D5W 250 ML IV SCH (09:18)
[2023-02-04] MEDS: PANTOPRAZOLE 40 MG/PACK PACK NG SCH (09:19)
--- NOTE | 2023-02-04 09:19 | NUR ---
WOUND CARE CONSULT: PT PRESENTS WITH CACHEXIA, GENERALIZED SKIN CONDITION (PT SCRATCHING HIS SKIN AT TIMES), SACRAL AND LEFT HIP STAGE 4 PRESSURE ULCERS, PRESENT ON ADMISSION. PT NOTED TO BE KICKING HIS LEGS ALMOST CONSTANTLY. DR CASTILLO CALLED FOR SURGICAL CONSULT. DISCUSSED SKIN PROTECTION WITH NURSING STAFF. DEFER TO PMD FOR GENERALIZED SKIN CONDITION AND SCRATCHING. IN AGREEMENT WITH PLAN OF CARE. Addendum: 02/04/23 at 0916 by ELISE MARTINEZ WNDNU RT HIP SCARRING NOTED.
[2023-02-04] MEDS: PROSOURCE / PROSTAT (PYXIS) 30 ML UDC GT SCH ×2 (09:22→17:36)
[2023-02-04] MEDS ORDERED: THERAHONEY GEL 1.5 OZ TUBE TP SCH ×3 (09:30→16:30)
--- NOTE | 2023-02-04 11:30 | NUR ---
MOGUL OPERATOR NOTES Confirmed with pharmacy that Elimite cream was given to pt on 02/02 during shiftman.
[2023-02-04 12:00] VITALS: BP 142/92
[2023-02-04] MEDS: IV 1/2NS 1000 ML 1,000 ML IV PRN (13:19)
[2023-02-04] MEDS ORDERED: BISACODYL SUPP (10 MG) 10 MG/SUPP.RECT SUPP.RECT RC PRN (15:00)
[2023-02-04] MEDS ORDERED: ACETAMINOPHEN 325 MG TABLET MC PRN (15:00)
[2023-02-04] MEDS ORDERED: NA PHOS,M-B/NA PHOS,DI-BA 1 EA ENEMA RC PRN (15:00)
[2023-02-04] MEDS ORDERED: hydrALAZINE HCL 10 MG TABLET GT PRN (15:00)
[2023-02-04] MEDS ORDERED: ONDANSETRON 4 MG TAB.RAPDIS GT PRN (15:00)
[2023-02-04] MEDS ORDERED: clonazePAM 0.5 MG TABLET GT PRN (15:00)
[2023-02-04] MEDS ORDERED: MAGNESIUM HYDROXIDE 30 ML UDC GT PRN (15:00)
[2023-02-04] MEDS ORDERED: ACETAMINOPHEN ES 500 MG TABLET GT PRN (15:00)
[2023-02-04] MEDS ORDERED: ACETYLCYSTEINE 10% 3,000 MG/30 ML VIAL NG SCH (15:30)
[2023-02-04 16:00] VITALS: BP 140/83
[2023-02-04] MEDS ORDERED: ALBUTEROL FS 2.5 MG/0.5 ML VIAL.NEB NEB PRN (17:00)
[2023-02-04] MEDS ORDERED: IPRATROPIUM NEB FS 0.5 MG/2.5 ML AMPUL.NEB NEB PRN (17:00)
[2023-02-04] MEDS: CHLORHEXIDINE GLUCONATE 15 ML UDC MM SCH (17:36)
[2023-02-04] MEDS: ARGININE/GLUTAMINE/CALCIUM BMB 1 EACH POWD.PACK GT SCH (17:36)
[2023-02-04] MEDS: VANCOMYCIN HCL 125 MG/2.5 ML ORAL.SUSP GT SCH (17:54)
[2023-02-04] MEDS: IPRATROPIUM NEB FS 0.5 MG/2.5 ML AMPUL.NEB NEB SCH (19:52)
[2023-02-04] MEDS: ALBUTEROL FS 2.5 MG/0.5 ML VIAL.NEB NEB SCH (19:52)
[2023-02-04 20:00] VITALS: BP 136/83
--- NOTE | 2023-02-04 20:00 | NUR ---
RN OPENING NOTES; Received pt awake in bed. Non verbal and unable to follow command. No signs of pain or discomfort at this time. Trach is place Vent assess allan well sat 97.6%,no sign sob/distress noted,IV access on BEATRIZ midline patent and intact. GT is patent and intact running Jevity @ 70cc/hr.no residual noted, HOB elevated to 30-45 degrees at all time,safety measure in place. Call light within reach. Will continue to monitor.
[2023-02-04] MEDS: QUETIAPINE FUMARATE 25 MG TABLET GT SCH (21:17)
[2023-02-04] MEDS: VALPROIC ACID 250 MG/5 ML UDC GT SCH (21:17)
[2023-02-04] MEDS: TRAZODONE 50 MG TABLET GT SCH (21:17)
[2023-02-04] MEDS: METOPROLOL TARTRATE 25 MG TABLET GT SCH (21:18)
[2023-02-04] MEDS: ACETYLCYSTEINE 10% SOLN 400 MG/4 ML VIAL IH SCH (23:49)
[2023-02-05] VITALS: BP 136/76
[2023-02-05] MEDS ORDERED: VANCOMYCIN 0.75 GM in IV D5W 250 ML IV SCH ×2
[2023-02-05] MEDS: VANCOMYCIN HCL 125 MG/2.5 ML ORAL.SUSP GT SCH ×4 (00:34→17:32)
[2023-02-05] MEDS: THERAHONEY GEL 1.5 OZ TUBE TP SCH ×3 (00:36→09:14)
[2023-02-05] MEDS: IPRATROPIUM NEB FS 0.5 MG/2.5 ML AMPUL.NEB NEB SCH ×4 (02:13→19:20)
[2023-02-05] MEDS: ALBUTEROL FS 2.5 MG/0.5 ML VIAL.NEB NEB SCH ×4 (02:13→19:20)
[2023-02-05 04:00] VITALS: BP 116/82
[2023-02-05] MEDS: CEFEPIME 1 GM in IV D5W 50 ML IV SCH ×3 (05:09→21:57)
--- NOTE | 2023-02-05 06:12 | NUR ---
RN CLOSING NOTES; pt awake in bed. Non verbal and unable to follow command. No signs of pain or discomfort during shift. Trach is place Vent assess allan well sat 97%,no sign sob/distress noted,IV access on BEATRIZ midline patent and intact. GT is patent and intact running Jevity @ 70cc/hr.no residual noted,Due meds given as order,All needs attended, HOB elevated to 30-45 degrees at all time,FC in place draining esteban color urine out put 800ml,safety measure in place. Call light within reach. Will endorse to next shift.
[2023-02-05 07:25] LABS: BASOPHILS % (AUTO) 0.3 % (0.0-2.0); HEMATOCRIT 25 % (39-51); HEMOGLOBIN 8.3 g/dL (13.5-17.5); LYMPHOCYTES # (AUTO) 1.4 K/uL (0.8-4.8); LYMPHOCYTES % (AUTO) 13.1 % (20.0-44.0); MEAN CORPUSCULAR HGB CONC 32 g/dl (31.0-36.0); MEAN CORPUSCULAR VOLUME 89 fL (80-96); MONOCYTES # (AUTO) 0.8 K/uL (0.1-1.30); MONOCYTES % (AUTO) 7.2 % (2.0-12.0); NEUTROPHILS # (AUTO) 4.3 K/uL (1.8-8.9); NEUTROPHILS % (AUTO) 40.7 % (43.0-81.0); PLATELET COUNT (AUTO) 448 K/uL (150-450); RED BLOOD CELL COUNT(AUTO) 2.87 MIL/uL (4.5-6.0); WHITE BLOOD COUNT (AUTO) 10.7 K/uL (4.3-11.0)
[2023-02-05 07:27] LABS: EOSINOPHILS % (AUTO) 38.7 % (0.0-6.0)
[2023-02-05 07:50] LABS: CALCIUM, SERUM 8.5 mg/dL (8.5-10.1); CREATININE 0.5 mg/dL (0.6-1.3); MAGNESIUM 1.9 mg/dL (1.8-2.4); PHOSPHORUS 2.9 mg/dL (2.5-4.9); POTASSIUM 4.2 mmol/L (3.5-5.1)
[2023-02-05] MEDS ORDERED: LIDOCAINE 1%-EPI 1:100,000 20 ML VIAL TP ONE (08:00)
[2023-02-05] MEDS ORDERED: SILVER NITRATE APPLICATOR 1 EA BOX TP SCH (08:00)
[2023-02-05] MEDS: METOPROLOL TARTRATE 25 MG TABLET GT SCH ×2 (09:00→21:58)
[2023-02-05] MEDS ORDERED: Medication Not On Formulary EA (Cran/Vitc/Mannose/Inulin/Brom (Uti-Stat Liquid) 3,875 MG GT SCH (09:00)
[2023-02-05] MEDS ORDERED: PROSOURCE / PROSTAT (PYXIS) 30 ML UDC GT SCH (09:00)
[2023-02-05] MEDS: LOSARTAN POTASSIUM 50 MG TABLET GT SCH (09:00)
[2023-02-05] MEDS: PANTOPRAZOLE 40 MG/PACK PACK GT SCH (09:09)
[2023-02-05] MEDS: CHLORHEXIDINE GLUCONATE 15 ML UDC MM SCH ×2 (09:09→16:14)
[2023-02-05] MEDS: VALPROIC ACID 250 MG/5 ML UDC GT SCH ×2 (09:09→21:56)
[2023-02-05] MEDS: DOCUSATE SODIUM 100 MG CAPSULE PO SCH (09:10)
[2023-02-05] MEDS: QUETIAPINE FUMARATE 25 MG TABLET GT SCH ×2 (09:10→21:57)
[2023-02-05] MEDS: PROSOURCE / PROSTAT (PYXIS) 30 ML UDC GT SCH ×2 (09:11→16:14)
[2023-02-05] MEDS: LORATADINE 10 MG TABLET GT SCH (09:11)
[2023-02-05] MEDS: ARGININE/GLUTAMINE/CALCIUM BMB 1 EACH POWD.PACK GT SCH ×2 (09:11→16:14)
[2023-02-05] MEDS: ASCORBIC ACID 500 MG TABLET GT SCH (09:11)
[2023-02-05] MEDS: ACETYLCYSTEINE 10% SOLN 400 MG/4 ML VIAL IH SCH ×2 (09:12→16:45)
[2023-02-05] MEDS: ENOXAPARIN SODIUM 40 MG/0.4 ML DISP.SYRIN SQ SCH (09:13)
[2023-02-05] MEDS: MULTIVIT W/MINERALS 1 TAB TABLET GT SCH (09:14)
[2023-02-05] MEDS: PANTOPRAZOLE 40 MG/PACK PACK NG SCH (09:21)
[2023-02-05] MEDS: JEVITY 1.2 CAL 1,000 ML BOTTLE GT PRN (10:04)
[2023-02-05] MEDS: IV 1/2NS 1000 ML 1,000 ML IV PRN (13:14)
[2023-02-05 13:24] VITALS: BP 114/61
[2023-02-05 16:00] VITALS: BP 109/69
[2023-02-05 16:44] LABS: EOSINOPHILS % (MANUAL) 42 % (0-4); LYMPHOCYTES % (MANUAL) 12 % (16-48); MONOCYTES % (MANUAL) 5 % (0-11.0); NEUTROPHILS % (MANUAL) 41 (42-76)
[2023-02-05 20:00] VITALS: BP 122/79
--- NOTE | 2023-02-05 20:00 | NUR ---
RN OPENING NOTE RECEIVED PATIENT IN BED, AWAKE, A/O X 0, NON VERBAL. ON TRACH, WITH VENT SETTING AC- 14, FIO2-40%, TIDAL VOLUME- 450. NO SOB, NO RESPIRATORY DISTRESS NOTED. AFEBRILE. IV ACCESS ON RIGHT UA MIDLINE INTACT AND PATENT, FLUSHED WELL. NO S/S OF INFILTRATION NOTED, RUNNING NS @ 75 ML/HR. ON TUBE FEEDING PATENT, INTACT VERIFIED PLACEMENT BY AUSCULTATION, NO RESIDUAL NOTED UPON ASPIRATION, RUNNING JEVITY 1.2 AT 70 ML/HR, TOLERATING WELL. HEAD OF BED KEPT ELEVATED. CLINE CATHETER IN PLACE DRAINING SELAM URINE VIA GRAVITY. ON BILATERAL SOFT WRIST RESTRAINT FOR SAFETY, ASSESSED AND RELEASED Q2HRS FOR CIRCULATION. SAFETY MEASURES PROVIDED. BED LOCKED, IN LOWEST POSITION. BED ALARM ON. SIDE RAILS UP X3, CALL LIGHT WITHIN REACH. WILL CONTINUE TO MONITOR PT.
[2023-02-05] MEDS: TRAZODONE 50 MG TABLET GT SCH (22:00)
[2023-02-06] VITALS (7 sets, daily range): BP systolic 91–126; BP diastolic 56–76
[2023-02-06] MEDS: ACETYLCYSTEINE 10% SOLN 400 MG/4 ML VIAL IH SCH ×4 (00:05→23:30)
[2023-02-06] MEDS: VANCOMYCIN HCL 125 MG/2.5 ML ORAL.SUSP GT SCH ×4 (00:20→19:04)
--- NOTE | 2023-02-06 00:27 | NUR ---
CORRUGATED SHEET MATERIAL SHEETER NOTE LEFT PT IN STABLE CONDITION. ENDORSE PT TO NURSE MIMI FOR THOR.
[2023-02-06] MEDS: IPRATROPIUM NEB FS 0.5 MG/2.5 ML AMPUL.NEB NEB SCH ×4 (02:08→20:02)
[2023-02-06] MEDS: ALBUTEROL FS 2.5 MG/0.5 ML VIAL.NEB NEB SCH ×4 (02:08→20:02)
[2023-02-06] MEDS: CEFEPIME 1 GM in IV D5W 50 ML IV SCH (05:07)
[2023-02-06 07:57] LABS: CALCIUM, SERUM 8.3 mg/dL (8.5-10.1); CREATININE 0.7 mg/dL (0.6-1.3); MAGNESIUM 1.8 mg/dL (1.8-2.4); POTASSIUM 3.8 mmol/L (3.5-5.1)
[2023-02-06 08:23] LABS: BASOPHILS # (AUTO) 0.1 K/uL (0.0-0.2); BASOPHILS % (AUTO) 0.4 % (0.0-2.0); HEMATOCRIT 23 % (39-51); HEMOGLOBIN 7.2 g/dL (13.5-17.5); LYMPHOCYTES # (AUTO) 1.4 K/uL (0.8-4.8); LYMPHOCYTES % (AUTO) 8.7 % (20.0-44.0); MEAN CORPUSCULAR HGB CONC 31 g/dl (31.0-36.0); MEAN CORPUSCULAR VOLUME 91 fL (80-96); MONOCYTES % (AUTO) 6.2 % (2.0-12.0); NEUTROPHILS # (AUTO) 9.3 K/uL (1.8-8.9); NEUTROPHILS % (AUTO) 59.6 % (43.0-81.0); PLATELET COUNT (AUTO) 420 K/uL (150-450); RED BLOOD CELL COUNT(AUTO) 2.53 MIL/uL (4.5-6.0); WHITE BLOOD COUNT (AUTO) 15.6 K/uL (4.3-11.0)
[2023-02-06 08:29] LABS: EOSINOPHILS % (AUTO) 25.1 % (0.0-6.0)
[2023-02-06] MEDS: LOSARTAN POTASSIUM 50 MG TABLET GT SCH (09:00)
[2023-02-06] MEDS: METOPROLOL TARTRATE 25 MG TABLET GT SCH ×2 (09:00→20:17)
[2023-02-06] MEDS: ARGININE/GLUTAMINE/CALCIUM BMB 1 EACH POWD.PACK GT SCH ×2 (09:42→16:23)
[2023-02-06] MEDS: CHLORHEXIDINE GLUCONATE 15 ML UDC MM SCH ×2 (09:42→16:23)
[2023-02-06] MEDS: ASCORBIC ACID 500 MG TABLET GT SCH (09:43)
[2023-02-06] MEDS: DOCUSATE SODIUM 100 MG CAPSULE PO SCH (09:43)
[2023-02-06] MEDS: VALPROIC ACID 250 MG/5 ML UDC GT SCH ×2 (09:43→20:04)
[2023-02-06] MEDS: LORATADINE 10 MG TABLET GT SCH (09:43)
[2023-02-06] MEDS: QUETIAPINE FUMARATE 25 MG TABLET GT SCH ×2 (09:43→20:04)
[2023-02-06] MEDS: MULTIVIT W/MINERALS 1 TAB TABLET GT SCH (09:43)
[2023-02-06] MEDS: PROSOURCE / PROSTAT (PYXIS) 30 ML UDC GT SCH ×2 (09:46→16:23)
[2023-02-06] MEDS: ENOXAPARIN SODIUM 40 MG/0.4 ML DISP.SYRIN SQ SCH (09:50)
[2023-02-06] MEDS: PANTOPRAZOLE 40 MG/PACK PACK GT SCH (09:53)
[2023-02-06] MEDS: THERAHONEY GEL 1.5 OZ TUBE TP SCH (09:55)
--- NOTE | 2023-02-06 10:00 | NUR ---
RT NOTE: NOTIFIED FIRE FIGHTER AIRPORT ABOUT 1000 MG MUCOMYST TREAMENT ORDER. CRN(CRISTO) STATES SHE WILL FOLLOW UP WITH DR. RALPH.
[2023-02-06] MEDS: IV 1/2NS 1000 ML 1,000 ML IV PRN (11:59)
[2023-02-06] MEDS: CEFEPIME 2 GM in IV D5W 100 ML IV SCH ×2 (12:11→20:05)
[2023-02-06] MEDS: LINEZOLID 600 MG TABLET PO SCH ×2 (15:53→20:05)
--- NOTE | 2023-02-06 19:20 | NUR ---
WOOD GLUER CLOSING NOTES; pt awake in bed. Non verbal and unable to follow command. No signs of pain or discomfort during shift. Trach is place Vent assess tolerated well sat 97%, no sign sob/distress noted,IV access on BEATRIZ midline patent and intact. Pt is getting 0.45% NS at 75 ml/hr. GT is patent and intact running Jevity @ 70cc/hr. no residual noted, Due meds given as order,All needs attended, HOB elevated to 30-45 degrees at all time, FC in place draining yellow color urine; safety measure in place. Call light within reach. Endorsed to next shift for THOR
--- NOTE | 2023-02-06 20:00 | NUR ---
DETECTIVE PRIVATE EYE OPENING NOTE RECEIVED PATIENT IN BED, AWAKE, A/O X 0, NON VERBAL. ON TRACH, VENT SETTING AC- 14, FIO2-40%, TIDAL VOLUME- 450. NO SOB, NO RESPIRATORY DISTRESS NOTED. AFEBRILE. IV ACCESS ON RIGHT UA MIDLINE INTACT AND PATENT, FLUSHED WELL. NO S/S OF INFILTRATION NOTED, RUNNING 1/2NS @ 75 ML/HR. ON TUBE FEEDING PATENT, INTACT VERIFIED PLACEMENT , NO RESIDUAL NOTED UPON ASPIRATION, RUNNING JEVITY 1.2 AT 70 ML/HR, TOLERATING WELL. HEAD OF BED KEPT ELEVATED. CLINE CATHETER IN PLACE DRAINING SELAM URINE VIA GRAVITY. ON BILATERAL SOFT WRIST RESTRAINT FOR SAFETY, ASSESSED AND RELEASED Q2HRS FOR CIRCULATION. SAFETY MEASURES PROVIDED. BED LOCKED, IN LOWEST POSITION. BED ALARM ON. SIDE RAILS UP X3, CALL LIGHT WITHIN REACH. WILL CONTINUE TO MONITOR PT.
[2023-02-06] MEDS: TRAZODONE 50 MG TABLET GT SCH (21:13)
[2023-02-06 22:15] LABS: BASOPHILS % (MANUAL) 1 % (0.0-2.0); EOSINOPHILS % (MANUAL) 21 % (0-4); LYMPHOCYTES % (MANUAL) 11 % (16-48); MONOCYTES % (MANUAL) 3 % (0-11.0); NEUTROPHILS % (MANUAL) 64 (42-76)
[2023-02-07] VITALS: BP 127/79
--- NOTE | 2023-02-07 00:05 | NUR ---
RT mucomyst not given for order is 1000 mg. notified isabella bates rn. said will follow up with day shift about order
[2023-02-07] MEDS: VANCOMYCIN HCL 125 MG/2.5 ML ORAL.SUSP GT SCH ×3 (00:53→11:25)
[2023-02-07] MEDS: IPRATROPIUM NEB FS 0.5 MG/2.5 ML AMPUL.NEB NEB SCH ×3 (01:47→12:51)
[2023-02-07] MEDS: ALBUTEROL FS 2.5 MG/0.5 ML VIAL.NEB NEB SCH ×3 (01:48→12:51)
[2023-02-07] MEDS: JEVITY 1.2 CAL 1,000 ML BOTTLE GT PRN (03:39)
[2023-02-07] MEDS: IV 1/2NS 1000 ML 1,000 ML IV PRN (03:49)
[2023-02-07 04:00] VITALS: BP 111/69
[2023-02-07] MEDS: CEFEPIME 2 GM in IV D5W 100 ML IV SCH ×2 (04:06→12:00)
--- NOTE | 2023-02-07 06:52 | NUR ---
television station manager notes Pts remains in bed non verbal renains on gerald trach as order will endorse to rn day shiift for continuity of care
[2023-02-07 07:06] LABS: BASOPHILS % (AUTO) 0.3 % (0.0-2.0); HEMATOCRIT 24 % (39-51); HEMOGLOBIN 7.8 g/dL (13.5-17.5); LYMPHOCYTES # (AUTO) 1.5 K/uL (0.8-4.8); LYMPHOCYTES % (AUTO) 11.5 % (20.0-44.0); MEAN CORPUSCULAR HGB CONC 32 g/dl (31.0-36.0); MEAN CORPUSCULAR VOLUME 89 fL (80-96); MONOCYTES # (AUTO) 0.9 K/uL (0.1-1.30); MONOCYTES % (AUTO) 7.5 % (2.0-12.0); NEUTROPHILS # (AUTO) 4.8 K/uL (1.8-8.9); NEUTROPHILS % (AUTO) 37.7 % (43.0-81.0); PLATELET COUNT (AUTO) 425 K/uL (150-450); RED BLOOD CELL COUNT(AUTO) 2.73 MIL/uL (4.5-6.0); WHITE BLOOD COUNT (AUTO) 12.6 K/uL (4.3-11.0)
[2023-02-07 07:24] LABS: POTASSIUM 3.9 mmol/L (3.5-5.1)
[2023-02-07 07:25] LABS: CALCIUM, SERUM 8.6 mg/dL (8.5-10.1); CREATININE 0.8 mg/dL (0.6-1.3)
[2023-02-07] MEDS: ACETYLCYSTEINE 10% SOLN 400 MG/4 ML VIAL IH SCH (07:31)
--- NOTE | 2023-02-07 07:34 | NUR ---
EMR ANALYST NOTE PATIENT IN BED. WITH TRACH TO VENT SETTING ORDERED,NONVERBAL WITH CONFUSION, TRYING TO GET OFF BED WITH SOFT RESTRAIN ORDERED FOR SAFETY, WITH G TUBE FEEDING ORDERED, KEEP HOB ELEVATED AT ALL TIME, RT UPPER ARM MID LINE ,ON IVF ORDERED, BED IN LOWEST AND LOCKED POSITION, WILL MONITR
--- NOTE | 2023-02-07 07:44 | NUR ---
ACETYLCYSTINE NOT GIVEN TO THE DOSE OF MED. PHARMACY AND PATIENT RN NOTIFIED. CLARIFICATION WILL BE OBTAINED FROM . Addendum: 02/07/23 at 0749 by CALVIN MONTE RT Amended: Links added.
[2023-02-07 08:00] VITALS: BP 111/69
[2023-02-07] MEDS: VALPROIC ACID 250 MG/5 ML UDC GT SCH (08:56)
[2023-02-07] MEDS: CHLORHEXIDINE GLUCONATE 15 ML UDC MM SCH (08:56)
[2023-02-07] MEDS: PANTOPRAZOLE 40 MG/PACK PACK GT SCH (08:56)
[2023-02-07] MEDS: LORATADINE 10 MG TABLET GT SCH (08:57)
[2023-02-07] MEDS: QUETIAPINE FUMARATE 25 MG TABLET GT SCH (08:57)
[2023-02-07] MEDS: DOCUSATE SODIUM 100 MG CAPSULE PO SCH (08:57)
[2023-02-07] MEDS: LOSARTAN POTASSIUM 50 MG TABLET GT SCH (08:58)
[2023-02-07] MEDS: METOPROLOL TARTRATE 25 MG TABLET GT SCH (08:58)
[2023-02-07] MEDS: ARGININE/GLUTAMINE/CALCIUM BMB 1 EACH POWD.PACK GT SCH (08:59)
[2023-02-07] MEDS: PROSOURCE / PROSTAT (PYXIS) 30 ML UDC GT SCH (08:59)
[2023-02-07] MEDS: THERAHONEY GEL 1.5 OZ TUBE TP SCH (09:00)
[2023-02-07] MEDS: ENOXAPARIN SODIUM 40 MG/0.4 ML DISP.SYRIN SQ SCH (09:01)
[2023-02-07] MEDS: LINEZOLID 600 MG TABLET PO SCH (09:02)
[2023-02-07] MEDS: MULTIVIT W/MINERALS 1 TAB TABLET GT SCH (09:03)
[2023-02-07] MEDS: ASCORBIC ACID 500 MG TABLET GT SCH (09:03)
[2023-02-07 10:20] LABS: EOSINOPHILS % (MANUAL) 47 % (0-4); LYMPHOCYTES % (MANUAL) 8 % (16-48); MONOCYTES % (MANUAL) 6 % (0-11.0); NEUTROPHILS % (MANUAL) 39 (42-76)
--- NOTE | 2023-02-07 10:44 | NUR ---
color television console monitor note r turn reposition keep clean dry
[2023-02-07] MEDS ORDERED: DOCUSATE SODIUM LIQ 100 MG/10 ML UDC GT SCH (11:00)
[2023-02-07 12:00] VITALS: BP 108/44
--- NOTE | 2023-02-07 12:30 | NUR ---
INJECTION MOLDING MACHINE SETTER NOTE UNABLE TO REMOVE SOFT RESTRAIN STILL AT RISK TO REMOVE ALL LINES AND TUBES
[2023-02-07] MEDS ORDERED: Linezolid PO (12:50)
[2023-02-07] MEDS ORDERED: VANC125C11 GT (12:50)
[2023-02-07] MEDS ORDERED: CEFE2PIG2 IV (12:50)
--- NOTE | 2023-02-07 14:32 | NUR ---
telephone messenger note per Jhonatan Benjamin rn telephone supervisor ok to discharge to snf , called to [facility] spoke with bárbara given, no family available
--- NOTE | 2023-02-07 14:45 | NUR ---
RETAIL SERVICES PROFESSIONAL NOTE OK TO H=LEAVE IV MID LINE FOR DISCHARGE PATIENT WILL HAVE CONT ATB AT SNF
[2023-02-07 16:00] VITALS: BP 110/67
--- NOTE | 2023-02-07 16:40 | NUR ---
television maintenance worker note ambulance arrived report given, tele removed, went to snf with stable condition
== END 2023-02-07 16:35 | DRG 710 ==
LOC: ER 01:26 → TELE1 04:50
PROVIDERS: ADMIT Student in an Organized Health Care Education/Training Program; ATTEND Nurse Practitioner Family
PROC: 5A1955Z Respiratory Ventilation, Greater than 96 Consecutive Hours (ICD-10-PCS; principal; 2023-02-02)
PROC: 05H933Z Insertion of Infusion Device into Right Brachial Vein, Percutaneous Approach (ICD-10-PCS; 2023-02-03)
PROC: 05HB33Z Insertion of Infusion Device into Right Basilic Vein, Percutaneous Approach (ICD-10-PCS; 2023-02-03)
PROC: 0KBP0ZZ Excision of Left Hip Muscle, Open Approach (ICD-10-PCS; 2023-02-06)
PROC: 0JB70ZZ Excision of Back Subcutaneous Tissue and Fascia, Open Approach (ICD-10-PCS; 2023-02-06)
DX: A41.9 Sepsis, unspecified organism (principal); J96.20 Acute and chronic respiratory failure, unspecified whether with hypoxia or hypercapnia; G93.41 Metabolic encephalopathy; E43 Unspecified severe protein-calorie malnutrition; L89.153 Pressure ulcer of sacral region, stage 3; J15.6 Pneumonia due to other Gram-negative bacteria; J44.0 Chronic obstructive pulmonary disease with (acute) lower respiratory infection; R64 Cachexia; L89.224 Pressure ulcer of left hip, stage 4; Z68.1 Body mass index [BMI] 19.9 or less, adult; D68.59 Other primary thrombophilia; D50.9 Iron deficiency anemia, unspecified; D63.8 Anemia in other chronic diseases classified elsewhere; D75.839 Thrombocytosis, unspecified; E87.0 Hyperosmolality and hypernatremia; E88.09 Other disorders of plasma-protein metabolism, not elsewhere classified; I10 Essential (primary) hypertension; I69.398 Other sequelae of cerebral infarction; J98.11 Atelectasis; R13.10 Dysphagia, unspecified; Y95 Nosocomial condition; Z20.822 Contact with and (suspected) exposure to COVID-19; Z86.14 Personal history of Methicillin resistant Staphylococcus aureus infection; Z86.19 Personal history of other infectious and parasitic diseases; Z86.74 Personal history of sudden cardiac arrest; Z93.0 Tracheostomy status; Z93.1 Gastrostomy status; Z99.11 Dependence on respirator [ventilator] status; Z74.09 Other reduced mobility; K21.9 Gastro-esophageal reflux disease without esophagitis; N39.0 Urinary tract infection, site not specified; B95.2 Enterococcus as the cause of diseases classified elsewhere; B86 Scabies
CPT/HCPCS: 31720; 36415; 71045-TC; 80048-TC; 80076-TC; 80202-TC; 81001; 83605-TC; 83735-TC; 84100-TC; 84484-TC; 85025-TC; 85730-TC; 87040-TC; 87086-TC; 94003-TC; 94760-TC; 94762-TC; 94799-TC; A4223; A4623; A4629; A6403; C9113; C9803; G0378; J0692; J1650; J2060; J3370; J3490; J7030; J7060

== ENCOUNTER 2023-02-15 07:22 | Inpatient (IN) | payer MEDICAID ==
[~2023-02-15] VITALS: Ht 167.6 cm; Wt 46.7 kg
[~2023-02-15 07:22] MED LIST changes: +ACET100V5 NEB; -ACET1OOV6 NEB; +ASCO-340 GT; +CEFE2PIG2 IV; -LACT-96 GT; +LACT100027 GT; +Linezolid PO; -VANC750F2 IV
--- NOTE | 2023-02-15 07:30 | NUR ---
MANOJ [facility] LOW O2 SAT. ON TRACH, VENT DEPENDENT.
--- NOTE | 2023-02-15 07:53 | NUR ---
BLOOD / URINE / COVID SWAB TAKEN SENT TO LAB
--- NOTE | 2023-02-15 07:54 | NUR ---
ESTABLISHED IV LINE LEFT UPPER ARM 18 G AND RIGHT UPPER ARM 20 G .
[2023-02-15] MEDS ORDERED: CEFEPIME 1 GM in IV D5W 50 ML IV ONE (08:00)
[2023-02-15] MEDS ORDERED: IV NS 0.9% 1,000 ML BAG IV ONE (08:00)
[2023-02-15] MEDS ORDERED: VANCOMYCIN 1 GM in IV D5W 250 ML IV ONE ×2 (08:00→13:30)
--- NOTE | 2023-02-15 08:27 | NUR ---
pt put on soft restrains chidi upper extremities enough not to pull out ET
[2023-02-15 08:29] LABS: BASOPHILS % (AUTO) 0.1 % (0.0-2.0); EOSINOPHILS % (AUTO) 0.1 % (0.0-6.0); HEMATOCRIT 31 % (39-51); HEMOGLOBIN 9.6 g/dL (13.5-17.5); LYMPHOCYTES # (AUTO) 0.8 K/uL (0.8-4.8); LYMPHOCYTES % (AUTO) 3.6 % (20.0-44.0); MEAN CORPUSCULAR HGB CONC 31 g/dl (31.0-36.0); MEAN CORPUSCULAR VOLUME 89 fL (80-96); MONOCYTES % (AUTO) 4.2 % (2.0-12.0); NEUTROPHILS # (AUTO) 21.8 K/uL (1.8-8.9); PLATELET COUNT (AUTO) 422 K/uL (150-450); RED BLOOD CELL COUNT(AUTO) 3.51 MIL/uL (4.5-6.0); WHITE BLOOD COUNT (AUTO) 23.6 K/uL (4.3-11.0)
[2023-02-15 08:34] LABS: BILIRUBIN,URINE NEGATIVE (NEGATIVE); COLOR,URINE YELLOW (YELLOW); LEUKOCYTE ESTERASE ,URINE TRACE (NEGATIVE); NITRITE, URINE NEGATIVE (NEGATIVE); PH,URINE 6.5 (5.0-8.0); PROTEIN,URINE 3+ mg/dl (NEGATIVE); UGLUCOSE NEGATIVE (NEGATIVE); UROBILINOGEN,URINE 0.2 EU/dL (0.2)
[2023-02-15 09:13] LABS: ALANINE AMINOTRANSFERASE 30 U/L (12-78); ALBUMIN 2.1 g/dL (3.4-5.0); ALKALINE PHOSPHATASE 161 U/L (46-116); ASPARTATE AMINOTRANSFERASE 28 U/L (15-37); BILIRUBIN,DIRECT 0.1 mg/dL (0.0-0.2); BILIRUBIN,TOTAL 0.2 mg/dL (0.2-1.0); CALCIUM, SERUM 9.7 mg/dL (8.5-10.1); CARBON DIOXIDE 30 mmol/L (21-32); CHLORIDE 102 mmol/L (98-107); CREATININE 0.9 mg/dL (0.6-1.3); GLUCOSE 150 mg/dL (74-106); POTASSIUM 4.3 mmol/L (3.5-5.1); SODIUM SERUM 139 mmol/L (136-145); TOTAL PROTEIN, SERUM 9.4 g/dL (6.4-8.2); UREA NITROGEN, BLOOD 34 mg/dL (7-18)
[2023-02-15] MEDS ORDERED: IV NS 0.9% 500 ML IV ONE (09:30)
--- NOTE | 2023-02-15 09:30 | NUR ---
MOVE SHEET SUBMITTED.
--- NOTE | 2023-02-15 09:35 | NUR ---
LACTIC ACID 2.9 MD MADE AWARE
--- NOTE | 2023-02-15 09:41 | NUR ---
ORAL SUCTION DONE
[2023-02-15 09:45] LABS: BACTERIA,URINE Rare /HPF (None Seen); SQUAMOUS EPITHELIAL CELL,UR Few /HPF (None Seen); WBC,URINE 0-2 /HPF (0-3)
[2023-02-15] MEDS ORDERED: LORAZEPAM INJ 2 MG/ML VIAL ONE (10:49)
[2023-02-15] MEDS ORDERED: IOHEXOL-300 100 ML VIAL IV ONE (10:59)
[2023-02-15] MEDS ORDERED: IV NS 0.9% 250 ML IV ONE (10:59)
[2023-02-15] MEDS ORDERED: LORAZEPAM INJ 2 MG/ML VIAL IV ONE (11:00)
--- NOTE | 2023-02-15 11:23 | NUR ---
pt back from ct scan via oj
--- NOTE | 2023-02-15 11:24 | NUR ---
earth science laboratory technician at bedside
--- NOTE | 2023-02-15 11:47 | NUR ---
GOING TO 119.1 ADMITTING AWARE.
--- NOTE | 2023-02-15 11:51 | NUR ---
REPORT GIVEN TO NURSE LUIS FOR THOR
--- NOTE | 2023-02-15 11:54 | NUR ---
EPIC PAGED, AWAITING HOSPITALIST CALL BACK.
--- NOTE | 2023-02-15 12:51 | NUR ---
BEDSORE NOTED RT SACRAL AREA STAGE 1, HEALING
--- NOTE | 2023-02-15 12:54 | NUR ---
Bennie banda in [facility] - 02/15/23 at 1255 by JOID CALLED FOR REPORT BUT FLOOR NURSE IS ON BREAK, WAS ASKED TO CALL BACK IN 15MIN.
--- NOTE | 2023-02-15 13:20 | NUR ---
PERSONNEL AND PAYROLL TECHNICIAN NOTES RECEIVED PT FROM ED, PATIENT IS AWAKE, NON VERBAL, ON MECH VENT, SATURATION 100%. SINUS TACHY, HR 111. BEATRIZ GAUGE 20 IV PATENT, SALINE LOCKED; SENDY GAUGE 18, PATENT AND INTACT, SALINE LOCKED. WOUNDS ON LEFT BUTTOCKS, SACRAL AREA, SCAR ON THE COCCYX AREA, KNEE ABRASION, GENERALIZED SKIN DRYNESS. WOUNDS CLEANED WITH NS, DRIED, COVERED WITH OPTIFOAM. WOUND CONSULT ORDERED. PICTURES TAKEN, PLACED IN THE CHART. BED IN LOW POSITION, CALL LIGHT IN LOW POSITION, SAFETY MEASURES IMPLEMENTED.
[2023-02-15] MEDS ORDERED: IV NS 0.9% 1,000 ML BAG IV SCH (13:30)
[2023-02-15] MEDS ORDERED: Medication Not On Formulary EA (Ipratropium/Albuterol Sulfate (Combivent Respimat 20-100 IH PRN (13:30)
[2023-02-15] MEDS ORDERED: hydrALAZINE HCL 10 MG TABLET GT PRN (13:30)
[2023-02-15] MEDS ORDERED: ONDANSETRON HCL/PF 4 MG/2 ML VIAL IVP PRN (13:30)
[2023-02-15] MEDS ORDERED: clonazePAM 0.5 MG TABLET GT PRN (13:30)
[2023-02-15] MEDS ORDERED: IPRATROPIUM NEB FS 0.5 MG/2.5 ML AMPUL.NEB NEB PRN (14:00)
[2023-02-15] MEDS ORDERED: ALBUTEROL FS 2.5 MG/0.5 ML VIAL.NEB NEB PRN (14:00)
--- NOTE | 2023-02-15 14:00 | NUR ---
ASKED DR. JARVIS FOR GT FEEDING ORDER, PER DR. JARVIS FOLLOW WHAT IS THE PATIENT'S FEEDING AT [facility].
[2023-02-15] MEDS: ALBUTEROL HALF STRENGTH 1.25 MG/3 ML VIAL.NEB NEB SCH ×2 (14:12→19:50)
[2023-02-15] MEDS: IPRATROPIUM NEB FS 0.5 MG/2.5 ML AMPUL.NEB NEB SCH ×2 (14:12→19:50)
[2023-02-15] MEDS: ACETYLCYSTEINE 10% SOLN 400 MG/4 ML VIAL NEB SCH ×3 (14:12→23:05)
[2023-02-15] MEDS ORDERED: IV NS 0.9% 1,000 ML IV PRN (14:30)
--- NOTE | 2023-02-15 14:30 | NUR ---
CALLED LIBAN CHENEY, SPOKE TO RN, PER RN THE PATIENT IS TAKING ISOSOURCE 1.2 @75ML/20 HOURS. INFORMED SUPERINTENDENT PLANT PROTECTION, PER SUPERINTENDENT PLANT PROTECTION WE DON'T CARRY ISOSOURCE AT THE HOSPITAL AND CHANGED IT TO JEVITY 1.2 @70ML/HR X 24 HOURS NOTED AND CARRIED OUT.
[2023-02-15] MEDS: IV NS 0.9% 1,000 ML IV PRN (15:43)
[2023-02-15 16:00] VITALS: BP 122/84
[2023-02-15] MEDS: ZOSYN IVPB 3.375 G in IV D5W 50ml IV SCH ×2 (16:20→22:07)
[2023-02-15] MEDS: CHLORHEXIDINE GLUCONATE 15 ML UDC MM SCH (16:24)
[2023-02-15] MEDS: JEVITY 1.2 CAL 1,000 ML BOTTLE GT PRN ×2 (18:00→18:04)
[2023-02-15] MEDS ORDERED: Medication Not On Formulary EA (Ipratropium/Albuterol Sulfate (Combivent Respimat 20-100 IH SCH (18:00)
[2023-02-15] MEDS ORDERED: PIPERACILLIN /TAZOBACTAM 4.5 G in IV D5W 100 ML IV SCH (18:00)
--- NOTE | 2023-02-15 18:38 | NUR ---
NATASHA CLOSING NOTES PATIENT IS AWAKE, NON VERBAL, ON [facility] VENT, SATURATION 100%. SINUS TACHY, HR 106. BEATRIZ GAUGE 20 IV PATENT AND INTACT, NS AT 80 ML/HR, SENDY GAUGE 18, PATENT AND INTACT, SALINE LOCKED. BED IN LOW POSITION, CALL LIGHT IN LOW POSITION, SAFETY MEASURES IMPLEMENTED. Addendum: 02/15/23 at 1851 by ISIDRA RODGERS RN BILATERAL WRIST RESTRAINS PLACED, CIRCULATION CHECKED Q2H.
--- NOTE | 2023-02-15 19:20 | NUR ---
RN NOTE Received pt in bed, asleep at this time, no s/sx of apparent discomfort/pain, easily arouseable by tactile stimuli. Pt on trach, mech vent, current settings well tolerated, no acute respiratory distress. O2 sat- 100%. Pt attached to external monitor tech, current reading ST HR110. PIV access on BEATRIZ #20G infusing NS at 80ml/hr, well tolerated. Pt also has PIV access on SENDY #20G, clean, dry, and patent, flushing well, on SL. GT in placed, patent and secured, infusing GTF Jevity 1.2 at 70ml/hr, well allan. No N/V, 0 residual. HOB elevated. Gregg catheter in placed, patent, and secured, draining esteban urine. Bilateral soft wrist restraints in placed, skin check done. Safety precautions implemented. Will continue POC.
--- NOTE | 2023-02-15 19:50 | NUR ---
RCVD PT TRACHED [place] 7 ON [facility] VENT SETTINGS OF AC 14,VT 450, FIO3 40%, PEEP 5. BREATHING TX GIVEN PER MD'S ORDER, NO ADVERSE REACTION NOTED. SUCTIONED MODERATE AMOUNT OF YELLOW THICK SECRETIONS. VENT PLUGGED INTO RED OUTLET, VENT ALARMS ON AND AUDIBLE. WILL CONTINUE TO MONITOR T/O SHIFT.
[2023-02-15 20:00] VITALS: BP 130/86
[2023-02-15] MEDS: VANCOMYCIN 0.75 GM in IV D5W 250 ML IV SCH (21:15)
[2023-02-15] MEDS: VALPROIC ACID 250 MG/5 ML UDC GT SCH (21:26)
[2023-02-15] MEDS: QUETIAPINE FUMARATE 25 MG TABLET GT SCH (21:26)
[2023-02-15] MEDS: METOPROLOL TARTRATE 25 MG TABLET GT SCH (21:27)
[2023-02-15] MEDS: TRAZODONE 50 MG TABLET GT SCH (22:14)
[2023-02-16] VITALS: BP 134/73
[2023-02-16] MEDS: ALBUTEROL HALF STRENGTH 1.25 MG/3 ML VIAL.NEB NEB SCH ×4 (01:17→20:07)
[2023-02-16] MEDS: IPRATROPIUM NEB FS 0.5 MG/2.5 ML AMPUL.NEB NEB SCH ×4 (01:17→20:07)
[2023-02-16 04:00] VITALS: BP 114/54
[2023-02-16] MEDS: ZOSYN IVPB 3.375 G in IV D5W 50ml IV SCH ×4 (04:01→21:03)
[2023-02-16] MEDS: IV NS 0.9% 1,000 ML IV PRN ×2 (07:01→23:24)
--- NOTE | 2023-02-16 07:10 | NUR ---
RN NOTE RECEIVED PATIENT IN BED RESTING OPEN EYES,OBTUNDED RESPONSIBLE ON PAIN STIMULI ON MECHANICAL VENT SETTING PRESCRIBED,CLINE CATH IN PLACE,ON G-TUBE FEEDING,JEVITY 1.2 70CC/HR CHECKED THE PLACEMENT IN PLACE NO RESIDUAL NOTED,BILATERAL WRISTS RESTRAINS IN PLACE,FOR SAFETY WILL CHECK EVERY 15 MINS FOR SKIN BREAKDOWN,AND CIRCULATION,IV ACCESS ON SENDY AND BEATRIZ INTACT PATIENT ON NS 80CC/HR SAFETY MEASURE IMPLEMENT HEAD OF THE BED ELEVATED,BED IN LOW POSITION AND LOCKED,CONTINUE TO MONITOR.
--- NOTE | 2023-02-16 07:18 | NUR ---
RN NOTE Pt remains in stable condition. No significant changes noted. hand off-report given to morning shift nurse.
[2023-02-16] MEDS: ACETYLCYSTEINE 10% SOLN 400 MG/4 ML VIAL NEB SCH ×2 (07:31→15:12)
[2023-02-16] MEDS: VANCOMYCIN 0.75 GM in IV D5W 250 ML IV SCH ×2 (07:43→20:17)
[2023-02-16 07:55] LABS: ALBUMIN 1.6 g/dL (3.4-5.0); BILIRUBIN,TOTAL 0.2 mg/dL (0.2-1.0); CALCIUM, SERUM 8.7 mg/dL (8.5-10.1); CREATININE 0.8 mg/dL (0.6-1.3); POTASSIUM 3.9 mmol/L (3.5-5.1); TOTAL PROTEIN, SERUM 7.5 g/dL (6.4-8.2)
[2023-02-16 08:00] VITALS: BP 128/72
[2023-02-16] MEDS: DOCUSATE SODIUM 100 MG CAPSULE PO SCH (08:41)
[2023-02-16] MEDS: VALPROIC ACID 250 MG/5 ML UDC GT SCH ×2 (08:42→21:02)
[2023-02-16] MEDS: QUETIAPINE FUMARATE 25 MG TABLET GT SCH ×2 (08:42→21:03)
[2023-02-16] MEDS: METOPROLOL TARTRATE 25 MG TABLET GT SCH ×2 (08:42→21:02)
[2023-02-16] MEDS: LORATADINE 10 MG TABLET GT SCH (08:42)
[2023-02-16] MEDS: CHLORHEXIDINE GLUCONATE 15 ML UDC MM SCH ×2 (08:42→16:17)
[2023-02-16] MEDS: CADEXOMER IODINE 40 GM TUBE TP SCH (08:45)
[2023-02-16] MEDS: PANTOPRAZOLE 40 MG/PACK PACK GT SCH (08:45)
[2023-02-16] MEDS: LOSARTAN POTASSIUM 50 MG TABLET GT SCH (08:46)
[2023-02-16] MEDS ORDERED: PANTOPRAZOLE 40 MG VIAL IV SCH (09:00)
[2023-02-16 12:00] VITALS: BP 114/65
[2023-02-16] MEDS: JEVITY 1.2 CAL 1,000 ML BOTTLE GT PRN (12:42)
[2023-02-16] MEDS: ENOXAPARIN SODIUM 40 MG/0.4 ML DISP.SYRIN SQ SCH (15:04)
[2023-02-16 16:00] VITALS: BP 121/57
--- NOTE | 2023-02-16 18:22 | NUR ---
RN NOTE PATIENT REMAINS OPEN EYES ON MECHANICAL VENT SETTING PRESCRIBED,NO SOB NOT ACUTE DISTRESS NOTED,ALL DUE MEDS GIVEN MD ORDERED KEPT CLEAN AND DRY ALL THE TIME,TURNED AND REPOSITION EVERY 2 HOURS,KEPT HEAD OF THE BED ELEVATED WILL ENDORSE NEXT COMING SHIFT FOR CONTINUATION OF CARE
--- NOTE | 2023-02-16 19:20 | NUR ---
RN opening notes Received Pt from morning nurse. Pt is laying in bed comfortably. Pt is alert and orientedX1. Pt is on mec. vent with O2 sat is 100%. No SOB. No S/S of distress noted. IV site at SENDY is clean, intact and SL. IV site at BEATRIZ # 20 is clean, intact and infusing well NS @ NS@ 80 ml/hr. Tele monitor showed SR hr at 87. terrell cath is inplaced and draining yellow urine. safety precautions is maintained. bed at low position, brakes locked, siderails upX3, hob elevated, bed alarm is on and call light is within reach. Will continue to monitor. Addendum: 02/16/23 at 2051 by CECILIA OLSON RN Pt is alert and orientedX0, open eyes and non verbal.
[2023-02-16 20:00] VITALS: BP 120/74
[2023-02-16] MEDS: TRAZODONE 50 MG TABLET GT SCH (21:02)
[2023-02-17] VITALS: BP 121/76
[2023-02-17] MEDS: ACETYLCYSTEINE 10% SOLN 400 MG/4 ML VIAL NEB SCH ×3 (00:12→23:59)
[2023-02-17] MEDS: IPRATROPIUM NEB FS 0.5 MG/2.5 ML AMPUL.NEB NEB SCH ×4 (02:19→19:49)
[2023-02-17] MEDS: ALBUTEROL HALF STRENGTH 1.25 MG/3 ML VIAL.NEB NEB SCH ×4 (02:19→19:49)
[2023-02-17] MEDS: ZOSYN IVPB 3.375 G in IV D5W 50ml IV SCH ×4 (02:30→22:29)
[2023-02-17] MEDS: JEVITY 1.2 CAL 1,000 ML BOTTLE GT PRN (03:48)
[2023-02-17 04:00] VITALS: BP 112/86
--- NOTE | 2023-02-17 06:50 | NUR ---
RN closing notes Pt is resting in bed comfortably. Pt is non verbal. Pt is on mec. vent with O2 sat is 100%. No SOB. No S/S of distress noted. IV site at SENDY is clean, intact and SL. IV site at BEATRIZ # 20 is clean, intact and infusing well NS @ NS@ 80 ml/hr. Tele monitor showed S tachy hr at 101. terrell cath is inplaced and draining yellow urine. Gtube is running jevity 1.2 @ 70 ml/hr. wound care provided as ordered. Kept Pt clean, dry and comfortbale. safety precautions is maintained. bed at low position, brakes locked, siderails upX3, hob elevated, bed alarm is on and call light is within reach. Will endorse to am nurse for THOR.
[2023-02-17 07:12] LABS: CALCIUM, SERUM 8.6 mg/dL (8.5-10.1); CREATININE 0.7 mg/dL (0.6-1.3); POTASSIUM 3.8 mmol/L (3.5-5.1)
--- NOTE | 2023-02-17 07:55 | NUR ---
teleradiologist note patient in bed , awake with confusion , with trach to vent setting as ordered on tele monitor st hr 115 at this time, with g tube feeding as ordered keep hob elevated at all time, feng hl intact and flushed well , rt ua mid line in place on ivf as ordered ,bed in lowest and locked position , trach care done, Trach suction done, bed in lowest and locked position , with soft restrain as ordered for safety , will cant to monitor closely call light within reach Addendum: 02/17/23 at 1547 by MATT HENDRIX RN correction hl on rt upper arm and lt upper arm intact and flushed well
[2023-02-17 08:00] VITALS: BP 150/73
[2023-02-17 08:01] LABS: BASOPHILS # (AUTO) 0.1 K/uL (0.0-0.2); HEMATOCRIT 26 % (39-51); HEMOGLOBIN 7.9 g/dL (13.5-17.5); LYMPHOCYTES # (AUTO) 1.6 K/uL (0.8-4.8); LYMPHOCYTES % (AUTO) 11.3 % (20.0-44.0); MEAN CORPUSCULAR HGB CONC 31 g/dl (31.0-36.0); MEAN CORPUSCULAR VOLUME 91 fL (80-96); MONOCYTES # (AUTO) 0.8 K/uL (0.1-1.30); MONOCYTES % (AUTO) 5.6 % (2.0-12.0); NEUTROPHILS # (AUTO) 6.9 K/uL (1.8-8.9); NEUTROPHILS % (AUTO) 49.8 % (43.0-81.0); PLATELET COUNT (AUTO) 376 K/uL (150-450); RED BLOOD CELL COUNT(AUTO) 2.83 MIL/uL (4.5-6.0); WHITE BLOOD COUNT (AUTO) 13.9 K/uL (4.3-11.0)
[2023-02-17 08:04] LABS: EOSINOPHILS % (AUTO) 32.3 % (0.0-6.0)
[2023-02-17] MEDS: PROSOURCE / PROSTAT (PYXIS) 30 ML UDC GT SCH ×3 (09:00→16:17)
--- NOTE | 2023-02-17 09:00 | NUR ---
telecommunication systems designer note called to pharmacy notified that vanco level 20 stated ok to to give vancomycin
[2023-02-17] MEDS: VALPROIC ACID 250 MG/5 ML UDC GT SCH ×2 (09:22→22:31)
[2023-02-17] MEDS: CHLORHEXIDINE GLUCONATE 15 ML UDC MM SCH ×2 (09:22→16:17)
[2023-02-17] MEDS: QUETIAPINE FUMARATE 25 MG TABLET GT SCH ×2 (09:22→22:31)
[2023-02-17] MEDS: PANTOPRAZOLE 40 MG/PACK PACK GT SCH (09:22)
[2023-02-17] MEDS: LOSARTAN POTASSIUM 50 MG TABLET GT SCH (09:22)
[2023-02-17] MEDS: LORATADINE 10 MG TABLET GT SCH (09:22)
[2023-02-17] MEDS: DOCUSATE SODIUM 100 MG CAPSULE PO SCH (09:23)
[2023-02-17] MEDS: METOPROLOL TARTRATE 25 MG TABLET GT SCH ×2 (09:23→22:35)
[2023-02-17] MEDS: CADEXOMER IODINE 40 GM TUBE TP SCH (09:35)
[2023-02-17] MEDS: VANCOMYCIN 500 MG in IV D5W 100ml IV SCH ×2 (10:06→22:29)
[2023-02-17 12:00] VITALS: BP 127/75
--- NOTE | 2023-02-17 12:09 | NUR ---
telegraph mechanic note called to dietary notified that prostat not alible stated we dont have at this time will f\u
[2023-02-17 12:38] LABS: BASOPHILS % (MANUAL) 0 % (0.0-2.0); EOSINOPHILS % (MANUAL) 35 % (0-4); LYMPHOCYTES % (MANUAL) 13 % (16-48); MONOCYTES % (MANUAL) 7 % (0-11.0); NEUTROPHILS % (MANUAL) 45 (42-76)
--- NOTE | 2023-02-17 14:45 | NUR ---
telemetry tech note very agitated, trying to remove all lines and trying to get out off bed bp 127/75 saturation 95%. Klonopin 0.5 mg via g tube given as ordered will monitor
[2023-02-17] MEDS: ENOXAPARIN SODIUM 40 MG/0.4 ML DISP.SYRIN SQ SCH (15:04)
[2023-02-17] MEDS: IV NS 0.9% 1,000 ML IV PRN (15:22)
[2023-02-17 16:00] VITALS: BP 126/64
--- NOTE | 2023-02-17 17:46 | NUR ---
telegraph mechanic note unable to remove soft restrain at high risk to remove all lines at at risk for falls will monitor closely
--- NOTE | 2023-02-17 18:31 | NUR ---
JOB SETTER HONING NOTE PATIENT IN BED,AWAKE NONVERBAL WITH TRACH TO VENT SETTING ORDERED, ON TELE MONITOR SR -ST HR 95-105 , WITH CLINE CATCH TO GRAVITY , WITH YELLOW COLOR URINE, WITH G TUBE FEEDING ORDERED, KEEP HOB ELEVATED AT ALL TIME, SENDY HL AND RT UPPER ARM HL INTACT AND FLUSHED WELL ,ON IVF ORDERED , BED IN LOWEST AND LOCKED POSITION , CALL LIGHT WITHIN REACH STILL WITH SOFT RESTRAIN BOTH ARMS , UNABLE TO REMOVE DUE TO PATIENT TRYING TO REMOVE ALL LINES, WILL CONT TO MONITOR CLOSELY
--- NOTE | 2023-02-17 19:45 | NUR ---
PROOF COIN COLLECTOR OPENING NOTE RECEIVED PATIENT IN BED, AWAKE NONVERBAL WITH TRACH TO VENT SETTING ORDERED, ON TELE MONITOR SR HR 72, WITH CLINE CATH TO GRAVITY WITH YELLOW COLORED URINE, WITH G TUBE FEEDING ORDERED, KEEP HOB ELEVATED AT ALL TIME, SENDY HL AND RT UPPER ARM HL INTACT AND FLUSHED WELL, ON IVF ORDERED , BED IN LOWEST AND LOCKED POSITION , CALL LIGHT WITHIN REACH STILL, WITH SOFT RESTRAINTS BOTH ARMS, SAFETY MEASURES IN PLACE, WILL CONT TO MONITOR CLOSELY.
[2023-02-17 20:00] VITALS: BP 142/91
[2023-02-17] MEDS: TRAZODONE 50 MG TABLET GT SCH (22:31)
[2023-02-18] VITALS: BP 125/77
[2023-02-18] MEDS: JEVITY 1.2 CAL 1,000 ML BOTTLE GT PRN (01:21)
[2023-02-18] MEDS: IPRATROPIUM NEB FS 0.5 MG/2.5 ML AMPUL.NEB NEB SCH ×3 (02:04→13:52)
[2023-02-18] MEDS: ALBUTEROL HALF STRENGTH 1.25 MG/3 ML VIAL.NEB NEB SCH ×3 (02:04→13:52)
[2023-02-18 04:00] VITALS: BP 130/71
[2023-02-18] MEDS: ZOSYN IVPB 3.375 G in IV D5W 50ml IV SCH ×2 (04:04→08:52)
--- NOTE | 2023-02-18 07:30 | NUR ---
DELIVERY MOTORCYCLE DRIVER OPENING NOTES RECEIVED PATIENT ON BED AWAKE AND NONVERBAL. ON MECHANICAL VENT TOLERATING CURRENT SETTINGS WELL. NO SOB NOTED. ON TELE MONITOR CURRENTLY READING SINUS RHYTHM AT 93BPM. WITH CLINE CATHETER IN PLACED DRAINING CLEAR YELLOW URINE. ON G-TUBE FEEDING WITH JEVITY 1.2 AT 70ML/HR RUNNING WELL. WITH IV ACCESS AT THE RIGHT UPPER ARM G18 SALINE LOCKED, PATENT AND INTACT AND AT THE LEFT UPPER ARM G20 WITH IVF NS AT 80ML/HR INFUSING WELL. SAFETY MEASURES IN PLACED. CALL LIGHT WITHIN REACH. BED ON LOWEST LOCKED POSITION, SIDE RAILS UP X2. WILL CONTINUE TO MONITOR.
--- NOTE | 2023-02-18 07:31 | NUR ---
CAN DRYER CLOSING NOTE PATIENT REMAINS IN BED, AWAKE NONVERBAL WITH TRACH TO VENT SETTING ORDERED, ON TELE MONITOR SR HR 72, WITH CLINE CATH TO GRAVITY WITH YELLOW COLORED URINE, WITH G TUBE FEEDING ORDERED, KEEP HOB ELEVATED AT ALL TIME, SENDY HL AND RT UPPER ARM HL INTACT AND FLUSHED WELL, ON IVF ORDERED , BED IN LOWEST AND LOCKED POSITION , CALL LIGHT WITHIN REACH STILL, WITH SOFT RESTRAINTS BOTH ARMS, SAFETY MEASURES IN PLACE,ALL DUE MEDS GIVEN, KEPT DRY AND CLEAN, WILL ENDORSE TO AM SHIFT NURSE FOR CONTINUITY OF CARE.
[2023-02-18 07:41] LABS: ALBUMIN 1.5 g/dL (3.4-5.0); BILIRUBIN,TOTAL 0.2 mg/dL (0.2-1.0); CALCIUM, SERUM 8.7 mg/dL (8.5-10.1); CREATININE 0.6 mg/dL (0.6-1.3); TOTAL PROTEIN, SERUM 7.3 g/dL (6.4-8.2)
[2023-02-18 08:00] VITALS: BP 137/75
[2023-02-18] MEDS: ACETYLCYSTEINE 10% SOLN 400 MG/4 ML VIAL NEB SCH (08:31)
--- NOTE | 2023-02-18 08:50 | NUR ---
WOUND CARE CONSULT: PT PRESENTS WITH GENERALIZED SKIN CONDITION WITH SKIN DISCOLORATION/FLAKING, SCRATCH OLIVER, RT AND LEFT BUTTOCK STAGE 3 PRESSURE ULCERS, SACRAL SCARRING AND AREAS OF SKIN DISCOLORATION, DRY ABRASIONS,AND SOME HYPERGRANULATION OF G TUBE SITE, ALL PRESENT ON ADMISSION. DR ACSTILLO CALLED FOR SURGICAL CONSULT. DISCUSSED SKIN PROTECTION WITH NURSING STAFF. PT TO BE PLACED ON KAREN ISOFLEX LOW AIRLOSS BED. SON SEARS NOTED. IN AGREEMENT WITH PLAN OF CARE. Addendum: 02/18/23 at 0852 by ELISE MARTINEZ WNDNU Amended: Links added.
[2023-02-18] MEDS ORDERED: Z GUARD REMEDY 4 OZ OINT TP SCH (09:00)
[2023-02-18] MEDS ORDERED: Z GUARD REMEDY 4 OZ OINT TP PRN (09:00)
[2023-02-18] MEDS: PANTOPRAZOLE 40 MG/PACK PACK GT SCH (09:19)
[2023-02-18] MEDS: LOSARTAN POTASSIUM 50 MG TABLET GT SCH (09:19)
[2023-02-18] MEDS: CHLORHEXIDINE GLUCONATE 15 ML UDC MM SCH (09:19)
[2023-02-18] MEDS: LORATADINE 10 MG TABLET GT SCH (09:19)
[2023-02-18] MEDS: METOPROLOL TARTRATE 25 MG TABLET GT SCH (09:20)
[2023-02-18] MEDS: CADEXOMER IODINE 40 GM TUBE TP SCH (09:20)
[2023-02-18] MEDS: VALPROIC ACID 250 MG/5 ML UDC GT SCH (09:20)
[2023-02-18] MEDS: DOCUSATE SODIUM 100 MG CAPSULE PO SCH (09:20)
[2023-02-18] MEDS: QUETIAPINE FUMARATE 25 MG TABLET GT SCH (09:20)
[2023-02-18] MEDS: PROSOURCE / PROSTAT (PYXIS) 30 ML UDC GT SCH ×2 (09:53→11:30)
[2023-02-18] MEDS: VANCOMYCIN 500 MG in IV D5W 100ml IV SCH (09:53)
[2023-02-18] MEDS ORDERED: HYDROGEL DRESSING 90 GM TUBE TP SCH (10:00)
[2023-02-18] MEDS: IV NS 0.9% 1,000 ML IV PRN (11:30)
[2023-02-18 12:00] VITALS: BP 158/98
[2023-02-18] MEDS ORDERED: PERMETHRIN 5% CRM 60 GM TUBE TP ONE (12:00)
--- NOTE | 2023-02-18 14:54 | NUR ---
DOVETAIL MACHINE OPERATOR NOTES PATIENT WAS SEEN BY DR. JARVIS AND ORDERED FOR DISCHARGE. PATIENT TO BE DISCHARGED BACK TO [facility]. PATIENT WITH IV ACCESS ON THE RIGHT UPPER ARM G18 FOR CONTINUATION OF IV ANTIBIOTICS IN THE FACILITY. WITH CLINE CATHETER IN PLACED AND PEG TUBE IN PLACED FOR FORMULA FEEDING. PATIENT ON MECHANICAL VENT PORTEX #7, AC-14, TV-450, AND PEEP- 5 TOLERATING SETTINGS SATURATING AT 100%. DISCHARGE PAPERS AND MEDICATION INSTRUCTIONS PROVIDED AND HANDED TO THE AMBULANCE PERSONNEL. PATIENT LEFT VIA GURNEY ASSISTED BY AMBULANCE PERSONNEL IN STABLE CONDITION. REPORT GIVEN TO MATTHEW PENA FROM THE FACILITY. MD AND CHARGE NURSE ARE AWARE OF THE DISCHARGE.
== END 2023-02-18 14:53 | DRG 720 ==
LOC: ER 07:31 → TELE-TD 11:58 → TELE1 22:18
PROVIDERS: ADMIT Internal Medicine; ATTEND Internal Medicine
PROC: 5A1945Z Respiratory Ventilation, 24-96 Consecutive Hours (ICD-10-PCS; principal; 2023-02-15)
DX: A41.9 Sepsis, unspecified organism (principal); J96.21 Acute and chronic respiratory failure with hypoxia; I46.9 Cardiac arrest, cause unspecified; G93.41 Metabolic encephalopathy; E43 Unspecified severe protein-calorie malnutrition; J15.6 Pneumonia due to other Gram-negative bacteria; L89.153 Pressure ulcer of sacral region, stage 3; R64 Cachexia; J44.0 Chronic obstructive pulmonary disease with (acute) lower respiratory infection; D68.59 Other primary thrombophilia; Z99.11 Dependence on respirator [ventilator] status; Z87.440 Personal history of urinary (tract) infections; I69.398 Other sequelae of cerebral infarction; D64.9 Anemia, unspecified; D75.839 Thrombocytosis, unspecified; I10 Essential (primary) hypertension; J98.11 Atelectasis; L98.429 Non-pressure chronic ulcer of back with unspecified severity; Z68.1 Body mass index [BMI] 19.9 or less, adult; Z93.0 Tracheostomy status; R13.10 Dysphagia, unspecified; Z20.822 Contact with and (suspected) exposure to COVID-19; Z86.19 Personal history of other infectious and parasitic diseases; Z93.1 Gastrostomy status
CPT/HCPCS: 31720; 36415; 71045-TC; 80048-TC; 80053-TC; 80076-TC; 80202-TC; 81001; 83605-TC; 83735-TC; 84484-TC; 85025-TC; 85730-TC; 87040-TC; 87081-TC; 87086-TC; 94002-TC; 94003-TC; 94760-TC; 94762-TC; 94799-TC; A4223; A4623; A6248; A6253; A6403; C9113; C9803; G0378; J0692; J1650; J2060; J2543; J3370; J7030; J7040; J7050; J7060; Q9967

== ENCOUNTER 2023-03-08 00:35 | Inpatient (IN) | payer MEDICAID ==
[~2023-03-08] VITALS: Ht 180.3 cm; Wt 45.4 kg
[~2023-03-08 00:35] MED LIST changes: -ACET100V5 NEB; -CEFE2PIG2 IV; -Linezolid PO; -VANC125C11 GT
--- NOTE | 2023-03-08 00:55 | NUR ---
RT NOTE PT rec'd trached via portex 8 via bag mask ventilation per FD. [facility] settings given from MD. pt shows no signs of resp distress or sob. Pt sx'd for thick small amt of pale yellow secretions. alarms are set and audible. ambu bag at bedside. vent plugged into red outlet. Addendum: 03/08/23 at 0110 by ALL GOMEZ RT Amended: Links added.
--- NOTE | 2023-03-08 01:00 | NUR ---
Pt is noted nonver due to Trach as he brought in from SNF for low 02 Sat. Pt care continuye as awaits MD orders.
[2023-03-08 01:48] LABS: BASOPHILS # (AUTO) 0.1 K/uL (0.0-0.2); BASOPHILS % (AUTO) 0.5 % (0.0-2.0); EOSINOPHILS % (AUTO) 9.1 % (0.0-6.0); HEMATOCRIT 27 % (39-51); HEMOGLOBIN 8.4 g/dL (13.5-17.5); LYMPHOCYTES # (AUTO) 2.6 K/uL (0.8-4.8); LYMPHOCYTES % (AUTO) 12.4 % (20.0-44.0); MEAN CORPUSCULAR HGB CONC 31 g/dl (31.0-36.0); MEAN CORPUSCULAR VOLUME 90 fL (80-96); MONOCYTES % (AUTO) 9.7 % (2.0-12.0); NEUTROPHILS # (AUTO) 14.1 K/uL (1.8-8.9); NEUTROPHILS % (AUTO) 68.3 % (43.0-81.0); PLATELET COUNT (AUTO) 410 K/uL (150-450); WHITE BLOOD COUNT (AUTO) 20.7 K/uL (4.3-11.0)
[2023-03-08 02:08] LABS: CALCIUM, SERUM 9.3 mg/dL (8.5-10.1); CARBON DIOXIDE 38 mmol/L (21-32); CHLORIDE 100 mmol/L (98-107); CREATININE 0.6 mg/dL (0.6-1.3); GLUCOSE 107 mg/dL (74-106); POTASSIUM 4.5 mmol/L (3.5-5.1); SODIUM SERUM 137 mmol/L (136-145); UREA NITROGEN, BLOOD 22 mg/dL (7-18)
[2023-03-08 02:22] LABS: ALANINE AMINOTRANSFERASE 32 U/L (12-78); ALKALINE PHOSPHATASE 128 U/L (46-116); ASPARTATE AMINOTRANSFERASE 24 U/L (15-37); BILIRUBIN,DIRECT 0.1 mg/dL (0.0-0.2); BILIRUBIN,TOTAL 0.2 mg/dL (0.2-1.0); TOTAL PROTEIN, SERUM 8.8 g/dL (6.4-8.2)
--- NOTE | 2023-03-08 03:00 | NUR ---
Pt care continue as he is been monitor closely as he try pulling out [employer].
[2023-03-08 03:14] LABS: BILIRUBIN,URINE NEGATIVE (NEGATIVE); COLOR,URINE YELLOW (YELLOW); LEUKOCYTE ESTERASE ,URINE TRACE (NEGATIVE); NITRITE, URINE NEGATIVE (NEGATIVE); PROTEIN,URINE TRACE mg/dl (NEGATIVE); UGLUCOSE NEGATIVE (NEGATIVE)
[2023-03-08 03:19] LABS: BACTERIA,URINE Rare /HPF (None Seen); SQUAMOUS EPITHELIAL CELL,UR Few /HPF (None Seen)
[2023-03-08] MEDS ORDERED: hydrALAZINE HCL IV 20 MG VIAL IV PRN (04:30)
[2023-03-08] MEDS ORDERED: NA PHOS,M-B/NA PHOS,DI-BA 1 EA ENEMA RC PRN (04:30)
[2023-03-08] MEDS ORDERED: ALBUTEROL FS 2.5 MG/0.5 ML VIAL.NEB NEB PRN ×2 (04:30→08:14)
[2023-03-08] MEDS ORDERED: ACETAMINOPHEN 325 MG TABLET MC PRN (04:30)
[2023-03-08] MEDS ORDERED: CEFTRIAXONE 1GM BAG (ER ONLY) 1 GM/50 ML PIGGYBACK IV ONE (04:30)
[2023-03-08] MEDS ORDERED: hydrALAZINE HCL 10 MG TABLET GT PRN (04:30)
[2023-03-08] MEDS ORDERED: IPRATROPIUM NEB FS 0.5 MG/2.5 ML AMPUL.NEB NEB SCH (04:30)
[2023-03-08] MEDS ORDERED: MAGNESIUM HYDROXIDE 30 ML UDC GT PRN (04:30)
[2023-03-08] MEDS ORDERED: ACETAMINOPHEN ES 500 MG TABLET GT PRN (04:30)
[2023-03-08] MEDS ORDERED: ONDANSETRON HCL/PF 4 MG/2 ML VIAL IVP PRN (04:30)
[2023-03-08] MEDS ORDERED: MORPHINE SULFATE INJ 2 MG/ML DISP.SYRIN IV PRN (04:30)
[2023-03-08] MEDS ORDERED: clonazePAM 0.5 MG TABLET GT PRN (04:30)
[2023-03-08] MEDS ORDERED: COLLAGENASE 30 GM TUBE TP SCH (04:30)
[2023-03-08] MEDS ORDERED: CEFEPIME 2 GM in IV D5W 100 ML IV ONE (05:00)
--- NOTE | 2023-03-08 05:02 | NUR ---
Pt care continue vas report is given to the 1st RN Cirlist as pt is been admitted to Tele , Room 112-1.
[2023-03-08] MEDS ORDERED: CEFTRIAXONE 1GM BAG (ER ONLY) 0 ML IV ONE (05:17)
[2023-03-08 05:25] VITALS: BP 132/65
--- NOTE | 2023-03-08 05:25 | NUR ---
RN ADMITTING NOTE REPORT RECEIVED FROM CRISTINO PENA, RECEIVED PT FROM ER VIA STEPHANIE ACCOMPANIED BY CRISTINO PENA AND EMT, TRANSFERRED TO BED VIA 3 PERSON ASSIST, PT AAO X 0, IN NO ACUTE DISTRESS, SATURATION AT 98% ON TRACH/PORTEX #8 TO MECHANICAL VENT WITH SETTINGS FOLLOWS: AC 18, FIO2 40%, TV 450, PEEP 5, ST ON THE MONITOR, HR IS 118. IV LINE AT BEATRIZ 22G, ROCEPHIN 1G INFUSING. COMPREHENSIVE SKIN ASSESSMENT DONE WITH INGOT STRIPPER FRANKO, GENERALIZED RASHES AND WOUND AT L HIP AND SACRUM NOTED, CLEANSED WITH NS, COVERED WITH FOAM DRESSING PENDING WOUND CONSULT. GTUBE IN PLACE, CLAMPED. NOTED PATIENT CONFUSED AND TRYING TO PULL OUT LINES, MD NOTIFIED AND RECEIVED ORDERS FOR B SOFT WRIST RESTRAINTS, SKIN AND CIRCULATION CHECKED AND ARE WNL. SAFETY MEASURES IN PLACE, BED IS LOCKED AND AT LOWEST POSITION, HOB ELEVATED, WILL CONT TO MONITOR AND CARRY OUT MD ORDERS.
[2023-03-08] MEDS ORDERED: CEFTRIAXONE 1GM BAG (ER ONLY) 50 ML IV ONE (05:27)
--- NOTE | 2023-03-08 05:30 | NUR ---
Pt is noted off the unit to Tele 1st Floor Room 112-1 . Pt care continue.
[2023-03-08] MEDS ORDERED: CEFEPIME 1 GM VIAL ONE (05:32)
--- NOTE | 2023-03-08 07:20 | NUR ---
RN NOTE RECEIVED PATIENT IN BED RESTING NON VERBAL ON MECHANICAL VENT,SETTING PRESCRIBED CONFUSED ALERT ORIENTEDX0,ON G-TUBE, IN PLACE NO RESIDUAL NOTED,NO FEEDING FOR NOW,INCONTINENT BOWEL/BLADDER,IV ACCESS ON RIGHT UPPER ARM INTACT PATENT,SOFT BILATERAL WRIST RESTRAIN IN PLACE WILL CHECK EVERY 15 MINS FOR SKIN BREAKDOWN AND CIRCULATION,SAFETY MEASURE IMPLEMENT BED IN LOW POSITON AND LOCKED,HEAD OF THE BED ELEVATED CONTINUE TO MONITOR.
[2023-03-08 08:00] VITALS: BP 154/69
[2023-03-08] MEDS ORDERED: IPRATROPIUM NEB FS 0.5 MG/2.5 ML AMPUL.NEB NEB PRN (08:13)
[2023-03-08] MEDS: PANTOPRAZOLE 40 MG/PACK PACK GT SCH (08:34)
[2023-03-08] MEDS: DOCUSATE SODIUM LIQ 100 MG/10 ML UDC GT SCH ×2 (08:35→17:11)
[2023-03-08] MEDS: CHLORHEXIDINE GLUCONATE 15 ML UDC MM SCH ×2 (08:35→17:11)
[2023-03-08] MEDS: VALPROIC ACID 250 MG/5 ML UDC GT SCH ×2 (08:35→21:41)
[2023-03-08] MEDS: LOSARTAN POTASSIUM 25 MG TABLET GT SCH (08:36)
[2023-03-08] MEDS: LORATADINE 10 MG TABLET GT SCH (08:36)
[2023-03-08] MEDS: QUETIAPINE FUMARATE 25 MG TABLET GT SCH ×2 (08:36→21:41)
[2023-03-08] MEDS: METOPROLOL TARTRATE 25 MG TABLET GT SCH ×2 (08:36→21:00)
[2023-03-08] MEDS: ENOXAPARIN SODIUM 40 MG/0.4 ML DISP.SYRIN SQ SCH (08:39)
[2023-03-08] MEDS: CADEXOMER IODINE 40 GM TUBE TP SCH (09:18)
--- NOTE | 2023-03-08 10:40 | NUR ---
WOUND CARE CONSULT: PT PRESENTS WITH GENERALIZED SKIN CONDITION (DEFER TO PMD), SCARRING WITH DEEP TISSUE INJURY TO SACRUM, RT AND LEFT BUTTOCK STAGE 3 ULCERS, PRESENT ON ADMISSION. DR CSATILLO CALLED FOR SURGICAL CONSULT. DISCUSSED SKIN PROTECTION WITH NURSING STAFF. IN AGREEMENT WITH PLAN OF CARE. Addendum: 03/08/23 at 1043 by ELISE MARTINEZ WNDNU Amended: Links added.
[2023-03-08] MEDS ORDERED: Z GUARD REMEDY 4 OZ OINT TP PRN (11:00)
[2023-03-08] MEDS ORDERED: LACT-209 GT (11:16)
[2023-03-08] MEDS ORDERED: ENOX40DI SQ (11:16)
[2023-03-08] MEDS ORDERED: PETR113O TP (11:16)
[2023-03-08] MEDS ORDERED: MERO1VIA23 IV (11:16)
[2023-03-08] MEDS ORDERED: VANC750V IV (11:16)
[2023-03-08] MEDS: Z GUARD REMEDY 4 OZ OINT TP SCH (11:33)
[2023-03-08] MEDS: THERAHONEY GEL 1.5 OZ TUBE TP SCH (11:34)
[2023-03-08 12:00] VITALS: BP 90/40
[2023-03-08] MEDS ORDERED: JEVITY 1.2 CAL 1,000 ML BOTTLE GT PRN ×2 (12:00→14:30)
[2023-03-08] MEDS: CEFEPIME 1 GM in IV D5W 50 ML IV SCH ×2 (12:35→21:41)
[2023-03-08] MEDS: JEVITY 1.2 CAL 1,000 ML BOTTLE GT PRN (14:17)
[2023-03-08] MEDS ORDERED: IV NS 0.9% 500 ML IV ONE (14:30)
[2023-03-08] MEDS ORDERED: IV NS 0.9% 250 ML IV ONE (15:00)
--- NOTE | 2023-03-08 15:00 | NUR ---
RN NOTE PATIENT BP DROPPED AT 1420 75/55 NOTIFIED KEKE BELTRAN HE ORDERED BOLUS 500CC NS ONE TIME AND ANOTHER 250CC NOTED AND CARRIED OUT.
[2023-03-08] MEDS: MIDODRINE HCL (5MG) 5 MG TABLET PO SCH ×2 (15:15→17:12)
[2023-03-08 16:00] VITALS: BP 90/62
--- NOTE | 2023-03-08 16:00 | NUR ---
RN NOTE BP 90/62 HR 80 NOTIFIED DNP JONO BLANCO HE ORDERED MIDODRINE 10MG THREE TIMES A DAY AND START ONE NOW NOTED AND CARRIED OUT.
[2023-03-08] MEDS: PROSOURCE / PROSTAT (PYXIS) 30 ML UDC GT SCH (17:11)
--- NOTE | 2023-03-08 17:59 | NUR ---
RN NOTE BP 93/44 HR 77 CONTINUE TO MONITOR.
[2023-03-08] MEDS: BLOOD SUGAR DIAGNOSTIC 1 EACH STRIP IN SCH (18:05)
--- NOTE | 2023-03-08 18:21 | NUR ---
RN NOTE BP 104/62 HR 74 CONTINUE TO MONITOR.
--- NOTE | 2023-03-08 18:52 | NUR ---
RN NOTE PATIENT REMAINS ON MECHANICAL VENT SETTING PRESCRIBED,BP STABLE NOW,ON G-TUBE FEEDING JEVITY 1.2 GOAL IS 70CC/HR FOR 20 HOURS, CHECKED IN PLACE NO RESIDUAL NOTED,TURNED AND REPOSITIONED EVERY 2 HOURS,KEPT CLEAN AND DRY ALL THE TIME,SUCTIONING FREQUENTLY,KEPT HEAD OF THE BED ELEVATED ALL THE TIME,ENDORSE NEXT COMING SHIFT FOR CONTINUATION OF CARE.
--- NOTE | 2023-03-08 19:00 | NUR ---
RN NOTE REPORT RECEIVED FROM LOCO PENA, RECEIVED IN BED, AAO X 0, IN NO ACUTE DISTRESS, SATURATION AT 96% ON TRACH/PORTEX #8 TO MECHANICAL VENT WITH SETTINGS FOLLOWS: AC 18, FIO2 40%, TV 450, PEEP 5, SR ON THE MONITOR, HR IS 88. IV LINE AT BEATRIZ 22G PATENT AND FLUSHING WELL. GTUBE INTACT, NO RESIDAUL, WITH ONGOING TUBE FEEDING OF JEVITY AT 30 ML/HR WITH A GOAL OF 70 ML/HR X 20 HRS. B SOFT WRIST RESTRAINTS IN PLACE, SKIN AND CIRCULATION CHECKED AND ARE WNL. SAFETY MEASURES IMPLEMENTED, BED IS LOCKED AND AT LOWEST POSITION, HOB ELEVATED, WILL CONT TO MONITOR AND REASSESS.
--- NOTE | 2023-03-08 19:58 | NUR ---
RCVD PT TRACHED PORTEX 7 ON VENT SETTINGS OF AC 18,VT 450, FIO2 40% AND PEEP 5. SUCTIONED MODERATE AMOUNT OF YELLOW THICK SECRETIONS. TRACH IS PATENT AND SECURE. HARDBOARD PANEL PRINTER DONE. NO RESPIRATORY DISTRESS NOTED . VENT PLUGGED INTO RED OUTLET, VENT ALARMS ON AND AUDIBLE. AMBU BAG @BEDSIDE. WILL CONTINUE TO MONITOR T/O SHIFT.
[2023-03-08 21:00] VITALS: BP 93/53
[2023-03-08] MEDS: TRAZODONE 50 MG TABLET GT SCH (21:41)
[2023-03-09] VITALS: BP 90/60
[2023-03-09] MEDS: BLOOD SUGAR DIAGNOSTIC 1 EACH STRIP IN SCH ×4 (00:11→17:48)
[2023-03-09 04:00] VITALS: BP 101/61
[2023-03-09] MEDS: CEFEPIME 1 GM in IV D5W 50 ML IV SCH ×3 (05:30→21:17)
[2023-03-09 06:19] LABS: BASOPHILS % (AUTO) 0.4 % (0.0-2.0); EOSINOPHILS % (AUTO) 21.7 % (0.0-6.0); HEMATOCRIT 23 % (39-51); HEMOGLOBIN 7.2 g/dL (13.5-17.5); LYMPHOCYTES # (AUTO) 1.7 K/uL (0.8-4.8); LYMPHOCYTES % (AUTO) 12.6 % (20.0-44.0); MEAN CORPUSCULAR HGB CONC 31 g/dl (31.0-36.0); MEAN CORPUSCULAR VOLUME 88 fL (80-96); MONOCYTES % (AUTO) 7.8 % (2.0-12.0); NEUTROPHILS # (AUTO) 7.5 K/uL (1.8-8.9); NEUTROPHILS % (AUTO) 57.5 % (43.0-81.0); PLATELET COUNT (AUTO) 360 K/uL (150-450); RED BLOOD CELL COUNT(AUTO) 2.62 MIL/uL (4.5-6.0); WHITE BLOOD COUNT (AUTO) 13.1 K/uL (4.3-11.0)
[2023-03-09 06:22] LABS: ALBUMIN 1.6 g/dL (3.4-5.0); BILIRUBIN,TOTAL 0.3 mg/dL (0.2-1.0); CALCIUM, SERUM 8.7 mg/dL (8.5-10.1); CREATININE 0.7 mg/dL (0.6-1.3); PHOSPHORUS 3.2 mg/dL (2.5-4.9); POTASSIUM 3.8 mmol/L (3.5-5.1); TOTAL PROTEIN, SERUM 7.3 g/dL (6.4-8.2)
[2023-03-09 08:00] VITALS: BP 91/50
[2023-03-09] MEDS: VALPROIC ACID 250 MG/5 ML UDC GT SCH ×2 (08:26→21:17)
[2023-03-09] MEDS: CHLORHEXIDINE GLUCONATE 15 ML UDC MM SCH ×2 (08:26→16:18)
[2023-03-09] MEDS: PANTOPRAZOLE 40 MG/PACK PACK GT SCH (08:26)
[2023-03-09] MEDS: DOCUSATE SODIUM LIQ 100 MG/10 ML UDC GT SCH ×2 (08:26→16:18)
[2023-03-09] MEDS: METOPROLOL TARTRATE 25 MG TABLET GT SCH ×2 (08:27→21:18)
[2023-03-09] MEDS: LOSARTAN POTASSIUM 25 MG TABLET GT SCH (08:29)
[2023-03-09] MEDS: MIDODRINE HCL (5MG) 5 MG TABLET PO SCH ×3 (08:29→16:18)
[2023-03-09] MEDS: ENOXAPARIN SODIUM 40 MG/0.4 ML DISP.SYRIN SQ SCH (08:37)
[2023-03-09] MEDS: LORATADINE 10 MG TABLET GT SCH (08:37)
[2023-03-09] MEDS: QUETIAPINE FUMARATE 25 MG TABLET GT SCH ×2 (08:37→21:17)
[2023-03-09] MEDS: CADEXOMER IODINE 40 GM TUBE TP SCH (08:45)
[2023-03-09] MEDS: Z GUARD REMEDY 4 OZ OINT TP SCH (08:46)
[2023-03-09] MEDS: THERAHONEY GEL 1.5 OZ TUBE TP SCH (08:46)
[2023-03-09] MEDS: PROSOURCE / PROSTAT (PYXIS) 30 ML UDC GT SCH ×3 (08:47→16:18)
[2023-03-09 12:00] VITALS: BP 117/59
[2023-03-09 13:16] LABS: EOSINOPHILS % (MANUAL) 14 % (0-4); LYMPHOCYTES % (MANUAL) 17 % (16-48); MONOCYTES % (MANUAL) 7 % (0-11.0); NEUTROPHILS % (MANUAL) 62 (42-76)
[2023-03-09 16:00] VITALS: BP 103/70
[2023-03-09] MEDS: JEVITY 1.2 CAL 1,000 ML BOTTLE GT PRN (18:41)
--- NOTE | 2023-03-09 19:55 | NUR ---
RN CLOSING NOTES PT IS STABLE, VITALS STABLE, ALL DUE MEDICATIONS GIVEN, NO VISUAL SIGNS OF PAIN AT THIS TIME. REPORT GIVEN TO SNEHAL PENA FOR CONTINUATION OF CARE.
[2023-03-09 20:00] VITALS: BP 129/71
--- NOTE | 2023-03-09 20:00 | NUR ---
RN NOTE Received pt in bed, awake, non-verbal, no evidence of pain or discomfort noted at this time. Pt on trach, on vent, current settings well tolerated, no sob, no acute resp distress, o2 sat 100%. Attached to external nurse monitoring reading NSR at this time. Afebrile. PIV access on BEATRIZ #22G, patent, flushes well, CDI, on SL. GT in placed, patent, currently infusing Jevity 1.2 at 75ml/hr, well tolerated, 0 residual, no N/V. HOB elevated. Condom cath in placed, draining clear yellow urine. Bilateral soft wrist restraints on, no skin breakdown, circulation WNL. Safety precaution implemented. Will continue plan of care.
[2023-03-09] MEDS: TRAZODONE 50 MG TABLET GT SCH (21:17)
[2023-03-10] VITALS: BP 137/88
[2023-03-10] MEDS: BLOOD SUGAR DIAGNOSTIC 1 EACH STRIP IN SCH ×5 (00:47→23:57)
[2023-03-10 04:00] VITALS: BP 102/60
[2023-03-10] MEDS: CEFEPIME 1 GM in IV D5W 50 ML IV SCH ×3 (05:05→20:31)
--- NOTE | 2023-03-10 07:02 | NUR ---
RN NOTE Pt remains in stable condition, no significant changes noted. All due medications given as ordered. Kept pt clean, dry and comfortable. HOB elevated at all times. Will endorse to morning shift nurse for continuity of care.
--- NOTE | 2023-03-10 07:10 | NUR ---
BANK CASHIER NOTE Received pt in bed, awake, non-verbal, no evidence of pain or discomfort noted at this time. Pt on trach, on vent, current settings well tolerated, no sob, no acute resp distress, o2 sat 100%. Attached to external boardinghouse keeper reading NSR at this time. Afebrile. IV access on BEATRIZ #22G, patent, flushes well, CDI, on SL. GT in placed, patent, currently infusing Jevity 1.2 at 75ml/hr, well tolerated, 0 residual, no N/V. HOB elevated. Condom cath in placed, draining clear yellow urine. Bilateral soft wrist restraints on, no skin breakdown, circulation WNL. Safety precaution implemented. Will continue to monitor
[2023-03-10 08:00] VITALS: BP 129/102
[2023-03-10] MEDS: MIDODRINE HCL (5MG) 5 MG TABLET PO SCH ×3 (09:00→16:38)
[2023-03-10] MEDS: PANTOPRAZOLE 40 MG/PACK PACK GT SCH (09:18)
[2023-03-10] MEDS: VALPROIC ACID 250 MG/5 ML UDC GT SCH ×2 (09:18→20:30)
[2023-03-10] MEDS: DOCUSATE SODIUM LIQ 100 MG/10 ML UDC GT SCH ×2 (09:18→16:38)
[2023-03-10] MEDS: CHLORHEXIDINE GLUCONATE 15 ML UDC MM SCH ×2 (09:18→16:38)
[2023-03-10] MEDS: LORATADINE 10 MG TABLET GT SCH (09:18)
[2023-03-10] MEDS: QUETIAPINE FUMARATE 25 MG TABLET GT SCH ×2 (09:19→20:30)
[2023-03-10] MEDS: PROSOURCE / PROSTAT (PYXIS) 30 ML UDC GT SCH ×3 (09:19→16:38)
[2023-03-10] MEDS: LOSARTAN POTASSIUM 25 MG TABLET GT SCH (09:19)
[2023-03-10] MEDS: METOPROLOL TARTRATE 25 MG TABLET GT SCH ×2 (09:20→20:31)
[2023-03-10] MEDS: ENOXAPARIN SODIUM 40 MG/0.4 ML DISP.SYRIN SQ SCH (09:21)
[2023-03-10] MEDS: CADEXOMER IODINE 40 GM TUBE TP SCH (09:22)
[2023-03-10] MEDS: THERAHONEY GEL 1.5 OZ TUBE TP SCH (09:22)
[2023-03-10] MEDS: Z GUARD REMEDY 4 OZ OINT TP SCH (09:22)
[2023-03-10 12:00] VITALS: BP 121/69
[2023-03-10] MEDS ORDERED: methylPREDNISolone SOD SUCC 125 MG/2ML VIAL IV ONE (13:00)
[2023-03-10 16:00] VITALS: BP 127/103
[2023-03-10] MEDS: JEVITY 1.2 CAL 1,000 ML BOTTLE GT PRN (16:38)
--- NOTE | 2023-03-10 19:47 | NUR ---
PHOTOCOPY OPERATOR CLOSING NOTES; PT IN BED AWAKE,NOTED WITH EXCESSIVE MOVEMENT AND MULTIPLE EPISODES OF PULLING OUT CONDOM CATH, WHEN RELEASE HAND FOR CLEANING PT NOTED WITH MULTIPLE EPISODES OF TRYING TO PULL OUT THE TRACH TUBE, REINFORCED WRIST RESTRAINT, MULTIPLE REPOSITION ALL DAY, TOLERATING GTF WELL NO RESIDUAL, MAINTAINED hob ELEVATED.TOLERATED MECHANICAL VENT WELL, O2 SAT 98%, NO PAIN OR DISCOMFORT NOTED,ENDORSED TO FIELD ARTILLERY SENIOR SERGEANT FOR THOR
--- NOTE | 2023-03-10 19:50 | NUR ---
ELECTRIC WELL LOGGING OPERATOR OPENING NOTE RECEIVED PATIENT FROM AM NURSE; PATIENT IN BED, WITH MULTIPLE MOVEMENTS NOTED, TRYING TO PULL OUT LINES; ON MECHANICAL VENTILATOR TOLERATING CURRENT SETTINGS; G TUBE IN PLACE INFUSING WITH JEVITY 1.2 AT 75 ML/HR; WITH IV ACCESS AT BEATRIZ G#22; ON CONDOM CATH BUT PATIENT KEPT ON PULLING IT OUT; SAFETY MEASURES IMPLEMENTED, BED LOCKED IN LOWEST POSITION, SIDE RAILS UP X 4; MAINTAINED HOB ELEVATED; WILL CONTINUE TO MONITOR THROUGHOUT SHIFT
[2023-03-10 20:00] VITALS: BP 153/90
[2023-03-10] MEDS: TRAZODONE 50 MG TABLET GT SCH (22:44)
[2023-03-11] VITALS: BP 120/73
[2023-03-11 04:00] VITALS: BP 139/88
[2023-03-11] MEDS: CEFEPIME 1 GM in IV D5W 50 ML IV SCH ×2 (04:24→12:27)
[2023-03-11] MEDS: JEVITY 1.2 CAL 1,000 ML BOTTLE GT PRN (05:01)
[2023-03-11] MEDS: BLOOD SUGAR DIAGNOSTIC 1 EACH STRIP IN SCH ×2 (05:41→11:51)
[2023-03-11 05:56] LABS: BASOPHILS % (AUTO) 0.3 % (0.0-2.0); HEMATOCRIT 28 % (39-51); LYMPHOCYTES # (AUTO) 1.5 K/uL (0.8-4.8); LYMPHOCYTES % (AUTO) 13.5 % (20.0-44.0); MEAN CORPUSCULAR HGB CONC 32 g/dl (31.0-36.0); MEAN CORPUSCULAR VOLUME 91 fL (80-96); MONOCYTES # (AUTO) 0.8 K/uL (0.1-1.30); MONOCYTES % (AUTO) 7.4 % (2.0-12.0); NEUTROPHILS # (AUTO) 4.3 K/uL (1.8-8.9); NEUTROPHILS % (AUTO) 40.3 % (43.0-81.0); PLATELET COUNT (AUTO) 442 K/uL (150-450); WHITE BLOOD COUNT (AUTO) 10.8 K/uL (4.3-11.0)
[2023-03-11 06:06] LABS: EOSINOPHILS % (AUTO) 38.5 % (0.0-6.0)
[2023-03-11 06:16] LABS: CALCIUM, SERUM 9.4 mg/dL (8.5-10.1); CREATININE 0.6 mg/dL (0.6-1.3); MAGNESIUM 2.2 mg/dL (1.8-2.4); PHOSPHORUS 3.5 mg/dL (2.5-4.9); POTASSIUM 4.2 mmol/L (3.5-5.1)
--- NOTE | 2023-03-11 06:49 | NUR ---
BARREL ROLLER OPERATOR CLOSING NOTE PATIENT IN BED, WITH MULTIPLE MOVEMENTS NOTED, TRYING TO PULL OUT LINES; ON MECHANICAL VENTILATOR TOLERATING CURRENT SETTINGS; WITH G TUBE IN PLACE INFUSING WITH JEVITY 1.2 AT 75 ML/HR, NO RESIDUAL NOTED; WITH IV ACCESS AT BEATRIZ G#22 SALINE LOCK, INTACT AND PATENT; WITH CONDOM CATH IN PLACE BUT PATIENT KEPT ON PULLING IT OUT; WOUND CARE DONE; ADMINISTERED MEDICATIONS PRESCRIBED; PATIENT'S NEEDS ATTENDED; MONITORED PATIENT ACCORDINGLY; SAFETY MEASURES IMPLEMENTED, BED LOCKED IN LOWEST POSITION, SIDE RAILS UP X 4; MAINTAINED HOB ELEVATED; WILL ENDORSE TO AM NURSE FOR THOR.
[2023-03-11 06:58] LABS: EOSINOPHILS % (MANUAL) 41 % (0-4); LYMPHOCYTES % (MANUAL) 10 % (16-48); MONOCYTES % (MANUAL) 3 % (0-11.0); NEUTROPHILS % (MANUAL) 46 (42-76)
--- NOTE | 2023-03-11 07:00 | NUR ---
RN NOTE RECEIVED PATIENT IN BED RESTING ALERT ORIENTED X0 OPEN EYES,ON MECHANICAL VENT SETTING PRESCRIBED,IV ACCESS ON RIGHT UPPER ARM INTACT PATENT,INCONTINENT BOWEL/BLADDER,CONDOM CATH IN PLACE,ON G-TUBE FEEDING JEVITY 1.2 75CC/HR CHECKED PLACEMENT IN PLACE NO RESIDUAL NOTED,SOFT BILATERAL RESTRAIN IN PLACE,WILL CHECK EVERY 15MINS FOR SKIN BREAKDOWN AND CIRCULATION,SAFETY MEASURE IMPLEMENT,BED IN LOW POSITION AND LOCKED,HEAD OF THE BED ELEVATED CONTINUE TO MONITOR.
[2023-03-11 08:00] VITALS: BP 138/83
[2023-03-11] MEDS: PROSOURCE / PROSTAT (PYXIS) 30 ML UDC GT SCH ×2 (08:02→11:51)
[2023-03-11] MEDS: MIDODRINE HCL (5MG) 5 MG TABLET PO SCH ×2 (09:16→12:27)
[2023-03-11] MEDS: DOCUSATE SODIUM LIQ 100 MG/10 ML UDC GT SCH (09:16)
[2023-03-11] MEDS: VALPROIC ACID 250 MG/5 ML UDC GT SCH (09:16)
[2023-03-11] MEDS: LOSARTAN POTASSIUM 25 MG TABLET GT SCH (09:17)
[2023-03-11] MEDS: QUETIAPINE FUMARATE 25 MG TABLET GT SCH (09:17)
[2023-03-11] MEDS: CHLORHEXIDINE GLUCONATE 15 ML UDC MM SCH (09:17)
[2023-03-11] MEDS: METOPROLOL TARTRATE 25 MG TABLET GT SCH (09:18)
[2023-03-11] MEDS: PANTOPRAZOLE 40 MG/PACK PACK GT SCH (09:22)
[2023-03-11] MEDS: Z GUARD REMEDY 4 OZ OINT TP SCH (09:22)
[2023-03-11] MEDS: CADEXOMER IODINE 40 GM TUBE TP SCH (09:22)
[2023-03-11] MEDS: ENOXAPARIN SODIUM 40 MG/0.4 ML DISP.SYRIN SQ SCH (09:22)
[2023-03-11] MEDS: THERAHONEY GEL 1.5 OZ TUBE TP SCH (09:24)
[2023-03-11] MEDS: LORATADINE 10 MG TABLET GT SCH (09:41)
[2023-03-11] MEDS ORDERED: CEFE1FRO IV (09:52)
[2023-03-11] MEDS ORDERED: MIDO5TAB4 PO (09:52)
[2023-03-11 12:00] VITALS: BP 117/81
[2023-03-11 12:27] VITALS: BP 117/81
--- NOTE | 2023-03-11 13:00 | NUR ---
RN NOTE REPORT GIVEN LIBAN CHENEY TO RT SONG CONTINUE TO MONITOR.
--- NOTE | 2023-03-11 14:56 | NUR ---
ACCOUNT SERVICES MANAGER NOTE PATIENT DISCHARGE [facility] IN STABLE CONDITION,ALERT ORIETIEDX0 ON MECHANICAL VENT NO SOB NOT ACUTE DISTRESS NOTED,ALL DUE MEDS GIVEN MD ORDERED,WOUND TREATMENT DONE,TURNED AND REPOSITIONED.G-TUBE IS PATENT,PATIENT LEFT HOSPITAL WITH ACCOMPANIED BY 2 DIESEL ENGINE OPERATOR AND ONE RT,BY [facility] OF [facility]ANS[facility].ALL DISCHARGE PAPERS AND MEDICATION LIST GIVEN THEM WITH PATIENT.
== END 2023-03-11 15:45 | DRG 720 ==
LOC: ER 00:44 → TELE1 04:30
PROVIDERS: ADMIT Nurse Practitioner Acute Care; ATTEND Nurse Practitioner Acute Care
PROC: 5A1945Z Respiratory Ventilation, 24-96 Consecutive Hours (ICD-10-PCS; principal; 2023-03-08)
DX: A41.9 Sepsis, unspecified organism (principal); G93.41 Metabolic encephalopathy; I50.33 Acute on chronic diastolic (congestive) heart failure; L89.323 Pressure ulcer of left buttock, stage 3; L89.313 Pressure ulcer of right buttock, stage 3; E44.0 Moderate protein-calorie malnutrition; E87.20 Acidosis, unspecified; L89.156 Pressure-induced deep tissue damage of sacral region; R53.2 Functional quadriplegia; J96.11 Chronic respiratory failure with hypoxia; J18.9 Pneumonia, unspecified organism; D63.8 Anemia in other chronic diseases classified elsewhere; I11.0 Hypertensive heart disease with heart failure; N39.0 Urinary tract infection, site not specified; I69.398 Other sequelae of cerebral infarction; Z99.11 Dependence on respirator [ventilator] status; Z93.1 Gastrostomy status; Z93.0 Tracheostomy status; J44.9 Chronic obstructive pulmonary disease, unspecified; Z79.51 Long term (current) use of inhaled steroids; Z79.899 Other long term (current) drug therapy; F03.90 Unspecified dementia, unspecified severity, without behavioral disturbance, psychotic disturbance, mood disturbance, and anxiety; K21.9 Gastro-esophageal reflux disease without esophagitis; M62.462 Contracture of muscle, left lower leg; M62.461 Contracture of muscle, right lower leg; E88.09 Other disorders of plasma-protein metabolism, not elsewhere classified; E86.0 Dehydration; N28.9 Disorder of kidney and ureter, unspecified; R13.10 Dysphagia, unspecified; Z87.09 Personal history of other diseases of the respiratory system
CPT/HCPCS: 31720; 36415; 71045-TC; 80048-TC; 80053-TC; 80076-TC; 81001; 82962-TC; 83605-TC; 83735-TC; 83880; 84100-TC; 84484-TC; 85025-TC; 85730-TC; 87040-TC; 87081-TC; 94002-TC; 94003-TC; 94760-TC; 94799-TC; A4223; A4349; A4623; A6253; A6403; C9803; G0378; J0692; J0696; J1650; J7040; J7050; J7060